=== PATIENT | female | born 1940 | race Caucasian/White ===

== ENCOUNTER → 2017-08-10 11:06 | Outpatient (CLI) | payer MEDICARE, MEDICAID, SELFPAY ==
--- NOTE | 2017-08-10 11:09 | DI.RAD.S_ITS ---
PROCEDURE: XR CERVICAL SPINE 2V OR 3V INDICATIONS: Screening TECHNIQUE: 3 view(s) of the cervical spine were acquired. COMPARISON: None. FINDINGS: Bones: No fractures or dislocations to the C7 level. The lateral masses of C1 appear intact on the odontoid view. No suspicious bony lesions. Disc narrowing and mild spondylosis C5-6. Soft tissues: No prevertebral soft tissue swelling. Dense calcifications over the carotid bifurcations bilaterally. IMPRESSION: 1. No fracture or malalignment. 2. Disc degeneration C5-6. 3. Carotid atherosclerosis Dictated by: Luciano Castellanos M.D. on 08/10/2017 at 12:47 Approved by: Luciano Castellanos M.D. on 08/10/2017 at 12:49
--- NOTE | 2017-08-10 11:09 | DI.RAD.S_ITS ---
PROCEDURE: XR LUMBAR SPINE 2-3V INDICATIONS: Screening TECHNIQUE: 3 views of the lumbar spine were acquired. COMPARISON: [facility], , -SPINE 2-3 VIEWS, 09/05/2010, 10:22. FINDINGS: Bones: 5 [id number] vertebrae are present. There is mild levoconvex curvature with slight retrolisthesis at L1-2 and L2-3. No vertebral body compression fractures. No suspicious bony lesions. Soft tissues: Overlying bowel gas pattern is normal. Extensive aorto iliac calcifications with right iliofemoral stent. IMPRESSION: 1. No acute osseous abnormality. 2. Atherosclerosis Dictated by: Luciano Castellanos M.D. on 08/10/2017 at 12:49 Approved by: Luciano Castellanos M.D. on 08/10/2017 at 12:52
== END ==
PROVIDERS: PCP Physician Assistant; Visit Provider Physician Assistant
DX: M50.30 Other cervical disc degeneration, unspecified cervical region (principal); M54.2 Cervicalgia; M54.5 Low back pain; E03.9 Hypothyroidism, unspecified; I65.29 Occlusion and stenosis of unspecified carotid artery
CPT/HCPCS: 36415; 72040; 72100; 84443

== ENCOUNTER → 2017-08-24 08:46 | Outpatient (CLI) | payer MEDICARE, MEDICAID, SELFPAY ==
--- NOTE | 2017-08-24 | DI.MRI.S_ITS ---
PROCEDURE: MR ABDOMEN WO/W CON INDICATIONS: H/O HEPATO CELLULAR CANCER. Prior reported a solitary 2 cm diameter hepatoma right posterior hepatic segment, treated with RF ablation 06/20/16. TECHNIQUE: Coronal HASTE, axial 2D FLASH in- and [id number]; axial breath-hold T2 FSE. Dynamic axial VIBE during the administration of contrast; post-contrast coronal VIBE or 2D FLASH with fat saturation from the hepatic dome to the iliac crests. Optional diffusion weighted imaging and ADC may be performed. COMPARISON: [facility], US, ABDOMEN COMPLETE, 11/03/2016, 10:40. [facility], CT, THORAX WITH CONTRAST, 11/24/2016, 15:23. Merged With [facility], US, US GUIDE FOR RFA, 06/20/2016, 10:18. Merged With [facility], CT, CT ABD W CON, 06/20/2016, 14:25. Merged With [facility], XA, RF ABLATION OF PARENCHYMA, 06/20/2016, 8:00. [facility], US, ABDOMEN LIMITED, 04/14/2016, 10:31. [facility], CT, ABDOMEN/PELVIS WITH CONTRAST, 06/18/2015, 13:31. [facility], MR, ABDOMEN W&WO CONTRAST, 03/02/2017, 12:04. [facility], MR, ABDOMEN W&WO CONTRAST, 11/24/2016, 16:02. [facility], MR, ABDOMEN W&WO CONTRAST, 05/12/2016, 10:55. FINDINGS: Image quality: Excellent. Lung bases: No basal pleural effusions. Heart size is normal. Solid organs: Liver is mildly enlarged in size and heterogeneous in enhancement, with a craniocaudad liver length about 20.3 cm, and the splenic length is up to 13.7 cm.. The liver again demonstrates moderate heterogeneity and mild capsular nodular margination, consistent with underlying cirrhosis. The patient has previously undergone a radiofrequency ablation of a reported hepatoma at the right posterior hepatic segment, middle third. This is again seen, has not enlarged in the post-procedural size, and demonstrates a persistent capsular rim of enhancement on delayed postcontrast imaging. It enhances early in the arterial phase of contrast enhancement. Note is made of a subtle focus of elevated diffusion signal in this area, and a more evident diffusion signal focus is present at the left lateral hepatic segment, which shows a focal rounded 1.3 cm lesion on vibe precontrast pulse sequence which shows a small degree of contrast enhancement on the early phase of post contrast imaging. Gallbladder is stable in size over time. Biliary system is non dilated. Pancreas is normal in morphology. Spleen is normal in size and enhancement. No adrenal nodules. Both kidneys demonstrate normal size and enhancement, without hydronephrosis. Nodes and vessels: No retroperitoneal or mesenteric adenopathy by size criteria. Aorta and inferior vena cava are stable in size, with the distal abdominal aortic aneurysm measuring up to 4.3 cm AP by 4.7 cm transverse as was previously the case 03/02/17. Bowel and peritoneum: Unenhanced bowel loops are normal in caliber. No free fluid. Bones and soft tissues: No ventral hernias. Bone marrow is normal in overall signal. IMPRESSION: 1. The patient has undergone radiofrequency ablation of a small hepatoma located within the right posterior hepatic segment at the middle third of the liver axial level. This shows persistent peripheral rim enhancement (capsular enhancement) consistent with residual viable but quiecent neoplasm. 2. At the same axial level more anteriorly a second focal liver lesion is present within the left lateral hepatic segment, leftward from the left portal vein, mid liver level. This shows a small degree of peripheral discontinuous contrast enhancement which is mildly heterogeneous. It has elevated T2 and diffusion signal, and warrants continued followup attention on subsequent imaging to assist in differentiating between early hepatoma versus small hemangioma. A focal lesion in this area has not been identified by ultrasound and the imaging characteristics of this structure on prior CT and MR scanning does not allow definitive diagnosis of hemangioma. 3. Fusiform distal abdominal aortic aneurysm is again seen, and measures up to 4.3 x 4.7 cm in maximal axial dimension. Again noted is hepatosplenomegaly with mild nodular capsular margination consistent with cirrhosis. Dictated by: Cirilo Bean M.D. on 08/24/2017 at 14:34 Approved by: Cirilo Bean M.D. on 08/24/2017 at 15:10
[2017-08-24 09:15] LABS: Add Manual Diff / Slide Review NO; Basophils Percent Auto 0.7 % (0-2); Eosinophils Percent Auto 1.3 % (2-4); Hematocrit 41.7 % (36-46); Lymphocytes Percent Auto 19.6 % (25-40); Mean Corpuscular HGB Conc 33.6 % (30-36); Mean Corpuscular Hemoglobin 30.9 PG (26-34); Mean Corpuscular Volume 92.1 fL (80-100); Monocytes Percent Auto 7.3 % (3-14); Neutrophils Absolute Auto 2100 /uL (3000-5900); Neutrophils Percent Auto 71.1 % (50-75); Platelet Count 117 X10^3/uL (150-400); Red Blood Cell Count 4.52 X10^6/uL (4.0-5.2); Red Cell Distribution Width 14.2 % (11.6-14.8)
[2017-08-24 09:31] LABS: Alanine Aminotransferase 44 IU/L (9-52); Alkaline Phosphatase 90 U/L (38-126); Aspartate Aminotransferase 63 IU/L (14-36); BUN Creatinine Ratio 21.1 (6-22); Bilirubin Total 0.8 mg/dL (0.2-1.3); Blood Urea Nitrogen 19 mg/dL (7-17); Calcium 9.5 mg/dL (8.4-10.2); Carbon Dioxide 28 mmol/L (22-32); Chloride 103 mmol/L (98-107); Estimated Glomerular Filt Rate > 60.0 mL/min (>60); Globulin 4.1 g/dL (1.7-4.1); Glucose 96 mg/dL (80-110); HEMOLYSIS < 15 (0-50); Sodium 140 mmol/L (137-145); Total Protein 8.1 g/dL (6.3-8.2)
[2017-08-24 10:20] LABS: Carcinoembryonic Antigen 2.2 ng/mL (0.1-3.0)
== END ==
PROVIDERS: PCP Physician Assistant; Visit Provider Nurse Practitioner Gerontology
DX: C22.0 Liver cell carcinoma (principal)
CPT/HCPCS: 36415; 74183; 80053; 82105; 82378; 85025; A9579

== ENCOUNTER → 2017-09-07 14:04 | Outpatient (CLI) | payer MEDICARE, MEDICAID, SELFPAY ==
--- NOTE | 2017-09-07 14:06 | DI.MG.S_ITS ---
BILATERAL DIGITAL SCREENING MAMMOGRAM 3D/2D WITH CAD: 09/07/2017 CLINICAL: Routine screening. Family history of breast cancer. Baseline by default. No prior exams were available for comparison. The tissue of both breasts is extremely dense, which lowers the sensitivity of mammography. Current study was also evaluated with a Computer Aided Detection (CAD) system. No significant masses, calcifications, or other findings are seen in either breast. IMPRESSION: NEGATIVE There is no mammographic evidence of malignancy. A 1 year screening mammogram is recommended. This exam was interpreted at Station ID: [id number]. NOTE: For mammograms, a report in lay terms will be sent to the patient. Approximately 15% of breast malignancies will not be visualized mammographically. In the management of a palpable breast mass, a negative mammogram must not discourage biopsy of a clinically suspicious lesion. Electronically Signed By: Darius alvarez/zeny:09/08/2017 17:54:00 letter sent: Normal Exam ACR BI-RADS Category 1: Negative [id number]
== END ==
PROVIDERS: PCP Physician Assistant; Visit Provider Physician Assistant
DX: Z12.31 Encounter for screening mammogram for malignant neoplasm of breast (principal); Z80.3 Family history of malignant neoplasm of breast
CPT/HCPCS: 77063; 77067

== ENCOUNTER 2017-11-12 20:39 | Emergency (ER) | payer MEDICARE, MEDICAID, SELFPAY ==
[2017-11-12 20:33] VITALS: BP 124/69; PULSE 67; RESP 18; TEMP 36.8; O2SAT 96; BMI 20.2
--- NOTE | 2017-11-12 20:44 | ED.DIZZY ---
HPI - Dizziness General Chief Complaint: Syncope Stated Complaint: near syncope Time Seen by Provider: 11/12/17 20:44 Source: patient and EMS Mode of arrival: EMS Limitations: no limitations History of Present Illness HPI Narrative: Patient is a 77-year-old female who presents with home lightheadedness. She does have a history of liver carcinoma. She says she was in her kitchen when she got very lightheaded and dizzy she sat down on the ground before she passed out. She did not actually pass out. This has happened to her many times in the past. She feels like she has ringing in her ears. She has no chest pain or heart palpitations. She does drink tea daily she denies any alcohol. The just finished dinner. She has no extremity weakness or difficulty speaking. She does complain of bilateral numbness in her hands which is noted in her last visit 09/17/2017 with her primary. She overall is feeling better after she is getting fluids. EMS noted that initial pressure was 95 and when she was sat up systolic went to the 60s. Related Data Home Medications Medication Instructions Recorded Confirmed ipratropium-albuterol 3 ml INH QIDP PRN #0 11/03/16 09/17/17 clopidogrel 75 mg tablet 75 mg PO DAILY 08/05/17 09/17/17 Disabled Parking Permit 1 dev 09/15/17 09/17/17 Incontinence Supplies 1 ea DIRECTED 09/15/17 09/17/17 Previous Rx's Medication Instructions Recorded albuterol sulfate [Ventolin HFA] 2 puff INH Q4-6 PRN #1 inh 06/30/17 gabapentin 400 mg capsule 400 mg PO TID #90 cap 06/30/17 levothyroxine 75 mcg tablet 75 mcg PO QAM #30 tab 06/30/17 metoprolol tartrate 25 mg tablet 12.5 mg PO BID #30 tab 06/30/17 lorazepam 0.5 mg tablet 0.5 mg PO Q8HP PRN #60 tab 07/27/17 mupirocin 2 % topical ointment 1 applictn TOPICAL TID #22 gram 08/05/17 Allergies Allergy/AdvReac Type Severity Reaction Status Date / Time codeine [CODEINE] AdvReac Mild IT MADE Unverified 09/17/17 09:50 ME SICK TO MY STOMACH Review of Systems Review of Systems All systems reviewed & are unremarkable except as noted in HPI and below Constitutional Denies chills, Denies fever(s), Denies lethargy and Denies weakness Cardiovascular Denies chest pain, Denies irregular heart rhythm, Reports lightheadedness, Denies palpitations, Denies dyspnea, Denies dyspnea on exertion and Denies orthopnea Respiratory Denies cough, Denies dyspnea, Denies dyspnea on exertion and Denies wheezing Gastrointestinal Gastrointestinal: Denies abdominal pain, Denies change in bowel habits, Denies diarrhea, Denies nausea and Denies vomiting Integumentary/Breasts Denies pruritus, Denies erythema, Denies rash and Denies wounds Neurologic Denies weakness Endocrine Denies palpitations Allergic/Immunologic Denies wheezing PFSH Medical History Hepatocellular carcinoma (Chronic) Abdominal aortic aneurysm (AAA) without rupture (Chronic 10/27/16) Chronic obstructive pulmonary disease (Chronic 07/04/10) Essential hypertension (Chronic 07/04/10) Hyperlipidemia (Chronic 07/04/10) Chronic hepatitis C without hepatic coma (Chronic) Cigarette smoker (Chronic) Aortic valve disorder (Chronic 07/04/10) Ascites (Resolved) Pancreatitis (Resolved) Depression (Chronic 07/04/10) Tubular adenoma of colon (Resolved 05/19/16) 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 Brother No problems noted. Brother No problems noted. Father No problems noted. Mother No problems noted. Social History Smoking Status: Current every day smoker second hand exposure: Yes alcohol intake: former substance use type: marijuana (I smoke 3 times a day.) Exam Initial Vital Signs Initial Vital Signs: Vital Signs Temperature 98.3 F 11/12/17 20:33 Pulse Rate 67 11/12/17 20:33 Respiratory Rate 18 11/12/17 20:33 Blood Pressure 124/69 11/12/17 20:33 Pulse Oximetry 96 11/12/17 20:33 GENERAL: Alert female appears older than stated age alert oriented x3 HEENT: Head atraumatic,EOMI, pupils reactive, face symmetric, CARDIOVASCULAR: Regular rate and rhythm without murmurs, rubs or gallops. RESPIRATORY: Breath sounds equal bilaterally, no wheezes rales or rhonchi. ABDOMEN: Soft, nontender. Normoactive bowel sounds all 4 quadrants. No guarding or rebound. EXTREMITIES: Normal range of motion, no clubbing or edema. Neurovascularly intact NEUROLOGICAL: Alert and oriented x4.Normal gait and speech. Cranial nerves II through XII grossly intact. Good wnazkd-vb-lase, good [id number]-rlrt, strength equal bilaterally, no dysarthria or aphasia, sensation in tact to soft touch bilaterally, no visual changes, no facial droop SKIN: Warm, dry, no laceration, no petechiae, no rashes or lesions. Course Orders Ordered: ED Orders 11/12/17 20:30 Complete Blood Count AUTO DIFF Stat Comprehensive Metabolic Panel Stat Prothrombin Time INR Stat Troponin & CK Cardiac Panel Stat 11/12/17 20:48 EKG-12 Lead Stat 11/12/17 20:51 CT head/brain wo con Stat Vital Signs - 8 hr 11/12/17 20:33 11/12/17 22:23 11/12/17 22:24 Temperature 98.3 F Pulse Rate 67 70 72 Respiratory Rate 18 18 16 Blood Pressure 124/69 145/84 H Blood Pressure [Left Arm] 145/84 H Pulse Oximetry 96 95 100 MDM - Dizziness Medical Records Attestation: I reviewed the patient's medical records. Lab Data Attestation: I reviewed the patient's lab results. Result diagrams: 11/12/17 20:30 11/12/17 20:30 Lab Results 11/12/17 11/12/17 11/12/17 Range/Units 20:30 20:30 20:30 WBC 4.1 L (4.5-11.0) X10^3/uL RBC 4.31 (4.0-5.2) X10^6/uL Hgb 13.4 (12.0-16.0) g/dL Hct 39.3 (36-46) % MCV 91.2 (80-100) fL MCH 31.1 (26-34) PG MCHC 34.1 (30-36) % RDW 15.2 H (11.6-14.8) % Plt Count 117 L (150-400) X10^3/uL Neut % (Auto) 57.1 (50-75) % Lymph % (Auto) 33.5 (25-40) % Trinity % (Auto) 7.2 (3-14) % Eos % (Auto) 0.8 L (2-4) % Baso % (Auto) 1.4 (0-2) % Neut # (Auto) 2300 L (7283-6860) /uL PT 14.2 H (10.1-12.7) SECONDS INR 1.3 (0.9-1.3) Sodium 141 (137-145) mmol/L Potassium 4.0 (3.4-5.1) mmol/L Chloride 101 (98-107) mmol/L Carbon Dioxide 32 (22-32) mmol/L BUN 17 (7-17) mg/dL Creatinine 0.80 (0.52-1.04) mg/dL Estimated GFR > 60.0 (>60) mL/min BUN/Creatinine Ratio 21.3 (6-22) Glucose 111 H (80-110) mg/dL Calcium 9.1 (8.4-10.2) mg/dL Total Bilirubin 1.0 (0.2-1.3) mg/dL AST 153 H (14-36) IU/L ALT 98 H (9-52) IU/L Alkaline Phosphatase 99 (38-126) U/L Total Creatine Kinase 25 L (30-135) U/L Troponin I < 0.012 (0.01-0.034) ng/mL Total Protein 7.2 (6.3-8.2) g/dL Albumin 3.3 L (3.5-5.0) g/dL Globulin 3.9 (1.7-4.1) g/dL Albumin/Globulin Ratio 0.8 L (1.0-2.8) Imaging Data CT scan - head: Radiologist's impression: PROCEDURE: CT HEAD/BRAIN WO CON INDICATIONS: near syncope hx of lung and liver cancer TECHNIQUE: Noncontrast 4.5 mm thick angled axial sections acquired from the foramen magnum to the vertex, with coronal and sagittal reformats. For radiation dose reduction, the following was used: automated exposure control, adjustment of mA and/or kV according to patient size. COMPARISON: [facility], , STROKE PROTOCOL, 04/11/2013, 17:03. FINDINGS: Image quality: Excellent. CSF spaces: Basal cisterns are patent. No extra-axial fluid collections. The ventricles are symmetric in size and shape. Brain: No intracranial bleeds or masses. There is cerebral volume loss for age, with resultant ventricular and sulcal prominence. There are periventricular and deep white matter chronic small vessel ischemic changes. There is intracranial internal carotid artery atherosclerosis. Skull and face: Calvarium and visualized facial bones appear intact, without suspicious lesions. Sinuses: Visualized sinuses and mastoids are clear. IMPRESSION: No acute intracranial process is seen. No masses or mass effect can be seen. Note is made of age-appropriate brain parenchymal volume loss and chronic small vessel ischemic changes. Dictated by: Eliu Isaac M.D. on 11/12/2017 at 21:28 ECG Data Attestation: I personally reviewed and interpreted this ECG as follows: Prior ECG tracings: available for review Interpretation: Normal sinus rhythm rate [address] changes T-wave inversion noted in V2 this is similar to previous EKG in 2016 MDM Narrative Medical decision making narrative: Abdominal MRI from 08/24/2017 does show a stable all abdominal aortic aneurysm measuring 4.3 x 4.7 cm, I do not suspect that this is her problem today. She has no abdominal pain. She is ambulatory in the ED after Litrer of fluid she overall is feeling better. Blood work CT an EKG within normal limits. Discharge Plan Departure Patient Disposition: Home Clinical Impression: Near syncope Discharge Date/Time: 11/12/17 22:25 Interventions: ED Discharge Assessment Last Done: 11/12/17 22:24 Instructions: DI for Syncope in Adults (Fainting) Activity Restrictions/Additional Instructions: *You have been diagnosed with lightheadedness *What to do: Blood work and CT scan are within normal limits. Likely due from dehydration. Tea does have caffeine and can cause dehydration *Continue to take medications as directed *Follow up with your primary care provider in 2-3 days *Return to ER if you should have worsening or recurrent episodes, chest pain heart palpitations, dizziness, vomiting, weak or any new, worsening or concerning symptoms Prescriptions: No Action clopidogrel 75 mg tablet 75 mg PO DAILY RF: 0 mupirocin 2 % ointment 1 applictn Topical TID Qty: 22 RF: 1 ipratropium-albuterol 3 ML solution for nebulization 3 ml INH QIDP PRN (Reason: Allergic Symptoms) Qty: 0 RF: 0 levothyroxine [Synthroid] 75 mcg tablet 75 mcg PO QAM Qty: 30 RF: 3 metoprolol tartrate 25 mg tablet 12.5 mg PO BID Qty: 30 RF: 3 gabapentin [Neurontin] 400 mg capsule 400 mg PO TID Qty: 90 RF: 3 albuterol sulfate [Ventolin HFA] 90 mcg/actuation HFA aerosol inhaler 2 puff INH Q4-6 PRN Qty: 1 RF: 3 lorazepam 0.5 mg tablet 0.5 mg PO Q8HP PRN (Reason: anxiety) Qty: 60 RF: 3 Disabled Parking Permit 1 dev RF: 0 Incontinence Supplies 1 ea DIRECTED RF: 0 Referrals: Nidia Sánchez PA-C [Primary Care Provider] -
--- NOTE | 2017-11-12 20:51 | DI.CT.S_ITS ---
PROCEDURE: CT HEAD/BRAIN WO CON INDICATIONS: near syncope hx of lung and liver cancer TECHNIQUE: Noncontrast 4.5 mm thick angled axial sections acquired from the foramen magnum to the vertex, with coronal and sagittal reformats. For radiation dose reduction, the following was used: automated exposure control, adjustment of mA and/or kV according to patient size. COMPARISON: [facility], , STROKE PROTOCOL, 04/11/2013, 17:03. FINDINGS: Image quality: Excellent. CSF spaces: Basal cisterns are patent. No extra-axial fluid collections. The ventricles are symmetric in size and shape. Brain: No intracranial bleeds or masses. There is cerebral volume loss for age, with resultant ventricular and sulcal prominence. There are periventricular and deep white matter chronic small vessel ischemic changes. There is intracranial internal carotid artery atherosclerosis. Skull and face: Calvarium and visualized facial bones appear intact, without suspicious lesions. Sinuses: Visualized sinuses and mastoids are clear. IMPRESSION: No acute intracranial process is seen. No masses or mass effect can be seen. Note is made of age-appropriate brain parenchymal volume loss and chronic small vessel ischemic changes. Dictated by: Eliu Isaac M.D. on 11/12/2017 at 21:28 Approved by: Eliu Isaac M.D. on 11/12/2017 at 21:30
[2017-11-12 21:00] LABS: Add Manual Diff / Slide Review NO; Basophils Percent Auto 1.4 % (0-2); Eosinophils Percent Auto 0.8 % (2-4); Hematocrit 39.3 % (36-46); Hemoglobin 13.4 g/dL (12.0-16.0); Lymphocytes Percent Auto 33.5 % (25-40); Mean Corpuscular HGB Conc 34.1 % (30-36); Mean Corpuscular Hemoglobin 31.1 PG (26-34); Mean Corpuscular Volume 91.2 fL (80-100); Monocytes Percent Auto 7.2 % (3-14); Neutrophils Absolute Auto 2300 /uL (3000-5900); Neutrophils Percent Auto 57.1 % (50-75); Platelet Count 117 X10^3/uL (150-400); Red Blood Cell Count 4.31 X10^6/uL (4.0-5.2); Red Cell Distribution Width 15.2 % (11.6-14.8); White Blood Cell Count 4.1 X10^3/uL (4.5-11.0)
[2017-11-12 21:01] LABS: INR 1.3 (0.9-1.3); Prothrombin Time 14.2 SECONDS (10.1-12.7)
[2017-11-12 21:04] LABS: Alanine Aminotransferase 98 IU/L (9-52); Albumin 3.3 g/dL (3.5-5.0); Albumin Globulin Ratio 0.8 (1.0-2.8); Alkaline Phosphatase 99 U/L (38-126); Aspartate Aminotransferase 153 IU/L (14-36); BUN Creatinine Ratio 21.3 (6-22); Blood Urea Nitrogen 17 mg/dL (7-17); Calcium 9.1 mg/dL (8.4-10.2); Carbon Dioxide 32 mmol/L (22-32); Chloride 101 mmol/L (98-107); Creatine Kinase 25 U/L (30-135); Estimated Glomerular Filt Rate > 60.0 mL/min (>60); Globulin 3.9 g/dL (1.7-4.1); Glucose 111 mg/dL (80-110); HEMOLYSIS 33 (0-50); Sodium 141 mmol/L (137-145); Total Protein 7.2 g/dL (6.3-8.2)
[2017-11-12 21:17] LABS: Troponin I < 0.012 ng/mL (0.01-0.034)
[2017-11-12 22:23] VITALS: BP 145/84; PULSE 70; RESP 18; O2SAT 95
[2017-11-12 22:24] VITALS: BP 145/84; PULSE 72; RESP 16; O2SAT 100
== END 2017-11-12 22:25 | disposition home or self-care (01) ==
PROVIDERS: Emergency Provider Emergency Medicine; Family Provider Physician Assistant; PCP Physician Assistant
DX: R55 Syncope and collapse (principal)
CPT/HCPCS: 70450; 80053; 82550; 82553; 84484; 85025; 85610; 93005; 99282; 99285

== ENCOUNTER → 2017-11-23 10:17 | Outpatient (CLI) | payer MEDICARE, MEDICAID, SELFPAY ==
[2017-11-23 10:46] LABS: Add Manual Diff / Slide Review NO; Eosinophils Percent Auto 0.8 % (2-4); Hematocrit 42.1 % (36-46); Hemoglobin 14.4 g/dL (12.0-16.0); Lymphocytes Percent Auto 18.5 % (25-40); Mean Corpuscular HGB Conc 34.3 % (30-36); Mean Corpuscular Hemoglobin 30.9 PG (26-34); Mean Corpuscular Volume 90.1 fL (80-100); Monocytes Percent Auto 7.4 % (3-14); Neutrophils Absolute Auto 2900 /uL (3000-5900); Neutrophils Percent Auto 72.3 % (50-75); Platelet Count 111 X10^3/uL (150-400); Red Blood Cell Count 4.67 X10^6/uL (4.0-5.2); Red Cell Distribution Width 15.4 % (11.6-14.8)
[2017-11-23 11:05] LABS: Alanine Aminotransferase 88 IU/L (9-52); Albumin 3.9 g/dL (3.5-5.0); Albumin Globulin Ratio 0.9 (1.0-2.8); Alkaline Phosphatase 115 U/L (38-126); Aspartate Aminotransferase 156 IU/L (14-36); BUN Creatinine Ratio 27.5 (6-22); Bilirubin Total 1.5 mg/dL (0.2-1.3); Blood Urea Nitrogen 22 mg/dL (7-17); Calcium 9.5 mg/dL (8.4-10.2); Carbon Dioxide 29 mmol/L (22-32); Chloride 102 mmol/L (98-107); Estimated Glomerular Filt Rate > 60.0 mL/min (>60); Globulin 4.3 g/dL (1.7-4.1); Glucose 99 mg/dL (80-110); HEMOLYSIS 16 (0-50); Sodium 140 mmol/L (137-145); Total Protein 8.2 g/dL (6.3-8.2)
[2017-11-25 15:40] LABS: Cancer (Carbohydrate) Ag 19-9 49 U/mL (< 34)
== END ==
PROVIDERS: Internal Medicine Hematology & Oncology; Family Provider Physician Assistant; PCP Physician Assistant; Visit Provider Nurse Practitioner Gerontology
DX: C22.0 Liver cell carcinoma (principal)
CPT/HCPCS: 36415; 80053; 82105; 85025; 86301

== ENCOUNTER → 2017-12-09 08:03 | Outpatient (CLI) | payer MEDICARE, MEDICAID, SELFPAY ==
--- NOTE | 2017-12-09 08:15 | DI.MRI.S_ITS ---
PROCEDURE: MR ABDOMEN WO/W CON INDICATIONS: LIVER CANCER TECHNIQUE: Coronal HASTE, axial 2D FLASH in- and [id number]; axial breath-hold T2 FSE. Dynamic axial VIBE during the administration of contrast; post-contrast coronal VIBE or 2D FLASH with fat saturation from the hepatic dome to the iliac crests. Optional diffusion weighted imaging and ADC may be performed. COMPARISON: [facility], MR, ABDOMEN W&WO CONTRAST, 03/02/2017, 12:04. [facility], CT, ABDOMEN W AND WO PELVIS W, 03/23/2009, 10:12. [facility], CT, CT ABD W CON, 06/20/2016, 14:25. [facility], MR, MR ABDOMEN WO/W CON, 08/24/2017, 9:48. FINDINGS: Image quality: Excellent. Lung bases: No basal pleural effusions. Heart size is normal. Solid organs: The liver demonstrates overall homogeneous enhancement. A bilobed lesion is redemonstrated with hepatic segment VII. The superior aspect of this lesion is hypointense on all sequences. The inferior aspect of this lesion demonstrates hypervascularity on the arterial phase study and. The extent of washout is less conspicuous than on the study dated 08/24/17. Overall this lesion measures 2.1 cm in the CC dimension and 1.3 x 1.3 cm in the axial plane. This lesion is similar in size the study dated 08/24/17. A small focus of arterial phase enhancement is present along the posterior inferior right capsule (series 9, image 67). This was likely present on the study dated 03/02/17 and the study dated 08/24/17; however is more conspicuous on the current study. There is no definite washout associated with this lesion. Additionally, there are multiple regions of washout on the delayed phase study, none of which correspond with hypervascular foci suggesting the presence of multiple regenerating nodules in the setting of cirrhotic transformation. The questionable focal region of enhancement within hepatic segment AJAY described on the study dated 08/24/17 again demonstrates mild hypervascularity (series 9, image 30-32) trace increased restricted diffusion (series 13, image 7-9), and persistent enhancement on the delayed phase study (series 12, images 26-30). No findings to suggest late phase washout on the current study. Gallbladder is unremarkable. Biliary system is non dilated. Pancreas is normal in morphology. The spleen is normal in enhancement and measures 13.6 cm in length. No adrenal nodules. Both kidneys demonstrate normal size and enhancement, without hydronephrosis. Nodes and vessels: No retroperitoneal or mesenteric adenopathy by size criteria. Fusiform dilatation of the abdominal aorta to 4.0 cm in axial diameter is redemonstrated. Bowel and peritoneum: Unenhanced bowel loops are normal in caliber. No free fluid. Bones and soft tissues: No ventral hernias. Bone marrow is normal in overall signal. IMPRESSION: 1. Stable appearance of a bilobed lesion within hepatic segment VII consistent with hepatocellular carcinoma previously treated by radiofrequency ablation. Of note, there is persistent enhancement on the arterial phase study in washout on the delayed phase study suggesting the presence of residual disease. 2. No new foci to suggest new hepatoma. 3. Splenomegaly, as before. 4. Stable fusiform aneurysm of the abdominal aorta. Dictated by: Karen Emery M.D. on 12/09/2017 at 10:27 Approved by: Karen Emery M.D. on 12/09/2017 at 11:19
--- NOTE | 2017-12-09 08:15 | DI.US.S_ITS ---
PROCEDURE: US ABDOMEN LIMITED INDICATIONS: LIVER CANCER TECHNIQUE: Real-time focused scanning was performed of the abdomen, with image documentation. COMPARISON: [facility], MR, MR ABDOMEN WO/W CON, 08/24/2017, 9:48. [facility], MR, MR ABDOMEN WO/W CON, 12/09/2017, 8:57. [facility], US, ABDOMEN LIMITED, 04/14/2016, 10:31. FINDINGS: The liver is enlarged with coarsened echotexture. In the anterior right lobe, there is a 14 x 11 x 11 mm focus of hyperechogenicity previously measuring 10 x 12 x 12 mm. Within the posterior lobe there is an 8 x 8 x 7 mm focus heteroechogenicity, appearing new compared to prior ultrasound exam. However, this may have been present on previous abdomen MRI of 08/24/17 although poorly visualized. Previously identified enhancing mass corresponding to previously known hepatoma is not visualized. IMPRESSION: 1. Hyperechoic foci as above suspicious for hemangiomas. Previous lesion appearing to be related to hepatoma is not visualized. Dictated by: Marleni Weeks M.D. on 12/09/2017 at 11:05 Approved by: Marleni Weeks M.D. on 12/09/2017 at 11:11
== END ==
PROVIDERS: PCP Physician Assistant; Visit Provider Nurse Practitioner Gerontology
DX: C22.9 Malignant neoplasm of liver, not specified as primary or secondary (principal); B18.2 Chronic viral hepatitis C; C22.0 Liver cell carcinoma
CPT/HCPCS: 74183; 76705

== ENCOUNTER → 2018-02-01 12:04 | Outpatient (CLI) | payer MEDICARE, MEDICAID, SELFPAY ==
--- NOTE | 2018-02-01 12:08 | DI.MRI.S_ITS ---
PROCEDURE: MR CERVICAL SPINE WO CON INDICATIONS: Numbness bilateral hands TECHNIQUE: Noncontrast sagittal T1 spin echo and T2 fast spin echo, sagittal STIR, foraminal oblique sagittal T2 fast spin echo, and axial gradient echo or T2 fast spin echo through the cervical spine. COMPARISON: None. FINDINGS: Image quality: Limited by patient motion artifact. Alignment and Curvature: There is normal bony alignment. Bone Marrow: Marrow demonstrates normal overall signal. Spinal Cord: Visualized spinal cord has normal size. No definite abnormal signal identified within the cervical spinal cord are within limitations related to patient motion artifact. No cerebellar tonsillar herniation. Paraspinous Soft Tissues: No paravertebral masses. Prevertebral soft tissues are normal in thickness. C2-C3: Loss of disc signal. No central stenosis. No neural foraminal narrowing. No neural impingement. C3-C4: Loss of disc signal. Minimal, diffuse disc bulge. No central stenosis. No neural foraminal narrowing. No neural impingement. C4-C5: Loss of disc signal. Mild, diffuse disc bulge. Mild left facet hypertrophy. No central stenosis. No neural foraminal narrowing. No neural impingement. C5-C6: Loss of disc signal and height. Mild, diffuse disc bulge. Mild bilateral facet hypertrophy. Mild right uncovertebral joint hypertrophy. Mild narrowing of the central canal. Severe right and moderate left neural foraminal narrowing with flattening deformity exiting right C6 nerve root. C6-C7: Loss of disc signal. Mild, diffuse disc bulge. Mild bilateral facet hypertrophy. Mild narrowing of the central canal. Mild left uncovertebral joint hypertrophy. Mild right and [id number] left neural foraminal narrowing slight flattening deformity exiting left C7 nerve root. C7-T1: Normal appearance. IMPRESSION: 1. Multilevel degenerative disc disease. 2. Multilevel facet arthropathy and uncovertebral joint hypertrophy. 3. Mild C5-C6 and C6-C7 central canal narrowing. 4. Severe right and moderate left C5-C6 neural foraminal narrowing. Mild right and moderate to severe left C6-C7 neural foraminal narrowing. 5. Slight flattening deformity exiting right C6 nerve root and the exiting left C7 nerve root secondary to neural foraminal narrowing. Please correlate with clinical data. 6. No definite abnormal signal identified in the cervical spinal cord, however abnormal spinal cord signal is difficult to exclude secondary to artifact related to patient motion. Dictated by: Sonia Lucas MD, PhD on 02/01/2018 at 17:31 Approved by: Sonia Lucas MD, PhD on 02/01/2018 at 17:38
== END ==
PROVIDERS: PCP Physician Assistant; Visit Provider Physician Assistant
DX: R20.0 Anesthesia of skin (principal); M50.321 Other cervical disc degeneration at C4-C5 level; M47.812 Spondylosis without myelopathy or radiculopathy, cervical region; M48.02 Spinal stenosis, cervical region; M62.81 Muscle weakness (generalized); R29.898 Other symptoms and signs involving the musculoskeletal system; R20.2 Paresthesia of skin
CPT/HCPCS: 72141

== ENCOUNTER → 2018-03-08 11:11 | Outpatient (CLI) | payer MEDICARE, MEDICAID, SELFPAY ==
--- NOTE | 2018-03-08 12:03 | DI.CT.S_ITS ---
PROCEDURE: CT CHEST W CON INDICATIONS: surveillance TECHNIQUE: After the administration of intravenous contrast, 5 mm thick sections acquired from the pulmonary apices to the posterior costophrenic angles. 7 mm thick coronal and sagittal MIP reformats were acquired. For radiation dose reduction, the following was used: automated exposure control, adjustment of mA and/or kV according to patient size. COMPARISON: [facility], CT, CHEST/ABD/PEL WITH CONTRAST, 03/24/2016, 14:12. [facility], CT, PE STUDY (CTA CHEST), 11/07/2010, 10:26. [facility], CT, THORAX WITH CONTRAST, 11/24/2016, 15:23. [facility], CT, CT SOFT TISSUE NECK W CON, 03/08/2018, 11:40. [facility], MR, MR ABDOMEN WO/W CON, 12/09/2017, 8:57. [facility], US, US ABDOMEN LIMITED, 12/09/2017, 8:20. FINDINGS: Image quality: Excellent. Lungs and pleura: No acute air space opacities. Emphysematous changes are present bilaterally, and an area of posterior alveolar scarring at the inferior margin of the right upper lobe abutting the posterior pleural surface is stable over time from November 2016. Additionally, lungs and pleural scarring at each apex, right greater than left, is stable over time. More inferiorly at the posterior segment right lower lobe near the diaphragm to adjacent small subtle solid foci of radiodensity are again seen, stable over time, and best visualized on the current examination on series 3 image 50. This also is virtually identical to the appearance present 11/24/16. No pleural effusions or pneumothorax. Central and peripheral airways are patent and normal in caliber. Mediastinum: Heart size is normal. No pericardial effusion. No mediastinal or hilar adenopathy by size criteria. Thoracic aorta and central pulmonary arteries are normal in size. Esophagus is normal in caliber. No hiatal hernia. Bones and chest wall: No suspicious bony lesions. No vertebral body compression fractures. No axillary or supraclavicular adenopathy by size criteria. Thyroid gland appears normal where well visualized. Abdomen: Visualized upper abdominal solid organs appear stable over time with reference to the most recent abdominal imaging from MR scanning 12/09/17. Reportedly a hepatic mass has been treated with radiofrequency ablation in the posterior right hepatic segment, a in an area showing a subtle rim of enhancement, presumably residual capsular enhancement, best seen currently on series 2 image 60. Considering differences in technique this has not appreciably changed in size, measuring up to 1.4 cm.. Upper abdominal bowel loops are normal in caliber. IMPRESSION: 1. Emphysematous change is stable over time through the lung parenchyma bilaterally. Presumed long-standing smoking history. 2. Stable appearance of posterior right upper lobe alveolar scarring and also stable appearance of 2 small adjacent sub-solid posterior right lower lobe lung base nodules from prior CT scanning in November of 2016. 3. This chest CT includes a small portion of the liver parenchyma, including an area of a right posterior hepatic segment mass which was previously treated by radiofrequency ablation. This measures only 1.4 cm in diameter and has not appreciably worsened from comparison prior MR scanning through that area in November of 2017. Dictated by: Cirilo Bean M.D. on 03/08/2018 at 14:15 Approved by: Cirilo Bean M.D. on 03/08/2018 at 14:28
--- NOTE | 2018-03-08 12:03 | DI.CT.S_ITS ---
PROCEDURE: CT SOFT TISSUE NECK W CON INDICATIONS: History of malignant neoplasm of the larynx, primary malignant neoplasm of the left upper lobe of the lung. TECHNIQUE: After the administration of intravenous contrast, 3.0 mm axial sections acquired from the sella to the aortic arch. Additional oblique axial 3.0 mm sections acquired through the pharynx. 3 mm thick coronal and sagittal reformats were generated. For radiation dose reduction, the following was used: automated exposure control. COMPARISON: [facility], CR, XR CERVICAL SPINE 2V OR 3V, 08/10/2017, 11:09. [facility], CT, CT HEAD/BRAIN WO CON, 11/12/2017, 20:57. [facility], MR, MR ABDOMEN WO/W CON, 12/09/2017, 8:57. [facility], CT, CT CHEST W CON, 03/08/2018, 11:40. [facility], CT, SOFT TISSUE NECK W CONTRAST, 12/20/2012, 13:07. FINDINGS: Image quality: Excellent. Lymph nodes: No enlarged lymph nodes seen throughout the neck. Vessels: Visualized vasculature appears patent. Neck spaces: The oropharynx, nasopharynx, and pharynx demonstrate no mucosal lesions. The vocal cords, false vocal cords, pyriform sinuses, epiglottis, vallecula, and tongue base all appear normal. Extramucosal spaces appear unremarkable. Glands: The parotid and submandibular glands appear normal. Thyroid gland appears normal where well visualized. Miscellaneous: Visualized brain and orbits appear normal. Lung apices appear emphysematous with linear scarring involving both the lung apices and the adjacent pleural surfaces, mild in severity and greater on the right than the left. Superficial soft tissues appear normal. Bones: No suspicious bony lesions. Visualized sinuses and mastoids appear unremarkable. IMPRESSION: Apical emphysematous change, with mild lung and pleural scarring greater on the right than the left. No lung mass found, no adenopathy seen, along the mucosal surfaces and at the skull base brain parenchyma no abnormality is seen. Dictated by: Cirilo Bean M.D. on 03/08/2018 at 12:41 Approved by: Cirilo Bean M.D. on 03/08/2018 at 12:49
== END ==
PROVIDERS: PCP Physician Assistant; Visit Provider Nurse Practitioner Gerontology
DX: C22.0 Liver cell carcinoma (principal); C34.12 Malignant neoplasm of upper lobe, left bronchus or lung; Z85.21 Personal history of malignant neoplasm of larynx; R91.8 Other nonspecific abnormal finding of lung field
CPT/HCPCS: 70491; 71260; Q9967

== ENCOUNTER → 2018-04-26 09:54 | Outpatient (CLI) | payer MEDICARE, MEDICAID, SELFPAY ==
--- NOTE | 2018-04-26 10:21 | DI.CT.S_ITS ---
PROCEDURE: CT ABDOMEN WO/W CON INDICATIONS: Hepatocellular carcinoma, rising AFP level TECHNIQUE: 4 phase scanning was performed. Non-contrast 5 mm axial sections acquired from the diaphragm to the iliac crests. Following the administration of intravenous contrast, 5 mm thick arterial-phase, portal venous-phase, and 5-minute delayed phase images were acquired through the liver. 5 mm thick coronal and sagittal reformats were performed. For radiation dose reduction, the following was used: automated exposure control, adjustment of mA and/or kV according to patient size. COMPARISON: [facility], MR, MR ABDOMEN WO/W CON, 12/09/2017, 8:57. [facility], CT, THORAX WITH CONTRAST, 11/24/2016, 15:23. FINDINGS: Image quality: Excellent. Lung bases: Lung bases demonstrate moderate emphysematous changes and mild scarring. Tiny bilobed nodular lesion posteriorly at the right lung base present on prior chest CT. Heart size is normal. Liver: Mild left hepatic lobe hypertrophy and a subtle micronodular margin. Overall, the parenchyma demonstrates mildly and diffusely heterogeneous appearance with multiple small ill-defined areas of low attenuation throughout both the right and left lobes. The liver is elongated with the right lobe extending into the pelvis. The during arterial phase enhancement, there are no suspicious lesions seen. During the hepatic venous phase, there is an ill defined, homogeneously enhancing lesion centrally in the right lobe liver measuring 1.5 cm adjacent to the right posterior portal vein branch. A 1.3 cm partially exophytic lesion arising from the posterior lateral caudal right hepatic lobe is seen. Mild diffuse enhancement within the gallbladder fossa. The portal vein is enlarged measuring 18 mm. Other solid organs: Gallbladder contains numerous tiny, dependently layering stones in the fundus.. Biliary system is non dilated. Pancreas is normal in morphology. Spleen is mildly enlarged measuring 13.5 cm in length and demonstrating mildly heterogeneous parenchymal pattern with scattered low density subcentimeter nodules. No adrenal nodules. Both kidneys demonstrate normal size and enhancement, without hydronephrosis or nephrolithiasis. Nodes and vessels: No retroperitoneal or mesenteric adenopathy by size criteria. Bilobed abdominal aortic aneurysm measures 4.0 cm in the upper portion and 4.1 cm lower portion in AP diameter. There is extensive coarse calcification at the common iliac arterial bifurcation. Bowel and peritoneum: Unenhanced bowel loops are normal in caliber. No free fluid or air. Bones: No suspicious bony lesions. No vertebral body compression fractures. Miscellaneous: No ventral hernias. IMPRESSION: 1. Cirrhotic, heterogeneous liver morphology with with scattered areas of low attenuation not evident on previous MRI. These likely represent regenerative, dysplastic, or siderotic nodules. 2. 1.5 cm hepatic hemangioma. No other suspicious enhancing liver lesions. 3 month followup is recommended for reassessment. 3. Mild splenomegaly, fairly stable. Chronic portal vein dilatation, both indications of developing portal hypertension. 4. Fairly stable, bilobed abdominal aortic aneurysm. 5. Cholelithiasis. Dictated by: Rosa Vu M.D. on 04/26/2018 at 16:34 Approved by: Rosa Vu M.D. on 04/26/2018 at 17:07
[2018-04-26 10:37] LABS: Alanine Aminotransferase 41 IU/L (9-52); Albumin 3.8 g/dL (3.5-5.0); Albumin Globulin Ratio 0.9 (1.0-2.8); Alkaline Phosphatase 103 U/L (38-126); Aspartate Aminotransferase 68 IU/L (14-36); BUN Creatinine Ratio 27.1 (6-22); Bilirubin Total 0.9 mg/dL (0.2-1.3); Blood Urea Nitrogen 19 mg/dL (7-17); Calcium 9.4 mg/dL (8.4-10.2); Carbon Dioxide 28 mmol/L (22-32); Chloride 100 mmol/L (98-107); Estimated Glomerular Filt Rate > 60.0 mL/min (>60); Globulin 4.3 g/dL (1.7-4.1); Glucose 143 mg/dL (80-110); HEMOLYSIS 23 (0-50); Sodium 136 mmol/L (137-145); Total Protein 8.1 g/dL (6.3-8.2)
[2018-04-26 10:40] LABS: Add Manual Diff / Slide Review NO; Basophils Absolute Auto 100 /uL (0-100); Basophils Percent Auto 1.1 % (0-2); Eosinophils Absolute Auto 0 /uL (0-450); Eosinophils Percent Auto 0.6 % (2-4); Hematocrit 38.6 % (36-46); Hemoglobin 12.6 g/dL (12.0-16.0); Lymphocytes Absolute Auto 1000 /uL (1100-4500); Lymphocytes Percent Auto 19.1 % (25-40); Mean Corpuscular HGB Conc 32.6 % (30-36); Mean Corpuscular Hemoglobin 30.3 PG (26-34); Monocytes Absolute Auto 100 /uL (0-900); Monocytes Percent Auto 2.8 % (3-14); Neutrophils Absolute Auto 3900 /uL (1500-7000); Neutrophils Percent Auto 76.4 % (50-75); Red Blood Cell Count 4.15 X10^6/uL (4.0-5.2); Red Cell Distribution Width 15.6 % (11.6-14.8); White Blood Cell Count 5.1 X10^3/uL (4.5-11.0)
[2018-04-26 11:37] LABS: Platelet Count 103 X10^3/uL (150-400)
[2018-04-28 18:41] LABS: Albumin 3.4 g/dL (3.8-4.8); Alpha 1 Globulin 0.2 g/dL (0.2-0.3); Alpha 2 Globulin 0.9 g/dL (0.5-0.9); Beta 1 Globulin 0.5 g/dL (0.4-0.6); Gamma Globulin 1.9 g/dL (0.8-1.7); Protein, Total 7.2 g/dL (6.1-8.1)
== END ==
PROVIDERS: Nurse Practitioner Gerontology; PCP Physician Assistant; Visit Provider Internal Medicine Hematology & Oncology
DX: C22.0 Liver cell carcinoma (principal); C34.12 Malignant neoplasm of upper lobe, left bronchus or lung; D18.09 Hemangioma of other sites; R16.1 Splenomegaly, not elsewhere classified; I71.4 Abdominal aortic aneurysm, without rupture; K80.20 Calculus of gallbladder without cholecystitis without obstruction
CPT/HCPCS: 36415; 74170; 80053; 84155; 84165; 85025; Q9967

== ENCOUNTER → 2018-07-07 16:41 | Outpatient (CLI) | payer MEDICARE, MEDICAID, SELFPAY ==
[2018-07-07 17:49] LABS: Add Manual Diff / Slide Review NO; Basophils Absolute Auto 0 /uL (0-100); Eosinophils Absolute Auto 0 /uL (0-450); Eosinophils Percent Auto 1.1 % (2-4); Hematocrit 41.7 % (36-46); Hemoglobin 13.7 g/dL (12.0-16.0); Lymphocytes Absolute Auto 1000 /uL (1100-4500); Lymphocytes Percent Auto 27.3 % (25-40); Mean Corpuscular HGB Conc 32.7 % (30-36); Mean Corpuscular Hemoglobin 30.2 PG (26-34); Mean Corpuscular Volume 92.4 fL (80-100); Monocytes Absolute Auto 300 /uL (0-900); Monocytes Percent Auto 8.5 % (3-14); Neutrophils Absolute Auto 2400 /uL (1500-7000); Neutrophils Percent Auto 62.1 % (50-75); Platelet Count 135 X10^3/uL (150-400); Red Blood Cell Count 4.52 X10^6/uL (4.0-5.2); Red Cell Distribution Width 13.8 % (11.6-14.8); White Blood Cell Count 3.8 X10^3/uL (4.5-11.0)
[2018-07-07 17:53] LABS: INR 1.2 (0.9-1.3); Prothrombin Time 13.3 SECONDS (10.1-12.7)
[2018-07-07 17:59] LABS: Alanine Aminotransferase 113 IU/L (9-52); Albumin 3.7 g/dL (3.5-5.0); Albumin Globulin Ratio 0.9 (1.0-2.8); Alkaline Phosphatase 99 U/L (38-126); Aspartate Aminotransferase 161 IU/L (14-36); Bilirubin Total 0.7 mg/dL (0.2-1.3); Blood Urea Nitrogen 22 mg/dL (7-17); Calcium 9.3 mg/dL (8.4-10.2); Carbon Dioxide 26 mmol/L (22-32); Chloride 103 mmol/L (98-107); Estimated Glomerular Filt Rate 53.9 mL/min (>60); Globulin 3.9 g/dL (1.7-4.1); Glucose 102 mg/dL (80-110); HEMOLYSIS < 15 (0-50); Potassium 4.1 mmol/L (3.4-5.1); Sodium 138 mmol/L (137-145); Total Protein 7.6 g/dL (6.3-8.2)
[2018-07-10 15:42] LABS: Alpha Fetoprotein 27.1 ng/mL (< 6.1)
== END ==
PROVIDERS: PCP Physician Assistant
DX: C22.0 Liver cell carcinoma (principal); C34.12 Malignant neoplasm of upper lobe, left bronchus or lung
CPT/HCPCS: 80053; 82105; 85025; 85610

== ENCOUNTER → 2018-08-24 13:00 | Outpatient (CLI) | payer MEDICARE, MEDICAID, SELFPAY ==
[2018-08-24 10:20] LABS: Basophils Absolute Auto 0 /uL (0-100); Basophils Percent Auto 0.9 % (0-2); Eosinophils Absolute Auto 0 /uL (0-450); Eosinophils Percent Auto 1.1 % (2-4); Hematocrit 39.1 % (36-46); Hemoglobin 13.4 g/dL (12.0-16.0); Lymphocytes Absolute Auto 900 /uL (1100-4500); Lymphocytes Percent Auto 26.4 % (25-40); Mean Corpuscular HGB Conc 34.3 % (30-36); Mean Corpuscular Hemoglobin 31.8 PG (26-34); Mean Corpuscular Volume 92.6 fL (80-100); Monocytes Absolute Auto 300 /uL (0-900); Monocytes Percent Auto 8.3 % (3-14); Neutrophils Absolute Auto 2200 /uL (1500-7000); Neutrophils Percent Auto 63.3 % (50-75); Red Blood Cell Count 4.23 X10^6/uL (4.0-5.2); Red Cell Distribution Width 15.4 % (11.6-14.8); White Blood Cell Count 3.5 X10^3/uL (4.5-11.0)
[2018-08-24 10:28] LABS: Add Manual Diff / Slide Review SLIDE REVIEW
[2018-08-24 10:33] LABS: Alanine Aminotransferase 89 IU/L (9-52); Albumin 3.6 g/dL (3.5-5.0); Albumin Globulin Ratio 0.9 (1.0-2.8); Alkaline Phosphatase 118 U/L (38-126); Aspartate Aminotransferase 147 IU/L (14-36); BUN Creatinine Ratio 31.1 (6-22); Bilirubin Total 0.9 mg/dL (0.2-1.3); Blood Urea Nitrogen 28 mg/dL (7-17); Calcium 9.6 mg/dL (8.4-10.2); Carbon Dioxide 28 mmol/L (22-32); Chloride 104 mmol/L (98-107); Estimated Glomerular Filt Rate > 60.0 mL/min (>60); Glucose 112 mg/dL (80-110); HEMOLYSIS < 15 (0-50); Potassium 4.4 mmol/L (3.4-5.1); Sodium 139 mmol/L (137-145); Total Protein 7.6 g/dL (6.3-8.2)
[2018-08-24 11:52] LABS: RBC Morphology Normal Morphology
[2018-08-24 11:54] LABS: Platelet Count 137 X10^3/uL (150-400)
== END ==
PROVIDERS: Referring Provider Internal Medicine Hematology & Oncology; Visit Provider Internal Medicine Hematology & Oncology
DX: Z85.21 Personal history of malignant neoplasm of larynx (principal)
CPT/HCPCS: 36415; 80053; 82105; 85025

== ENCOUNTER → 2018-09-27 09:40 | Outpatient (CLI) | payer MEDICARE, MEDICAID, SELFPAY ==
--- NOTE | 2018-09-27 | DI.MRI.S_ITS ---
PROCEDURE: MR ABDOMEN WO/W CON INDICATIONS: LIVER DISEASE TECHNIQUE: Coronal HASTE, axial 2D FLASH in- and [id number]; axial breath-hold T2 FSE. Dynamic axial VIBE during the administration of contrast; post-contrast coronal VIBE or 2D FLASH with fat saturation from the hepatic dome to the iliac crests. Optional diffusion weighted imaging and ADC may be performed. COMPARISON: [facility], US, US ABDOMEN LIMITED, 05/12/2018, 13:46. [facility], CT, CT ABDOMEN WO/W CON, 04/26/2018, 11:18. [facility], MR, ABDOMEN W&WO CONTRAST, 03/02/2017, 12:04. [facility], MR, ABDOMEN W&WO CONTRAST, 11/24/2016, 16:02. [facility], MR, MR ABDOMEN WO/W CON, 12/09/2017, 8:57. [facility], MR, MR ABDOMEN WO/W CON, 08/24/2017, 9:48. FINDINGS: Image quality: Excellent. Lung bases: No basal pleural effusions. Heart size is normal. Solid organs: Liver is enlarged at 20.2 cm craniocaudad in size and heterogeneous in enhancement. The previously identified segment 7 mass lesion that reportedly has been treated with radiofrequency ablation is again noted, with early arterial phase of contrast enhancement at its superior aspect in an area measuring up to 1.0 cm AP and 1.6 cm transverse. This appears overall slightly larger than on the comparison study a from 08/24/17 and 12/09/17. In the same phase of contrast enhancement and same area the mass previously measured 1.4 x 1.4 cm and currently measures 2.2 x 2.3 cm. There also has been interval enlargement in the subcapsular or fusiform area of peripheral mass in the right posterior hepatic segment inferiorly which previously measured up to 5 x 8 mm and in the same area currently measures up to 13 x 21 mm.m this is best seen on series 17 image 59. Both of these lesions show early arterial enhancement and rapid washout. Gallbladder is unremarkable.. Biliary system is non dilated. Pancreas is normal in morphology. Spleen is normal in size and enhancement. No adrenal nodules. Both kidneys demonstrate normal size and enhancement, without hydronephrosis. Nodes and vessels: No retroperitoneal or mesenteric adenopathy by size criteria. Aorta and inferior vena cava are unchanged in size with aneurysmal dilatation of the mid and distal abdominal aorta measuring up to 4.4 x 4.3 cm in maximal axial dimension.. Bowel and peritoneum: Unenhanced bowel loops are normal in caliber. No free fluid. Bones and soft tissues: No ventral hernias. Bone marrow is normal in overall signal. IMPRESSION: 2 hepatic mass lesions are present with imaging characteristics of a presumed hepatoma, with a small but definite interval enlargement of each of these masses. The more superior of which is located at segment 7 and the more inferior of which is located at the subcapsular margin of the inferior right posterior hepatic segment. No definite new lesion is found. Aneurysmal dilatation of the mid to distal abdominal aorta with maximal axial dimension measuring up to 4.4 x 4.3 cm. Dictated by: Cirilo Bean M.D. on 09/27/2018 at 15:25 Approved by: Cirilo Bean M.D. on 09/27/2018 at 16:08
== END ==
PROVIDERS: PCP Physician Assistant; Referring Provider Internal Medicine Hematology & Oncology
DX: K76.9 Liver disease, unspecified (principal); I71.4 Abdominal aortic aneurysm, without rupture
CPT/HCPCS: 74183; A9579

== ENCOUNTER 2018-10-11 09:46 | Emergency (ER) | payer MEDICARE, MEDICAID, SELFPAY ==
[2018-10-11 10:17] VITALS: BP 140/83; PULSE 62; RESP 19; O2SAT 100
[2018-10-11 11:00] VITALS: BP 136/77; PULSE 56; RESP 22; O2SAT 100
--- NOTE | 2018-10-11 11:13 | ED.ABDPAIN ---
HPI - Abdominal Pain General Chief Complaint: Abdominal Pain Stated Complaint: Problems with surgery on 14 Time Seen by Provider: 10/11/18 10:49 Source: patient Mode of arrival: ambulatory Limitations: no limitations History of Present Illness HPI narrative: Patient is a 78-year-old female status post laparoscopic radiofrequency ablation of liver tumor and laparoscopic cholecystectomy on 10/06/2018. Today she presents with abdominal contusion and swelling. She is still having some pain and discomfort. He recently had a UTI before the surgery and was on antibiotics. Daughter noticed that she had more bruising today than she had previously. She is also taking Plavix. She is having bowel movements and passing gas no nausea vomiting or fevers. MD complaint: abdominal pain Location: diffuse Related Data Home Medications Medication Instructions Recorded Confirmed clopidogrel 75 mg tablet 75 mg PO DAILY 08/05/17 10/11/18 [address]ing Permit 1 dev MISCELLANEOUS DIRECTED 09/15/17 10/11/18 Incontinence Supplies 1 ea MISCELLANEOUS DIRECTED 09/15/17 10/11/18 gabapentin [Neurontin] 400 mg PO TID 03/11/18 10/11/18 acetaminophen 650 mg PO Q6H PRN 10/11/18 10/11/18 ibuprofen 200 mg PO Q6H PRN 10/11/18 10/11/18 lorazepam 0.5 mg PO Q6H PRN 10/11/18 10/11/18 sulfamethoxazole-trimethoprim 1 tab PO Q12H 10/11/18 10/11/18 Previous Rx's Medication Instructions Recorded diclofenac 1 % topical gel 2 gram TOP QID #100 gram 01/18/18 albuterol sulfate [Ventolin HFA] 2 puff INH Q4-6 PRN #1 inh 04/12/18 metoprolol tartrate 25 mg tablet 12.5 mg PO BID #30 tab 04/12/18 ipratropium-albuterol 0.5 mg-3 3 ml INHALATION Q6-8H PRN #100 vial 06/18/18 mg(2.5 mg base)/3 mL nebulization soln mupirocin 2 % topical ointment 1 applictn TOP TID PRN #30 gram 08/31/18 levothyroxine 75 mcg tablet 75 mcg PO QAM #30 tab 10/05/18 cephalexin [Keflex] 500 mg PO TID #15 cap 10/11/18 Allergies Allergy/AdvReac Type Severity Reaction Status Date / Time codeine [CODEINE] AdvReac Mild IT MADE Verified 10/11/18 10:04 ME SICK TO MY STOMACH Review of Systems Review of Systems GENERAL: Denies chills, fatigue, malaise, fever, sweats, travel HEENT: Denies sinus pain, ear pain, sore throat, difficulty swallowing, neck pain RESPIRATORY: Denies dyspnea, cough, wheezing, hemoptysis, sputum. CARDIOVASCULAR: Denies chest pain, palpitations, orthopnea, edema GASTROINTESTINAL: see HPI : Denies dysuria, frequency, incontinence, hematuria, urinary retention, flank pain. MUSCULOSKELETAL: Denies weakness, joint pain, or bony pain SKIN: No rash, no erythema, no pruritus NEUROLOGIC: Denies weakness, dizziness, headache, numbness, change in speech, confusion PSYCHIATRIC: No concerning psychosocial issues. 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 Brother No problems noted. Brother No problems noted. Father No problems noted. Mother No problems noted. Social History Smoking Status: Current every day smoker Tobacco: How many years used: 60 quit status: considering quitting (I would like to but I have to pay for Chantix out of pocket) second hand exposure: Yes alcohol intake: former substance use type: marijuana (I smoke 3 times a day.) Family History Brother No problems noted. Brother No problems noted. Brother No problems noted. Father No problems noted. Mother No problems noted. Social History Smoking Status: Current every day smoker Tobacco: How many years used: 60 quit status: considering quitting (I would like to but I have to pay for Chantix out of pocket) second hand exposure: Yes alcohol intake: former substance use type: marijuana (I smoke 3 times a day.) Exam Initial Vital Signs Initial Vital Signs: Vital Signs Pulse Rate 62 10/11/18 10:17 Respiratory Rate 19 10/11/18 10:17 Blood Pressure 140/83 10/11/18 10:17 Pulse Oximetry 100 10/11/18 10:17 GENERAL: Well-appearing, well-nourished and in no acute distress. HEENT: Head atraumatic,EOMI, pupils reactive, face symmetric, moist mucous membranes CARDIOVASCULAR: Regular rate and rhythm without murmurs, rubs or gallops. RESPIRATORY: Breath sounds equal bilaterally, no wheezes rales or rhonchi. ABDOMEN: Soft, incision sites clean and dry contusion noted lower abdomen along with some mild flank contusions as well EXTREMITIES: Normal range of motion, no clubbing or edema. Neurovascularly intact NEUROLOGICAL: Alert and oriented x4.Normal gait and speech. SKIN: Warm, dry, no laceration, no petechiae, no rashes or lesions. Course Orders Ordered: ED Orders 10/11/18 10:05 Urinalysis and Microscopic Stat Urine Culture Stat 10/11/18 11:26 Complete Blood Count AUTO DIFF Stat Comprehensive Metabolic Panel Stat Lipase Stat Partial Thromboplastin Time Stat Prothrombin Time INR Stat 10/11/18 11:50 CT abdomen pelvis w con Stat Vital Signs - 8 hr 10/11/18 11:00 10/11/18 13:14 Pulse Rate 56 L 64 Respiratory Rate 22 18 Blood Pressure [Left Arm] 136/77 130/52 L Pulse Oximetry 100 99 MDM - Abdominal Pain Lab Data Attestation: I reviewed the patient's lab results. Result diagrams: 10/11/18 11:26 10/11/18 11:26 Lab Results 10/11/18 10/11/18 10/11/18 Range/Units 10:05 11:26 11:26 WBC 2.9 L (4.5-11.0) X10^3/uL RBC 3.67 L (4.0-5.2) X10^6/uL Hgb 11.7 L (12.0-16.0) g/dL Hct 34.0 L (36-46) % MCV 92.5 (80-100) fL MCH 31.7 (26-34) PG MCHC 34.3 (30-36) % RDW 14.7 (11.6-14.8) % Plt Count 108 L (150-400) X10^3/uL Neut % (Auto) 77.8 H (50-75) % Lymph % (Auto) 7.8 L (25-40) % [place] % (Auto) 12.6 (3-14) % Eos % (Auto) 1.0 L (2-4) % Baso % (Auto) 0.8 (0-2) % Neut # (Auto) 2200 (3979-1279) /uL Lymph # (Auto) 200 L (2347-8263) /uL [place] # (Auto) 400 (0-900) /uL Eos # (Auto) 0 (0-450) /uL Baso # (Auto) 0 (0-100) /uL PT 17.4 H (10.1-12.7) SECONDS INR 1.5 H (0.9-1.3) APTT 33 (26.4-36.2) SECONDS Sodium (137-145) mmol/L Potassium (3.4-5.1) mmol/L Chloride (98-107) mmol/L Carbon Dioxide (22-32) mmol/L BUN (7-17) mg/dL Creatinine (0.52-1.04) mg/dL Estimated GFR (>60) mL/min BUN/Creatinine Ratio (6-22) Glucose (80-110) mg/dL Calcium (8.4-10.2) mg/dL Total Bilirubin (0.2-1.3) mg/dL AST (14-36) IU/L ALT (9-52) IU/L Alkaline Phosphatase (38-126) U/L Total Protein (6.3-8.2) g/dL Albumin (3.5-5.0) g/dL Globulin (1.7-4.1) g/dL Albumin/Globulin Ratio (1.0-2.8) Lipase (23-300) U/L Urine Color Yellow Urine Appearance Clear Urine pH 5.0 (4.5-8.0) Ur Specific Meally 1.010 (1.000-1.035) Urine Protein Negative (Negative) Urine Glucose (UA) Negative (Negative) g/dL Urine Ketones Negative (NEGATIVE) Urine Occult Blood 1+ H (Negative) Urine Nitrate Negative (Negative) Urine Bilirubin Negative (NEGATIVE) Urine Urobilinogen 2.0 H (0.2) E.U./dL Ur Leukocyte Esterase Trace H (NEGATIVE) Urine RBC 1-5/hpf (0-5/HPF) Urine WBC 30-100/hpf H (0-5/HPF) Ur Squamous Epith Cells 1-5 /hpf (0-5/HPF) Ur Transition Epith Cell 1-5/hpf (0-5/HPF) Calcium Oxalate Crystal Moderate H Urine Bacteria Few (2-10) H (None) Ur Culture Indicated? Specimen cultured 10/11/18 Range/Units 11:26 WBC (4.5-11.0) X10^3/uL RBC (4.0-5.2) X10^6/uL Hgb (12.0-16.0) g/dL Hct (36-46) % MCV (80-100) fL MCH (26-34) PG MCHC (30-36) % RDW (11.6-14.8) % Plt Count (150-400) X10^3/uL Neut % (Auto) (50-75) % Lymph % (Auto) (25-40) % [place] % (Auto) (3-14) % Eos % (Auto) (2-4) % Baso % (Auto) (0-2) % Neut # (Auto) (2937-6715) /uL Lymph # (Auto) (8019-9408) /uL [place] # (Auto) (0-900) /uL Eos # (Auto) (0-450) /uL Baso # (Auto) (0-100) /uL PT (10.1-12.7) SECONDS INR (0.9-1.3) APTT (26.4-36.2) SECONDS Sodium 129 L (137-145) mmol/L Potassium 4.4 (3.4-5.1) mmol/L Chloride 97 L (98-107) mmol/L Carbon Dioxide 24 (22-32) mmol/L BUN 37 H (7-17) mg/dL Creatinine 1.80 H (0.52-1.04) mg/dL Estimated GFR 27.4 L (>60) mL/min BUN/Creatinine Ratio 20.6 (6-22) Glucose 95 (80-110) mg/dL Calcium 8.8 (8.4-10.2) mg/dL Total Bilirubin 2.9 H (0.2-1.3) mg/dL AST 147 H (14-36) IU/L ALT 113 H (9-52) IU/L Alkaline Phosphatase 181 H (38-126) U/L Total Protein 6.5 (6.3-8.2) g/dL Albumin 3.0 L (3.5-5.0) g/dL Globulin 3.5 (1.7-4.1) g/dL Albumin/Globulin Ratio 0.9 L (1.0-2.8) Lipase 348 H (23-300) U/L Urine Color Urine Appearance Urine pH (4.5-8.0) Ur Specific Meally (1.000-1.035) Urine Protein (Negative) Urine Glucose (UA) (Negative) g/dL Urine Ketones (NEGATIVE) Urine Occult Blood (Negative) Urine Nitrate (Negative) Urine Bilirubin (NEGATIVE) Urine Urobilinogen (0.2) E.U./dL Ur Leukocyte Esterase (NEGATIVE) Urine RBC (0-5/HPF) Urine WBC (0-5/HPF) Ur Squamous Epith Cells (0-5/HPF) Ur Transition Epith Cell (0-5/HPF) Calcium Oxalate Crystal Urine Bacteria (None) Ur Culture Indicated? Imaging Data CT scan - abdomen: Radiologist's impression: PROCEDURE: CT ABDOMEN PELVIS W CON INDICATIONS: recent ablation of liver incrased pain and brusing TECHNIQUE: After the administration of intravenous contrast, 5 mm thick sections acquired from the diaphragm to the symphysis in the arterial phase of intravenous contrast administration. 5 mm coronal and sagittal reformats were acquired. For radiation dose reduction, the following was used: automated exposure control, adjustment of mA and/or kV according to patient size. COMPARISON: [facility], MR, MR ABDOMEN WO/W CON, 12/09/2017, 8:57. , CT, CT ABDOMEN WO/W CON, 04/26/2018, 11:18. , MR, MR ABDOMEN WO/W CON, 09/27/2018, 10:18. , CT, ABDOMEN/PELVIS WITH CONTRAST, 06/18/2015, 13:31. FINDINGS: Image quality: Limited given the arterial phase of enhancement. ABDOMEN: Lung bases: Lung bases are clear. Heart size is normal. Solid organs: Hepatic contour is nodular, as before. There is heterogeneous hepatic enhancement. There is an 11 mm diameter focus of arterial phase enhancement within the right hepatic lobe anteriorly. There are hypoenhancing foci within the right hepatic lobe posteriorly measuring 70 mm, and within the right hepatic lobe postero-inferiorly, measuring 40 mm, compatible with recent sites of radiofrequency ablation. Gallbladder is contracted. Biliary system is non dilated. There is an exophytic 40 mm diameter mass protruding posteriorly from the pancreatic tail. Spleen is normal in size and enhancement. No adrenal nodules. Kidneys demonstrate normal size and enhancement, without hydronephrosis. Peritoneum and bowel: Bowel loops demonstrate normal wall thickness and caliber. There is a small amount of pneumoperitoneum, within expected limits given the patient's recent surgery. There is a small amount of ascites. Nodes and vessels: No retroperitoneal or mesenteric adenopathy by size criteria. IVC is within normal limits. There is aneurysmal dilatation of the infrarenal abdominal aorta, with a maximal short axis diameter of roughly 47 mm. Periesophageal venous varices are present. Assessment of portal, splenic, and mesenteric venous vasculature is limited by the phase of intravenous contrast administration. Miscellaneous: No ventral hernias. Moderate subcutaneous gas is present, predominantly within the left hemiabdomen, as well as the anterior pelvis. PELVIS: Genitourinary: Bladder wall thickness is normal. There is a nodular area of enhancement within the anterior uterus measuring 10 mm. Miscellaneous: No inguinal hernias or adenopathy. Bones: No suspicious bony lesions. No vertebral body compression fractures. IMPRESSION: 1. Hypoenhancing regions within the right hepatic lobe as described above, compatible with post ablation sequelae; recommend correlation with surgical history for confirmation. 2. Small focus of arterial phase enhancement within the right hepatic lobe anteriorly, possibly neoplastic. 3. Cirrhosis and portal hypertension. 4. Pancreatic tail mass. 5. Aneurysmal dilatation of the infrarenal abdominal aorta; annual sonographic surveillance recommended. 6. Expected pneumoperitoneum and small amount of ascites following reported recent operative ablation. Dictated by: Brittney Deras M.D. on 10/11/2018 at 12:34 Approved by: Brittney Deras M.D. on 10/11/2018 at 12:44 MDM Narrative Medical decision making narrative: Patient's blood work and CT are negative. Her physical exam is consistent with postoperative changes. At this time no further testing or imaging indicated recommend follow-up with surgeon. Discharge Plan Departure Patient Disposition: Home Clinical Impression: Acute UTI Abdominal pain Qualifiers: Abdominal location: generalized Qualified Code(s): R10.84 - Generalized abdominal pain Discharge Date/Time: 10/11/18 13:17 Interventions: ED Discharge Assessment Last Done: 10/11/18 13:16 Instructions: Urinary Tract Infection, Acute Abdominal Pain Activity Restrictions/Additional Instructions: *You have been diagnosed with abdominal pain and UTI *What to do: Abdominal CT and blood work today are reassuring. Please have your kidney function rechecked *Continue to take medications as directed Keflex 500 mg 3 times a day for 5 days--> SENT TO [facility] [place] *Follow up with your primary care provider in 2-3 days *Return to ER if you should have increasing pain not passing stool persistent vomiting, fever more than 100.4 or any new, worsening or concerning symptoms Prescriptions: New cephalexin [Keflex] 500 mg capsule 500 mg PO TID Qty: 15 RF: 0 No Action clopidogrel 75 mg tablet 75 mg PO DAILY RF: 0 diclofenac sodium 1 % gel 2 gram TOP QID Qty: 100 RF: 3 metoprolol tartrate 25 mg tablet 12.5 mg PO BID Qty: 30 RF: 3 albuterol sulfate [Ventolin HFA] 90 mcg/actuation HFA aerosol inhaler 2 puff INH Q4-6 PRN Qty: 1 RF: 3 ipratropium-albuterol 0.5 mg-3 mg(2.5 mg base)/3 mL solution for nebulization 3 ml INHALATION Q6-8H PRN (Reason: shortness of breath or wheezing) Qty: 100 RF: 0 mupirocin 2 % ointment 1 applictn TOP TID PRN (Reason: unknown) Qty: 30 RF: 3 levothyroxine [Synthroid] 75 mcg tablet 75 mcg PO QAM Qty: 30 RF: 0 acetaminophen 325 mg Tablet 650 mg PO Q6H PRN (Reason: Pain, Mild) RF: 0 sulfamethoxazole-trimethoprim 800-160 mg Tablet 1 tab PO Q12H RF: 0 ibuprofen 400 mg Tablet 200 mg PO Q6H PRN (Reason: Pain, Mild) RF: 0 lorazepam 0.5 mg tablet 0.5 mg PO Q6H PRN (Reason: anxiety) RF: 0 Disabled Parking Permit 1 dev miscellaneous DIRECTED RF: 0 Incontinence Supplies 1 ea miscellaneous DIRECTED RF: 0 gabapentin [Neurontin] 400 mg capsule 400 mg PO TID RF: 0 Referrals: Nidia Sánchez PA-C [Primary Care Provider] -
[2018-10-11 11:35] LABS: Appearance Urine UA CLEAR; Bilirubin Urine UA NEGATIVE (NEGATIVE); Color Urine UA YELLOW; Glucose Urine UA NEGATIVE (Negative); Ketones Urine UA NEGATIVE (NEGATIVE); Leukocyte Esterase Urine UA TRACE (NEGATIVE); Nitrite Urine UA NEGATIVE (Negative); Occult Blood Urine UA 1+ (Negative); Protein Urine UA NEGATIVE (Negative)
[2018-10-11 11:37] LABS: Add Manual Diff / Slide Review NO; Basophils Absolute Auto 0 /uL (0-100); Basophils Percent Auto 0.8 % (0-2); Eosinophils Absolute Auto 0 /uL (0-450); Hemoglobin 11.7 g/dL (12.0-16.0); Lymphocytes Absolute Auto 200 /uL (1100-4500); Lymphocytes Percent Auto 7.8 % (25-40); Mean Corpuscular HGB Conc 34.3 % (30-36); Mean Corpuscular Hemoglobin 31.7 PG (26-34); Mean Corpuscular Volume 92.5 fL (80-100); Monocytes Absolute Auto 400 /uL (0-900); Monocytes Percent Auto 12.6 % (3-14); Neutrophils Absolute Auto 2200 /uL (1500-7000); Neutrophils Percent Auto 77.8 % (50-75); Platelet Count 108 X10^3/uL (150-400); Red Blood Cell Count 3.67 X10^6/uL (4.0-5.2); Red Cell Distribution Width 14.7 % (11.6-14.8); White Blood Cell Count 2.9 X10^3/uL (4.5-11.0)
[2018-10-11 11:40] LABS: INR 1.5 (0.9-1.3); Prothrombin Time 17.4 SECONDS (10.1-12.7)
[2018-10-11 11:43] LABS: PTT Partial Thromboplastin Tim 33 SECONDS (26.4-36.2)
[2018-10-11 11:45] LABS: Alanine Aminotransferase 113 IU/L (9-52); Albumin Globulin Ratio 0.9 (1.0-2.8); Alkaline Phosphatase 181 U/L (38-126); Aspartate Aminotransferase 147 IU/L (14-36); BUN Creatinine Ratio 20.6 (6-22); Bilirubin Total 2.9 mg/dL (0.2-1.3); Blood Urea Nitrogen 37 mg/dL (7-17); Calcium 8.8 mg/dL (8.4-10.2); Carbon Dioxide 24 mmol/L (22-32); Chloride 97 mmol/L (98-107); Estimated Glomerular Filt Rate 27.4 mL/min (>60); Globulin 3.5 g/dL (1.7-4.1); Glucose 95 mg/dL (80-110); HEMOLYSIS < 15 (0-50); Lipase 348 U/L (23-300); Potassium 4.4 mmol/L (3.4-5.1); Sodium 129 mmol/L (137-145); Total Protein 6.5 g/dL (6.3-8.2)
[2018-10-11 11:50] LABS: Calcium Oxalate Crystals Urine Moderate; RBC Urine 1-5/HPF (0-5/HPF); Squamous Epithelial Cell Urine 1-5 /HPF (0-5/HPF); Transitional Epi Cells Urine 1-5/HPF (0-5/HPF); WBC Urine 30-100/HPF (0-5/HPF)
--- NOTE | 2018-10-11 11:50 | DI.CT.S_ITS ---
PROCEDURE: CT ABDOMEN PELVIS W CON INDICATIONS: recent ablation of liver incrased pain and brusing TECHNIQUE: After the administration of intravenous contrast, 5 mm thick sections acquired from the diaphragm to the symphysis in the arterial phase of intravenous contrast administration. 5 mm coronal and sagittal reformats were acquired. For radiation dose reduction, the following was used: automated exposure control, adjustment of mA and/or kV according to patient size. COMPARISON: [facility], MR, MR ABDOMEN WO/W CON, 12/09/2017, 8:57. [facility], CT, CT ABDOMEN WO/W CON, 04/26/2018, 11:18. [facility], MR, MR ABDOMEN WO/W CON, 09/27/2018, 10:18. [facility], CT, ABDOMEN/PELVIS WITH CONTRAST, 06/18/2015, 13:31. FINDINGS: Image quality: Limited given the arterial phase of enhancement. ABDOMEN: Lung bases: Lung bases are clear. Heart size is normal. Solid organs: Hepatic contour is nodular, as before. There is heterogeneous hepatic enhancement. There is an 11 mm diameter focus of arterial phase enhancement within the right hepatic lobe anteriorly. There are hypoenhancing foci within the right hepatic lobe posteriorly measuring 70 mm, and within the right hepatic lobe postero-inferiorly, measuring 40 mm, compatible with recent sites of radiofrequency ablation. Gallbladder is contracted. Biliary system is non dilated. There is an exophytic 40 mm diameter mass protruding posteriorly from the pancreatic tail. Spleen is normal in size and enhancement. No adrenal nodules. Kidneys demonstrate normal size and enhancement, without hydronephrosis. Peritoneum and bowel: Bowel loops demonstrate normal wall thickness and caliber. There is a small amount of pneumoperitoneum, within expected limits given the patient's recent surgery. There is a small amount of ascites. Nodes and vessels: No retroperitoneal or mesenteric adenopathy by size criteria. IVC is within normal limits. There is aneurysmal dilatation of the infrarenal abdominal aorta, with a maximal short axis diameter of roughly 47 mm. Periesophageal venous varices are present. Assessment of portal, splenic, and mesenteric venous vasculature is limited by the phase of intravenous contrast administration. Miscellaneous: No ventral hernias. Moderate subcutaneous gas is present, predominantly within the left hemiabdomen, as well as the anterior pelvis. PELVIS: Genitourinary: Bladder wall thickness is normal. There is a nodular area of enhancement within the anterior uterus measuring 10 mm. Miscellaneous: No inguinal hernias or adenopathy. Bones: No suspicious bony lesions. No vertebral body compression fractures. IMPRESSION: 1. Hypoenhancing regions within the right hepatic lobe as described above, compatible with post ablation sequelae; recommend correlation with surgical history for confirmation. 2. Small focus of arterial phase enhancement within the right hepatic lobe anteriorly, possibly neoplastic. 3. Cirrhosis and portal hypertension. 4. Pancreatic tail mass. 5. Aneurysmal dilatation of the infrarenal abdominal aorta; annual sonographic surveillance recommended. 6. Expected pneumoperitoneum and small amount of ascites following reported recent operative ablation. Dictated by: Brittney Deras M.D. on 10/11/2018 at 12:34 Approved by: Brittney Deras M.D. on 10/11/2018 at 12:44
[2018-10-11 11:51] LABS: Bacteria Urine Few (2-10); Culture Indicated Urine Specimen Cultured
--- NOTE | 2018-10-11 12:57 | ED_ITS ---
HPI - Abdominal Pain General Chief Complaint: Abdominal Pain Stated Complaint: Problems with surgery on 14 Time Seen by Provider: 10/11/18 10:49 Source: patient Mode of arrival: ambulatory Limitations: no limitations History of Present Illness HPI narrative: Patient is a 78-year-old female status post laparoscopic radiofrequency ablation of liver tumor and laparoscopic cholecystectomy on 10/06/2018. Today she presents with abdominal contusion and swelling. She is still having some pain and discomfort. He recently had a UTI before the surgery and was on antibiotics. Daughter noticed that she had more bruising today than she had previously. She is also taking Plavix. She is having bowel movements and passing gas no nausea vomiting or fevers. MD complaint: abdominal pain Location: diffuse Related Data Home Medications Medication Instructions Recorded Confirmed clopidogrel 75 mg tablet 75 mg PO DAILY 08/05/17 10/11/18 [address]abled [address]ing Permit 1 dev MISCELLANEOUS DIRECTED 09/15/17 10/11/18 Incontinence Supplies 1 ea MISCELLANEOUS DIRECTED 09/15/17 10/11/18 gabapentin [Neurontin] 400 mg PO TID 03/11/18 10/11/18 acetaminophen 650 mg PO Q6H PRN 10/11/18 10/11/18 ibuprofen 200 mg PO Q6H PRN 10/11/18 10/11/18 lorazepam 0.5 mg PO Q6H PRN 10/11/18 10/11/18 sulfamethoxazole-trimethoprim 1 tab PO Q12H 10/11/18 10/11/18 Previous Rx's Medication Instructions Recorded diclofenac 1 % topical gel 2 gram TOP QID #100 gram 01/18/18 albuterol sulfate [Ventolin HFA] 2 puff INH Q4-6 PRN #1 inh 04/12/18 metoprolol tartrate 25 mg tablet 12.5 mg PO BID #30 tab 04/12/18 ipratropium-albuterol 0.5 mg-3 3 ml INHALATION Q6-8H PRN #100 vial 06/18/18 mg(2.5 mg base)/3 mL nebulization soln mupirocin 2 % topical ointment 1 applictn TOP TID PRN #30 gram 08/31/18 levothyroxine 75 mcg tablet 75 mcg PO QAM #30 tab 10/05/18 cephalexin [Keflex] 500 mg PO TID #15 cap 10/11/18 Allergies Allergy/AdvReac Type Severity Reaction Status Date / Time codeine [CODEINE] AdvReac Mild IT MADE Verified 10/11/18 10:04 ME SICK TO MY STOMACH Review of Systems Review of Systems GENERAL: Denies chills, fatigue, malaise, fever, sweats, travel HEENT: Denies sinus pain, ear pain, sore throat, difficulty swallowing, neck pain RESPIRATORY: Denies dyspnea, cough, wheezing, hemoptysis, sputum. CARDIOVASCULAR: Denies chest pain, palpitations, orthopnea, edema GASTROINTESTINAL: see HPI : Denies dysuria, frequency, incontinence, hematuria, urinary retention, flank pain. MUSCULOSKELETAL: Denies weakness, joint pain, or bony pain SKIN: No rash, no erythema, no pruritus NEUROLOGIC: Denies weakness, dizziness, headache, numbness, change in speech, confusion PSYCHIATRIC: No concerning psychosocial issues. 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 Brother No problems noted. Brother No problems noted. Father No problems noted. Mother No problems noted. Social History Smoking Status: Current every day smoker Tobacco: How many years used: 60 quit status: considering quitting (I would like to but I have to pay for Chantix out of pocket) second hand exposure: Yes alcohol intake: former substance use type: marijuana (I smoke 3 times a day.) Family History Brother No problems noted. Brother No problems noted. Brother No problems noted. Father No problems noted. Mother No problems noted. Social History Smoking Status: Current every day smoker Tobacco: How many years used: 60 quit status: considering quitting (I would like to but I have to pay for Chantix out of pocket) second hand exposure: Yes alcohol intake: former substance use type: marijuana (I smoke 3 times a day.) Exam Initial Vital Signs Initial Vital Signs: Vital Signs Pulse Rate 62 10/11/18 10:17 Respiratory Rate 19 10/11/18 10:17 Blood Pressure 140/83 10/11/18 10:17 Pulse Oximetry 100 10/11/18 10:17 GENERAL: Well-appearing, well-nourished and in no acute distress. HEENT: Head atraumatic,EOMI, pupils reactive, face symmetric, moist mucous membranes CARDIOVASCULAR: Regular rate and rhythm without murmurs, rubs or gallops. RESPIRATORY: Breath sounds equal bilaterally, no wheezes rales or rhonchi. ABDOMEN: Soft, incision sites clean and dry contusion noted lower abdomen along with some mild flank contusions as well EXTREMITIES: Normal range of motion, no clubbing or edema. Neurovascularly intact NEUROLOGICAL: Alert and oriented x4.Normal gait and speech. SKIN: Warm, dry, no laceration, no petechiae, no rashes or lesions. Course Orders Ordered: ED Orders 10/11/18 10:05 Urinalysis and Microscopic Stat Urine Culture Stat 10/11/18 11:26 Complete Blood Count AUTO DIFF Stat Comprehensive Metabolic Panel Stat Lipase Stat Partial Thromboplastin Time Stat Prothrombin Time INR Stat 10/11/18 11:50 CT abdomen pelvis w con Stat Vital Signs - 8 hr 10/11/18 11:00 10/11/18 13:14 Pulse Rate 56 L 64 Respiratory Rate 22 18 Blood Pressure [Left Arm] 136/77 130/52 L Pulse Oximetry 100 99 MDM - Abdominal Pain Lab Data Attestation: I reviewed the patient's lab results. Result diagrams: 10/11/18 11:26 10/11/18 11:26 Lab Results 10/11/18 10/11/18 10/11/18 Range/Units 10:05 11:26 11:26 WBC 2.9 L (4.5-11.0) X10^3/uL RBC 3.67 L (4.0-5.2) X10^6/uL Hgb 11.7 L (12.0-16.0) g/dL Hct 34.0 L (36-46) % MCV 92.5 (80-100) fL MCH 31.7 (26-34) PG MCHC 34.3 (30-36) % RDW 14.7 (11.6-14.8) % Plt Count 108 L (150-400) X10^3/uL Neut % (Auto) 77.8 H (50-75) % Lymph % (Auto) 7.8 L (25-40) % [place] % (Auto) 12.6 (3-14) % Eos % (Auto) 1.0 L (2-4) % Baso % (Auto) 0.8 (0-2) % Neut # (Auto) 2200 (3821-6723) /uL Lymph # (Auto) 200 L (8874-6249) /uL [place] # (Auto) 400 (0-900) /uL Eos # (Auto) 0 (0-450) /uL Baso # (Auto) 0 (0-100) /uL PT 17.4 H (10.1-12.7) SECONDS INR 1.5 H (0.9-1.3) APTT 33 (26.4-36.2) SECONDS Sodium (137-145) mmol/L Potassium (3.4-5.1) mmol/L Chloride (98-107) mmol/L Carbon Dioxide (22-32) mmol/L BUN (7-17) mg/dL Creatinine (0.52-1.04) mg/dL Estimated GFR (>60) mL/min BUN/Creatinine Ratio (6-22) Glucose (80-110) mg/dL Calcium (8.4-10.2) mg/dL Total Bilirubin (0.2-1.3) mg/dL AST (14-36) IU/L ALT (9-52) IU/L Alkaline Phosphatase (38-126) U/L Total Protein (6.3-8.2) g/dL Albumin (3.5-5.0) g/dL Globulin (1.7-4.1) g/dL Albumin/Globulin Ratio (1.0-2.8) Lipase (23-300) U/L Urine Color Yellow Urine Appearance Clear Urine pH 5.0 (4.5-8.0) Ur Specific [place] 1.010 (1.000-1.035) Urine Protein Negative (Negative) Urine Glucose (UA) Negative (Negative) g/dL Urine Ketones Negative (NEGATIVE) Urine Occult Blood 1+ H (Negative) Urine Nitrate Negative (Negative) Urine Bilirubin Negative (NEGATIVE) Urine Urobilinogen 2.0 H (0.2) E.U./dL Ur Leukocyte Esterase Trace H (NEGATIVE) Urine RBC 1-5/hpf (0-5/HPF) Urine WBC 30-100/hpf H (0-5/HPF) Ur Squamous Epith Cells 1-5 /hpf (0-5/HPF) Ur Transition Epith Cell 1-5/hpf (0-5/HPF) Calcium Oxalate Crystal Moderate H Urine Bacteria Few (2-10) H (None) Ur Culture Indicated? Specimen cultured 10/11/18 Range/Units 11:26 WBC (4.5-11.0) X10^3/uL RBC (4.0-5.2) X10^6/uL Hgb (12.0-16.0) g/dL Hct (36-46) % MCV (80-100) fL MCH (26-34) PG MCHC (30-36) % RDW (11.6-14.8) % Plt Count (150-400) X10^3/uL Neut % (Auto) (50-75) % Lymph % (Auto) (25-40) % [place] % (Auto) (3-14) % Eos % (Auto) (2-4) % Baso % (Auto) (0-2) % Neut # (Auto) (1172-1733) /uL Lymph # (Auto) (1509-3776) /uL [place] # (Auto) (0-900) /uL Eos # (Auto) (0-450) /uL Baso # (Auto) (0-100) /uL PT (10.1-12.7) SECONDS INR (0.9-1.3) APTT (26.4-36.2) SECONDS Sodium 129 L (137-145) mmol/L Potassium 4.4 (3.4-5.1) mmol/L Chloride 97 L (98-107) mmol/L Carbon Dioxide 24 (22-32) mmol/L BUN 37 H (7-17) mg/dL Creatinine 1.80 H (0.52-1.04) mg/dL Estimated GFR 27.4 L (>60) mL/min BUN/Creatinine Ratio 20.6 (6-22) Glucose 95 (80-110) mg/dL Calcium 8.8 (8.4-10.2) mg/dL Total Bilirubin 2.9 H (0.2-1.3) mg/dL AST 147 H (14-36) IU/L ALT 113 H (9-52) IU/L Alkaline Phosphatase 181 H (38-126) U/L Total Protein 6.5 (6.3-8.2) g/dL Albumin 3.0 L (3.5-5.0) g/dL Globulin 3.5 (1.7-4.1) g/dL Albumin/Globulin Ratio 0.9 L (1.0-2.8) Lipase 348 H (23-300) U/L Urine Color Urine Appearance Urine pH (4.5-8.0) Ur Specific [place] (1.000-1.035) Urine Protein (Negative) Urine Glucose (UA) (Negative) g/dL Urine Ketones (NEGATIVE) Urine Occult Blood (Negative) Urine Nitrate (Negative) Urine Bilirubin (NEGATIVE) Urine Urobilinogen (0.2) E.U./dL Ur Leukocyte Esterase (NEGATIVE) Urine RBC (0-5/HPF) Urine WBC (0-5/HPF) Ur Squamous Epith Cells (0-5/HPF) Ur Transition Epith Cell (0-5/HPF) Calcium Oxalate Crystal Urine Bacteria (None) Ur Culture Indicated? Imaging Data CT scan - abdomen: Radiologist's impression: PROCEDURE: CT ABDOMEN PELVIS W CON INDICATIONS: recent ablation of liver incrased pain and brusing TECHNIQUE: After the administration of intravenous contrast, 5 mm thick sections acquired from the diaphragm to the symphysis in the arterial phase of intravenous contrast administration. 5 mm coronal and sagittal reformats were acquired. For radiation dose reduction, the following was used: automated exposure control, adjustment of mA and/or kV according to patient size. COMPARISON: [facility], MR, MR ABDOMEN WO/W CON, 12/09/2017, 8:57. [facility], CT, CT ABDOMEN WO/W CON, 04/26/2018, 11:18. [facility], MR, MR ABDOMEN WO/W CON, 09/27/2018, 10:18. [facility], CT, ABDOMEN/PELVIS WITH CONTRAST, 06/18/2015, 13:31. FINDINGS: Image quality: Limited given the arterial phase of enhancement. ABDOMEN: Lung bases: Lung bases are clear. Heart size is normal. Solid organs: Hepatic contour is nodular, as before. There is heterogeneous hepatic enhancement. There is an 11 mm diameter focus of arterial phase enhancement within the right hepatic lobe anteriorly. There are hypoenhancing foci within the right hepatic lobe posteriorly measuring 70 mm, and within the right hepatic lobe postero- inferiorly, measuring 40 mm, compatible with recent sites of radiofrequency ablation. Gal lbladder is contracted. Biliary system is non dilated. There is an exophytic 40 mm diameter mass protruding posteriorly from the pancreatic tail. Spleen is normal in size and enhancement. No adrenal nodules. Kidneys demonstrate normal size and enhancement, without hydronephrosis. Peritoneum and bowel: Bowel loops demonstrate normal wall thickness and caliber. There is a small amount of pneumoperitoneum, within expected limits given the patient's recent surgery. There is a small amount of ascites. Nodes and vessels: No retroperitoneal or mesenteric adenopathy by size criteria. IVC is within normal limits. There is aneurysmal dilatation of the infrarenal abdominal aorta, with a maximal short axis diameter of roughly 47 mm. Periesophageal venous varices are present. Assessment of portal, splenic, and mesenteric venous vasculature is limited by the phase of intravenous contrast administration. Miscellaneous: No ventral hernias. Moderate subcutaneous gas is present, predominantly within the left hemiabdomen, as well as the anterior pelvis. PELVIS: Genitourinary: Bladder wall thickness is normal. There is a nodular area of enhancement within the anterior uterus measuring 10 mm. Miscellaneous: No inguinal hernias or adenopathy. Bones: No suspicious bony lesions. No vertebral body compression fractures. IMPRESSION: 1. Hypoenhancing regions within the right hepatic lobe as described above, compatible with post ablation sequelae; recommend correlation with surgical history for confirmation. 2. Small focus of arterial phase enhancement within the right hepatic lobe anteriorly, possibly neoplastic. 3. Cirrhosis and portal hypertension. 4. Pancreatic tail mass. 5. Aneurysmal dilatation of the infrarenal abdominal aorta; annual sonographic surveillance recommended. 6. Expected pneumoperitoneum and small amount of ascites following reported recent operative ablation. Dictated by: Brittney Deras M.D. on 10/11/2018 at 12:34 Approved by: Brittney Deras M.D. on 10/11/2018 at 12:44 MDM Narrative Medical decision making narrative: Patient's blood work and CT are negative. Her physical exam is consistent with postoperative changes. At this time no further testing or imaging indicated recommend follow-up with surgeon. Discharge Plan Departure Patient Disposition: Home Clinical Impression: Acute UTI Abdominal pain Qualifiers: Abdominal location: generalized Qualified Code(s): R10.84 - Generalized abdominal pain Discharge Date/Time: 10/11/18 13:17 Interventions: ED Discharge Assessment Last Done: 10/11/18 13:16 Instructions: Urinary Tract Infection, Acute Abdominal Pain Activity Restrictions/Additional Instructions: *You have been diagnosed with abdominal pain and UTI *What to do: Abdominal CT and blood work today are reassuring. Please have your kidney function rechecked *Continue to take medications as directed Keflex 500 mg 3 times a day for 5 days--> SENT TO [email or web address] *Follow up with your primary care provider in 2-3 days *Return to ER if you should have increasing pain not passing stool persistent vomiting, fever more than 100.4 or any new, worsening or concerning symptoms Prescriptions: New cephalexin [Keflex] 500 mg capsule 500 mg PO TID Qty: 15 RF: 0 No Action clopidogrel 75 mg tablet 75 mg PO DAILY RF: 0 diclofenac sodium 1 % gel 2 gram TOP QID Qty: 100 RF: 3 metoprolol tartrate 25 mg tablet 12.5 mg PO BID Qty: 30 RF: 3 albuterol sulfate [Ventolin HFA] 90 mcg/actuation HFA aerosol inhaler 2 puff INH Q4-6 PRN Qty: 1 RF: 3 ipratropium-albuterol 0.5 mg-3 mg(2.5 mg base)/3 mL solution for nebulization 3 ml INHALATION Q6-8H PRN (Reason: shortness of breath or wheezing) Qty: 100 RF: 0 mupirocin 2 % ointment 1 applictn TOP TID PRN (Reason: unknown) Qty: 30 RF: 3 levothyroxine [Synthroid] 75 mcg tablet 75 mcg PO QAM Qty: 30 RF: 0 acetaminophen 325 mg Tablet 650 mg PO Q6H PRN (Reason: Pain, Mild) RF: 0 sulfamethoxazole-trimethoprim 800-160 mg Tablet 1 tab PO Q12H RF: 0 ibuprofen 400 mg Tablet 200 mg PO Q6H PRN (Reason: Pain, Mild) RF: 0 lorazepam 0.5 mg tablet 0.5 mg PO Q6H PRN (Reason: anxiety) RF: 0 Disabled Parking Permit 1 dev miscellaneous DIRECTED RF: 0 Incontinence Supplies 1 ea miscellaneous DIRECTED RF: 0 gabapentin [Neurontin] 400 mg capsule 400 mg PO TID RF: 0 Referrals: Nidia Sánchez PA-C [Primary Care Provider] -
[2018-10-11 13:14] VITALS: BP 130/52; PULSE 64; RESP 18; O2SAT 99
== END 2018-10-11 13:17 | disposition home or self-care (01) ==
PROVIDERS: Emergency Provider Emergency Medicine; PCP Physician Assistant
DX: N39.0 Urinary tract infection, site not specified (principal)
CPT/HCPCS: 36591; 74177; 80053; 81001; 83690; 85025; 85610; 85730; 87086; 99283; 99285; Q9967

== ENCOUNTER → 2018-10-18 10:51 | Outpatient (CLI) | payer MEDICARE, MEDICAID, SELFPAY ==
[2018-10-18 12:24] LABS: BUN Creatinine Ratio 25.7 (6-22); Blood Urea Nitrogen 18 mg/dL (7-17); Calcium 9.4 mg/dL (8.4-10.2); Carbon Dioxide 26 mmol/L (22-32); Chloride 103 mmol/L (98-107); Estimated Glomerular Filt Rate > 60.0 mL/min (>60); Glucose 97 mg/dL (80-110); HEMOLYSIS < 15 (0-50); Sodium 136 mmol/L (137-145)
[2018-10-18 12:26] LABS: Potassium 5.5 mmol/L (3.4-5.1)
[2018-10-18 12:35] LABS: Vitamin D 25 Hydroxy (D3) 30.4 ng/mL (30.0-100.0)
[2018-10-18 12:56] LABS: Thyroid Stimulating Hormone 1.11 uIU/mL (0.47-4.68)
[2018-10-18 13:13] LABS: Vitamin B12 > 1000 pg/mL (239-931)
== END ==
PROVIDERS: PCP Physician Assistant; Visit Provider Physician Assistant
DX: E03.9 Hypothyroidism, unspecified (principal); M81.0 Age-related osteoporosis without current pathological fracture; R53.83 Other fatigue; R79.89 Other specified abnormal findings of blood chemistry
CPT/HCPCS: 36415; 80048; 82306; 82607; 84443

== ENCOUNTER 2019-01-11 10:05 | Emergency (ER) | payer MEDICARE, MEDICAID, SELFPAY ==
[2019-01-11 10:13] VITALS: BP 161/71; PULSE 65; RESP 16; TEMP 36.3; O2SAT 97; BMI 18.5
--- NOTE | 2019-01-11 10:26 | ED.CHESTPAIN ---
HPI - Chest Pain General Chief Complaint: Chest Pain Stated Complaint: sent from [facility], chest pain, nausea Time Seen by Provider: 01/11/19 10:10 Source: patient Mode of arrival: Wheelchair Limitations: no limitations History of Present Illness HPI narrative: Patient is a 78-year-old female with history of COPD and hepatocellular carcinoma with chronic hepatitis C presenting with right-sided chest pain which started last evening. She isn't sure what she was doing but she felt like it started suddenly. She was able to go sleep because she took her Ativan last night. However she continued to have chest discomfort and increasing shortness of breath with exertion today. It hurts whenever she takes a deep breath. She denies any more productive sputum than usual. No heart palpitations is. MD complaint: chest pain Duration: constant Pain location: right chest Severity: moderate Quality: sharp Pain radiation: none Relieving factors: nothing Exacerbating factors: nothing Related Data Home Medications Medication Instructions Recorded Confirmed clopidogrel 75 mg tablet 75 mg PO DAILY 08/05/17 01/04/19 Disabled Parking Permit 1 dev MISCELLANEOUS DIRECTED 09/15/17 01/04/19 Incontinence Supplies 1 ea MISCELLANEOUS DIRECTED 09/15/17 01/04/19 gabapentin [Neurontin] 400 mg PO TID 03/11/18 01/04/19 acetaminophen 650 mg PO Q6H PRN 10/11/18 01/04/19 ibuprofen 200 mg PO Q6H PRN 10/11/18 01/04/19 ledipasvir-sofosbuvir [Harvoni] 1 tab DAILY 12/16/18 01/04/19 Previous Rx's Medication Instructions Recorded diclofenac sodium 1 % topical gel 2 gram TOP QID #100 gram 01/18/18 albuterol sulfate [Ventolin HFA] 2 puff INH Q4-6 PRN #1 inh 04/12/18 ipratropium-albuterol 0.5 mg-3 3 ml INHALATION Q6-8H PRN #100 vial 06/18/18 mg(2.5 mg base)/3 mL nebulization soln mupirocin 2 % topical ointment 1 applictn TOP TID PRN #30 gram 08/31/18 metoprolol tartrate 25 mg tablet See Rx Instructions .ROUTE 11/19/18 .COMPLEX #30 tablet lorazepam 0.5 mg tablet 0.5 mg PO Q6H PRN #45 tab 11/29/18 levothyroxine 75 mcg tablet 75 mcg PO QAM #30 tab 01/10/19 doxycycline hyclate 100 mg PO BID #14 cap 01/11/19 prednisone 40 mg PO DAILY #10 tab 01/11/19 Allergies Allergy/AdvReac Type Severity Reaction Status Date / Time codeine [CODEINE] AdvReac Mild IT MADE Verified 01/11/19 10:15 ME SICK TO MY STOMACH Review of Systems Review of Systems Narrative: GENERAL: Denies chills, fatigue, malaise, fever, sweats, travel HEENT: Denies sinus pain, ear pain, sore throat, difficulty swallowing, neck pain RESPIRATORY: See HPI CARDIOVASCULAR: See HPI GASTROINTESTINAL: Denies nausea, vomiting, abdominal pain, diarrhea, constipation, melena. : Denies dysuria, frequency, incontinence, hematuria, urinary retention, flank pain. MUSCULOSKELETAL: Denies weakness, joint pain, or bony pain SKIN: No rash, no erythema, no pruritus NEUROLOGIC: Denies weakness, dizziness, headache, numbness, change in speech, confusion PSYCHIATRIC: No concerning psychosocial issues. 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) Aortic valve disorder (Chronic 07/04/10) Ascites (Resolved) Chronic hepatitis C without hepatic coma (Chronic) Chronic obstructive pulmonary disease (Chronic 07/04/10) Cigarette smoker (Chronic) Depression (Chronic 07/04/10) Essential hypertension (Chronic 07/04/10) Fibromyalgia (Chronic Unknown) GERD (gastroesophageal reflux disease) (Chronic Unknown) Hepatocellular carcinoma (Chronic 05/2016) Hyperlipidemia (Chronic 07/04/10) Hypothyroidism (Acute Unknown) Lung cancer (Resolved 2008) Pancreatitis (Resolved) Peripheral vascular disease (Chronic 10/2011) Pneumonia (Resolved 2010) Rheumatoid arthritis (Chronic Unknown) Throat cancer (Resolved 2005) TIA (transient ischemic attack) (Resolved Unknown) Tubular adenoma of colon (Resolved 05/19/16) Family History Brother No problems noted. Brother No problems noted. Brother No problems noted. Father No problems noted. Mother No problems noted. Social History Smoking Status: Current every day smoker Tobacco: How many years used: 60 quit status: considering quitting (I would like to but I have to pay for Chantix out of pocket) second hand exposure: Yes alcohol intake: former substance use type: marijuana (I smoke 3 times a day.) alcohol intake frequency: 0-2 drinks per day Substance Use Type: marijuana Exam Initial Vital Signs Initial Vital Signs: Vital Signs Temperature 97.3 F L 01/11/19 10:13 Pulse Rate 65 01/11/19 10:13 Respiratory Rate 16 01/11/19 10:13 Blood Pressure 161/71 H 01/11/19 10:13 Pulse Oximetry 97 01/11/19 10:13 GENERAL: Chronically ill appears older than stated age in HEENT: Head atraumatic,EOMI, pupils reactive, face symmetric, moist mucous membranes CARDIOVASCULAR: Regular rate and rhythm without murmurs, rubs or gallops. RESPIRATORY: Breath sounds equal bilaterally, no wheezes rales or rhonchi. Pain on right side with deep breathing ABDOMEN: Soft, nontender. Normoactive bowel sounds all 4 quadrants. No guarding or rebound.s EXTREMITIES: Normal range of motion, no clubbing or edema. Neurovascularly intact NEUROLOGICAL: Alert and oriented x4.Normal gait and speech. Cranial nerves II through XII grossly intact. SKIN: Warm, dry, no laceration, no petechiae, no rashes or lesions. Course Orders Ordered: ED Orders 01/11/19 10:25 Consult to Respiratory Therapy Evaluate & Treat XR chest 1V Stat EKG-12 Lead Stat 01/11/19 10:38 B Type Natriuretic Peptide Stat Complete Blood Count AUTO DIFF Stat Comprehensive Metabolic Panel Stat Lipase Stat Magnesium Stat Partial Thromboplastin Time Stat Procalcitonin Stat Prothrombin Time INR Stat Troponin & CK Cardiac Panel Stat 01/11/19 11:28 Urinalysis and Microscopic Stat Discontinued Medications Albuterol/Ipratropium (Duoneb) 3 ml INH NOW ONE Stop: 01/11/19 10:25 Last Admin: 01/11/19 10:54 Dose: 3 ml Documented by: CONNER Methylprednisolone (Solu-Medrol 125 Mg Vial) 125 mg IV NOW ONE Stop: 01/11/19 10:25 Last Admin: 01/11/19 10:49 Dose: 125 mg Documented by: CONNER Vital Signs Vital signs: Vital Signs - 8 hr 01/11/19 11:00 01/11/19 11:57 Pulse Rate 68 65 Respiratory Rate 20 20 Blood Pressure [Left Arm] 158/79 H Pulse Oximetry 97 98 MDM - Chest Pain Lab Data Attestation: I reviewed the patient's lab results. Result diagrams: 01/11/19 10:38 01/11/19 10:38 Labs: Lab Results 01/11/19 01/11/19 01/11/19 Range/Units 10:38 10:38 10:38 WBC 2.8 L (4.5-11.0) X10^3/uL RBC 4.19 (4.0-5.2) X10^6/uL Hgb 13.1 (12.0-16.0) g/dL Hct 38.1 (36-46) % MCV 90.9 (80-100) fL MCH 31.3 (26-34) PG MCHC 34.5 (30-36) % RDW 13.8 (11.6-14.8) % Plt Count 102 L (150-400) X10^3/uL Neut % (Auto) 70.0 (50-75) % Lymph % (Auto) 20.5 L (25-40) % [place] % (Auto) 7.9 (3-14) % Eos % (Auto) 0.5 L (2-4) % Baso % (Auto) 1.1 (0-2) % Neut # (Auto) 2000 (3134-9494) /uL Lymph # (Auto) 600 L (9046-0210) /uL [place] # (Auto) 200 (0-900) /uL Eos # (Auto) 0 (0-450) /uL Baso # (Auto) 0 (0-100) /uL PT 12.9 H (10.1-12.7) SECONDS INR 1.1 (0.9-1.3) APTT 34 (26.4-36.2) SECONDS Sodium 135 L (137-145) mmol/L Potassium 3.5 (3.4-5.1) mmol/L Chloride 100 (98-107) mmol/L Carbon Dioxide 27 (22-32) mmol/L BUN 21 H (7-17) mg/dL Creatinine 0.80 (0.52-1.04) mg/dL Estimated GFR > 60.0 (>60) mL/min BUN/Creatinine Ratio 26.3 H (6-22) Glucose 131 H (80-110) mg/dL Calcium 9.2 (8.4-10.2) mg/dL Magnesium 1.9 (1.6-2.3) mg/dL Total Bilirubin 0.6 (0.2-1.3) mg/dL AST 45 H (14-36) IU/L ALT 20 (<35) IU/L Alkaline Phosphatase 90 (38-126) U/L Total Creatine Kinase 45 (30-135) U/L CK-MB (CK-2) TNP CK-MB (CK-2) Rel Index TNP Troponin I < 0.012 (0.01-0.034) ng/mL B-Natriuretic Peptide < 100 (<100) Total Protein 7.6 (6.3-8.2) g/dL Albumin 3.8 (3.5-5.0) g/dL Globulin 3.8 (1.7-4.1) g/dL Albumin/Globulin Ratio 1.0 (1.0-2.8) Lipase (23-300) U/L Procalcitonin (<0.5) ng/mL Urine Color Urine Appearance Urine pH (4.5-8.0) Ur Specific [place] (1.000-1.035) Urine Protein (Negative) Urine Glucose (UA) (Negative) g/dL Urine Ketones (NEGATIVE) Urine Occult Blood (Negative) Urine Nitrate (Negative) Urine Bilirubin (NEGATIVE) Urine Urobilinogen (0.2) E.U./dL Ur Leukocyte Esterase (NEGATIVE) Urine RBC (0-5/HPF) Urine WBC (0-5/HPF) Ur Squamous Epith Cells (0-5/HPF) Calcium Oxalate Crystal Amorphous Sediment Urine Bacteria (None) Ur Culture Indicated? 01/11/19 01/11/19 01/11/19 Range/Units 10:38 10:38 11:28 WBC (4.5-11.0) X10^3/uL RBC (4.0-5.2) X10^6/uL Hgb (12.0-16.0) g/dL Hct (36-46) % MCV (80-100) fL MCH (26-34) PG MCHC (30-36) % RDW (11.6-14.8) % Plt Count (150-400) X10^3/uL Neut % (Auto) (50-75) % Lymph % (Auto) (25-40) % [place] % (Auto) (3-14) % Eos % (Auto) (2-4) % Baso % (Auto) (0-2) % Neut # (Auto) (3581-2257) /uL Lymph # (Auto) (3914-4590) /uL [place] # (Auto) (0-900) /uL Eos # (Auto) (0-450) /uL Baso # (Auto) (0-100) /uL PT (10.1-12.7) SECONDS INR (0.9-1.3) APTT (26.4-36.2) SECONDS Sodium (137-145) mmol/L Potassium (3.4-5.1) mmol/L Chloride (98-107) mmol/L Carbon Dioxide (22-32) mmol/L BUN (7-17) mg/dL Creatinine (0.52-1.04) mg/dL Estimated GFR (>60) mL/min BUN/Creatinine Ratio (6-22) Glucose (80-110) mg/dL Calcium (8.4-10.2) mg/dL Magnesium (1.6-2.3) mg/dL Total Bilirubin (0.2-1.3) mg/dL AST (14-36) IU/L ALT (<35) IU/L Alkaline Phosphatase (38-126) U/L Total Creatine Kinase (30-135) U/L CK-MB (CK-2) CK-MB (CK-2) Rel Index Troponin I (0.01-0.034) ng/mL B-Natriuretic Peptide (<100) Total Protein (6.3-8.2) g/dL Albumin (3.5-5.0) g/dL Globulin (1.7-4.1) g/dL Albumin/Globulin Ratio (1.0-2.8) Lipase 700 H (23-300) U/L Procalcitonin 0.17 (<0.5) ng/mL Urine Color Yellow Urine Appearance Clear Urine pH 5.5 (4.5-8.0) Ur Specific [place] 1.020 (1.000-1.035) Urine Protein Negative (Negative) Urine Glucose (UA) Negative (Negative) g/dL Urine Ketones Negative (NEGATIVE) Urine Occult Blood Negative (Negative) Urine Nitrate Negative (Negative) Urine Bilirubin Negative (NEGATIVE) Urine Urobilinogen 0.2 (0.2) E.U./dL Ur Leukocyte Esterase Negative (NEGATIVE) Urine RBC None seen (0-5/HPF) Urine WBC None seen (0-5/HPF) Ur Squamous Epith Cells 0-1 /hpf (0-5/HPF) Calcium Oxalate Crystal Moderate H Amorphous Sediment 2+ Urine Bacteria None seen (None) Ur Culture Indicated? Cult not indicated Urine Dip Bedside Urine Glucose Negative Bedside Urine Bilirubin - Negative Bedside Urine Ketone - Negative Urine Specific [place] 1.025 Bedside Urine Occult Blood - Negative Bedside Urine pH 6.0 Bedside Urine Protein +/- 15 Bedside Urine Urobilinogen - Negative Bedside Urine Nitrite - Negative Bedside Urine Leukocytes +/- 15 Esterase Imaging Data Chest x-ray: Radiologist's impression: PROCEDURE: XR CHEST 1V INDICATIONS: right sided pain shortness of breath TECHNIQUE: One view of the chest was acquired. COMPARISON: [facility], CT, CT CHEST W CON, 03/08/2018, 11:40. [facility], CR, CHEST 1 VIEW, 07/21/2015, 11:49. FINDINGS: Surgical changes and devices: None. Lungs and pleura: Emphysematous change. Lungs are clear. No pleural effusions or pneumothorax. Mediastinum: Mediastinal contours appear normal. Heart size is normal. Bones and chest wall: No suspicious bony lesions. Overlying soft tissues appear unremarkable. IMPRESSION: COPD. No evidence acute pulmonary process. Dictated by: Uriel Barry M.D. on 01/11/2019 at 10:35 Approved by: Uriel Barry M.D. on 01/11/2019 at 10:36 ECG Data Attestation: I personally reviewed and interpreted this ECG as follows: Prior ECG tracings: available for review Interpretation: Normal sinus rhythm rate 58 p.r. interval 198 and a QRS [address] elevation depression or T-wave inversion MDM Narrative Medical decision making narrative: The patient is feeling much better after DuoNeb. She does have slightly elevated procalcitonin will treat her for COPD exacerbation with prednisone and doxycycline. She overall appears nontoxic and comfortable. She feels ready and able to go home. Discharge Plan Departure Patient Disposition: Home Clinical Impression: COPD exacerbation Discharge Date/Time: 01/11/19 12:11 Instructions: Chronic Obstructive Pulmonary Disease Activity Restrictions/Additional Instructions: *You have been diagnosed with COPD exacerbation *What to do: Increase activity as tolerated *Continue to take medications as directed--> PRESCRIPTIONS SENT TO [facility] Use inhaler 1-2 puffs every 4 hours if needed for chest discomfort or shortness of breath Prednisone 40 mg once a day for 5 days Doxycycline 100 mg twice a day for 7 days *Follow up with your primary care provider in 2-3 days *Return to ER if you should have increasing shortness of breath, worsening chest pain, fever, confusion or any new, worsening or concerning symptoms Prescriptions: New doxycycline hyclate 100 mg capsule 100 mg PO BID Qty: 14 RF: 0 prednisone 20 mg tablet 40 mg PO DAILY Qty: 10 RF: 0 No Action clopidogrel 75 mg tablet 75 mg PO DAILY RF: 0 diclofenac sodium 1 % gel 2 gram TOP QID Qty: 100 RF: 3 albuterol sulfate [Ventolin HFA] 90 mcg/actuation HFA aerosol inhaler 2 puff INH Q4-6 PRN Qty: 1 RF: 3 ipratropium-albuterol 0.5 mg-3 mg(2.5 mg base)/3 mL solution for nebulization 3 ml INHALATION Q6-8H PRN (Reason: shortness of breath or wheezing) Qty: 100 RF: 0 mupirocin 2 % ointment 1 applictn TOP TID PRN (Reason: unknown) Qty: 30 RF: 3 metoprolol tartrate 25 mg tablet See Rx Instructions .ROUTE .COMPLEX Qty: 30 RF: 3 lorazepam 0.5 mg tablet 0.5 mg PO Q6H PRN (Reason: anxiety) Qty: 45 RF: 3 levothyroxine [Synthroid] 75 mcg tablet 75 mcg PO QAM Qty: 30 RF: 0 acetaminophen 325 mg Tablet 650 mg PO Q6H PRN (Reason: Pain, Mild) RF: 0 ibuprofen 400 mg Tablet 200 mg PO Q6H PRN (Reason: Pain, Mild) RF: 0 Disabled Parking Permit 1 dev miscellaneous DIRECTED RF: 0 Incontinence Supplies 1 ea miscellaneous DIRECTED RF: 0 gabapentin [Neurontin] 400 mg capsule 400 mg PO TID RF: 0 ledipasvir-sofosbuvir [Harvoni] 90-400 mg Tablet 1 tab DAILY RF: 0 Referrals: Nidia Sánchez PA-C [Primary Care Provider] -
[2019-01-11 10:48] LABS: Add Manual Diff / Slide Review NO; Basophils Absolute Auto 0 /uL (0-100); Basophils Percent Auto 1.1 % (0-2); Eosinophils Absolute Auto 0 /uL (0-450); Eosinophils Percent Auto 0.5 % (2-4); Hematocrit 38.1 % (36-46); Hemoglobin 13.1 g/dL (12.0-16.0); Lymphocytes Absolute Auto 600 /uL (1100-4500); Lymphocytes Percent Auto 20.5 % (25-40); Mean Corpuscular HGB Conc 34.5 % (30-36); Mean Corpuscular Hemoglobin 31.3 PG (26-34); Mean Corpuscular Volume 90.9 fL (80-100); Monocytes Absolute Auto 200 /uL (0-900); Monocytes Percent Auto 7.9 % (3-14); Neutrophils Absolute Auto 2000 /uL (1500-7000); Platelet Count 102 X10^3/uL (150-400); Red Blood Cell Count 4.19 X10^6/uL (4.0-5.2); Red Cell Distribution Width 13.8 % (11.6-14.8); White Blood Cell Count 2.8 X10^3/uL (4.5-11.0)
[2019-01-11] MEDS: methylPREDNISolone 125 MG/2 ML VIAL IV (10:49)
[2019-01-11] MEDS: ALBUTEROL/IPRATROPIUM 3 ML AMPUL INH (10:54)
[2019-01-11 10:58] LABS: INR 1.1 (0.9-1.3); Prothrombin Time 12.9 SECONDS (10.1-12.7)
[2019-01-11 11:00] VITALS: PULSE 68; RESP 20; O2SAT 97
[2019-01-11 11:00] LABS: Alanine Aminotransferase 20 IU/L (<35); Albumin 3.8 g/dL (3.5-5.0); Alkaline Phosphatase 90 U/L (38-126); Aspartate Aminotransferase 45 IU/L (14-36); BUN Creatinine Ratio 26.3 (6-22); Bilirubin Total 0.6 mg/dL (0.2-1.3); Blood Urea Nitrogen 21 mg/dL (7-17); Calcium 9.2 mg/dL (8.4-10.2); Carbon Dioxide 27 mmol/L (22-32); Chloride 100 mmol/L (98-107); Creatine Kinase 45 U/L (30-135); Estimated Glomerular Filt Rate > 60.0 mL/min (>60); Globulin 3.8 g/dL (1.7-4.1); Glucose 131 mg/dL (80-110); HEMOLYSIS < 15 (0-50); Magnesium 1.9 mg/dL (1.6-2.3); PTT Partial Thromboplastin Tim 34 SECONDS (26.4-36.2); Potassium 3.5 mmol/L (3.4-5.1); Sodium 135 mmol/L (137-145); Total Protein 7.6 g/dL (6.3-8.2)
[2019-01-11 11:04] LABS: B Type Natriuretic Peptide < 100 (<100)
[2019-01-11 11:12] LABS: Troponin I < 0.012 ng/mL (0.01-0.034)
[2019-01-11 11:13] LABS: Lipase 700 U/L (23-300)
[2019-01-11 11:30] LABS: Procalcitonin 0.17 ng/mL (<0.5)
[2019-01-11 11:40] LABS: Bacteria Urine None Seen; RBC Urine None Seen (0-5/HPF); WBC Urine None Seen (0-5/HPF)
[2019-01-11 11:42] LABS: Appearance Urine UA CLEAR; Bilirubin Urine UA NEGATIVE (NEGATIVE); Color Urine UA YELLOW; Glucose Urine UA NEGATIVE (Negative); Ketones Urine UA NEGATIVE (NEGATIVE); Leukocyte Esterase Urine UA NEGATIVE (NEGATIVE); Nitrite Urine UA NEGATIVE (Negative); Occult Blood Urine UA NEGATIVE (Negative); Protein Urine UA NEGATIVE (Negative); Urobilinogen Urine UA 0.2 E.U./dL (0.2)
[2019-01-11 11:43] LABS: pH Urine UA 5.5 (4.5-8.0)
[2019-01-11 11:51] LABS: Calcium Oxalate Crystals Urine Moderate; Squamous Epithelial Cell Urine 0-1 /HPF (0-5/HPF)
[2019-01-11 11:53] LABS: Amorphous Sediment Urine 2+; Culture Indicated Urine Cult Not Indicated
[2019-01-11 11:57] VITALS: BP 158/79; PULSE 65; RESP 20; O2SAT 98
== END 2019-01-11 12:11 | disposition home or self-care (01) ==
PROVIDERS: Emergency Provider Emergency Medicine; Family Provider Internal Medicine Gastroenterology; PCP Physician Assistant
DX: J44.1 Chronic obstructive pulmonary disease with (acute) exacerbation (principal); R07.9 Chest pain, unspecified
CPT/HCPCS: 36415; 71045; 80053; 81001; 81003; 82550; 83690; 83735; 83880; 84145; 84484; 85025; 85610; 85730; 93005; 94640; 96374; 99283; 99285; J2930

== ENCOUNTER 2019-02-26 07:41 | Emergency (ER) | payer MEDICARE, MEDICAID, SELFPAY ==
--- NOTE | 2019-02-26 | DI.RAD.S_ITS ---
PROCEDURE: XR ANKLE RT MIN 3V INDICATIONS: ANKLE BRUISING/SWELLING TECHNIQUE: 3 views of the ankle were acquired. COMPARISON: [facility], CT, CT HEAD/BRAIN WO CON, 02/26/2019, 8:08. [facility], CR, XR HIP W PEL IF DONE RT 2V, 02/26/2019, 8:01. [facility], CR, XR RIBS RT MIN 3V W CXR 1V, 02/26/2019, 8:01. [facility], CR, XR SHOULDER RT MIN 2V, 02/26/2019, 8:01. FINDINGS: Bones: Focal irregularity is seen involving the medial aspect of the talar dome. No additional focal bony abnormalities can be seen. No fractures or dislocations are seen. Age-appropriate osteopenia and bony degenerative changes are seen. Soft tissues: No tibiotalar joint effusion. Achilles tendon appears normal. IMPRESSION: Apparent osteochondral injury of the medial talar dome, which may be remote. If clinically appropriate, please consider a dedicated ankle MRI (assuming that there is no contraindication). Dictated by: Eliu Isaac M.D. on 02/26/2019 at 7:54 Approved by: Eliu Isaac M.D. on 02/26/2019 at 7:55
[2019-02-26 07:45] VITALS: BP 170/82; PULSE 66; RESP 20; TEMP 36.7; O2SAT 97; BMI 18.0
--- NOTE | 2019-02-26 07:59 | ED_ITS ---
HPI - Fall General Chief Complaint: Fall Stated Complaint: fell at home R side hip and arm/shoulder hurting Time Seen by Provider: 02/26/19 07:49 Source: patient and family Mode of arrival: Wheelchair Limitations: no limitations History of Present Illness HPI Narrative: Patient is a 79-year-old female history of COPD, hepatocellular carcinoma, TIA on Plavix who presents after a ground level fall. She lives in a travel trailer she was getting up to use the restroom she felt extremely dizzy lightheaded and off balance fell onto her right side. Now complaining of right shoulder pain and right hip pain. She chest he thinks may have patient she denies consciousness or hit her head. No no vomiting shortness of breath she has no stomach pain. This morning she says she just didn't feel right he overall is feeling better now Onset (ago): hour(s) Fall from: standing Fall witnessed: no Place fall occurred: home Loss of consciousness: none Related Data Home Medications Medication Instructions Recorded Confirmed clopidogrel 75 mg tablet 75 mg PO DAILY 08/05/17 01/04/19 Disabled [address]ing Permit 1 dev MISCELLANEOUS DIRECTED 09/15/17 01/04/19 Incontinence Supplies 1 ea MISCELLANEOUS DIRECTED 09/15/17 01/04/19 gabapentin [Neurontin] 400 mg PO TID 03/11/18 01/04/19 acetaminophen 650 mg PO Q6H PRN 10/11/18 01/04/19 ibuprofen 200 mg PO Q6H PRN 10/11/18 01/04/19 ledipasvir-sofosbuvir [Harvoni] 1 tab DAILY 12/16/18 01/04/19 Previous Rx's Medication Instructions Recorded diclofenac sodium 1 % topical gel 2 gram TOP QID #100 gram 01/18/18 albuterol sulfate [Ventolin HFA] 2 puff INH Q4-6 PRN #1 inh 04/12/18 ipratropium-albuterol 0.5 mg-3 3 ml INHALATION Q6-8H PRN #100 vial 06/18/18 mg(2.5 mg base)/3 mL nebulization soln mupirocin 2 % topical ointment 1 applictn TOP TID PRN #30 gram 08/31/18 metoprolol tartrate 25 mg tablet See Rx Instructions .ROUTE 11/19/18 .COMPLEX #30 tablet lorazepam 0.5 mg tablet 0.5 mg PO Q6H PRN #45 tab 11/29/18 levothyroxine 75 mcg tablet 75 mcg PO QAM #30 tab 01/10/19 doxycycline hyclate 100 mg PO BID #14 cap 01/11/19 prednisone 40 mg PO DAILY #10 tab 01/11/19 tramadol 50 mg PO Q6H PRN #10 tab 02/26/19 Allergies Allergy/AdvReac Type Severity Reaction Status Date / Time codeine [CODEINE] AdvReac Mild IT MADE Verified 02/26/19 08:08 ME SICK TO MY STOMACH Review of Systems Review of Systems ROS Unobtainable: All systems reviewed & are unremarkable except as noted in HPI and below Constitutional Constitutional: Denies chills, Denies fever(s), Denies lethargy and Denies weakness Eyes Eyes: Denies change in vision, Denies eye discharge, Denies irritation and Denies loss of vision ENT Ears, Nose, Mouth, and Throat: Denies change in voice, Denies neck pain and Denies sore throat Cardiovascular Cardiovascular: Denies irregular heart rhythm, Reports lightheadedness, Denies dyspnea and Denies dyspnea on exertion Respiratory Respiratory: Denies cough, Denies dyspnea, Denies dyspnea on exertion and Denies wheezing Gastrointestinal Gastrointestinal: Denies abdominal pain, Denies change in bowel habits, Denies diarrhea, Denies nausea and Denies vomiting Genitourinary Genitourinary: Denies hematuria, Denies flank pain, Denies urinary incontinence and Denies urinary urgency Musculoskeletal Musculoskeletal: Denies neck pain Integumentary/Breasts Skin/Breast: Denies pruritus, Denies erythema, Denies rash and Denies wounds Neurologic Neurologic: Denies loss of vision and Denies weakness Allergic/Immunologic Allergic/Immunologic: Denies wheezing Patient History Medical History Abdominal aortic aneurysm (AAA) without rupture (Chronic 10/27/16) 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) Aortic valve disorder (Chronic 07/04/10) Ascites (Resolved) Chronic hepatitis C without hepatic coma (Chronic) Chronic obstructive pulmonary disease (Chronic 07/04/10) Cigarette smoker (Chronic) Depression (Chronic 07/04/10) Essential hypertension (Chronic 05/12/11) Fibromyalgia (Chronic Unknown) GERD (gastroesophageal reflux disease) (Chronic Unknown) Hepatocellular carcinoma (Chronic 05/2016) Hyperlipidemia (Chronic 07/04/10) Hypothyroidism (Acute Unknown) Lung cancer (Resolved 2008) Pancreatitis (Resolved) Peripheral vascular disease (Chronic 10/2011) Pneumonia (Resolved 2010) Rheumatoid arthritis (Chronic Unknown) Throat cancer (Resolved 2005) TIA (transient ischemic attack) (Resolved Unknown) Tubular adenoma of colon (Resolved 05/19/16) Family History Brother No problems noted. Brother No problems noted. Brother No problems noted. Father No problems noted. Mother No problems noted. Social History Smoking Status: Current every day smoker Tobacco: How many years used: 60 quit status: considering quitting (I would like to but I have to pay for Chantix out of pocket) second hand exposure: Yes alcohol intake: former substance use type: marijuana (I smoke 3 times a day.) Smoking Status: Current every day smoker alcohol intake frequency: 0-2 drinks per day Substance Use Type: marijuana Exam Initial Vital Signs Initial Vital Signs: Vital Signs Temperature 98.0 F 02/26/19 07:45 Pulse Rate 66 02/26/19 07:45 Respiratory Rate 20 02/26/19 07:45 Blood Pressure 170/82 H 02/26/19 07:45 Pulse Oximetry 97 02/26/19 07:45 GENERAL: Chronically ill is elderly female no acute distress HEENT: Head atraumatic,EOMI, pupils reactive, face symmetric, [moist] mucous membranes CARDIOVASCULAR: Regular rate and rhythm without murmurs, rubs or gallops. RESPIRATORY: Breath sounds equal bilaterally, no wheezes rales or rhonchi. ABDOMEN: Soft, nontender. Normoactive bowel sounds all 4 quadrants. No guarding or rebound. : No CVA tenderness EXTREMITIES: Normal range of motion, no clubbing or edema. Neurovascularly intact Pain in right shoulder but no gross deformity she has some contusion on of right ribs as well. Significant swelling of the right hip but she is able to lift leg it is painful to touch NEUROLOGICAL: Alert and oriented x4.Normal gait and speech. Cranial nerves II through XII grossly intact. Hematology Technician strength equal bilaterally good finger to nose with left unable to assess right due to shoulder pain able to lift both legs SKIN: Warm, dry, no laceration, no petechiae, no rashes or lesions. Course Orders Ordered: ED Orders 02/26/19 08:00 CT head/brain wo con Stat XR hip w pel if done RT 2V Stat XR ribs RT min 3V w CXR1V Stat XR shoulder RT min 2V Stat EKG-12 Lead Stat 02/26/19 08:06 Complete Blood Count AUTO DIFF Stat Comprehensive Metabolic Panel Stat Partial Thromboplastin Time Stat Prothrombin Time INR Stat Troponin I Stat Sodium Chloride (Normal Saline 0.9%) 1,000 mls @ 150 mls/hr IV CONT EDMUND Last Admin: 02/26/19 08:43 Dose: 150 mls/hr Documented by: LARISA Vital Signs Vital signs: Vital Signs - 8 hr 02/26/19 07:45 02/26/19 09:02 Temperature 98.0 F Pulse Rate 66 58 L Respiratory Rate 20 22 Blood Pressure 170/82 H Blood Pressure [Left Arm] 150/71 H Pulse Oximetry 97 99 MDM - Fall Lab Data Attestation: I reviewed the patient's lab results. Result diagrams: 02/26/19 08:06 02/26/19 08:06 Labs: Lab Results 02/26/19 02/26/19 02/26/19 Range/Units 08:06 08:06 08:06 WBC 4.3 L (4.5-11.0) X10^3/uL RBC 4.58 (4.0-5.2) X10^6/uL Hgb 13.9 (12.0-16.0) g/dL Hct 41.0 (36-46) % MCV 89.6 (80-100) fL MCH 30.4 (26-34) PG MCHC 33.9 (30-36) % RDW 14.8 (11.6-14.8) % Plt Count 149 L (150-400) X10^3/uL Neut % (Auto) 70.1 (50-75) % Lymph % (Auto) 19.7 L (25-40) % Clinch % (Auto) 8.0 (3-14) % Eos % (Auto) 0.9 L (2-4) % Baso % (Auto) 1.3 (0-2) % Neut # (Auto) 3000 (5609-0052) /uL Lymph # (Auto) 800 L (3564-5235) /uL Clinch # (Auto) 300 (0-900) /uL Eos # (Auto) 0 (0-450) /uL Baso # (Auto) 100 (0-100) /uL PT 13.0 H (10.1-12.7) SECONDS INR 1.1 (0.9-1.3) APTT 36 D (26.4-36.2) SECONDS Sodium 138 (137-145) mmol/L Potassium 4.0 (3.4-5.1) mmol/L Chloride 104 (98-107) mmol/L Carbon Dioxide 28 (22-32) mmol/L BUN 18 H (7-17) mg/dL Creatinine 0.90 (0.52-1.04) mg/dL Estimated GFR > 60.0 (>60) mL/min BUN/Creatinine Ratio 20.0 (6-22) Glucose 110 (80-110) mg/dL Calcium 9.7 (8.4-10.2) mg/dL Total Bilirubin 0.8 (0.2-1.3) mg/dL AST 43 H (14-36) IU/L ALT 17 (<35) IU/L Alkaline Phosphatase 91 (38-126) U/L Troponin I < 0.012 (0.01-0.034) ng/mL Total Protein 7.8 (6.3-8.2) g/dL Albumin 4.0 (3.5-5.0) g/dL Globulin 3.8 (1.7-4.1) g/dL Albumin/Globulin Ratio 1.1 (1.0-2.8) Imaging Data CT scan - head: Radiologist's Impression: PROCEDURE: CT HEAD/BRAIN WO CON INDICATIONS: fall dizzy TECHNIQUE: Noncontrast 4.5 mm thick angled axial sections acquired from the foramen magnum to the vertex, with coronal and sagittal reformats. For radiation dose reduction, the following was used: automated exposure control, adjustment of mA and/or kV according to patient size. COMPARISON: [facility], CT, CT HEAD/BRAIN WO CON, 11/12/2017, 20:57. FINDINGS: Image quality: Excellent. CSF spaces: Basal cisterns are patent. No extra-axial fluid collections. The ventricles are symmetric in size and shape. Brain: No intracranial bleeds or masses. There is cerebral volume loss for age, with resultant ventricular and sulcal prominence. There are periventricular and deep white matter chronic small vessel ischemic changes. There is intracranial internal carotid artery atherosclerosis. Skull and face: Calvarium and visualized facial bones appear intact, without suspicious lesions. Sinuses: Visualized sinuses and mastoids are clear. IMPRESSION: Normal noncontrast head CT for age, without acute intracranial hemorrhage. Dictated by: Eliu Isaac M.D. on 02/26/2019 at 7:28 Approved by: Eliu Isaac M.D. on 02/26/2019 at 7:29 Chest x-ray: Radiologist's Impression: PROCEDURE: XR RIBS RT MIN 3V W CXR 1V INDICATIONS: fall TECHNIQUE: 2 views of the right ribs were acquired, along with a single view chest. COMPARISON: [facility], CT, CT HEAD/BRAIN WO CON, 02/26/2019, 8:08. [facility], CR, XR ANKLE RT MIN 3V, 02/26/2019, 8:08. [facility], CR, XR HIP W PEL IF DONE RT 2V, 02/26/2019, 8:01. [facility], CR, XR SHOULDER RT MIN 2V, 02/26/2019, 8:01. [facility], CR, XR CHEST 1V, 01/11/2019, 10:28. FINDINGS: This examination is limited by involuntary motion artifact. Surgical changes and devices: Superior mediastinal clips are seen. Bones and chest wall: A marker is placed upon the area of clinical concern. Within this region, no displaced rib fracture or other significant rib abnormality can be seen. No rib fractures are seen elsewhere. Age-appropriate bony degenerative changes are seen. No suspicious bony lesions. Overlying soft tissues appear unremarkable. Lungs and pleura: The cardiac contours are within normal limits. The aorta demonstrates calcification and tortuosity. Mediastinum: Mediastinal contours appear normal. Heart size is normal. IMPRESSION: Displaced rib fractures. No pneumothorax. Dictated by: Eliu Isaac M.D. on 02/26/2019 at 7:48 Extremity x-ray #1: Radiologist's Impression: PROCEDURE: XR HIP W PEL IF DONE RT 2V INDICATIONS: fall swelling pain TECHNIQUE: AP pelvis with lateral view(s) of the right hip(s). COMPARISON: [facility], CT, CT HEAD/BRAIN WO CON, 02/26/2019, 8:08. [facility], CR, XR ANKLE RT MIN 3V, 02/26/2019, 8:08. [facility], CR, XR RIBS RT MIN 3V W CXR 1V, 02/26/2019, 8:01. [facility], CR, XR SHOULDER RT MIN 2V, 02/26/2019, 8:01. [facility], CR, PELVIS W UNILATERAL HIP LEFT, 03/12/2009, 14:09. FINDINGS: Bones: No fractures or dislocations. Pelvic ring appears intact. No suspicious bony lesions. Age-appropriate bony degenerative changes are seen. Soft tissues: The visualized bowel gas pattern is normal. No suspicious soft tissue calcifications. Atherosclerotic calcification is noted. The there is a right- sided iliac stent seen. IMPRESSION: No acute bony abnormality is detected. Postoperative and degenerative changes are seen. Dictated by: Eliu Isaac M.D. on 02/26/2019 at 7:52 Extremity x-ray #2: Radiologist's Impression: PROCEDURE: XR SHOULDER RT MIN 2V INDICATIONS: fall pain TECHNIQUE: 2 views of the shoulder were acquired. COMPARISON: [facility], CT, CT HEAD/BRAIN WO CON, 02/26/2019, 8:08. [facility], CR, XR ANKLE RT MIN 3V, 02/26/2019, 8:08. [facility], CR, XR RIBS RT MIN 3V W CXR 1V, 02/26/2019, 8:01. [facility], CR, XR HIP W PEL IF DONE RT 2V, 02/26/2019, 8:01. [facility], CR, SHOULDER MINIMUM 2 VIEW LEFT, 09/24/2009, 11:17. FINDINGS: Bones: No fractures or dislocations. No suspicious bony lesions. Visualized ribs appear intact. Age-appropriate bony degenerative changes are seen. Soft tissues: No suspicious soft tissue calcifications. The visualized lung demonstrates an unremarkable appearance. IMPRESSION: No fractures or dislocations are seen by plain film. Dictated by: Eliu Isaac M.D. on 02/26/2019 at 7:50 ECG Data Attestation: I personally reviewed and interpreted this ECG as follows: Prior ECG tracings: available for review Interpretation: NORMAL SINUS RHYTHM RATE 60 P.R. INTERVAL 188 QRS [address] ELEVATION NO T-WAVE INVERSIONS SIMILAR TO PREVIOUS EKGS MDM Narrative Medical decision making narrative: Patient's symptoms have completely resolved. She does have quite large contusion on her right hip in her shoulder hurts her as well. Blood work is overall stable or improved for her head CT and x-rays are negative. She took ibuprofen prior to arrival. At this time both she and daughter feel ready and comfortable going. Discharge Plan Departure Patient Disposition: Home Clinical Impression: Contusion of hip, right Qualifiers: Encounter type: initial encounter Qualified Code(s): S70.01XA - Contusion of right hip, initial encounter Contusion of right shoulder Qualifiers: Encounter type: initial encounter Qualified Code(s): S40.011A - Contusion of right shoulder, initial encounter Discharge Date/Time: 02/26/19 09:28 Instructions: DI for Contusion, How to Prevent Falls Activity Restrictions/Additional Instructions: *You have been diagnosed with right hip contusion, right shoulder contusion *What to do: Rest, increase fluids apply ice 20-30 minutes at a time to both hip and shoulder. *Continue to take medications as directed-->SENT TO [facility] [place] Tylenol 650 mg every 4-6 hours if needed for [id number] pain Ibuprofen 600 mg every 6-8 hours as needed to for [id number] pain Tramadol 50 mg every 6 hours only if needed for severe pain. This can cause dizziness lightheadedness and grogginess and recurrent falls *Follow up with your primary care provider in 2-3 days *Return to ER if you should have increasing pain, persistent dizziness weakness numbness tingling or any new, worsening or concerning symptoms Prescriptions: New tramadol 50 mg tablet 50 mg PO Q6H PRN (Reason: pain) Qty: 10 RF: 0 No Action clopidogrel 75 mg tablet 75 mg PO DAILY RF: 0 diclofenac sodium 1 % gel 2 gram TOP QID Qty: 100 RF: 3 albuterol sulfate [Ventolin HFA] 90 mcg/actuation HFA aerosol inhaler 2 puff INH Q4-6 PRN Qty: 1 RF: 3 ipratropium-albuterol 0.5 mg-3 mg(2.5 mg base)/3 mL solution for nebulization 3 ml INHALATION Q6-8H PRN (Reason: shortness of breath or wheezing) Qty: 100 RF: 0 mupirocin 2 % ointment 1 applictn TOP TID PRN (Reason: unknown) Qty: 30 RF: 3 metoprolol tartrate 25 mg tablet See Rx Instructions .ROUTE .COMPLEX Qty: 30 RF: 3 lorazepam 0.5 mg tablet 0.5 mg PO Q6H PRN (Reason: anxiety) Qty: 45 RF: 3 levothyroxine [Synthroid] 75 mcg tablet 75 mcg PO QAM Qty: 30 RF: 0 acetaminophen 325 mg Tablet 650 mg PO Q6H PRN (Reason: Pain, Mild) RF: 0 ibuprofen 400 mg Tablet 200 mg PO Q6H PRN (Reason: Pain, Mild) RF: 0 Disabled Parking Permit 1 dev miscellaneous DIRECTED RF: 0 Incontinence Supplies 1 ea miscellaneous DIRECTED RF: 0 gabapentin [Neurontin] 400 mg capsule 400 mg PO TID RF: 0 ledipasvir-sofosbuvir [Harvoni] 90-400 mg Tablet 1 tab DAILY RF: 0 doxycycline hyclate 100 mg capsule 100 mg PO BID Qty: 14 RF: 0 prednisone 20 mg tablet 40 mg PO DAILY Qty: 10 RF: 0 Referrals: Nidia Sánchez PA-C [Primary Care Provider] -
[2019-02-26 08:14] LABS: Add Manual Diff / Slide Review NO; Basophils Absolute Auto 100 /uL (0-100); Basophils Percent Auto 1.3 % (0-2); Eosinophils Absolute Auto 0 /uL (0-450); Eosinophils Percent Auto 0.9 % (2-4); Hemoglobin 13.9 g/dL (12.0-16.0); Lymphocytes Absolute Auto 800 /uL (1100-4500); Lymphocytes Percent Auto 19.7 % (25-40); Mean Corpuscular HGB Conc 33.9 % (30-36); Mean Corpuscular Hemoglobin 30.4 PG (26-34); Mean Corpuscular Volume 89.6 fL (80-100); Monocytes Absolute Auto 300 /uL (0-900); Neutrophils Absolute Auto 3000 /uL (1500-7000); Neutrophils Percent Auto 70.1 % (50-75); Platelet Count 149 X10^3/uL (150-400); Red Blood Cell Count 4.58 X10^6/uL (4.0-5.2); Red Cell Distribution Width 14.8 % (11.6-14.8); White Blood Cell Count 4.3 X10^3/uL (4.5-11.0)
[2019-02-26 08:21] LABS: INR 1.1 (0.9-1.3)
[2019-02-26 08:23] LABS: PTT Partial Thromboplastin Tim 36 SECONDS (26.4-36.2)
[2019-02-26 08:25] LABS: Alanine Aminotransferase 17 IU/L (<35); Albumin Globulin Ratio 1.1 (1.0-2.8); Alkaline Phosphatase 91 U/L (38-126); Aspartate Aminotransferase 43 IU/L (14-36); Bilirubin Total 0.8 mg/dL (0.2-1.3); Blood Urea Nitrogen 18 mg/dL (7-17); Calcium 9.7 mg/dL (8.4-10.2); Carbon Dioxide 28 mmol/L (22-32); Chloride 104 mmol/L (98-107); Estimated Glomerular Filt Rate > 60.0 mL/min (>60); Globulin 3.8 g/dL (1.7-4.1); Glucose 110 mg/dL (80-110); HEMOLYSIS 34 (0-50); Sodium 138 mmol/L (137-145); Total Protein 7.8 g/dL (6.3-8.2)
[2019-02-26 08:36] LABS: Troponin I < 0.012 ng/mL (0.01-0.034)
[2019-02-26] MEDS: SODIUM CHLORIDE 0.9% 1,000 ML 150 ML IV (08:43)
[2019-02-26 09:02] VITALS: BP 150/71; PULSE 58; RESP 22; O2SAT 99
== END 2019-02-26 09:28 | disposition home or self-care (01) ==
PROVIDERS: Emergency Provider Emergency Medicine; Family Provider Internal Medicine Gastroenterology; PCP Physician Assistant
DX: S70.01XA Contusion of right hip, initial encounter (principal); W18.30XA Fall on same level, unspecified, initial encounter; Y92.002 Bathroom of unspecified non-institutional (private) residence as the place of occurrence of the external cause; M25.511 Pain in right shoulder; R42 Dizziness and giddiness; Z79.01 Long term (current) use of anticoagulants
CPT/HCPCS: 36415; 70450; 71101; 73030; 73502; 73610; 80053; 84484; 85025; 85610; 85730; 93005; 96360; 99285

== ENCOUNTER → 2019-03-03 10:17 | Outpatient (CLI) | payer MEDICARE, MEDICAID, SELFPAY ==
[2019-03-03 11:05] LABS: Alanine Aminotransferase 17 IU/L (<35); Albumin 4.4 g/dL (3.5-5.0); Albumin Globulin Ratio 1.1 (1.0-2.8); Alkaline Phosphatase 100 U/L (38-126); Aspartate Aminotransferase 43 IU/L (14-36); BUN Creatinine Ratio 27.5 (6-22); Bilirubin Total 0.8 mg/dL (0.2-1.3); Blood Urea Nitrogen 22 mg/dL (7-17); Calcium 9.8 mg/dL (8.4-10.2); Carbon Dioxide 29 mmol/L (22-32); Chloride 101 mmol/L (98-107); Estimated Glomerular Filt Rate > 60.0 mL/min (>60); Globulin 3.9 g/dL (1.7-4.1); Glucose 107 mg/dL (80-110); HEMOLYSIS < 15 (0-50); Sodium 138 mmol/L (137-145); Total Protein 8.3 g/dL (6.3-8.2)
[2019-03-03 11:13] LABS: Add Manual Diff / Slide Review NO; Basophils Absolute Auto 100 /uL (0-100); Basophils Percent Auto 1.4 % (0-2); Eosinophils Absolute Auto 0 /uL (0-450); Eosinophils Percent Auto 0.4 % (2-4); Hematocrit 38.3 % (36-46); Hemoglobin 13.1 g/dL (12.0-16.0); Lymphocytes Absolute Auto 700 /uL (1100-4500); Lymphocytes Percent Auto 18.6 % (25-40); Mean Corpuscular HGB Conc 34.1 % (30-36); Mean Corpuscular Hemoglobin 30.8 PG (26-34); Mean Corpuscular Volume 90.3 fL (80-100); Monocytes Absolute Auto 300 /uL (0-900); Monocytes Percent Auto 6.4 % (3-14); Neutrophils Absolute Auto 2900 /uL (1500-7000); Neutrophils Percent Auto 73.2 % (50-75); Platelet Count 155 X10^3/uL (150-400); Red Blood Cell Count 4.25 X10^6/uL (4.0-5.2); Red Cell Distribution Width 15.4 % (11.6-14.8)
[2019-03-05 15:11] LABS: Alpha Fetoprotein 19.6 ng/mL (< 6.1)
== END ==
PROVIDERS: Internal Medicine Hematology & Oncology; PCP Physician Assistant; Visit Provider Internal Medicine Gastroenterology
DX: B18.2 Chronic viral hepatitis C (principal); C34.12 Malignant neoplasm of upper lobe, left bronchus or lung
CPT/HCPCS: 36415; 80053; 82105; 85025; 87522

== ENCOUNTER 2019-05-08 10:19 | Emergency (ER) | payer MEDICARE, MEDICAID, SELFPAY ==
[2019-05-08 10:45] VITALS: BP 175/86; PULSE 71; RESP 20; TEMP 37.1; O2SAT 99; BMI 19.7
--- NOTE | 2019-05-08 10:50 | DI.RAD.S_ITS ---
PROCEDURE: XR FOOT LT MIN 3V INDICATIONS: L lateral foot pain s/p fall. tenderness on palpation. TECHNIQUE: 3 views of the foot were acquired. COMPARISON: None. FINDINGS: Bones: There is a minimally displaced fracture seen on one view involving the proximal 5th metatarsal. No additional fractures can be seen. The bones are osteopenic. Age-appropriate bony degenerative changes are seen. Soft tissues: No tibiotalar joint effusion. Achilles tendon appears normal. IMPRESSION: Minimally displaced proximal 5th metatarsal fracture seen on one image only. Osteopenia. Dictated by: Eliu Isaac M.D. on 05/08/2019 at 10:08 Approved by: Eliu Isaac M.D. on 05/08/2019 at 10:09
--- NOTE | 2019-05-08 11:33 | ED.LOWEXIN ---
HPI - Extremity Injury (Lower) <BANDAR Brantley - Last Filed: 05/09/19 02:12> General Chief Complaint: Extremity Injury, Lower Stated Complaint: LEFT FOOT TWISTED ANKLE POSSIBLE TEAR Time Seen by Provider: 05/08/19 11:07 Source: patient and family Mode of arrival: Wheelchair Limitations: no limitations History of Present Illness HPI Narrative: This is a 79-year-old female, smoker, who presents to ED with her daughter with chief complain of left mid lateral foot pain and skin tear on her left lower arm. Patient reports she had tripped and inverted her foot about 9:00 p.m. last night in her trailer and held on her door to prevent from falling. Denies injuring her head or other areas. Patient reports pain increases with movement of the toes. Patient reports intact sensation distal to her injury site. Patient has history of COPD, throat CA, Hep C, HTN, aortic valve disorder, pancreatitis and anal and colon cancer. Related Data Home Medications Medication Instructions Recorded Confirmed clopidogrel 75 mg tablet 75 mg PO DAILY 08/05/17 01/04/19 [address]ing Permit 1 dev MISCELLANEOUS DIRECTED 09/15/17 01/04/19 Incontinence Supplies 1 ea MISCELLANEOUS DIRECTED 09/15/17 01/04/19 gabapentin [Neurontin] 400 mg PO TID 03/11/18 01/04/19 acetaminophen 650 mg PO Q6H PRN 10/11/18 01/04/19 ibuprofen 200 mg PO Q6H PRN 10/11/18 01/04/19 ledipasvir-sofosbuvir [Harvoni] 1 tab DAILY 12/16/18 01/04/19 Previous Rx's Medication Instructions Recorded diclofenac sodium 1 % topical gel 2 gram TOP QID #100 gram 01/18/18 ipratropium 0.5 mg-albuterol 3 mg 3 ml INHALATION Q6-8H PRN #100 vial 06/18/18 (2.5 mg base)/3 mL nebulization soln mupirocin 2 % topical ointment 1 applictn TOP TID PRN #30 gram 08/31/18 metoprolol tartrate 25 mg tablet See Rx Instructions .ROUTE 11/19/18 .COMPLEX #30 tablet levothyroxine 75 mcg tablet 75 mcg PO QAM #30 tab 01/10/19 doxycycline hyclate 100 mg PO BID #14 cap 01/11/19 prednisone 40 mg PO DAILY #10 tab 01/11/19 tramadol 50 mg PO Q6H PRN #10 tab 02/26/19 albuterol sulfate 90 mcg/actuation 2 puff INHALATION Q4-6H #18 gram 03/18/19 aerosol inhaler lorazepam 0.5 mg tablet 0.5 mg PO Q6H PRN #45 tab 04/26/19 Allergies Allergy/AdvReac Type Severity Reaction Status Date / Time codeine [CODEINE] AdvReac Mild IT MADE Verified 02/26/19 08:08 ME SICK TO MY STOMACH Review of Systems <BANDAR Brantley - Last Filed: 05/09/19 02:12> Review of Systems Narrative: General: Denies fever, chills, fatigue, malaise, sweats. HEENT: Denies sinus pain, ear pain, sore throat, difficulty swallowing, dizziness. Respiratory: Denies dyspnea, cough, wheezing, hemoptysis, sputum. Cardiovascular: Denies chest pain, palpitations, orthopnea, edema. Gastrointestinal: Denies nausea, vomiting, abdominal pain, diarrhea, constipation, melena. : Denies dysuria, frequency, incontinence, hematuria, urinary retention. Musculoskeletal: See HPI Skin: See HPI Neurologic: Denies weakness, headache, numbness, change in speech, confusion, seizures, incoordination. Psychiatric: No concerning psychosocial issues. 12-point review of systems is negative except for those stated above. 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) Aortic valve disorder (Chronic 07/04/10) Ascites (Resolved) Chronic hepatitis C without hepatic coma (Chronic) Chronic obstructive pulmonary disease (Chronic 07/04/10) Cigarette smoker (Chronic) Depression (Chronic 07/04/10) Essential hypertension (Chronic 07/04/10) Fibromyalgia (Chronic Unknown) GERD (gastroesophageal reflux disease) (Chronic Unknown) Hepatocellular carcinoma (Chronic 05/2016) Hyperlipidemia (Chronic 07/04/10) Hypothyroidism (Acute Unknown) Lung cancer (Resolved 2008) Pancreatitis (Resolved) Peripheral vascular disease (Chronic 10/2011) Pneumonia (Resolved 2010) Rheumatoid arthritis (Chronic Unknown) Throat cancer (Resolved 2005) TIA (transient ischemic attack) (Resolved Unknown) Tubular adenoma of colon (Resolved 05/19/16) Family History Brother No problems noted. Brother No problems noted. Brother No problems noted. Father No problems noted. Mother No problems noted. Social History Smoking Status: Current every day smoker Tobacco: How many years used: 60 quit status: considering quitting (I would like to but I have to pay for Chantix out of pocket) second hand exposure: Yes alcohol intake: former substance use type: marijuana (I smoke 3 times a day.) Smoking Status: Current every day smoker alcohol intake frequency: 0-2 drinks per day Substance Use Type: marijuana Exam <BANDAR Brantley - Last Filed: 05/09/19 02:12> Narrative Exam Narrative: GEN: Alert, oriented x 3, thin appearing and in no acute distress. Head: Normal cephalic, atraumatic. No scalp or temporal tenderness, palpable mass or rash. EYES: Pupils are equal, round, and reactive to light and accommodation. Extraocular muscles are intact bilaterally. There is no subconjunctival hemorrhage, exudate and sclera non-icteric. ENT: Bilateral auditory canals and tympanic membranes clear. Hearing grossly intact. Nose without bleeding, purulent discharge or deviation. Facial sinuses nontender to palpate. Mucous membrane moist, no mucosal lesion. Throat without erythema, tonsillar hypertrophy or exudate. Uvula in midline, airway patent. Neck: Trachea in midline. No JVD, non-tender without lymphadenopathy. No masses or thyroid megaly. Supple, non-tender and no meningeal signs. CARDIAC: Normal regular rate and rhythm with murmurs but no gallops, or rubs. No chest wall tenderness. No peripheral edema, cyanosis or pallor. Capillary refill is less than 2 seconds. RESPIRATORY: Lungs are clear to auscultate bilaterally. Occasional moist cough which has not been increased from her baseline, wheezes, rales, or rhonchi. No stridor, respiratory distress, increase work of breathing, or accessary muscle used. ABD: Abdomen soft, nontender and non-distended. No guarding or rebound tenderness to palpate. Bowel sounds are normal in all 4 quadrants. There is no palpable masses or organomegaly. SKIN: Superficial linear laceration about 4cm to dorsal aspect of left lower arm. Warm, dry, normal color for patient. No erythema, lesions or rash over visible areas. BACK: Nontender without deformity or crepitance. No flank tenderness. NEUROLOGICAL: Alert and oriented to place, time and person. Sensation and motor function intact bilaterally. No facial droops, dysphasia. PSYCHIATRIC: Good judgement and reason, without hallucinations, abnormal affect or abnormal behaviors during the examination. Patient is not suicidal. Initial Vital Signs Initial Vital Signs: Vital Signs Temperature 98.7 F 05/08/19 10:45 Pulse Rate 71 05/08/19 10:45 Respiratory Rate 05/08/19 10:45 Blood Pressure 175/86 H 05/08/19 10:45 Pulse Oximetry 99 05/08/19 10:45 Extrem Left lower extremity: hip/thigh Details: no tenderness and no swelling, knee Details: normal to inspection; no tenderness and no swelling, ankle Details: normal to inspection; no tenderness and no swelling and foot Details: normal capillary refill, tenderness Location: of the mid foot (Fifth) Location: laterally, toes with normal ROM, edema (Lateral 5th metacarpal), vascular exam Details: dorsalis pedis pulse present and normal capillary refill, tendon exam Details: active flexion normal and active extension normal and motor-sensory exam Details: light-touch normal; no abrasions, no lacerations, no ecchymosis and no crepitus <Preet Crandall MD - Last Filed: 05/13/19 17:54> Initial Vital Signs Initial Vital Signs: Vital Signs Temperature 98.7 F 05/08/19 10:45 Pulse Rate 71 05/08/19 10:45 Respiratory Rate 05/08/19 10:45 Blood Pressure 175/86 H 05/08/19 10:45 Pulse Oximetry 99 05/08/19 10:45 Procedures <BANDAR Brantley - Last Filed: 05/09/19 02:12> Orthopedic Splinting/Casting Injury #1: Side: left Lower Extremity Injury Location: foot Lower Extremity Immobilizer: boot orthosis Scores <Sedrick HaydenBANDAR Nelson - Last Filed: 05/09/19 02:12> GCS Po coma scale eye opening: Spontaneous Po coma scale verbal response: Orientated Po coma scale motor response: Obey commands Po coma scale total score: 15 Course <Sedrick GarcesBANDAR Nelson - Last Filed: 05/09/19 02:12> Orders Ordered: Discontinued Medications Acetaminophen (Tylenol) 650 mg PO NOW ONE Stop: 05/08/19 11:32 Last Admin: 05/08/19 11:51 Dose: 650 mg Documented by: NESTOR Vital Signs Vital signs: Vital Signs - 8 hr 05/08/19 10:45 Temperature 98.7 F Pulse Rate 71 Respiratory Rate 20 Blood Pressure 175/86 H Pulse Oximetry 99 <Preet Crandall MD - Last Filed: 05/13/19 17:54> Orders Ordered: Discontinued Medications Acetaminophen (Tylenol) 650 mg PO NOW ONE Stop: 05/08/19 11:32 Last Admin: 05/08/19 11:51 Dose: 650 mg Documented by: NESTOR Vital Signs Vital signs: Vital Signs - 8 hr 05/08/19 10:45 Temperature 98.7 F Pulse Rate 71 Respiratory Rate 20 Blood Pressure 175/86 H Pulse Oximetry 99 MDM - Extremity Injury (Lower) <Sedrick GarcesBANDAR Nelson - Last Filed: 05/09/19 02:12> Differential Diagnosis Differential diagnosis: Likely other (Foot fracture, foot contusion, skin tear) Medical Records Attestation: I reviewed the patient's medical records. Imaging Data XR-Foot LT: Radiologist's Impression: [place] [address] XRay Report Signed Patient: Etta Begum [facility]#: [id number] : [id number]:[id number] Age/Sex: 79 / FDate of Service: 05/08/19 Loc: ED Accession Number: [id number] Procedure: XR foot LT min 3V Ordering Provider: Preet Crandall MD PROCEDURE: XR FOOT LT MIN 3V INDICATIONS: L lateral foot pain s/p fall. tenderness on palpation. TECHNIQUE: 3 views of the foot were acquired. COMPARISON: None. FINDINGS: Bones: There is a minimally displaced fracture seen on one view involving the proximal 5th metatarsal. No additional fractures can be seen. The bones are osteopenic. Age-appropriate bony degenerative changes are seen. Soft tissues: No tibiotalar joint effusion. Achilles tendon appears normal. IMPRESSION: Minimally displaced proximal 5th metatarsal fracture seen on one image only. Osteopenia. Dictated by: Eliu Isaac M.D. on 05/08/2019 at 10:08 Approved by: Eliu Isaac M.D. on 05/08/2019 at 10:09 [facility] Narrative Medical decision making narrative: Left pedal pulse is intact with intact sensation on left toes. There is very mild swelling to lateral 5th metatarsal which is tender to palpate. Cap refill brisk. X-ray test shows minimally displaced proximal 5th metatarsal fracture with osteopenia. Skin tear was repaired with Steri-Strips. There is no signs of infection at this time. Affected foot has been splinted on a walking boot since patient declined using crutches for safety. Patient states she has a walker at home that she can use. Advise minimally bear weight on affected foot. Patient to follow-up with [facility] orthopedist by calling their office tomorrow. RICE therapy instructed and and patient was medicated with Tylenol for comfort. Discussed return precautions for the left lower arm skin injury and signs and symptoms for infection. Patient reports brief duration of palpation in right side of her chest. The patient advised to follow-up with her PCP for possible Holter/event monitor for this since she is not actively having palpitation at this time. Return precautions were discussed the patient and verbalized understanding and in agreement with treatment plan. Discharge Plan Departure Patient Disposition: Home Clinical Impression: Skin tear of left upper extremity Metatarsal fracture Qualifiers: Encounter type: initial encounter Metatarsal bone: fifth Fracture type: closed Fracture alignment: displaced Laterality: left Qualified Code(s): S92.352A - Displaced fracture of fifth metatarsal bone, left foot, initial encounter for closed fracture Discharge Date/Time: 05/08/19 12:41 Instructions: DI for Foot Fracture, DI for Laceration Repair Steri-Strips Activity Restrictions/Additional Instructions: You have been diagnosed with [closed left 5th metatarsal fracture minimally displaced per x-ray test today and skin tear on upper left extremity which repaired with Steri-Strips]. What to do: *Take your medications as directed. You were medicated with Tylenol for discomfort in ED. please take [id number] Tylenol as needed for discomfort. You can take up to 650 4 times a day as needed for discomfort. RICE therapy-Rest, Ice for next 24-48 hrs, Compression and elevation for discomfort. You were provided with walking boot for the fracture and deferred orthoglass foot splint. Please use walking boot for most of the days except during sleep and use a walker that you have for ambulation. Please monitor for infection on your wound such as increasing redness, warmth, swelling, pain, purulent discharge and fever. Keep the area clean and dry. The Steri-Strips will be removed on his own in 5-10 days. *Follow up with your primary care provider in 2-3 days, call for an appointment. Please follow up with [facility] orthopedist in 2-3 days. Please keep them a call on Thursday. Let them know you were seen in the ED and that we asked you to be seen in follow up. *Return to ED if you have any new, worsening, or concerning symptoms, such as [chest pain, breathing difficulty, unable to tolerate fluids, tingling/numbness/weakness on affected foot or any acute concerns]. Prescriptions: No Action clopidogrel 75 mg tablet 75 mg PO DAILY RF: 0 diclofenac sodium 1 % gel 2 gram TOP QID Qty: 100 RF: 3 ipratropium-albuterol 0.5 mg-3 mg(2.5 mg base)/3 mL solution for nebulization 3 ml INHALATION Q6-8H PRN (Reason: shortness of breath or wheezing) Qty: 100 RF: 0 mupirocin 2 % ointment 1 applictn TOP TID PRN (Reason: unknown) Qty: 30 RF: 3 metoprolol tartrate 25 mg tablet See Rx Instructions .ROUTE .COMPLEX Qty: 30 RF: 3 levothyroxine [Synthroid] 75 mcg tablet 75 mcg PO QAM Qty: 30 RF: 0 albuterol sulfate 90 mcg/actuation HFA aerosol inhaler 2 puff inhalation Q4-6H Qty: 18 RF: 3 lorazepam 0.5 mg tablet 0.5 mg PO Q6H PRN (Reason: anxiety) Qty: 45 RF: 0 acetaminophen 325 mg Tablet 650 mg PO Q6H PRN (Reason: Pain, Mild) RF: 0 ibuprofen 400 mg Tablet 200 mg PO Q6H PRN (Reason: Pain, Mild) RF: 0 Disabled Parking Permit 1 dev miscellaneous DIRECTED RF: 0 Incontinence Supplies 1 ea miscellaneous DIRECTED RF: 0 gabapentin [Neurontin] 400 mg capsule 400 mg PO TID RF: 0 ledipasvir-sofosbuvir [Harvoni] 90-400 mg Tablet 1 tab DAILY RF: 0 doxycycline hyclate 100 mg capsule 100 mg PO BID Qty: 14 RF: 0 prednisone 20 mg tablet 40 mg PO DAILY Qty: 10 RF: 0 tramadol 50 mg tablet 50 mg PO Q6H PRN (Reason: pain) Qty: 10 RF: 0 Referrals: [facility] [Provider Group] Nidia Sánchez PA-C [Advanced Record Changer Tester] -
[2019-05-08] MEDS: ACETAMINOPHEN 325 MG TABLET 650 MG PO (11:51)
== END 2019-05-08 12:41 | disposition home or self-care (01) ==
PROVIDERS: Emergency Provider Nurse Practitioner Family
DX: S92.352A Displaced fracture of fifth metatarsal bone, left foot, initial encounter for closed fracture (principal); S51.812A Laceration without foreign body of left forearm, initial encounter; W18.49XA Other slipping, tripping and stumbling without falling, initial encounter
CPT/HCPCS: 29515; 73630; 99283; 99284

== ENCOUNTER → 2019-06-13 11:28 | Outpatient (CLI) | payer MEDICARE, MEDICAID, SELFPAY ==
[2019-06-13 12:24] LABS: Add Manual Diff / Slide Review NO; Basophils Absolute Auto 0 /uL (0-100); Basophils Percent Auto 1.1 % (0-2); Eosinophils Absolute Auto 0 /uL (0-450); Eosinophils Percent Auto 0.5 % (2-4); Hematocrit 40.6 % (36-46); Hemoglobin 13.8 g/dL (12.0-16.0); Lymphocytes Absolute Auto 1000 /uL (1100-4500); Lymphocytes Percent Auto 23.7 % (25-40); Mean Corpuscular Hemoglobin 29.9 PG (26-34); Monocytes Absolute Auto 300 /uL (0-900); Monocytes Percent Auto 7.8 % (3-14); Neutrophils Absolute Auto 2800 /uL (1500-7000); Neutrophils Percent Auto 66.9 % (50-75); Platelet Count 163 X10^3/uL (150-400); Red Blood Cell Count 4.61 X10^6/uL (4.0-5.2); Red Cell Distribution Width 15.9 % (11.6-14.8); White Blood Cell Count 4.2 X10^3/uL (4.5-11.0)
[2019-06-13 13:25] LABS: Alanine Aminotransferase 17 IU/L (<35); Albumin 4.3 g/dL (3.5-5.0); Albumin Globulin Ratio 1.1 (1.0-2.8); Alkaline Phosphatase 79 U/L (38-126); Aspartate Aminotransferase 36 IU/L (14-36); BUN Creatinine Ratio 36.8 (6-22); Bilirubin Total 0.5 mg/dL (0.2-1.3); Blood Urea Nitrogen 25 mg/dL (7-17); Calcium 9.7 mg/dL (8.4-10.2); Carbon Dioxide 28 mmol/L (22-32); Chloride 102 mmol/L (98-107); Estimated Glomerular Filt Rate > 60.0 mL/min (>60); Globulin 3.9 g/dL (1.7-4.1); Glucose 91 mg/dL (80-110); HEMOLYSIS < 15 (0-50); Potassium 4.7 mmol/L (3.4-5.1); Sodium 136 mmol/L (137-145); Total Protein 8.2 g/dL (6.3-8.2)
== END ==
PROVIDERS: Referring Provider Internal Medicine Gastroenterology; Visit Provider Internal Medicine Gastroenterology
DX: B18.2 Chronic viral hepatitis C (principal)
CPT/HCPCS: 36415; 80053; 85025

== ENCOUNTER → 2019-06-27 08:51 | Outpatient (CLI) | payer MEDICARE, MEDICAID, SELFPAY ==
--- NOTE | 2019-06-27 08:55 | DI.US.S_ITS ---
PROCEDURE: US CAROTID DOPPLER BI INDICATIONS: RIGHT BRUIT TECHNIQUE: Color and pulse Doppler interrogation was performed of both carotid systems, with image documentation and velocity measurements. COMPARISON: Located Within [facility], US, CAROTID ARTERY DOPPLER BILAT, 12/02/2012, 8:04. US, US ARTERY LEG DPLX BILAT, 08/13/2015, 10:15. Located Within [facility], US, CAROTID ARTERY DOPPLER BILAT, 06/22/2017, 10:16. FINDINGS: Stenosis calculations are based on SRU (Society of Radiologists in Ultrasound) criteria. Right side: Brachial blood pressure: 157/81 mm Hg. Common carotid artery peak systolic velocity: 54 cm/sec. Internal carotid artery peak systolic velocity: 178 cm/sec. Internal carotid artery end diastolic velocity: 41 cm/sec. External carotid artery peak systolic velocity: 34 cm/sec. ICA/CCA peak systolic ratio: 3.3. Tuttle scale imaging description: Extensive plaques including a soft plaque Percent internal carotid artery stenosis: 50-69% and increased. Vertebral artery: Flow direction is antegrade. Left side: Brachial blood pressure: 157/82 mm Hg. Common carotid artery peak systolic velocity: 55 cm/sec. Internal carotid artery peak systolic velocity: 84 cm/sec. Internal carotid artery end diastolic velocity: 26 cm/sec. External carotid artery peak systolic velocity: 53 cm/sec. ICA/CCA peak systolic ratio: 1.5. Tuttle scale imaging description: Echogenic plaques throughout Percent internal carotid artery stenosis: Less than 50%, unchanged since the last exam. Vertebral artery: Not visualized. IMPRESSION: 1. 50-69% stenosis of the right internal carotid artery, increased since the last exam. There is a soft plaque at the right bifurcation. 2. Less than 50% left internal coronary stenosis, unchanged. 3. Antegrade flow in right vertebral artery. The left vertebral artery is not visualized. Dictated by: Renato Hanson M.D. on 06/27/2019 at 10:28 Approved by: Renato Hanson M.D. on 06/27/2019 at 11:03
== END ==
PROVIDERS: PCP Nurse Practitioner Family; Referring Provider Nurse Practitioner Family; Visit Provider Nurse Practitioner Family
DX: I65.23 Occlusion and stenosis of bilateral carotid arteries (principal); R09.89 Other specified symptoms and signs involving the circulatory and respiratory systems
CPT/HCPCS: 93880

== ENCOUNTER → 2019-07-26 12:20 | Outpatient (CLI) | payer MEDICARE, MEDICAID, SELFPAY ==
--- NOTE | 2019-07-26 12:25 | DI.MRI.S_ITS ---
mmm INDICATIONS: liver cancer TECHNIQUE: Coronal HASTE, axial 2D FLASH in- and [id number]; axial breath-hold T2 FSE. Dynamic axial VIBE during the administration of contrast; post-contrast coronal VIBE or 2D FLASH with fat saturation from the hepatic dome to the iliac crests. Optional diffusion weighted imaging and ADC may be performed. COMPARISON: [facility], CT, CT CHEST WITHOUT CONTRAST, 03/08/2019, 9:59. [facility] Ultrasound, US, US AORTA RETROPERITONEAL LIMITED, 07/20/2019, 12:42. [facility], MR, MR ABDOMEN WO/W CON, 09/27/2018, 10:18. [facility], MR, MR ABDOMEN WO/W CON, 12/09/2017, 8:57. [facility], CT, CT ABDOMEN PELVIS W CON, 10/11/2018, 12:01. FINDINGS: Image quality: Excellent. Lung bases: No basal pleural effusions. Heart size is normal. Solid organs: Liver is normal in size and hepatic enhancement is heterogeneous in the areas of prior hepatic lesion ablation procedures performed subsequent to the MR scanning performed 09/27/18, and documented in postcontrast CT scanning dated 10/11/18. Two new liver lesions have developed, however. The first is located within the right posterior hepatic segment VII, represented by a T1 hypointense 1.4 cm diameter structures seen on precontrast T1 imaging series 6 image 21. This then enhances prominently on arterial phase of contrast enhancement, seen on series 8 image 24. Delayed washout views shortly thereafter showed a enhancing rim with central washout representing pseudocapsule identified on series 9 image 24. The second lesion is high within segment Kojo seen as a 1.4 cm hypointense T1 rounded focus on series 6 image 17, with arterial phase contrast enhancement prominent, seen on series 8 image 19. Thereafter on washout phase central hypointensity with a rim of pseudocapsule enhancement can be seen on series 9 image 18. Gallbladder is not well-seen and may be contracted or absent. Biliary system is non dilated. Pancreas is normal in morphology. Spleen is normal in size and enhancement. No adrenal nodules. Both kidneys demonstrate normal size and enhancement, without hydronephrosis. Nodes and vessels: No retroperitoneal or mesenteric adenopathy by size criteria. Aorta and inferior vena cava are unchanged in size measuring up to 4.6 x 5.0 cm, warranting continued sonographic followup. Bowel and peritoneum: Unenhanced bowel loops are normal in caliber. No free fluid. Bones and soft tissues: No ventral hernias. Bone marrow is normal in overall signal. IMPRESSION: 1. The hepatic parenchyma in the areas of ablation of multiple foci of neoplasm performed between 09/27/18 MR scanning and 10/11/18 CT scanning shows mildly heterogeneous perfusion anomalies without evidence of recurrent neoplasm in the areas of prior neoplasm. 2. However, 2 small new lesions are identified highly likely to represent interval development of 1.3-1.4 cm diameter hepatocellular carcinoma foci have developed within segment VII superior posterior right hepatic lobe and also within superior segment KOJO. 3. Aneurysmal dilatation of the abdominal aorta measuring up to 4.6 x 5.0 cm. This may have slightly enlarged from the most recent CT and MR scanning. Dictated by: Cirilo Bean M.D. on 07/26/2019 at 13:39 Approved by: Cirilo Bean M.D. on 07/26/2019 at 14:16
[2019-07-26 12:53] LABS: Add Manual Diff / Slide Review NO; Basophils Absolute Auto 100 /uL (0-100); Basophils Percent Auto 1.4 % (0-2); Eosinophils Absolute Auto 0 /uL (0-450); Eosinophils Percent Auto 0.5 % (2-4); Hematocrit 41.1 % (36-46); Hemoglobin 14.1 g/dL (12.0-16.0); Lymphocytes Absolute Auto 1200 /uL (1100-4500); Lymphocytes Percent Auto 25.3 % (25-40); Mean Corpuscular HGB Conc 34.2 % (30-36); Mean Corpuscular Hemoglobin 30.4 PG (26-34); Mean Corpuscular Volume 88.8 fL (80-100); Monocytes Absolute Auto 300 /uL (0-900); Monocytes Percent Auto 6.7 % (3-14); Neutrophils Absolute Auto 3100 /uL (1500-7000); Neutrophils Percent Auto 66.1 % (50-75); Platelet Count 184 X10^3/uL (150-400); Red Blood Cell Count 4.63 X10^6/uL (4.0-5.2); Red Cell Distribution Width 15.8 % (11.6-14.8); White Blood Cell Count 4.6 X10^3/uL (4.5-11.0)
[2019-07-26 13:03] LABS: Alanine Aminotransferase 16 IU/L (<35); Albumin 4.5 g/dL (3.5-5.0); Albumin Globulin Ratio 1.1 (1.0-2.8); Alkaline Phosphatase 77 U/L (38-126); Aspartate Aminotransferase 38 IU/L (14-36); BUN Creatinine Ratio 22.5 (6-22); Bilirubin Total 0.9 mg/dL (0.2-1.3); Blood Urea Nitrogen 20 mg/dL (7-17); Calcium 9.9 mg/dL (8.4-10.2); Carbon Dioxide 26 mmol/L (22-32); Chloride 102 mmol/L (98-107); Estimated Glomerular Filt Rate > 60.0 mL/min (>60); Glucose 94 mg/dL (80-110); HEMOLYSIS < 15 (0-50); Potassium 4.3 mmol/L (3.4-5.1); Sodium 137 mmol/L (137-145); Total Protein 8.5 g/dL (6.3-8.2)
== END ==
PROVIDERS: PCP Nurse Practitioner Family; Referring Provider Internal Medicine Hematology & Oncology; Visit Provider Internal Medicine Hematology & Oncology
DX: C22.0 Liver cell carcinoma (principal); I71.4 Abdominal aortic aneurysm, without rupture
CPT/HCPCS: 36415; 74183; 80053; 82105; 85025

== ENCOUNTER → 2019-09-05 10:49 | Outpatient (CLI) | payer MEDICARE, MEDICAID, SELFPAY ==
[2019-09-05 12:42] LABS: Alanine Aminotransferase 17 IU/L (<35); Albumin 4.5 g/dL (3.5-5.0); Albumin Globulin Ratio 1.2 (1.0-2.8); Alkaline Phosphatase 79 U/L (38-126); Aspartate Aminotransferase 44 IU/L (14-36); BUN Creatinine Ratio 30.1 (6-22); Bilirubin Total 0.7 mg/dL (0.2-1.3); Blood Urea Nitrogen 22 mg/dL (7-17); Calcium 10.4 mg/dL (8.4-10.2); Carbon Dioxide 29 mmol/L (22-32); Chloride 102 mmol/L (98-107); Estimated Glomerular Filt Rate > 60.0 mL/min (>60); Globulin 3.7 g/dL (1.7-4.1); Glucose 101 mg/dL (80-110); HEMOLYSIS < 15 (0-50); Potassium 4.5 mmol/L (3.4-5.1); Sodium 138 mmol/L (137-145); Total Protein 8.2 g/dL (6.3-8.2)
[2019-09-05 12:59] LABS: Free T4, Direct Thyroxine 1.04 ng/dL (0.78-2.19)
[2019-09-05 13:13] LABS: Thyroid Stimulating Hormone 7.64 uIU/mL (0.47-4.68)
== END ==
PROVIDERS: PCP Family Medicine; Referring Provider Family Medicine; Visit Provider Family Medicine
DX: R26.89 Other abnormalities of gait and mobility (principal)
CPT/HCPCS: 36415; 80053; 84439; 84443

== ENCOUNTER 2019-09-18 10:45 | Emergency (ER) | payer MEDICARE, MEDICAID, SELFPAY ==
[2019-09-18] VITALS (17 sets, daily range): BP systolic 135–178; BP diastolic 70–88; PULSE 66–81; RESP 16–41; TEMP 36.8; O2SAT 92–98; BMI 19.2
[2019-09-18 11:52] LABS: Add Manual Diff / Slide Review NO; Basophils Absolute Auto 100 /uL (0-100); Eosinophils Absolute Auto 0 /uL (0-450); Eosinophils Percent Auto 0.2 % (2-4); Hematocrit 44.4 % (36-46); Hemoglobin 14.8 g/dL (12.0-16.0); Lymphocytes Absolute Auto 800 /uL (1100-4500); Lymphocytes Percent Auto 15.6 % (25-40); Mean Corpuscular HGB Conc 33.4 % (30-36); Mean Corpuscular Hemoglobin 29.6 PG (26-34); Mean Corpuscular Volume 88.8 fL (80-100); Monocytes Absolute Auto 300 /uL (0-900); Monocytes Percent Auto 5.4 % (3-14); Neutrophils Absolute Auto 4100 /uL (1500-7000); Neutrophils Percent Auto 77.8 % (50-75); Platelet Count 185 X10^3/uL (150-400); Red Cell Distribution Width 15.1 % (11.6-14.8); White Blood Cell Count 5.2 X10^3/uL (4.5-11.0)
[2019-09-18] MEDS: ONDANSETRON 4 MG/2 ML INJ IV (11:53)
--- NOTE | 2019-09-18 11:57 | DI.RAD.S_ITS ---
PROCEDURE: XR ACUTE ABDOMEN SERIES INDICATIONS: never, nausea TECHNIQUE: One view chest and two views of the abdomen were acquired. COMPARISON: [facility], CR, XR CHEST 1V, 01/11/2019, 10:28. FINDINGS: Surgical changes and devices: Right iliac artery stent. Chest: Lungs are clear. Heart size is normal. No pleural effusions. No pneumoperitoneum. Abdomen: Bowel gas pattern is normal. No suspicious calcifications. Visualized solid organ contours appear normal. Bones: No suspicious bony lesions. IMPRESSION: No acute process. Dictated by: Brittney Deras M.D. on 09/18/2019 at 12:09 Approved by: Brittney Deras M.D. on 09/18/2019 at 12:10
--- NOTE | 2019-09-18 12:08 | ED_ITS ---
HPI - Nausea/Vomiting/Diarrhea <FADI SmithP-BC - Last Filed: 09/18/19 20:51> General Chief complaint: Nausea/Vomiting/Diarrhea Stated complaint: Chills nausea, diarrhea, low back pain Time Seen by Provider: 09/18/19 11:36 Source: patient and family Mode of arrival: Wheelchair Limitations: no limitations History of Present Illness HPI Narrative: The patient is a 79-year-old female current smoker with history of hepatocellular carcinoma,, COPD, hepatitis-C, and tubular adenoma of colon and lung resection who presents with a chief complaint of chills, muscle aches, nausea, dry heaves and low back pain. She notes that her urine is different colored and smells funny. She denies any dysuria, does complain of frequency. Denies any urgency. She states that the pain started about 4 days ago, she took some Tylenol for it and it helped eventually, but not as much as she would like to. She denies any overt fevers but complains of muscle aches and chills. She denies any abnormal shortness of breath, or cough. She denies any chest pain. She denies any abdominal pain. She states that the pain is across her low back in her lumbar region. Some loose stools. Related Data Home Medications Medication Instructions Recorded Confirmed Disabled Parking Permit 1 dev MISCELLANEOUS DIRECTED 09/15/17 08/25/19 Incontinence Supplies 1 ea MISCELLANEOUS DIRECTED 09/15/17 08/04/19 tiotropium bromide 2.5 2 puff INHALATION DAILY 06/22/19 08/25/19 mcg/actuation mist for inhalation albuterol sulfate [ProAir HFA] 1 inh INHALATION QID PRN 08/25/19 08/25/19 aspirin 81 mg PO DAILY 08/25/19 08/25/19 cilostazol 50 mg BID 08/25/19 08/25/19 Previous Rx's Medication Instructions Recorded gabapentin 400 mg capsule 400 mg PO TID #270 cap 06/08/19 metoprolol tartrate 25 mg tablet 12.5 mg PO BID #90 tab 06/08/19 albuterol sulfate 90 mcg/actuation 2 puff INHALATION Q4-6H #18 gram 08/20/19 aerosol inhaler efinaconazole 10 % topical 1 applictn TOP DAILY 336 Days #4 ml 09/05/19 solution with applicator levothyroxine 50 mcg tablet 50 mcg PO DAILY #90 tab 09/05/19 nitrofurantoin macrocrystal 100 mg PO BID #14 cap 09/18/19 lorazepam 0.5 mg tablet See Rx Instructions .ROUTE 09/20/19 .COMPLEX #45 tab Allergies Allergy/AdvReac Type Severity Reaction Status Date / Time codeine [CODEINE] AdvReac Mild IT MADE Verified 07/06/19 09:15 ME SICK TO MY STOMACH Review of Systems <IVONNE Smith - Last Filed: 09/18/19 20:51> Review of Systems Narrative: GENERAL: See HPI HEENT: Denies sinus pain, ear pain, sore throat, difficulty swallowing, dizziness. RESPIRATORY: Denies dyspnea, cough, wheezing, hemoptysis, sputum. CARDIOVASCULAR: Denies chest pain, palpitations, orthopnea, edema, GASTROINTESTINAL: See HPI : See HPI MUSCULOSKELETAL: denies weakness, joint pain, or bony pain SKIN: Denies rash, skin lesions, or other NEUROLOGIC: Denies weakness, headache, numbness, change in speech, confusion, seizures, incoordination. PSYCHIATRIC: No concerning psychosocial issues. 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) Aortic valve disorder (Chronic 07/04/10) Ascites (Resolved) Bruit of right carotid artery (Acute 05/2019) Carotid atherosclerosis (Acute 02/2019) Chronic hepatitis C without hepatic coma (Chronic) Chronic obstructive pulmonary disease (Chronic 07/04/10) Cigarette smoker (Chronic) Depression (Chronic 07/04/10) Essential hypertension (Chronic 07/04/10) Fibromyalgia (Chronic Unknown) GERD (gastroesophageal reflux disease) (Chronic Unknown) Hearing loss (Acute) Hepatocellular carcinoma (Chronic 05/2016) Hyperlipidemia (Chronic 07/04/10) Hypothyroidism (Acute Unknown) Lung cancer (Resolved 2008) Pancreatitis (Resolved) Peripheral vascular disease (Chronic 10/2011) Pneumonia (Resolved 2010) Rheumatoid arthritis (Chronic Unknown) Throat cancer (Resolved 2005) TIA (transient ischemic attack) (Resolved Unknown) Tubular adenoma of colon (Resolved 05/19/16) Family History Brother No problems noted. Brother No problems noted. Brother No problems noted. Father No problems noted. Mother No problems noted. Social History Smoking Status: Current every day smoker Tobacco: How many years used: 60 quit status: considering quitting second hand exposure: Yes alcohol intake: former substance use type: marijuana Smoking Status: Current every day smoker alcohol intake frequency: 0-2 drinks per day Substance Use Type: marijuana Exam <IVONNE Smith - Last Filed: 09/18/19 20:51> Narrative Exam Narrative: GENERAL: Elderly female lying on stretcher in no acute distress HEAD: Atraumatic. Normocephalic. No temporal or scalp tenderness. EYES: Pupils equal round and reactive. Extraocular motions intact. No scleral icterus. No injection or drainage. ENT: Nose without bleeding, purulent drainage or septal hematoma. Dry mucous membranes. Airway patent. NECK: Trachea midline. No JVD or lymphadenopathy. Supple, nontender, no meningeal signs. CARDIOVASCULAR: Regular rate and rhythm RESPIRATORY: Decreased to auscultation. Breath sounds equal bilaterally. No wheezes, rales, or rhonchi. Speaking full sentences. No increased respiratory effort. No accessory muscle use. GASTROINTESTINAL: Abdomen soft, diffusely tender, active bowel sounds all 4 quadrants, nondistended. No hepato-splenomegaly, or palpable masses. No guarding. EXTREMITIES: No clubbing, cyanosis, or edema. No joint tenderness, effusion, or edema noted. BACK: Nontender without deformity or crepitance. No flank tenderness. No CVA tenderness bilaterally. NEURO: AOx3. SKIN: No rash or erythema on visible skin Initial Vital Signs Initial Vital Signs: Vital Signs Temperature 98.2 F 09/18/19 11:00 Pulse Rate 74 09/18/19 11:00 Respiratory Rate 20 09/18/19 11:00 Blood Pressure 178/88 H 09/18/19 11:00 Pulse Oximetry 97 09/18/19 11:00 <Preet Crandall MD - Last Filed: 09/24/19 07:21> Initial Vital Signs Initial Vital Signs: Vital Signs Temperature 98.2 F 09/18/19 11:00 Pulse Rate 74 09/18/19 11:00 Respiratory Rate 20 09/18/19 11:00 Blood Pressure 178/88 H 09/18/19 11:00 Pulse Oximetry 97 09/18/19 11:00 Scores <IVONNE Smith - Last Filed: 09/18/19 20:51> GCS Op coma scale eye opening: Spontaneous Po coma scale verbal response: Orientated [place] coma scale motor response: Obey commands Po coma scale total score: 15 Course <IVONNE Smith - Last Filed: 09/18/19 20:51> Orders Ordered: Discontinued Medications Sodium Chloride (Normal Saline 0.9%) 1,000 mls @ 1,000 mls/hr IV BOLUS ONE Stop: 09/18/19 12:56 Last Infusion: 09/18/19 13:58 Dose: 0 mls/hr Documented by: Admin: 09/18/19 12:19 Dose: 1,000 mls/hr Documented by: SHARITA Sodium Chloride (Normal Saline 0.9%) 1,000 mls @ 250 mls/hr IV CONT EDMUND Last Infusion: 09/18/19 16:07 Dose: 250 mls/hr Documented by: Admin: 09/18/19 13:50 Dose: 250 mls/hr Documented by: CONNER Ketorolac Tromethamine (Toradol) 15 mg IV NOW ONE Stop: 09/18/19 13:33 Last Admin: 09/18/19 13:50 Dose: 15 mg Documented by: CONNER Lidocaine (Lidoderm) 1 each TOP NOW ONE Stop: 09/18/19 13:31 Last Admin: 09/18/19 13:51 Dose: 1 each Documented by: CONNER Ondansetron HCl (Zofran) 4 mg IV NOW ONE Stop: 09/18/19 11:38 Last Admin: 09/18/19 11:53 Dose: 4 mg Documented by: SHARITA Vital Signs Vital signs: Vital Signs - 8 hr 09/18/19 13:09 09/18/19 13:30 09/18/19 13:54 Pulse Rate 71 80 77 Respiratory Rate 16 Blood Pressure 143/75 H Pulse Oximetry 98 98 98 09/18/19 14:00 09/18/19 14:30 09/18/19 15:00 Pulse Rate 72 81 75 Respiratory Rate Blood Pressure 138/75 135/70 Pulse Oximetry 97 97 97 09/18/19 15:09 09/18/19 15:30 09/18/19 15:44 Pulse Rate 74 66 Respiratory Rate 24 Blood Pressure 141/70 H 137/71 Pulse Oximetry 96 92 09/18/19 16:00 09/18/19 16:30 09/18/19 16:31 Pulse Rate 71 81 69 Respiratory Rate 19 41 H 33 H Blood Pressure 148/73 H 149/71 H Pulse Oximetry 95 97 09/18/19 17:00 09/18/19 17:30 Pulse Rate 69 73 Respiratory Rate 37 H 22 Blood Pressure 152/70 H Pulse Oximetry 97 95 <Preet Crandall MD - Last Filed: 09/24/19 07:21> Orders Ordered: Discontinued Medications Sodium Chloride (Normal Saline 0.9%) 1,000 mls @ 1,000 mls/hr IV BOLUS ONE Stop: 09/18/19 12:56 Last Infusion: 09/18/19 13:58 Dose: 0 mls/hr Documented by: Admin: 09/18/19 12:19 Dose: 1,000 mls/hr Documented by: SHARITA Sodium Chloride (Normal Saline 0.9%) 1,000 mls @ 250 mls/hr IV CONT EDMUND Last Infusion: 09/18/19 16:07 Dose: 250 mls/hr Documented by: Admin: 09/18/19 13:50 Dose: 250 mls/hr Documented by: CONNER Ketorolac Tromethamine (Toradol) 15 mg IV NOW ONE Stop: 09/18/19 13:33 Last Admin: 09/18/19 13:50 Dose: 15 mg Documented by: CONNER Lidocaine (Lidoderm) 1 each TOP NOW ONE Stop: 09/18/19 13:31 Last Admin: 09/18/19 13:51 Dose: 1 each Documented by: CONNER Ondansetron HCl (Zofran) 4 mg IV NOW ONE Stop: 09/18/19 11:38 Last Admin: 09/18/19 11:53 Dose: 4 mg Documented by: SHARITA Vital Signs Vital signs: Vital Signs - 8 hr 09/18/19 13:09 09/18/19 13:30 09/18/19 13:54 Pulse Rate 71 80 77 Respiratory Rate 16 Blood Pressure 143/75 H Pulse Oximetry 98 98 98 09/18/19 14:00 09/18/19 14:30 09/18/19 15:00 Pulse Rate 72 81 75 Respiratory Rate Blood Pressure 138/75 135/70 Pulse Oximetry 97 97 97 09/18/19 15:09 09/18/19 15:30 09/18/19 15:44 Pulse Rate 74 66 Respiratory Rate 24 Blood Pressure 141/70 H 137/71 Pulse Oximetry 96 92 09/18/19 16:00 09/18/19 16:30 09/18/19 16:31 Pulse Rate 71 81 69 Respiratory Rate 19 41 H 33 H Blood Pressure 148/73 H 149/71 H Pulse Oximetry 95 97 09/18/19 17:00 09/18/19 17:30 Pulse Rate 69 73 Respiratory Rate 37 H 22 Blood Pressure 152/70 H Pulse Oximetry 97 95 MDM - Nausea/Vomiting/Diarrhea <BYRON Smith- - Last Filed: 09/18/19 20:51> Lab Data Attestation: I reviewed the patient's lab results. Result diagrams: 09/18/19 11:38 09/18/19 11:38 Labs: Lab Results 09/18/19 09/18/19 09/18/19 Range/Units 11:38 11:38 11:38 WBC 5.2 (4.5-11.0) X10^3/uL RBC 5.00 (4.0-5.2) X10^6/uL Hgb 14.8 (12.0-16.0) g/dL Hct 44.4 (36-46) % MCV 88.8 (80-100) fL MCH 29.6 (26-34) PG MCHC 33.4 (30-36) % RDW 15.1 H (11.6-14.8) % Plt Count 185 (150-400) X10^3/uL Neut % (Auto) 77.8 H (50-75) % Lymph % (Auto) 15.6 L (25-40) % [place] % (Auto) 5.4 (3-14) % Eos % (Auto) 0.2 L (2-4) % Baso % (Auto) 1.0 (0-2) % Neut # (Auto) 4100 (5076-8006) /uL Lymph # (Auto) 800 L (7154-4709) /uL [place] # (Auto) 300 (0-900) /uL Eos # (Auto) 0 (0-450) /uL Baso # (Auto) 100 (0-100) /uL Sodium 135 L (137-145) mmol/L Potassium 4.0 (3.4-5.1) mmol/L Chloride 102 (98-107) mmol/L Carbon Dioxide 20 L (22-32) mmol/L BUN 21 H (7-17) mg/dL Creatinine 0.73 (0.52-1.04) mg/dL Estimated GFR > 60.0 (>60) mL/min BUN/Creatinine Ratio 28.8 H (6-22) Glucose 82 (80-110) mg/dL Lactate 1.0 (0.7-2.1) mmol/L Calcium 10.1 (8.4-10.2) mg/dL Total Bilirubin 1.2 (0.2-1.3) mg/dL AST 36 (14-36) IU/L ALT 16 (<35) IU/L Alkaline Phosphatase 86 (38-126) U/L Total Creatine Kinase (30-135) U/L CK-MB (CK-2) CK-MB (CK-2) Rel Index Troponin I (0.01-0.034) ng/mL Total Protein 8.5 H (6.3-8.2) g/dL Albumin 4.8 (3.5-5.0) g/dL Globulin 3.7 (1.7-4.1) g/dL Albumin/Globulin Ratio 1.3 (1.0-2.8) Amylase 108 (30-110) U/L Lipase 232 (23-300) U/L Urine RBC (0-5/HPF) Urine WBC (0-5/HPF) Ur Squamous Epith Cells (0-5/HPF) Ur Transition Epith Cell (0-5/HPF) Urine Bacteria (None) Hyaline Casts (None) Urine Mucus (Negative) Ur Culture Indicated? COVID-19 PCR (Not Detected) 09/18/19 09/18/1909/17/20 Range/Units 12:01 14:35 16:00 WBC (4.5-11.0) X10^3/uL RBC (4.0-5.2) X10^6/uL Hgb (12.0-16.0) g/dL Hct (36-46) % MCV (80-100) fL MCH (26-34) PG MCHC (30-36) % RDW (11.6-14.8) % Plt Count (150-400) X10^3/uL Neut % (Auto) (50-75) % Lymph % (Auto) (25-40) % [place] % (Auto) (3-14) % Eos % (Auto) (2-4) % Baso % (Auto) (0-2) % Neut # (Auto) (4803-0410) /uL Lymph # (Auto) (2689-3047) /uL [place] # (Auto) (0-900) /uL Eos # (Auto) (0-450) /uL Baso # (Auto) (0-100) /uL Sodium (137-145) mmol/L Potassium (3.4-5.1) mmol/L Chloride (98-107) mmol/L Carbon Dioxide (22-32) mmol/L BUN (7-17) mg/dL Creatinine (0.52-1.04) mg/dL Estimated GFR (>60) mL/min BUN/Creatinine Ratio (6-22) Glucose (80-110) mg/dL Lactate (0.7-2.1) mmol/L Calcium (8.4-10.2) mg/dL Total Bilirubin (0.2-1.3) mg/dL AST (14-36) IU/L ALT (<35) IU/L Alkaline Phosphatase (38-126) U/L Total Creatine Kinase 37 (30-135) U/L CK-MB (CK-2) TNP CK-MB (CK-2) Rel Index TNP Troponin I < 0.012 (0.01-0.034) ng/mL Total Protein (6.3-8.2) g/dL Albumin (3.5-5.0) g/dL Globulin (1.7-4.1) g/dL Albumin/Globulin Ratio (1.0-2.8) Amylase (30-110) U/L Lipase (23-300) U/L Urine RBC 0-1/hpf (0-5/HPF) Urine WBC 10-30/hpf H (0-5/HPF) Ur Squamous Epith Cells 1-5 /hpf (0-5/HPF) Ur Transition Epith Cell 1-5/hpf (0-5/HPF) Urine Bacteria Few (2-10) H (None) Hyaline Casts 5-10/lpf (None) Urine Mucus 1+ H (Negative) Ur Culture Indicated? Specimen cultured COVID-19 PCR Not detected (Not Detected) Urine Dip Bedside Urine Glucose Negative Bedside Urine Bilirubin + 1 Bedside Urine Ketone +++ 80 Urine Specific [place] 1.030 Bedside Urine Occult Blood +/- Bedside Urine pH 6.0 Bedside Urine Protein + 30 Bedside Urine Urobilinogen +/- 1mg Bedside Urine Nitrite - Negative Bedside Urine Leukocytes +++ 500 Esterase Imaging Data Chest x-ray: Radiologist's Impression: [address] [place] [id number] XRay Report Signed Patient: Etta Begum [facility]#: [id number] : 2Acct:[id number] Age/Sex: 79 / FDate of Service: 09/18/19 Loc: ED Accession Number: [id number] Procedure: XR acute abdomen series Ordering Provider: Saloni Cartwright PROCEDURE: XR ACUTE ABDOMEN SERIES INDICATIONS: never, nausea TECHNIQUE: One view chest and two views of the abdomen were acquired. COMPARISON: [facility], , XR CHEST 1V, 01/11/2019, 10:28. FINDINGS: Surgical changes and devices: Right iliac artery stent. Chest: Lungs are clear. Heart size is normal. No pleural effusions. No pneumoperitoneum. Abdomen: Bowel gas pattern is normal. No suspicious calcifications. Visualized solid organ contours appear normal. Bones: No suspicious bony lesions. IMPRESSION: No acute process. Dictated by: Brittney Deras M.D. on 09/18/2019 at 12:09 Approved by: Brittney Deras M.D. on 09/18/2019 at 12:10 ECG Data Attestation: I personally reviewed and interpreted this ECG as follows: Interpretation: Sinus rhythm. Ventricular rate 72. P.r. interval 158.viewed by Dr Crandall [facility] Narrative Medical decision making narrative: The patient is a 79-year-old female who presents the chief complaints of low back pain, muscle aches and chills. Overall her lab work is very reassuring, no leukocytosis, is concerning for infection, with leukocyte esterase, bacteria etcetera. Upon the discussing with her the findings in her urine and plan for discharge the patient stated that she has been having chest pain, which she informed the nurse. I went to evaluate the patient, she states that she had 2 episodes of shooting pain in her left breast. EKG was done, initial troponin was negative. The patient initially declined initial EKG and troponin, stating she wanted to go home. She subsequently requested to be discharged rather than get a 2nd set of troponins. I did place her on Macrobid for her urinary tract infection, discussed at length monitoring for worsening back pain, fevers, who keep down food or fluids etcetera. Urine cultures pending at this time. Regarding the patient declined a 2nd troponin, I did discuss that the could increase her risk of , could allows to miss an acute cardiac event. Patient states she does not care, would like to go home. I discussed that she can come back to the emergency department at any point in time. Patient has no questions or concerns upon discharge and states understanding of return precautions as well as follow-up care. I encouraged her to follow up with primary care provider in the next few days. Patient has no questions or concerns and ambulates steadily at side the emergency department. <Preet Crandall MD - Last Filed: 09/24/19 07:21> Lab Data Labs: Lab Results 09/18/19 09/18/19 09/18/19 Range/Units 11:38 11:38 11:38 WBC 5.2 (4.5-11.0) X10^3/uL RBC 5.00 (4.0-5.2) X10^6/uL Hgb 14.8 (12.0-16.0) g/dL Hct 44.4 (36-46) % MCV 88.8 (80-100) fL MCH 29.6 (26-34) PG MCHC 33.4 (30-36) % RDW 15.1 H (11.6-14.8) % Plt Count 185 (150-400) X10^3/uL Neut % (Auto) 77.8 H (50-75) % Lymph % (Auto) 15.6 L (25-40) % [place] % (Auto) 5.4 (3-14) % Eos % (Auto) 0.2 L (2-4) % Baso % (Auto) 1.0 (0-2) % Neut # (Auto) 4100 (5842-6887) /uL Lymph # (Auto) 800 L (1198-3193) /uL [place] # (Auto) 300 (0-900) /uL Eos # (Auto) 0 (0-450) /uL Baso # (Auto) 100 (0-100) /uL Sodium 135 L (137-145) mmol/L Potassium 4.0 (3.4-5.1) mmol/L Chloride 102 (98-107) mmol/L Carbon Dioxide 20 L (22-32) mmol/L BUN 21 H (7-17) mg/dL Creatinine 0.73 (0.52-1.04) mg/dL Estimated GFR > 60.0 (>60) mL/min BUN/Creatinine Ratio 28.8 H (6-22) Glucose 82 (80-110) mg/dL Lactate 1.0 (0.7-2.1) mmol/L Calcium 10.1 (8.4-10.2) mg/dL Total Bilirubin 1.2 (0.2-1.3) mg/dL AST 36 (14-36) IU/L ALT 16 (<35) IU/L Alkaline Phosphatase 86 (38-126) U/L Total Creatine Kinase (30-135) U/L CK-MB (CK-2) CK-MB (CK-2) Rel Index Troponin I (0.01-0.034) ng/mL Total Protein 8.5 H (6.3-8.2) g/dL Albumin 4.8 (3.5-5.0) g/dL Globulin 3.7 (1.7-4.1) g/dL Albumin/Globulin Ratio 1.3 (1.0-2.8) Amylase 108 (30-110) U/L Lipase 232 (23-300) U/L Urine RBC (0-5/HPF) Urine WBC (0-5/HPF) Ur Squamous Epith Cells (0-5/HPF) Ur Transition Epith Cell (0-5/HPF) Urine Bacteria (None) Hyaline Casts (None) Urine Mucus (Negative) Ur Culture Indicated? COVID-19 PCR (Not Detected) 09/18/19 09/18/19 09/18/19 Range/Units 12:01 14:35 16:00 WBC (4.5-11.0) X10^3/uL RBC (4.0-5.2) X10^6/uL Hgb (12.0-16.0) g/dL Hct (36-46) % MCV (80-100) fL MCH (26-34) PG MCHC (30-36) % RDW (11.6-14.8) % Plt Count (150-400) X10^3/uL Neut % (Auto) (50-75) % Lymph % (Auto) (25-40) % [place] % (Auto) (3-14) % Eos % (Auto) (2-4) % Baso % (Auto) (0-2) % Neut # (Auto) (6079-1531) /uL Lymph # (Auto) (6679-3531) /uL [place] # (Auto) (0-900) /uL Eos # (Auto) (0-450) /uL Baso # (Auto) (0-100) /uL Sodium (137-145) mmol/L Potassium (3.4-5.1) mmol/L Chloride (98-107) mmol/L Carbon Dioxide (22-32) mmol/L BUN (7-17) mg/dL Creatinine (0.52-1.04) mg/dL Estimated GFR (>60) mL/min BUN/Creatinine Ratio (6-22) Glucose (80-110) mg/dL Lactate (0.7-2.1) mmol/L Calcium (8.4-10.2) mg/dL Total Bilirubin (0.2-1.3) mg/dL AST (14-36) IU/L ALT (<35) IU/L Alkaline Phosphatase (38-126) U/L Total Creatine Kinase 37 (30-135) U/L CK-MB (CK-2) TNP CK-MB (CK-2) Rel Index TNP Troponin I < 0.012 (0.01-0.034) ng/mL Total Protein (6.3-8.2) g/dL Albumin (3.5-5.0) g/dL Globulin (1.7-4.1) g/dL Albumin/Globulin Ratio (1.0-2.8) Amylase (30-110) U/L Lipase (23-300) U/L Urine RBC 0-1/hpf (0-5/HPF) Urine WBC 10-30/hpf H (0-5/HPF) Ur Squamous Epith Cells 1-5 /hpf (0-5/HPF) Ur Transition Epith Cell 1-5/hpf (0-5/HPF) Urine Bacteria Few (2-10) H (None) Hyaline Casts 5-10/lpf (None) Urine Mucus 1+ H (Negative) Ur Culture Indicated? Specimen cultured COVID-19 PCR Not detected (Not Detected) Urine Dip Bedside Urine Glucose Negative Bedside Urine Bilirubin + 1 Bedside Urine Ketone +++ 80 Urine Specific [place] 1.030 Bedside Urine Occult Blood +/- Bedside Urine pH 6.0 Bedside Urine Protein + 30 Bedside Urine Urobilinogen +/- 1mg Bedside Urine Nitrite - Negative Bedside Urine Leukocytes +++ 500 Esterase Discharge Plan Departure Patient Disposition: Home Clinical Impression: Acute UTI Chest pain Qualifiers: Chest pain type: unspecified Qualified Code(s): R07.9 - Chest pain, unspecified Discharge Date/Time: 09/18/19 17:58 Instructions: DI for Urinary Tract Infection (UTI), DI for Chest Pain Activity Restrictions/Additional Instructions: Thank you for trusting us with your care today As discussed, I sent a prescription of an antibiotic to [facility]. This should help take care of your urinary tract infection. Please monitor for any worsening, flank pain, fever, inability keep down fluids as this could be a sign of a kidney infection. Please follow-up with primary care provider in the next few days. We will call you with the results of your coronavirus test come in whether they are positive or negative. Please act as though your ill, quarantine at home until we get results. As discussed, you have elected to leave the emergency department before allowing us to repeat lab work for your chest pain. This does not mean that you cannot come back to the emergency department, but it does mean that there is a higher chance we are missing an acute cardiac event today. Please come back to the emergency department for any acute concerns such as concern of heart attack stroke etcetera We are doing a urine culture and will call you if we need to change your antibiotic course. Prescriptions: New nitrofurantoin macrocrystal 100 mg capsule 100 mg PO BID Qty: 14 RF: 0 No Action gabapentin [Neurontin] 400 mg capsule 400 mg PO TID Qty: 270 RF: 1 metoprolol tartrate 25 mg tablet 12.5 mg PO BID Qty: 90 RF: 1 albuterol sulfate 90 mcg/actuation HFA aerosol inhaler 2 puff inhalation Q4-6H Qty: 18 RF: 3 lorazepam 0.5 mg tablet See Rx Instructions .ROUTE .COMPLEX Qty: 45 RF: 0 tiotropium bromide 2.5 mcg/actuation mist 2 puff INHALATION DAILY RF: 0 Jublia 10 % solution with applicator 1 applictn TOP DAILY 336 Days Qty: 4 RF: 1 levothyroxine 50 mcg tablet 50 mcg PO DAILY Qty: 90 RF: 1 Disabled Parking Permit 1 dev miscellaneous DIRECTED RF: 0 Incontinence Supplies 1 ea miscellaneous DIRECTED RF: 0 aspirin 81 mg Tablet,Delayed Release (Dr/Ec) 81 mg PO DAILY RF: 0 albuterol sulfate [ProAir HFA] 90 mcg/actuation Hfa Aerosol Inhaler 1 inh INHALATION QID PRN (Reason: Shortness Of Breath) RF: 0 cilostazol 50 mg 50 mg BID RF: 0 Referrals: Edis Skaggs, [Primary Care Provider] -
[2019-09-18 12:11] LABS: Alanine Aminotransferase 16 IU/L (<35); Albumin 4.8 g/dL (3.5-5.0); Albumin Globulin Ratio 1.3 (1.0-2.8); Alkaline Phosphatase 86 U/L (38-126); Amylase 108 U/L (30-110); Aspartate Aminotransferase 36 IU/L (14-36); BUN Creatinine Ratio 28.8 (6-22); Bilirubin Total 1.2 mg/dL (0.2-1.3); Blood Urea Nitrogen 21 mg/dL (7-17); Calcium 10.1 mg/dL (8.4-10.2); Carbon Dioxide 20 mmol/L (22-32); Chloride 102 mmol/L (98-107); Estimated Glomerular Filt Rate > 60.0 mL/min (>60); Globulin 3.7 g/dL (1.7-4.1); Glucose 82 mg/dL (80-110); HEMOLYSIS < 15 (0-50); Lipase 232 U/L (23-300); Sodium 135 mmol/L (137-145); Total Protein 8.5 g/dL (6.3-8.2)
[2019-09-18] MEDS: SODIUM CHLORIDE 0.9% 1,000 ML 1000 ML IV (12:19)
[2019-09-18] MEDS: SODIUM CHLORIDE 0.9% 1,000 ML 250 ML IV (13:50)
[2019-09-18] MEDS: KETOROLAC 60 MG/2 ML VIAL 15 MG IV (13:50)
[2019-09-18] MEDS: LIDOCAINE PATCH 1 EACH ADH..PATCH TOP (13:51)
[2019-09-18 15:25] LABS: Bacteria Urine Few (2-10); Culture Indicated Urine Specimen Cultured; Hyaline Casts Urine 5-10/LPF; Mucus Urine 1+ (Negative); RBC Urine 0-1/HPF (0-5/HPF); Squamous Epithelial Cell Urine 1-5 /HPF (0-5/HPF); Transitional Epi Cells Urine 1-5/HPF (0-5/HPF); WBC Urine 10-30/HPF (0-5/HPF)
--- NOTE | 2019-09-18 16:04 | PC.NURSE ---
UPon checking on patient, she reports she had two episodes of sharp left chest pain. Resolved at this time but left breast feels sore. patient denies any other symptoms. Provider Chay notified. Bedside discussion with patient about EKG, labs to look into chest pain. Patient resistant about further work up really wants to go home. Patient agreeable to labs, EKG. Patient placed on monitor, VSS. Call light in reach
[2019-09-18 16:41] LABS: Creatine Kinase 37 U/L (30-135)
[2019-09-18 16:42] LABS: Troponin I < 0.012 ng/mL (0.01-0.034)
--- NOTE | 2019-09-18 17:56 | PC.NURSE ---
Spoke with patient and her daughter regarding need for additional troponin lab test to rule out cardiac event. Patient refused staying for labs stating I just want to leave. Daughter stated she has an echo scheduled for Thursday to follow up. Explained risks of leaving and both insisted they wanted to leave and not stay for additional testing. Informed patient to return to ED if any cardiac symptoms resume.
[2019-09-20 03:36] LABS: COVID19 Sendout Not Detected (Not Detected)
== END 2019-09-18 17:58 | disposition home or self-care (01) ==
PROVIDERS: Emergency Provider Nurse Practitioner Family; PCP Family Medicine
DX: R07.9 Chest pain, unspecified (principal); N39.0 Urinary tract infection, site not specified; M54.5 Low back pain; R11.0 Nausea; R50.9 Fever, unspecified
CPT/HCPCS: 36415; 74022; 80053; 81003; 81015; 82150; 82550; 83605; 83690; 84484; 85025; 87040; 87077; 87086; 87186; 87635; 93005; 96361; 96374; 96375; 99284; J1885; J2405

== ENCOUNTER 2019-10-30 14:39 | Emergency (ER) | payer MEDICARE, MEDICAID, SELFPAY ==
[2019-10-30 14:49] VITALS: PULSE 81; O2SAT 98
[2019-10-30 14:51] VITALS: BP 151/84; PULSE 75; RESP 20; TEMP 36.7; O2SAT 99; BMI 21.2
--- NOTE | 2019-10-30 14:58 | ED.ABDPAIN ---
HPI - Abdominal Pain General Chief Complaint: Abdominal Pain Stated Complaint: Diahrea, nausea, LBP Time Seen by Provider: 10/30/19 14:41 Source: patient and family Mode of arrival: Wheelchair Limitations: no limitations History of Present Illness HPI narrative: Patient is 79-year-old female a history of COPD, hepatitis-C, tubular adenoma of colon, lung resection, hepatocellular carcinoma presenting today with left-sided back pain, dry heaving some diarrhea all and body aches. She had some similar symptoms when she was diagnosed with a UTI 09/18/2019, at that time grew E coli that was pansensitive. She says some of the symptoms today are similar. Symptoms have been ongoing for the last 2 nights. She is hard of hearing but can still communicate. she states she has not urinated for number of days despite drinking water MD complaint: abdominal pain and flank pain Severity: moderate Quality: sharp Migration to: no migration Related Data Home Medications Medication Instructions Recorded Confirmed Disabled Parking Permit 1 dev MISCELLANEOUS DIRECTED 09/15/17 10/10/19 Incontinence Supplies 1 ea MISCELLANEOUS DIRECTED 09/15/17 10/10/19 tiotropium bromide 2.5 2 puff INHALATION DAILY 06/22/19 10/10/19 mcg/actuation mist for inhalation albuterol sulfate [ProAir HFA] 1 inh INHALATION QID PRN 08/25/19 10/10/19 aspirin 81 mg PO DAILY 08/25/19 10/10/19 cilostazol 50 mg BID 08/25/19 10/10/19 Previous Rx's Medication Instructions Recorded gabapentin 400 mg capsule 400 mg PO TID #270 cap 06/08/19 metoprolol tartrate 25 mg tablet 12.5 mg PO BID #90 tab 06/08/19 albuterol sulfate 90 mcg/actuation 2 puff INHALATION Q4-6H #18 gram 08/20/19 aerosol inhaler efinaconazole 10 % topical 1 applictn TOP DAILY 336 Days #4 ml 09/05/19 solution with applicator lorazepam 0.5 mg tablet See Rx Instructions .ROUTE 09/20/19 .COMPLEX #45 tab levothyroxine 50 mcg tablet 50 mcg PO DAILY #90 tab 10/10/19 tolterodine 2 mg capsule,extended 2 mg PO DAILY #30 cap 10/10/19 release 24 hr cephalexin [Keflex] 500 mg PO TID #21 cap 10/30/19 Allergies Allergy/AdvReac Type Severity Reaction Status Date / Time codeine [CODEINE] AdvReac Mild IT MADE Verified 10/10/19 08:36 ME SICK TO MY STOMACH Review of Systems Review of Systems Narrative: GENERAL: Denies chills, fatigue, malaise, fever, sweats, travel HEENT: Denies sinus pain, ear pain, sore throat, difficulty swallowing, neck pain RESPIRATORY: Denies dyspnea, cough, wheezing, hemoptysis, sputum. CARDIOVASCULAR: Denies chest pain, palpitations, orthopnea, edema GASTROINTESTINAL: Denies nausea, vomiting, abdominal pain, diarrhea, constipation, melena. : + flank pain MUSCULOSKELETAL: Denies weakness, joint pain, or bony pain SKIN: No rash, no erythema, no pruritus NEUROLOGIC: Denies weakness, dizziness, headache, numbness, change in speech, confusion PSYCHIATRIC: No concerning psychosocial issues. 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) Aortic valve disorder (Chronic 07/04/10) Ascites (Resolved) Bruit of right carotid artery (Acute 05/2019) Carotid atherosclerosis (Acute 02/2019) Chronic hepatitis C without hepatic coma (Chronic) Chronic obstructive pulmonary disease (Chronic 07/04/10) Cigarette smoker (Chronic) Depression (Chronic 07/04/10) Essential hypertension (Chronic 07/04/10) Fibromyalgia (Chronic Unknown) GERD (gastroesophageal reflux disease) (Chronic Unknown) Hearing loss (Acute) Hepatocellular carcinoma (Chronic 05/2016) Hyperlipidemia (Chronic 07/04/10) Hypothyroid (Acute) Hypothyroidism (Acute Unknown) Incontinence (Acute) Lung cancer (Resolved 2008) Pancreatitis (Resolved) Peripheral vascular disease (Chronic 10/2011) Pneumonia (Resolved 2010) Rheumatoid arthritis (Chronic Unknown) Throat cancer (Resolved 2005) TIA (transient ischemic attack) (Resolved Unknown) Tubular adenoma of colon (Resolved 05/19/16) Family History Brother No problems noted. Brother No problems noted. Brother No problems noted. Father No problems noted. Mother No problems noted. Social History Smoking Status: Current every day smoker Tobacco: How many years used: 60 quit status: considering quitting second hand exposure: Yes alcohol intake: former substance use type: marijuana Smoking Status: Current every day smoker alcohol intake frequency: 0-2 drinks per day Substance Use Type: marijuana Exam Initial Vital Signs Initial Vital Signs: Vital Signs Pulse Rate 81 10/30/19 14:49 Pulse Oximetry 98 10/30/19 14:49 GENERAL: Her hearing thin elderly female HEENT: Head atraumatic,EOMI, pupils reactive, face symmetric, moist mucous membrane CARDIOVASCULAR: Regular rate and rhythm without murmurs, rubs or gallops. RESPIRATORY: Breath sounds equal bilaterally, no wheezes rales or rhonchi. ABDOMEN: Soft, nontender. Normoactive bowel sounds all 4 quadrants. No guarding or rebound. : Mild left CVA tenderness EXTREMITIES: Normal range of motion, no clubbing or edema. Neurovascularly intact NEUROLOGICAL: Alert and oriented x4.Normal gait and speech. Cranial nerves II through XII grossly intact. SKIN: Warm, dry, no laceration, no petechiae, no rashes or lesions. Course Orders Ordered: ED Orders 10/30/19 14:55 Complete Blood Count AUTO DIFF Stat Comprehensive Metabolic Panel Stat Lactate (Lactic Acid) Stat Lipase Stat 10/30/19 16:00 Urine Culture Stat Urine Microscopic Stat 10/30/19 16:12 CT abdomen pelvis w con Stat Discontinued Medications Cefazolin Sodium (Keflex 250 Mg Prepack) 1 bottle MISC SEEINSTR ONE Stop: 10/30/19 18:19 Last Admin: 10/30/19 18:22 Dose: 500 mg Documented by: BROCK Sodium Chloride (Normal Saline 0.9%) 1,000 mls @ 1,000 mls/hr IV BOLUS ONE Stop: 10/30/19 15:59 Last Infusion: 10/30/19 15:43 Dose: 0 mls/hr Documented by: Admin: 10/30/19 15:08 Dose: 1,000 mls/hr Documented by: BROCK Sodium Chloride (Normal Saline 0.9%) 1,000 mls @ 1,000 mls/hr IV BOLUS ONE Stop: 10/30/19 16:42 Last Infusion: 10/30/19 16:39 Dose: 0 mls/hr Documented by: Admin: 10/30/19 15:44 Dose: 1,000 mls/hr Documented by: BROCK Ketorolac Tromethamine (Toradol) 15 mg IV NOW ONE Stop: 10/30/19 15:36 Last Admin: 10/30/19 15:38 Dose: 15 mg Documented by: BROCK Lorazepam (Ativan) 0.5 mg IV NOW ONE Stop: 10/30/19 17:45 Last Admin: 10/30/19 17:50 Dose: 0.5 mg Documented by: BROCK Ondansetron HCl (Zofran) 4 mg IV NOW ONE Stop: 10/30/19 15:36 Last Admin: 10/30/19 15:38 Dose: 4 mg Documented by: BROCK Vital Signs Vital signs: Vital Signs - 8 hr 10/30/19 14:49 10/30/19 14:51 10/30/19 15:00 Temperature 98.1 F Pulse Rate 81 75 77 Respiratory Rate 20 Blood Pressure 151/84 H 146/94 H Pulse Oximetry 98 99 98 10/30/19 15:30 10/30/19 16:00 10/30/19 18:19 Temperature Pulse Rate 71 75 77 Respiratory Rate 26 H 22 Blood Pressure 156/82 H 130/83 130/83 Pulse Oximetry 97 97 97 MDM - Abdominal Pain Lab Data Attestation: I reviewed the patient's lab results. Result diagrams: 10/30/19 14:55 10/30/19 14:55 Labs: Lab Results 10/30/19 10/30/19 10/30/19 Range/Units 14:55 14:55 14:55 WBC 6.2 (4.5-11.0) X10^3/uL RBC 4.89 (4.0-5.2) X10^6/uL Hgb 14.7 (12.0-16.0) g/dL Hct 42.7 (36-46) % MCV 87.1 (80-100) fL MCH 30.1 (26-34) PG MCHC 34.5 (30-36) % RDW 14.8 (11.6-14.8) % Plt Count 171 (150-400) X10^3/uL Neut % (Auto) 77.7 H (50-75) % Lymph % (Auto) 14.2 L (25-40) % [place] % (Auto) 7.1 (3-14) % Eos % (Auto) 0.1 L (2-4) % Baso % (Auto) 0.9 (0-2) % Neut # (Auto) 4900 (1216-3336) /uL Lymph # (Auto) 900 L (3988-6870) /uL [place] # (Auto) 400 (0-900) /uL Eos # (Auto) 0 (0-450) /uL Baso # (Auto) 100 (0-100) /uL Sodium 137 (137-145) mmol/L Potassium 3.9 (3.4-5.1) mmol/L Chloride 103 (98-107) mmol/L Carbon Dioxide 25 (22-32) mmol/L BUN 18 H (7-17) mg/dL Creatinine 0.64 (0.52-1.04) mg/dL Estimated GFR > 60.0 (>60) mL/min BUN/Creatinine Ratio 28.1 H (6-22) Glucose 104 (80-110) mg/dL Lactate 1.0 (0.7-2.1) mmol/L Calcium 9.9 (8.4-10.2) mg/dL Total Bilirubin 0.9 (0.2-1.3) mg/dL AST 36 (14-36) IU/L ALT 18 (<35) IU/L Alkaline Phosphatase 90 (38-126) U/L Total Protein 8.8 H (6.3-8.2) g/dL Albumin 4.7 (3.5-5.0) g/dL Globulin 4.1 (1.7-4.1) g/dL Albumin/Globulin Ratio 1.1 (1.0-2.8) Lipase 206 (23-300) U/L Urine RBC (0-5/HPF) Urine WBC (0-5/HPF) Ur Squamous Epith Cells (0-5/HPF) Urine Bacteria (None) Urine Mucus (Negative) Ur Culture Indicated? 10/30/19 Range/Units 16:00 WBC (4.5-11.0) X10^3/uL RBC (4.0-5.2) X10^6/uL Hgb (12.0-16.0) g/dL Hct (36-46) % MCV (80-100) fL MCH (26-34) PG MCHC (30-36) % RDW (11.6-14.8) % Plt Count (150-400) X10^3/uL Neut % (Auto) (50-75) % Lymph % (Auto) (25-40) % [place] % (Auto) (3-14) % Eos % (Auto) (2-4) % Baso % (Auto) (0-2) % Neut # (Auto) (2502-2761) /uL Lymph # (Auto) (4584-6709) /uL [place] # (Auto) (0-900) /uL Eos # (Auto) (0-450) /uL Baso # (Auto) (0-100) /uL Sodium (137-145) mmol/L Potassium (3.4-5.1) mmol/L Chloride (98-107) mmol/L Carbon Dioxide (22-32) mmol/L BUN (7-17) mg/dL Creatinine (0.52-1.04) mg/dL Estimated GFR (>60) mL/min BUN/Creatinine Ratio (6-22) Glucose (80-110) mg/dL Lactate (0.7-2.1) mmol/L Calcium (8.4-10.2) mg/dL Total Bilirubin (0.2-1.3) mg/dL AST (14-36) IU/L ALT (<35) IU/L Alkaline Phosphatase (38-126) U/L Total Protein (6.3-8.2) g/dL Albumin (3.5-5.0) g/dL Globulin (1.7-4.1) g/dL Albumin/Globulin Ratio (1.0-2.8) Lipase (23-300) U/L Urine RBC None seen (0-5/HPF) Urine WBC 0-1/hpf (0-5/HPF) Ur Squamous Epith Cells 0-1 /hpf (0-5/HPF) Urine Bacteria None seen (None) Urine Mucus 1+ H (Negative) Ur Culture Indicated? Specimen cultured Point of care testing: Urine Dip Bedside Urine Glucose Negative Bedside Urine Bilirubin - Negative Bedside Urine Ketone + 15 Urine Specific [place] 1.010 Bedside Urine Occult Blood +/- Bedside Urine pH 6.5 Bedside Urine Protein +/- 15 Bedside Urine Urobilinogen +/- 1mg Bedside Urine Nitrite - Negative Bedside Urine Leukocytes ++ [address] scan - abdomen/pelvis: Radiologist's Impression: PROCEDURE: CT ABDOMEN PELVIS W CON INDICATIONS: left flank pain, hx of cancer TECHNIQUE: After the administration of intravenous contrast, 5 mm thick sections acquired from the diaphragm to the symphysis. 5 mm coronal and sagittal reformats were acquired. For radiation dose reduction, the following was used: automated exposure control, adjustment of mA and/or kV according to patient size. COMPARISON: [facility], CT, CT ABDOMEN WO/W CON, 04/26/2018, 11:18. [facility], CT, CT ABDOMEN PELVIS W CON, 10/11/2018, 12:01. FINDINGS: Image quality: Excellent. ABDOMEN: Lung bases: Lung bases are clear. Heart size is normal. Solid organs: The liver demonstrates a nodular contour. Areas of focal low density with volume loss are seen, which may be related to prior ablation. There are areas of increased enhancement seen adjacent to the ablated regions. The portal vein is abnormally enlarged at 2.3 cm. Anterior mesenteric varices are seen. Gallbladder is not definitely seen. Biliary system is non dilated. At the tail of the pancreas, there is a 3.8 cm apparent mass seen, which is similar to the prior examination. It is noted that this mass is in intimate association with the spleen and demonstrates imaging characteristics not distinguishable from this pain on this study or on the prior CT examinations. Spleen is normal in size and enhancement. No adrenal nodules. Kidneys demonstrate normal size and enhancement, without hydronephrosis. Peritoneum and bowel: Bowel loops demonstrate normal wall thickness and caliber. No free fluid or air. Nodes and vessels: No retroperitoneal or mesenteric adenopathy by size criteria. Advanced atherosclerotic calcification is seen, particularly involving the iliac systems. There is generalized prominent narrowing of the iliac systems. There is an abdominal aortic aneurysm seen with prominent mural thrombus that measures 4.4 by 4.8 cm. Miscellaneous: No ventral hernias. PELVIS: Genitourinary: Bladder wall thickness is normal. Miscellaneous: No inguinal hernias or adenopathy. Bones: No suspicious bony lesions. No vertebral body compression fractures. Mild levoconvex scoliotic curvature is noted. Age-appropriate bony degenerative changes are seen. IMPRESSION: No left kidney abnormality or hydronephrosis can be seen to explain the patient's presenting history of left flank pain. Abnormal liver, with apparent prior ablation. Increased enhancement can be seen adjacent to the ablated areas. If clinically appropriate, a follow-up, scheduled liver MRI could be considered for further evaluation. Portal venous hypertension with apparent mesenteric varices. The previously described apparent pancreatic tail mass is again seen and is felt most likely related to a splenule. Stable abdominal aortic aneurysm. Advanced atherosclerotic calcification is seen of the iliac arteries, with generalized prominent narrowing. Dictated by: Eliu Isaac M.D. on 10/30/2019 at 15:46 MDM Narrative Medical decision making narrative: Patient continues to have some left-sided pain she finally did urinate. Will treat for UTI previous culture was pansensitive. We will start her on Keflex. She is becoming quite anxious in the ER and received a dose of Ativan. Discharge Plan Departure Patient Disposition: Home Clinical Impression: Acute UTI Discharge Date/Time: 10/30/19 18:19 Instructions: DI for Urinary Tract Infection (UTI) Activity Restrictions/Additional Instructions: *You have been diagnosed with UTI *What to do: Increase fluid intake. Blood work and CT scan are overall reassuring *Continue to take medications as directed Keflex 500 mg 3 times a day for 7 days--> sENT TO [facility] [place] *Follow up with your primary care provider in 2-3 days *Return to ER if you should have confusion, worsening pain, decreased urine output, inability to drink fluids or any new, worsening or concerning symptoms Prescriptions: New cephalexin [Keflex] 500 mg capsule 500 mg PO TID Qty: 21 RF: 0 No Action gabapentin [Neurontin] 400 mg capsule 400 mg PO TID Qty: 270 RF: 1 metoprolol tartrate 25 mg tablet 12.5 mg PO BID Qty: 90 RF: 1 albuterol sulfate 90 mcg/actuation HFA aerosol inhaler 2 puff inhalation Q4-6H Qty: 18 RF: 3 lorazepam 0.5 mg tablet See Rx Instructions .ROUTE .COMPLEX Qty: 45 RF: 0 tiotropium bromide 2.5 mcg/actuation mist 2 puff INHALATION DAILY RF: 0 [place] 10 % solution with applicator 1 applictn TOP DAILY 336 Days Qty: 4 RF: 1 levothyroxine 50 mcg tablet 50 mcg PO DAILY Qty: 90 RF: 1 tolterodine [Detrol LA] 2 mg capsule,extended release 24hr 2 mg PO DAILY Qty: 30 RF: 2 Disabled Parking Permit 1 dev miscellaneous DIRECTED RF: 0 Incontinence Supplies 1 ea miscellaneous DIRECTED RF: 0 aspirin 81 mg Tablet,Delayed Release (Dr/Ec) 81 mg PO DAILY RF: 0 albuterol sulfate [ProAir HFA] 90 mcg/actuation Hfa Aerosol Inhaler 1 inh INHALATION QID PRN (Reason: Shortness Of Breath) RF: 0 cilostazol 50 mg 50 mg BID RF: 0 Referrals: Edis Skaggs, [Primary Care Provider] -
[2019-10-30 15:00] VITALS: BP 146/94; PULSE 77; O2SAT 98
[2019-10-30] MEDS: SODIUM CHLORIDE 0.9% 1,000 ML 1000 ML IV ×2 (15:08→15:44)
[2019-10-30 15:10] LABS: Add Manual Diff / Slide Review NO; Basophils Absolute Auto 100 /uL (0-100); Basophils Percent Auto 0.9 % (0-2); Eosinophils Absolute Auto 0 /uL (0-450); Eosinophils Percent Auto 0.1 % (2-4); Hematocrit 42.7 % (36-46); Hemoglobin 14.7 g/dL (12.0-16.0); Lymphocytes Absolute Auto 900 /uL (1100-4500); Lymphocytes Percent Auto 14.2 % (25-40); Mean Corpuscular HGB Conc 34.5 % (30-36); Mean Corpuscular Hemoglobin 30.1 PG (26-34); Mean Corpuscular Volume 87.1 fL (80-100); Monocytes Absolute Auto 400 /uL (0-900); Monocytes Percent Auto 7.1 % (3-14); Neutrophils Absolute Auto 4900 /uL (1500-7000); Neutrophils Percent Auto 77.7 % (50-75); Platelet Count 171 X10^3/uL (150-400); Red Blood Cell Count 4.89 X10^6/uL (4.0-5.2); Red Cell Distribution Width 14.8 % (11.6-14.8); White Blood Cell Count 6.2 X10^3/uL (4.5-11.0)
[2019-10-30 15:12] LABS: Alanine Aminotransferase 18 IU/L (<35); Albumin 4.7 g/dL (3.5-5.0); Albumin Globulin Ratio 1.1 (1.0-2.8); Alkaline Phosphatase 90 U/L (38-126); Aspartate Aminotransferase 36 IU/L (14-36); BUN Creatinine Ratio 28.1 (6-22); Bilirubin Total 0.9 mg/dL (0.2-1.3); Blood Urea Nitrogen 18 mg/dL (7-17); Calcium 9.9 mg/dL (8.4-10.2); Carbon Dioxide 25 mmol/L (22-32); Chloride 103 mmol/L (98-107); Estimated Glomerular Filt Rate > 60.0 mL/min (>60); Globulin 4.1 g/dL (1.7-4.1); Glucose 104 mg/dL (80-110); HEMOLYSIS < 15 (0-50); Lipase 206 U/L (23-300); Potassium 3.9 mmol/L (3.4-5.1); Sodium 137 mmol/L (137-145); Total Protein 8.8 g/dL (6.3-8.2)
[2019-10-30 15:30] VITALS: BP 156/82; PULSE 71; O2SAT 97
[2019-10-30] MEDS: KETOROLAC 60 MG/2 ML VIAL 15 MG IV (15:38)
[2019-10-30] MEDS: ONDANSETRON 4 MG/2 ML INJ IV (15:38)
[2019-10-30 16:00] VITALS: BP 130/83; PULSE 75; RESP 26; O2SAT 97
--- NOTE | 2019-10-30 16:12 | DI.CT.S_ITS ---
PROCEDURE: CT ABDOMEN PELVIS W CON INDICATIONS: left flank pain, hx of cancer TECHNIQUE: After the administration of intravenous contrast, 5 mm thick sections acquired from the diaphragm to the symphysis. 5 mm coronal and sagittal reformats were acquired. For radiation dose reduction, the following was used: automated exposure control, adjustment of mA and/or kV according to patient size. COMPARISON: [facility], CT, CT ABDOMEN WO/W CON, 04/26/2018, 11:18. [facility], CT, CT ABDOMEN PELVIS W CON, 10/11/2018, 12:01. FINDINGS: Image quality: Excellent. ABDOMEN: Lung bases: Lung bases are clear. Heart size is normal. Solid organs: The liver demonstrates a nodular contour. Areas of focal low density with volume loss are seen, which may be related to prior ablation. There are areas of increased enhancement seen adjacent to the ablated regions. The portal vein is abnormally enlarged at 2.3 cm. Anterior mesenteric varices are seen. Gallbladder is not definitely seen. Biliary system is non dilated. At the tail of the pancreas, there is a 3.8 cm apparent mass seen, which is similar to the prior examination. It is noted that this mass is in intimate association with the spleen and demonstrates imaging characteristics not distinguishable from this pain on this study or on the prior CT examinations. Spleen is normal in size and enhancement. No adrenal nodules. Kidneys demonstrate normal size and enhancement, without hydronephrosis. Peritoneum and bowel: Bowel loops demonstrate normal wall thickness and caliber. No free fluid or air. Nodes and vessels: No retroperitoneal or mesenteric adenopathy by size criteria. Advanced atherosclerotic calcification is seen, particularly involving the iliac systems. There is generalized prominent narrowing of the iliac systems. There is an abdominal aortic aneurysm seen with prominent mural thrombus that measures 4.4 by 4.8 cm. Miscellaneous: No ventral hernias. PELVIS: Genitourinary: Bladder wall thickness is normal. Miscellaneous: No inguinal hernias or adenopathy. Bones: No suspicious bony lesions. No vertebral body compression fractures. Mild levoconvex scoliotic curvature is noted. Age-appropriate bony degenerative changes are seen. IMPRESSION: No left kidney abnormality or hydronephrosis can be seen to explain the patient's presenting history of left flank pain. Abnormal liver, with apparent prior ablation. Increased enhancement can be seen adjacent to the ablated areas. If clinically appropriate, a follow-up, scheduled liver MRI could be considered for further evaluation. Portal venous hypertension with apparent mesenteric varices. The previously described apparent pancreatic tail mass is again seen and is felt most likely related to a splenule. Stable abdominal aortic aneurysm. Advanced atherosclerotic calcification is seen of the iliac arteries, with generalized prominent narrowing. Dictated by: Eliu Isaac M.D. on 10/30/2019 at 15:46 Approved by: Eliu Isaac M.D. on 10/30/2019 at 15:53
[2019-10-30 17:03] LABS: Bacteria Urine None Seen; RBC Urine None Seen (0-5/HPF)
[2019-10-30 17:11] LABS: Culture Indicated Urine Specimen Cultured; Mucus Urine 1+ (Negative); Squamous Epithelial Cell Urine 0-1 /HPF (0-5/HPF); WBC Urine 0-1/HPF (0-5/HPF)
[2019-10-30] MEDS: LORazepam 2 MG/ML INJ 0.5 MG IV (17:50)
[2019-10-30 18:19] VITALS: BP 130/83; PULSE 77; RESP 22; O2SAT 97
[2019-10-30] MEDS: cephALEXin 250 MG PREPACK 1 BOTTLE MISC (18:22)
== END 2019-10-30 18:19 | disposition home or self-care (01) ==
PROVIDERS: Emergency Provider Emergency Medicine; PCP Family Medicine
DX: N39.0 Urinary tract infection, site not specified (principal); R19.7 Diarrhea, unspecified; R10.9 Unspecified abdominal pain
CPT/HCPCS: 36415; 51798; 74177; 80053; 81003; 81015; 83605; 83690; 85025; 87077; 87086; 87186; 96361; 96374; 96375; 99284; J1885; J2060; J2405

== ENCOUNTER → 2019-12-05 10:56 | Outpatient (CLI) | payer MEDICARE, MEDICAID, SELFPAY ==
[2019-12-05 12:35] LABS: Free T4, Direct Thyroxine 1.53 ng/dL (0.78-2.19)
== END ==
PROVIDERS: PCP Family Medicine; Referring Provider Family Medicine; Visit Provider Family Medicine
DX: E03.9 Hypothyroidism, unspecified (principal)
CPT/HCPCS: 36415; 84439

== ENCOUNTER → 2020-01-16 08:03 | Outpatient (CLI) | payer MEDICARE, MEDICAID, SELFPAY ==
--- NOTE | 2020-01-16 08:05 | DI.CT.S_ITS ---
PROCEDURE: CT ABDOMEN WO/W CON INDICATIONS: hcc, TECHNIQUE: 4 phase scanning was performed. Non-contrast 5 mm axial sections acquired from the diaphragm to the iliac crests. Following the administration of intravenous contrast, 5 mm thick arterial-phase, portal venous-phase, and 5-minute delayed phase images were acquired through the liver. 5 mm thick coronal and sagittal reformats were performed. For radiation dose reduction, the following was used: automated exposure control, adjustment of mA and/or kV according to patient size. COMPARISON: [facility], MR, MR ABDOMEN WO/W CON, 09/27/2018, 10:18. [facility], CT, CT ABDOMEN PELVIS W CON, 10/30/2019, 16:31. [facility], MR, MR ABDOMEN WO/W CON, 07/26/2019, 12:30. [facility], CT, CT ABDOMEN WO/W CON, 04/26/2018, 11:18. FINDINGS: Image quality: Excellent. Lung bases: Lung bases are clear. Heart size is normal. Liver: Nodular hepatic contour with heterogeneity of the hepatic parenchyma is redemonstrated consistent with cirrhosis. There are posttreatment changes redemonstrated medially within segment 7 and laterally within segment 6 of the right hepatic lobe consistent with prior radiofrequency ablation. No definite suspicious enhancement or washout demonstrated along the ablation cavities. Within segment 7 of the right hepatic lobe laterally best seen on series 3 image 12, there is a hypervascular oval enhancing mass measuring up to 2.0 x 1.9 cm. This demonstrates washout on delayed imaging with a pseudo capsule. Findings are consistent with hepatocellular carcinoma. Within segment 4A of the left hepatic lobe, there is a hypervascular enhancing mass lesion measuring approximately 1.3 x 1.1 cm as seen on series 5, image 8. There is associated washout on delayed images with indistinct margins. The findings are also compatible with hepatocellular carcinoma. Within segment 8 of the right hepatic lobe, there is an indistinct small focus of suspected washout measuring up to 1.0 cm on portal venous and delayed images. An atypical hepatoma cannot be excluded. Other solid organs: Gallbladder is surgically absent. Biliary system is non dilated. Spleen is within normal size limits. There is a small focal hypodensity within the spleen measuring up to 0.8 cm which is nonspecific and slightly increased compared to previous exams. There is a masslike lesion in the region of the pancreatic tail redemonstrated measuring approximately 4.0 x 3.5 cm. This demonstrates enhancement characteristics compatible with a splenule. No adrenal nodules. Both kidneys demonstrate normal size and enhancement, without hydronephrosis or nephrolithiasis. Nodes and vessels: No retroperitoneal or mesenteric adenopathy by size criteria. There are gastroesophageal varices and a few splenic varices. The portal veins are enlarged, with the main portal vein measuring to approximately 1.6 cm. The findings are compatible with portal hypertension. There is fusiform aneurysmal dilatation of the aorta redemonstrated. The visualized distal descending thoracic aorta measures up to 3.2 cm. At the level of the diaphragmatic hiatus, the aorta measures up to 3.0 cm. The infrarenal aorta measures up to 4.7 cm in anteroposterior dimension. Findings are increased from approximately 4.2 cm in anteroposterior dimension on the 04/26/2018 study. There is extensive atherosclerotic vascular calcification. Bowel and peritoneum: Visualized bowel loops are normal in caliber. No free fluid or air. Bones: No suspicious bony lesions. No vertebral body compression fractures. Miscellaneous: No ventral hernias. IMPRESSION: 1. Hypervascular LR-5 observations within segments 4A and 7 are consistent with hepatocellular carcinoma. Findings appear increased in size compared to prior studies. 2. Small focus of washout in segment 8 of the right hepatic lobe suggestive of an LR-3 observation. Findings are of indeterminate probability for hepatocellular carcinoma and attention is recommended on follow-up. 3. Nodular cirrhotic liver redemonstrated with findings compatible with portal hypertension. 4. Aneurysmal dilatation of the descending thoracic and infrarenal abdominal aorta with progressive increase in size compared to prior studies. Dictated by: Liborio Méndez M.D. on 01/16/2020 at 11:59 Approved by: Liborio Méndez M.D. on 01/16/2020 at 12:23
--- NOTE | 2020-01-16 09:12 | DI.CT.S_ITS ---
PROCEDURE: CT CHEST WO CON INDICATIONS: history of lung cancer TECHNIQUE: Noncontrast 5 mm thick sections acquired from the pulmonary apices to the posterior costophrenic angles. 1 mm lung window, 5 mm thick coronal and sagittal and 7 mm axial MIP reformats were then acquired. For radiation dose reduction, the following was used: automated exposure control, adjustment of mA and/or kV according to patient size. COMPARISON: [facility], CT, THORAX WITH CONTRAST, 05/26/2016, 10:20. [facility], CT, CT CHEST W CON, 03/08/2018, 11:40. [facility], CT, CT CHEST WITHOUT CONTRAST, 03/08/2019, 9:59. [facility], CT, CT ABDOMEN PELVIS W CON, 10/30/2019, 16:31. [facility], CT, CT ABDOMEN WO/W CON, 01/16/2020, 8:07. FINDINGS: Image quality: Excellent. Lungs and pleura: There are 3 small clustered subsolid nodules in the right lower lobe posteriorly which appear progressively increased in size compared to the prior studies. These measure up to 0.7 cm, 0.6 cm, and 0.4 cm. Scarring within the right apex appears similar to the prior studies. There is confluent posterior consolidation redemonstrated within the right upper lobe anterior lesser extent the superior segment of the right lower lobe which appears similar to the prior studies. There are associated air bronchograms. The findings are suggestive of radiation pneumonitis. There are moderate centrilobular emphysematous changes redemonstrated. There is mild bilateral bronchiectasis and bronchial wall thickening with a right-sided predominance. Scattered foci of mucous plugging are also demonstrated within the right upper and middle lobes. No pleural effusions or pneumothorax. Mediastinum: Heart size is normal. No pericardial effusion. There is severe coronary arterial vascular calcification. There is diffuse atherosclerotic vascular calcification of the aorta and its branch vessels. There is aneurysmal dilatation at the ascending thoracic aorta measuring up to 4.7 cm which appears similar to the prior study but progressively increased compared to older exams, measuring up to 4.3 cm on the 05/26/2016 study. The aortic arch measures up to 3.2 cm and the proximal descending thoracic aorta measures up to 3.0 cm. The findings are also slightly increased over time compared to the prior studies. No mediastinal adenopathy by size criteria. Esophagus is normal in caliber. No hiatal hernia. Bones and chest wall: No suspicious bony lesions. No vertebral body compression fractures. No axillary or supraclavicular adenopathy by size criteria. Abdomen: Visualized upper abdomen demonstrates nodular hepatic contour and heterogeneity of the liver compatible with cirrhosis. Evaluation for focal hepatic lesion is limited in the absence of intravenous contrast but there is a suspected hypoattenuating mass lesion in the visualized posterior right hepatic lobe. IMPRESSION: 1. Clustered sub solid nodules in the right lower lobe appear progressively increased in size compared to the prior studies. The findings are suspicious for a slow growing variant of adenocarcinoma such as adenocarcinoma in situ. 2. Confluent posterior consolidation along the posterior right upper lobe redemonstrated. The findings are suggestive of radiation pneumonitis. 3. Progressive increase in size of aneurysmal dilatation of the thoracic aorta as described. 4. Nodular cirrhotic liver with suggestion of a mass in the right hepatic lobe. Recommend correlation with concurrent CT of the abdomen pelvis. Dictated by: Liborio Méndez M.D. on 01/16/2020 at 9:34 Approved by: Liborio Méndez M.D. on 01/16/2020 at 10:04
== END ==
PROVIDERS: PCP Family Medicine; Referring Provider Internal Medicine Hematology & Oncology; Visit Provider Internal Medicine Hematology & Oncology
DX: C22.0 Liver cell carcinoma (principal); Z85.118 Personal history of other malignant neoplasm of bronchus and lung; R91.8 Other nonspecific abnormal finding of lung field
CPT/HCPCS: 71250; 74170; Q9967

== ENCOUNTER → 2020-02-06 11:00 | Outpatient (CLI) | payer MEDICARE, MEDICAID, SELFPAY ==
[2020-02-06 12:19] LABS: COVID19 -Nasal RAPID Negative (Negative)
== END ==
PROVIDERS: PCP Family Medicine; Visit Provider Surgery
DX: Z01.812 Encounter for preprocedural laboratory examination (principal); Z20.828 Contact with and (suspected) exposure to other viral communicable diseases
CPT/HCPCS: 87635; C9803

== ENCOUNTER 2020-02-07 09:09 | Day surgery (SDC) | payer MEDICARE, MEDICAID, SELFPAY ==
[2020-02-02 11:58] VITALS: BMI 19.0
--- NOTE | 2020-02-07 | DI.RAD.S_ITS ---
PROCEDURE: XR CHEST 1V INDICATIONS: port a cath placement TECHNIQUE: One view of the chest was acquired. COMPARISON: [facility], CT, CT CHEST WITHOUT CONTRAST, 03/08/2019, 9:59. [facility], CT, CT HEAD/BRAIN WO CON, 02/26/2019, 8:08. [facility], CR, XR CHEST 1V, 01/11/2019, 10:28. FINDINGS: Surgical changes and devices: Right-sided central venous line with the tip at the lower 3rd of the SVC. This projects more near the midline due to slight rotation. Lungs and pleura: Lungs appear clear. Prominent lung volumes. No pleural effusions or pneumothorax. Mediastinum: Mediastinal contours appear normal. Heart size is normal. Bones and chest wall: No suspicious bony lesions. Overlying soft tissues appear unremarkable. IMPRESSION: Right-sided central venous line with the tip at the lower 3rd of the SVC in satisfactory position. No pneumothorax. Prominent lung volumes. Patient is slightly rotated. Dictated by: Fran Amaya M.D. on 02/07/2020 at 13:11 Approved by: Farn Amaya M.D. on 02/07/2020 at 13:14
[2020-02-07] MEDS: ACETAMINOPHEN 325 MG TABLET 975 MG PO (10:42)
[2020-02-07] MEDS: LACTATED RINGERS 1,000 ML 100 ML IV (10:42)
[2020-02-07 10:57] VITALS: BP 151/76; PULSE 18; RESP 63; TEMP 36.9; O2SAT 97; BMI 19.0
--- NOTE | 2020-02-07 11:49 | PM.HP.1 ---
History of Present Illness History of Present Illness Date Patient Seen: 02/07/20 Time Patient Seen: 11:49 Chief complaint: [facility] [place], [place] Narrative: 80 y.o woman with metastatic hepatocellular carcinoma here for port a cath placement referred by oncology. Had a recent TIA 2 week ago. Numerous comorbidities including hepatitis C, cirrhosis, HTN, COPD. No prior intra vascular device. 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) Aortic valve disorder (07/04/10) Ascites Bruit of right carotid artery (05/2019) Carotid atherosclerosis (02/2019) Chronic hepatitis C without hepatic coma Chronic obstructive pulmonary disease (07/04/10) Cigarette smoker Depression (07/04/10) Esophageal varices Essential hypertension (07/04/10) Fibromyalgia (Unknown) GERD (gastroesophageal reflux disease) (Unknown) Hearing loss Hepatocellular carcinoma (05/2016) Hyperlipidemia (07/04/10) Hypothyroid Hypothyroidism (Unknown) Incontinence Lung cancer (2008) Onychomycosis Pancreatitis Peripheral vascular disease (10/2011) Pneumonia (2010) Portal hypertension Rheumatoid arthritis (Unknown) Throat cancer (2005) TIA (transient ischemic attack) (Unknown) Tubular adenoma of colon (05/19/16) Surgical History Hx of pneumonectomy (~2008) Family & Social History Family History Brother No problems noted. Brother No problems noted. Brother No problems noted. Father No problems noted. Mother No problems noted. Social History: household members children Tobacco & Substance use: Tobacco type cigarettes,cannabis/marijuana Smoking Status Current every day smoker Smoking packs per day 0.5 alcohol intake former alcohol intake frequency 0-2 drinks per day Substance Use Type marijuana Meds Home Medications and Allergies Home Medications Medication Instructions Recorded Confirmed Type Disabled Parking Permit 1 dev MISCELLANEOUS DIRECTED 09/15/17 02/03/20 History Incontinence Supplies 1 ea MISCELLANEOUS DIRECTED 09/15/17 02/03/20 History tiotropium bromide 2.5 2 puff INHALATION DAILY 06/22/19 02/07/20 History mcg/actuation mist for inhalation albuterol sulfate 90 mcg/actuation 2 puff INHALATION Q4-6H #18 gram 08/20/19 02/07/20 Rx aerosol inhaler aspirin 81 mg PO DAILY 08/25/19 02/07/20 History cilostazol 50 mg PO BID 08/25/19 02/07/20 History levothyroxine 50 mcg tablet 50 mcg PO DAILY #90 tab 10/10/19 02/07/20 Rx gabapentin 400 mg capsule 400 mg PO TID #270 cap 12/16/19 02/07/20 Rx metoprolol tartrate 25 mg tablet 12.5 mg PO BID #90 tab 12/16/19 02/07/20 Rx tolterodine 2 mg capsule,extended 2 mg PO DAILY #30 cap 12/16/19 02/07/20 Rx release 24 hr lorazepam 0.5 mg tablet See Rx Instructions .ROUTE 01/30/20 02/07/20 Rx .COMPLEX #45 tab varenicline 0.5 mg (11)-1 mg (42) See Rx Instructions PO PER PKG DIR 02/03/20 02/07/20 Rx tablets in a dose pack #53 ea varenicline 1 mg tablet 1 mg PO BID #56 tab 02/03/20 02/07/20 Rx Allergies Allergy/AdvReac Type Severity Reaction Status Date / Time codeine [CODEINE] AdvReac Mild IT MADE Verified 02/07/20 10:33 ME SICK TO MY STOMACH Review of Systems Review of Systems ROS: Yes unobtainable due to mental status (hearing loss) Exam Vital Signs (past 8 hours): - 02/07/20 10:57 Temperature 98.5 F Pulse Rate 18 L Respiratory Rate 63 H Blood Pressure 151/76 H Pulse Oximetry 97 Oxygen Delivery Method Room Air Narrative Exam Narrative: General-thin malnurished woman no acute distress. Chest- non labored respirations, clear to auscultation bilaterally Cardiac-regular rate no peripheral edema Abdomen-soft, nontender, non distended Extremities-warm, well perfused Neurological-alert no focal deficits Assessment & Plan Assessment & Plan narrative: 80 y.o woman with metastatic hepatocellular carcioma secondary to cirrhosis and Hep C here for port a cath placement. She had a recent TIA and as a result procedure will be performed under local anesthetic only given her increased risk of stroke. High risk given numerous comorbidities. Technical aspect of the procedure were discussed including bleeding, infection damage to surrounding structures, pneumothorax. Questions have been answered she is in agreement with this plan.
--- NOTE | 2020-02-07 11:54 | SUR.OPER ---
Supine on padded OR bed, head on pillow, arms padded and tucked at side, legs uncrossed, safety belt at thigh, tape over blanket over lower legs .
[2020-02-07] MEDS: CEFAZOLIN 2 GM/100 ML FROZ.PIGGY IV (12:05)
[2020-02-07] MEDS: BUPIVACAINE 0.25% (PF) VIAL 30 ML INJ (12:11)
[2020-02-07] MEDS: HEPARIN 5,000 UNIT, SODIUM CHLORIDE 0.9% 50 ML IV (12:16)
--- NOTE | 2020-02-07 13:04 | PM.OP.1 ---
Operative Date/Time/Diagnoses Date of procedure: 02/07/20 Time of procedure: 13:04 Pre-op diagnosis: metastatic hepatocellular carcinoma Post-op diagnosis: same Procedure & Clinicians Procedure: placement of port a cath Same procedure as scheduled: Yes Indications: metastatic hepatocellular carcinoma Surgeon: Elio Phillips Click Yes if Unassisted: Yes Anesthesia Type: General Operative Notes Findings: CXR pending ultrasound demonstrates cather in the R IJ Specimen(s): none sent Estimated Blood Loss (mL): 20 Procedure in detail: Patient was brought to the operating room placed supine on table. Bilateral lower extremity compressive devices were applied. She was then prepped and draped in usual sterile fashion. Time-out was performed ensure the correct patient procedure necessary equipment within the operating room. She received 2 g of Ancef prior to incision. Under ultrasound guidance the right internal jugular vein was accessed under direct visualization. The guidewire was then threaded through the needle. Its placement was then confirmed using fluoroscopy. The dilator was then placed over the guidewire. The catheter was then inserted through the sheath. Placement was again confirmed with fluoroscopy. A subcutaneous pocket was made in the right chest wall. The tunneler device was used to move the catheter from the neck to the chest pocket. The port was attached after it was primed with heparined saline. The port was tested to ensure that it flushed easily and had good blood return. The port was then secured to the underlying fascia using interupted 0 Prolene suture. Hemostasis was achieved. The wound was irrigated with sterile saline. The subcutaneous tissues were reapproximated with the 3 0 Vicryl and then skin closed with 4-0 Monocryl. The skin was sealed with Dermabond. Patient tolerated procedure well. The sponge and instrument count at the end operation was correct. Complications: none Post-operative Condition: stable Disposition: same day surgery
[2020-02-07 13:05] VITALS: BP 168/81; PULSE 58; RESP 18; TEMP 36.6; O2SAT 96
[2020-02-07 13:32] VITALS: BP 165/83; PULSE 63; RESP 18; TEMP 36.5; O2SAT 97
== END 2020-02-07 13:45 | disposition home or self-care (01) ==
PROVIDERS: PCP Family Medicine; Referring Provider Surgery; Visit Provider Surgery
PROC: (CPT 36561; principal; 2020-02-07 11:45)
DX: C22.0 Liver cell carcinoma (principal); Z45.2 Encounter for adjustment and management of vascular access device; F17.210 Nicotine dependence, cigarettes, uncomplicated; Z86.73 Personal history of transient ischemic attack (TIA), and cerebral infarction without residual deficits; J44.9 Chronic obstructive pulmonary disease, unspecified; M79.7 Fibromyalgia; I10 Essential (primary) hypertension; F43.10 Post-traumatic stress disorder, unspecified; Z86.19 Personal history of other infectious and parasitic diseases; B19.20 Unspecified viral hepatitis C without hepatic coma
CPT/HCPCS: 36561; 71045; 82962; C1788; J0690; J1644

== ENCOUNTER 2020-04-03 09:55 | Emergency (ER) | payer MEDICARE, MEDICAID, SELFPAY ==
[2020-04-03 10:12] VITALS: BP 122/82; PULSE 89; RESP 18; TEMP 35.7; O2SAT 96
--- NOTE | 2020-04-03 10:28 | ED_ITS ---
HPI - General Adult General Chief complaint: Hypertension Stated complaint: high blood pressure in clinic visit Time Seen by Provider: 04/03/20 10:10 Source: patient Mode of arrival: Ambulatory Limitations: no limitations History of Present Illness HPI narrative: This is a 80-year-old female comes emergency department with complaint of high blood pressure. Patient had gone to a clinic visit to establish with Ervin Ward. Her blood pressure was noted to be 200 systolic x2 checks in the office she was sent to the emergency department. Here patient's blood pressure is 122/82. She states she was going just to establish care. She does have known liver cancer and cirrhosis is on chemotherapy, patient has also had throat cancer, she has had a long lobectomy, multiple surgeries on her liver for her cancer. She states she is on medication for high blood pressure she took her medication this morning several hours prior to arrival. She also takes medication for hypothyroid, her chemotherapy treatment. Patient denies fevers or chills she denies any new chest pain or pressure. She has had a longstanding cough which he states has not worsened, she states there is sometimes some white productive sputum but no hemoptysis. She denies any new shortness of breath but states she does typically find that it is difficult to walk long distances. She has not had increasing dyspnea. She denies any nausea or vomiting today. No new changes to bowel movements. She has chronic urinary incontinence which she states is slightly improved at this time. She is denying any frequency, dysuria or sense of urgency. She also states she has had chronic memory issues that she discussed with her physician today. Related Data Home Medications Medication Instructions Recorded Confirmed Disabled Parking Permit 1 dev MISCELLANEOUS DIRECTED 09/15/17 04/03/20 Incontinence Supplies 1 ea MISCELLANEOUS DIRECTED 09/15/17 04/03/20 tiotropium bromide 2.5 2 puff INHALATION DAILY 06/22/19 04/03/20 mcg/actuation mist for inhalation aspirin 81 mg PO DAILY 08/25/19 04/03/20 cilostazol 50 mg PO BID 08/25/19 04/03/20 Previous Rx's Medication Instructions Recorded albuterol sulfate 90 mcg/actuation 2 puff INHALATION Q4-6H #18 gram 08/20/19 aerosol inhaler levothyroxine 50 mcg tablet 50 mcg PO DAILY #90 tab 10/10/19 gabapentin 400 mg capsule 400 mg PO TID #270 cap 12/16/19 metoprolol tartrate 25 mg tablet 12.5 mg PO BID #90 tab 12/16/19 tolterodine 2 mg capsule,extended 2 mg PO DAILY #30 cap 12/16/19 release 24 hr lorazepam 0.5 mg tablet See Rx Instructions .ROUTE 01/30/20 .COMPLEX #45 tab varenicline 0.5 mg (11)-1 mg (42) See Rx Instructions PO PER PKG DIR 02/03/20 tablets in a dose pack #53 ea varenicline 1 mg tablet 1 mg PO BID #56 tab 02/03/20 prochlorperazine maleate 5 mg PO BID PRN #20 tab 02/20/20 [Compazine] lorazepam 0.5 mg tablet 0.5 mg PO BEDTIME PRN #30 tab 03/05/20 Allergies Allergy/AdvReac Type Severity Reaction Status Date / Time codeine [CODEINE] AdvReac Mild IT MADE Verified 04/03/20 09:48 ME SICK TO MY STOMACH Review of Systems Review of Systems ROS Unobtainable: All systems reviewed & are unremarkable except as noted in HPI and below 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) Aortic valve disorder (07/04/10) Ascites Bruit of right carotid artery (05/2019) Carotid atherosclerosis (02/2019) Chronic hepatitis C without hepatic coma Chronic obstructive pulmonary disease (07/04/10) Cigarette smoker Depression (07/04/10) Esophageal varices Essential hypertension (07/04/10) Fibromyalgia (Unknown) GERD (gastroesophageal reflux disease) (Unknown) Hearing loss Hepatocellular carcinoma (05/2016) Hyperlipidemia (07/04/10) Hypothyroid Hypothyroidism (Unknown) Incontinence Lung cancer (2008) Onychomycosis Pancreatitis Peripheral vascular disease (10/2011) Pneumonia (2010) Portal hypertension Rheumatoid arthritis (Unknown) Throat cancer (2005) TIA (transient ischemic attack) (Unknown) Tubular adenoma of colon (05/19/16) Surgical History Hx of pneumonectomy (~2008) Family History Brother No problems noted. Brother No problems noted. Brother No problems noted. Father No problems noted. Mother No problems noted. Social History household members: children Smoking Status: Current every day smoker Tobacco: How many years used: 60 quit status: considering quitting second hand exposure: Yes alcohol intake: former substance use type: marijuana Smoking Status: Current every day smoker alcohol intake frequency: 0-2 drinks per day Substance Use Type: marijuana Exam Narrative Exam Narrative: GENERAL: Alert and oriented x three, thin, well-appearing elderly female in mild distress HEENT: Head normocephalic, atraumatic, EOMI, pupils reactive, face symmetric, moist mucous membranes NECK: Supple, full range of motion CARDIOVASCULAR: Regular rate and rhythm without murmurs, rubs or gallops. RESPIRATORY: Breath sounds equal bilaterally, no wheezes rales or rhonchi. ABDOMEN: Soft, nontender. Normoactive bowel sounds all 4 quadrants. No guarding or rebound, rigidity, no mass. No pulsatile mass or abdominal bruit. : No CVA tenderness EXTREMITIES: Normal range of motion, no clubbing or edema. Neurovascularly intact NEUROLOGICAL: Cranial nerves II through XII grossly intact. Moving all extremities SKIN: Warm, dry, no petechiae, no rashes or lesions. Initial Vital Signs Initial Vital Signs: Vital Signs Temperature 96.3 F L 04/03/20 10:12 Pulse Rate 89 04/03/20 10:12 Respiratory Rate 18 04/03/20 10:12 Blood Pressure 122/82 04/03/20 10:12 Pulse Oximetry 96 04/03/20 10:12 Course Orders Ordered: ED Orders 04/03/20 10:44 XR chest 1V Stat EKG-12 Lead Stat 04/03/20 10:50 Complete Blood Count AUTO DIFF Stat Comprehensive Metabolic Panel Stat Lipase Stat 04/03/20 11:13 Urine Microscopic Stat Vital Signs Vital signs: Vital Signs - 8 hr 04/03/20 10:12 04/03/20 11:50 Temperature 96.3 F L Pulse Rate 89 60 Respiratory Rate 18 18 Blood Pressure 122/82 163/74 H Pulse Oximetry 96 100 Medical Decision Making Lab Data Lab results reviewed: Yes I reviewed the patient's lab results. Result diagrams: 04/03/20 10:50 04/03/20 10:50 Labs: Lab Results 04/03/20 04/03/20 04/03/20 Range/Units 10:50 10:50 11:13 WBC 3.4 L (4.5-11.0) X10^3/uL RBC 4.49 (4.0-5.2) X10^6/uL Hgb 12.6 (12.0-16.0) g/dL Hct 38.1 (36-46) % MCV 84.8 (80-100) fL MCH 28.1 (26-34) PG MCHC 33.1 (30-36) % RDW 14.9 H (11.6-14.8) % Plt Count 157 (150-400) X10^3/uL Neut % (Auto) 73.5 (50-75) % Lymph % (Auto) 18.5 L (25-40) % [place] % (Auto) 6.5 (3-14) % Eos % (Auto) 0.4 L (2-4) % Baso % (Auto) 1.1 (0-2) % Neut # (Auto) 2500 (1198-4009) /uL Lymph # (Auto) 600 L (7792-3508) /uL [place] # (Auto) 200 (0-900) /uL Eos # (Auto) 0 (0-450) /uL Baso # (Auto) 0 (0-100) /uL Sodium 134 L (137-145) mmol/L Potassium 4.2 (3.4-5.1) mmol/L Chloride 103 (98-107) mmol/L Carbon Dioxide 28 (22-32) mmol/L BUN 20 H (7-17) mg/dL Creatinine 0.58 (0.52-1.04) mg/dL Estimated GFR > 60.0 (>60) mL/min BUN/Creatinine Ratio 34.5 H (6-22) Glucose 101 (80-110) mg/dL Calcium 9.2 (8.4-10.2) mg/dL Total Bilirubin 0.5 (0.2-1.3) mg/dL AST 32 (14-36) IU/L ALT 14 (<35) IU/L Alkaline Phosphatase 77 (38-126) U/L Total Protein 7.6 (6.3-8.2) g/dL Albumin 4.0 (3.5-5.0) g/dL Globulin 3.6 (1.7-4.1) g/dL Albumin/Globulin Ratio 1.1 (1.0-2.8) Lipase 521 H (23-300) U/L Urine RBC 0-1/hpf (0-5/HPF) Urine WBC 0-1/hpf (0-5/HPF) Urine Bacteria Few (2-10) H (None) Ur Culture Indicated? Cult not indicated Urine Dip Bedside Urine Glucose Negative Bedside Urine Bilirubin - Negative Bedside Urine Ketone - Negative Urine Specific [place] 1.025 Bedside Urine Occult Blood - Negative Bedside Urine pH 6.0 Bedside Urine Protein + 30 Bedside Urine Urobilinogen - Negative Bedside Urine Nitrite - Negative Bedside Urine Leukocytes - Negative Esterase Point of care testing: Urine Dip Bedside Urine Glucose Negative Bedside Urine Bilirubin - Negative Bedside Urine Ketone - Negative Urine Specific [place] 1.025 Bedside Urine Occult Blood - Negative Bedside Urine pH 6.0 Bedside Urine Protein + 30 Bedside Urine Urobilinogen - Negative Bedside Urine Nitrite - Negative Bedside Urine Leukocytes - Negative Esterase Imaging Data Chest x-ray: Radiologist's Impression: Etta Begum 80 F [address] [id number] ReportSigned Patient: Etta Begum [facility]#: [id number]: [id number]:[id number]/Sex: 80 / FDate of Service: 04/03/20Loc: EDAccession Number: [id number] Procedure: XR chest 1V Ordering Provider: Saloni Contreras D.O. PROCEDURE: XR CHEST 1V INDICATIONS: cough TECHNIQUE: One view of the chest was acquired. COMPARISON: [facility], , XR CHEST 1V, 02/07/2020, 13:11. FINDINGS: Surgical changes and devices: Right chest wall Port-A-Cath is stable. Lungs and pleura: Lungs are clear. No pleural effusions or pneumothorax. Lungs are hyperinflated suggesting COPD. Mediastinum: Mediastinal contours appear normal. Heart size is normal. Bones and chest wall: No suspicious bony lesions. Overlying soft tissues appear unremarkable. IMPRESSION: No acute cardiopulmonary disease process. Dictated by: Sonia Lucas MD, PhD on 04/03/2020 at 11:05 Approved by: Sonia Lucas MD, PhD on 04/03/2020 at 11:0 ECG Data Attestation: I personally reviewed and interpreted this ECG as follows: Prior ECG tracings: available for review Interpretation: Sinus bradycardia rate of 58 P are 184 QRS of 92 and QTC of 414. Possible elevation in V3 none appreciated in other leads. Nonspecific change. Incomplete right bundle branch block. Similar appearing EKGs from priors including 09-18-19. MDM Narrative Medical decision making narrative: This is a 80 year old female sent to the emergency department for elevated blood pressure in the systolic range of 200. Patient states she was there to establish care with Ervin Umanzor. Patient BP initially is 122/82 in department and max was 163/74. Patient EKG and chest x- ray do not show any show any acute changes. Patient last labs were from a month ago and repeated today, they show a mild leukopenia, platelets have improved since February with no anemia. CMP shows a mildly elevated lipase with prior max is 700 in December of 2018. I suspect this is related to her liver cancer. She continues to follow regularly with oncology. Urine shows protein but no other changes consistent with infection. Discussed today's findings with the patient. Patient requesting to return home and no major abnormalities requiring additional intervention at this time, patient is mildly hypertensive on repeat and encouraged to continue home medications. Discharge Plan Departure Patient Disposition: Home Clinical Impression: Cough, Elevated lipase Activity Restrictions/Additional Instructions: Follow up with your physician for recheck. I would check with your physician to make sure that you do not need any additional labs drawn as an outpatient. Your lipase or pancreatic enzyme is mildly elevated if you have new abdominal pain or other worsening symptoms return for recheck. Continue home medications as prescribed. Return to the ER for persistently high blood pressures, lightheadedness, passing out, new chest pain, abdominal pain, shortness of breath, swelling of your doctor abdomen or extremities or other new or concerning symptoms. Prescriptions: No Action albuterol sulfate 90 mcg/actuation HFA aerosol inhaler 2 puff inhalation Q4-6H Qty: 18 RF: 3 lorazepam 0.5 mg tablet See Rx Instructions .ROUTE .COMPLEX Qty: 45 RF: 1 gabapentin [Neurontin] 400 mg capsule 400 mg PO TID Qty: 270 RF: 1 metoprolol tartrate 25 mg tablet 12.5 mg PO BID Qty: 90 RF: 1 tolterodine [Detrol LA] 2 mg capsule,extended release 24hr 2 mg PO DAILY Qty: 30 RF: 2 tiotropium bromide 2.5 mcg/actuation mist 2 puff INHALATION DAILY RF: 0 levothyroxine 50 mcg tablet 50 mcg PO DAILY Qty: 90 RF: 1 Chantix Starting Month Box 0.5 mg (11)- 1 mg (42) tablets,dose pack See Rx Instructions PO PER PKG DIR Qty: 53 RF: 0 Chantix Continuing Month Box 1 mg tablet 1 mg PO BID Qty: 56 RF: 1 lorazepam 0.5 mg tablet 0.5 mg PO BEDTIME PRN (Reason: insomnia, hepatocellular carcinoma) Qty: 30 RF: 1 Disabled Parking Permit 1 dev miscellaneous DIRECTED RF: 0 Incontinence Supplies 1 ea miscellaneous DIRECTED RF: 0 aspirin 81 mg Tablet,Delayed Release (Dr/Ec) 81 mg PO DAILY RF: 0 cilostazol 50 mg 50 mg PO BID RF: 0 prochlorperazine maleate [Compazine] 5 mg Tablet 5 mg PO BID PRN (Reason: Nausea) Qty: 20 RF: 0 Referrals: Ervin Umanzor ARNP [Primary Care Provider] -
--- NOTE | 2020-04-03 10:44 | DI.RAD.S_ITS ---
PROCEDURE: XR CHEST 1V INDICATIONS: cough TECHNIQUE: One view of the chest was acquired. COMPARISON: [facility], CR, XR CHEST 1V, 02/07/2020, 13:11. FINDINGS: Surgical changes and devices: Right chest wall Port-A-Cath is stable. Lungs and pleura: Lungs are clear. No pleural effusions or pneumothorax. Lungs are hyperinflated suggesting COPD. Mediastinum: Mediastinal contours appear normal. Heart size is normal. Bones and chest wall: No suspicious bony lesions. Overlying soft tissues appear unremarkable. IMPRESSION: No acute cardiopulmonary disease process. Dictated by: Sonia Lucas MD, PhD on 04/03/2020 at 11:05 Approved by: Sonia Lucas MD, PhD on 04/03/2020 at 11:06
[2020-04-03 11:04] LABS: Add Manual Diff / Slide Review NO; Basophils Absolute Auto 0 /uL (0-100); Basophils Percent Auto 1.1 % (0-2); Eosinophils Absolute Auto 0 /uL (0-450); Eosinophils Percent Auto 0.4 % (2-4); Hematocrit 38.1 % (36-46); Hemoglobin 12.6 g/dL (12.0-16.0); Lymphocytes Absolute Auto 600 /uL (1100-4500); Lymphocytes Percent Auto 18.5 % (25-40); Mean Corpuscular HGB Conc 33.1 % (30-36); Mean Corpuscular Hemoglobin 28.1 PG (26-34); Mean Corpuscular Volume 84.8 fL (80-100); Monocytes Absolute Auto 200 /uL (0-900); Monocytes Percent Auto 6.5 % (3-14); Neutrophils Absolute Auto 2500 /uL (1500-7000); Neutrophils Percent Auto 73.5 % (50-75); Platelet Count 157 X10^3/uL (150-400); Red Blood Cell Count 4.49 X10^6/uL (4.0-5.2); Red Cell Distribution Width 14.9 % (11.6-14.8); White Blood Cell Count 3.4 X10^3/uL (4.5-11.0)
[2020-04-03 11:24] LABS: Alanine Aminotransferase 14 IU/L (<35); Albumin Globulin Ratio 1.1 (1.0-2.8); Alkaline Phosphatase 77 U/L (38-126); Aspartate Aminotransferase 32 IU/L (14-36); BUN Creatinine Ratio 34.5 (6-22); Bilirubin Total 0.5 mg/dL (0.2-1.3); Blood Urea Nitrogen 20 mg/dL (7-17); Calcium 9.2 mg/dL (8.4-10.2); Carbon Dioxide 28 mmol/L (22-32); Chloride 103 mmol/L (98-107); Estimated Glomerular Filt Rate > 60.0 mL/min (>60); Globulin 3.6 g/dL (1.7-4.1); Glucose 101 mg/dL (80-110); HEMOLYSIS < 15 (0-50); Lipase 521 U/L (23-300); Potassium 4.2 mmol/L (3.4-5.1); Sodium 134 mmol/L (137-145); Total Protein 7.6 g/dL (6.3-8.2)
[2020-04-03 11:30] LABS: Bacteria Urine Few (2-10); Culture Indicated Urine Cult Not Indicated; RBC Urine 0-1/HPF (0-5/HPF); WBC Urine 0-1/HPF (0-5/HPF)
[2020-04-03 11:50] VITALS: BP 163/74; PULSE 60; RESP 18; O2SAT 100
== END 2020-04-03 11:50 | disposition home or self-care (01) ==
PROVIDERS: Emergency Provider Emergency Medicine; PCP Registered Nurse Diabetes Educator
DX: R05 Cough (principal); R74.8 Abnormal levels of other serum enzymes; I10 Essential (primary) hypertension; D72.819 Decreased white blood cell count, unspecified; C22.8 Malignant neoplasm of liver, primary, unspecified as to type; K74.60 Unspecified cirrhosis of liver; C14.0 Malignant neoplasm of pharynx, unspecified; E78.5 Hyperlipidemia, unspecified; E03.9 Hypothyroidism, unspecified; Z86.73 Personal history of transient ischemic attack (TIA), and cerebral infarction without residual deficits
CPT/HCPCS: 36415; 71045; 80053; 81003; 81015; 83690; 85025; 93005; 93010; 99283; 99284

== ENCOUNTER → 2020-04-09 09:00 | Oncology outpatient (ONC) | payer MEDICARE, MEDICAID, SELFPAY ==
--- NOTE | 2017-09-15 12:38 | ONC.PN ---
Assessment and Plan - Time Spent with Patient IMPRESSION: 1. Hepatocellular carcinoma status post ablation by Dr. Emery June 23, 2016. 2. Hepatitis-C. Biopsy showing cirrhosis, genotype 1A. 3. COPD. 4. Protein calorie malnutrition. 5. Tobacco use. 6. History of medical compliance issues. I reviewed current MRI and lab results with her today. Findings appear stable and she has no new symptoms at this time. WBC 3000, ANC 2100, hemoglobin 14.0, medical 41.7, platelets [id number]. CEA 2.2, AFP 8.0, creatinine 0.90, calcium 9.5, total bili 0.8, alk-phos 90, AST 63, ALT 44, albumin 4.0. Previous AFP January 19, 2017 11.6, 03/02/2017 11.5, 06/01/2017 12.2. No clear progression on current MRI. Recommend continued monitoring and follow-up here in 3 months with labs prior to the visit. Anticipate repeat imaging with MRI in 3-6 months or based on clinical symptoms or concerns. Reminded her to monitoring call back sooner if new problems arise. PLAN: 1. Continue self monitoring and call back as needed. 2. Follow up with other providers as planned. 3. Return appointment here in 3 months. 4. CBC, CMP, AFP and CA 19-9 prior to the visit. 5. MRI abdomen in 3-6 months. DICTATED BY BEKAH SUNSHINE MD MEDICAL ONCOLOGY AND HEMATOLOGY PN -Subjective Interval history: HEMATOLOGY/ONCOLOGY PROGRESS NOTE DATE OF SERVICE: SEPTEMBER 15, 2017 PATIENT NAME: TAWNY GORE : 1940 IDENTIFICATION: SHE IS A 77-YEAR-OLD WOMAN WITH hepatocellular carcinoma. INTERVAL HISTORY: She returns alone in follow-up today. Feeling her usual self. She denies any increase in pain or discomfort in the right upper quadrant. No bloating, nausea or jaundice. Appetite and energy level are stable. She denies fever, night sweats, cough or dyspnea. Her most recent treatment with ablation by Dr. Emery was reportedly June 23, 2016. Most recent visit here June 08 2017 with Katarina PORTILLO. No new health issues or concerns to discuss today she says. Hx of Present illness The patient is a 77 year old Female who is being seen in the clinic 02/02/17 for hepatocellular carcinoma based on imaging reporting a 1.2 cm lesion described on MRI in the right hepatic lobe, suspicious for malignancy. Dr. Emery agreed that it was consistent with hepatocellular carcinoma. She has had chemoembolization with Dr. Emery on Thursday June 23, 2016. Please note that the voice recognition software interpreted this as chemoradiation which is an error and has been corrected. 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 Chronic hepatitis C with prior biopsy evidence of cirrhosis genotype 1A; patient states that she has been turned down for treatment. Apparently there have been compliance and psychological issues that test that in the way. Left lower lobe pneumonia with loculated fluid collection May 2015 probable empyema Continued tobacco abuse History of protein calorie malnutrition in May 2015 now improved COPD Acute blood loss anemia, EGD 08/19/2013 did not identify a source. 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 Patient reports: oophorectomy right leg stent liver biopsy paracentesis negative for malignant cells May 2015 Diagnostic Imaging PROCEDURE: ABDOMEN WITH AND WITHOUT CONTR INDICATIONS: Hepatocellular carcinoma clinically reported, previously diagnosed. COMPARISON: [facility], , ABDOMEN COMPLETE, 11/03/2016, 10:40. [facility], XA, RF ABLATION OF PARENCHYMA, 06/20/2016, 8:00. [facility], MR, ABDOMEN W\T\WO CONTRAST, 05/12/2016, 10:55. FINDINGS: Image quality: Excellent. Lung bases: No basal pleural effusions. Heart size is normal. Solid organs: Liver and spleen are unchanged in size and enhancement, with hepatomegaly measuring up to 21 cm craniocaudad, and hepatic multinodular enhancement consistent with multifocal metastatic disease comprised of a multitude of small nodules as was previously the case the most recent prior MR scanning 05/12/16. A rounded rim enhancing nodule has not enlarged in size at the middle third of the right hepatic lobe posteriorly. A transient perfusion anomaly is seen within the right anterior hepatic segment on the early arterial phase of enhancement, and the rim enhancing nodule is seen to be prominently enhancing during that scanning also.. Gallbladder appears contracted. Biliary system is non dilated. Pancreas is normal in morphology. No adrenal nodules. Both kidneys demonstrate normal size and enhancement, without hydronephrosis. Nodes and vessels: No retroperitoneal or mesenteric adenopathy by size criteria. Aorta and inferior vena cava are normal in size. Bowel and peritoneum: Unenhanced bowel loops are normal in caliber. No free fluid. Bones and soft tissues: No ventral hernias. Bone marrow is normal in overall signal. IMPRESSION: Stable appearance of previously identified numerous hepatic presumed metastatic nodules present bilaterally. Chronic hepatomegaly, stable over time. A focal rim-enhancing nodule within the right posterior hepatic segment has been previously present at the mid liver level and this shows prominent early arterial phase of contrast enhancement consistent with underlying hepatoma. Overall, however, no new disease is found. Dictated by: Cirilo Bean M.D. on 11/24/2016 at 17:08 NAME: TAWNY GORE DATE OF EXAM: 03/02/17 AGE: 77 DATE OF : [birth year] STATUS: REG CLI SEX: F LOCATION: MRI REFERRING PHYSICIAN: Abdullahi Palmer MD CC: Preet Álvarez MD; Abdullahi Palmer MD ACCESSION#: CATEGORY: MRI Scan PROCEDURE: ABDOMEN WITH AND WITHOUT CONTR INDICATIONS: LIVER NODULE TECHNIQUE: Coronal HASTE, axial 2D FLASH in- and [id number]; axial breath-hold T2 FSE. Dynamic axial VIBE during the administration of contrast; post-contrast coronal VIBE or 2D FLASH with fat saturation from the hepatic dome to the iliac crests. Optional diffusion weighted imaging and ADC may be performed. COMPARISON: [facility], CT, NECK CHEST ABD PEL W CONTRAST, 03/17/2011, 11:38. [facility], CT, NECK CHEST ABD PEL W CONTRAST, 03/26/2010, 9:43. [facility], CT, WO PELVIS W, 03/23/2009, 10:12. [facility], [place], PET/CT NECK TO MID THIGH, 03/16/2009, 11:58. Outside [facility], [place], PET/CT WHOLE BODY, 04/21/2008, 12:43. [facility], CT, THORAX WITH CONTRAST, 11/24/2016, 15:23. [facility], CT, ABDOMEN/PELVIS WITH CONTRAST, 06/18/2015, 13:31. [facility], MR, ABDOMEN W\T\WO CONTRAST, 05/12/2016, 10:55. [facility], MR, ABDOMEN W\T\WO CONTRAST, 11/24/2016, 16:02. FINDINGS: Image quality: Good Lung bases: No basal pleural effusions. Heart size is normal. Solid organs: The liver is upper normal in size. Contour suggests a slightly nodular but unchanged since multiple scans. Visibility of the multiple small nodular defects in the liver parenchyma varies. It was best seen on CT in 2016. It is still well seen on the axial T1 vibe without contrast. There is a non-hemangioma in the right lobe of the liver unchanged. There is a transient hepatic attenuation difference in the right lobe of the liver noted and unchanged. At the central apex of the transient hepatic attenuation difference there is on the diffusion images a 12 mm area of increased signal. This is potentially a mass but it is unchanged in size since the previous MRI a 11/24/16. No other focal diffusion abnormality is seen that would suggest possible tumor. Spleen shows a pedunculated focus limits medial aspect that extends into and deforms the tail of the pancreas and it is unchanged since multiple scans. Gallbladder is within normal limits. Biliary system is non dilated. Pancreas is normal in morphology. No adrenal nodules. Both kidneys demonstrate normal size and enhancement, without hydronephrosis. Nodes and vessels: No retroperitoneal or mesenteric adenopathy by size criteria. Is noted with some surrounding thrombus and wall thickening. There is potentially minimally larger at 4.1 x 4 point for centimeters in transverse dimension compared to approximately 3.6 x 3.8 on the most recent previous MRI. Bowel and peritoneum: Unenhanced bowel loops are normal in caliber. No free fluid. Bones and soft tissues: No ventral hernias. Bone marrow is normal in overall signal. IMPRESSION: 1. In this patient with old history of throat cancer and lung cancer treated in the past with radiation and chemotherapy the appearance of the liver is unchanged since 11/24/16. T1 vibe sequence without contrast shows multiple small nodular pattern to the liver not seen well on the T2 sequence are present. This is unchanged. Again these do not enhance with contrast. Hemangioma in the right lobe of the liver unchanged. Focal area of bright signal on T2 and diffusion and at the apex of transient hepatic attenuation difference unchanged since the previous 2 MRIs although the transient hepatic attenuation difference is not seen on the MRI of 05/12/16. Liver is generous in size and suggests a somewhat nodular appearance but no history of cirrhosis is identified an old studies. 2. 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 3. Abdominal aortic aneurysm questionably larger since the MRI scan of 11/24/16. Ultrasound followup to compare this with the study of 11/03/16 ultrasound is suggested as a better comparison than MRI. Dictated by: Preet Álvarez M.D. on 03/02/2017 at 12:49 Approved by: Preet Álvarez M.D. on 03/02/2017 at 13:29 - Additional ROS Additional ROS: Review of systems General: No fever, night sweats or recent weight loss. HEENT: No headaches, vision change or epistaxis. Respiratory: No cough or dyspnea. Cardiac: No chest pain, PND or orthopnea. GI: Negative except as above. : Stable. Musculoskeletal: No new bone pain. Neurologic: Negative. Results - Imaging Additional studies: Procedures Other endoscopy of small intestine (08/18/13) Transfusion of Nonautologous Plasma Cryoprecipitate into Peripheral Vein, Percutaneous Approach (06/19/15) Transfusion of packed cells (08/18/13) Home Medications and Allergies Home Medications Medication Instructions Recorded Confirmed Type Disabled Parking Permit dev #1 09/17/15 08/05/17 Rx [MILK THISTLE] 2 cap PO TID #0 12/24/15 08/05/17 History Incontinence Supplies ea #100 11/03/16 08/05/17 Rx ipratropium-albuterol 3 ml INH QIDP PRN #0 11/03/16 08/05/17 History albuterol sulfate [Ventolin HFA] 2 puff INH Q4-6 PRN #1 inh 06/30/17 08/05/17 Rx gabapentin 400 mg capsule 400 mg PO TID #90 cap 06/30/17 08/05/17 Rx levothyroxine 75 mcg tablet 75 mcg PO QAM #30 tab 06/30/17 08/05/17 Rx metoprolol tartrate 25 mg tablet 12.5 mg PO BID #30 tab 06/30/17 08/05/17 Rx lorazepam 0.5 mg tablet 0.5 mg PO Q8HP PRN #60 tab 07/27/17 08/05/17 Rx clopidogrel 75 mg tablet 75 mg PO DAILY 08/05/17 08/05/17 History mupirocin 2 % topical ointment 1 applictn TOPICAL TID #22 gram 08/05/17 Rx Allergies Allergy/AdvReac Type Severity Reaction Status Date / Time codeine [CODEINE] AdvReac Mild IT MADE Unverified 08/05/17 11:45 ME SICK TO MY STOMACH Exam - Constitutional positive no acute distress, positive thin, positive cooperative - Routine HEENT Exam Head: Present: normocephalic, atraumatic Eye: Present: EOMI, PERRL. Absent: conjunctival icterus, scleral injection, periorbital ecchymosis - Routine Neck Exam Present: supple. Absent: lymphadenopathy - Routine Respiratory Exam Present: Clear to auscultation bilaterally. Absent: accessory muscle use, rales, wheezes - Routine Cardiovascular Exam Present: RRR, S1, S2, murmur. Absent: S3 Comments: One-2/6 systolic murmur at the sternal border. - Routine Abdominal Exam Present: soft, normoactive bowel sounds. Absent: tenderness, distended, organomegaly - Routine Extremities Exam Absent: cyanosis, clubbing, edema - Routine Skin Exam Present: intact. Absent: cyanosis, erythema, jaundice, rash, ecchymosis - Routine Neurological Exam Present: alert, oriented X3, moving all extremities, normal speech - Routine Psychiatric Exam Present: normal affect, normal thought process, cooperative
--- NOTE | 2017-09-15 12:49 | P.PNONC_ITS ---
Assessment and Plan - Time Spent with Patient IMPRESSION: 1. Hepatocellular carcinoma status post ablation by Dr. Emery June 23, 2016. 2. Hepatitis-C. Biopsy showing cirrhosis, genotype 1A. 3. COPD. 4. Protein calorie malnutrition. 5. Tobacco use. 6. History of medical compliance issues. I reviewed current MRI and lab results with her today. Findings appear stable and she has no new symptoms at this time. WBC 3000, ANC 2100, hemoglobin 14.0, medical 41.7, platelets [id number]. CEA 2.2, AFP 8.0, creatinine 0.90, calcium 9.5 , total bili 0.8, alk-phos 90, AST 63, ALT 44, albumin 4.0. Previous AFP January 19, 2017 11.6, 03/02/2017 11.5, 06/01/2017 12.2. No clear progression on current MRI. Recommend continued monitoring and follow-up here in 3 months with labs prior to the visit. Anticipate repeat imaging with MRI in 3-6 months or based on clinical symptoms or concerns. Reminded her to monitoring call back sooner if new problems arise. PLAN: 1. Continue self monitoring and call back as needed. 2. Follow up with other providers as planned. 3. Return appointment here in 3 months. 4. CBC, CMP, AFP and CA 19-9 prior to the visit. 5. MRI abdomen in 3-6 months. DICTATED BY BEKAH SUNSHINE MD MEDICAL ONCOLOGY AND HEMATOLOGY PN -Subjective Interval history: HEMATOLOGY/ONCOLOGY PROGRESS NOTE DATE OF SERVICE: SEPTEMBER 15, 2017 PATIENT NAME: TAWNY GORE : 1940 IDENTIFICATION: SHE IS A 77-YEAR-OLD WOMAN WITH hepatocellular carcinoma. INTERVAL HISTORY: She returns alone in follow-up today. Feeling her usual self. She denies any increase in pain or discomfort in the right upper quadrant. No bloating, nausea or jaundice. Appetite and energy level are stable. She denies fever, night sweats, cough or dyspnea. Her most recent treatment with ablation by Dr. Emery was reportedly June 23, 2016. Most recent visit here June 08 2017 with Katarina PORTILLO. No new health issues or concerns to discuss today she says. Hx of Present illness The patient is a 77 year old Female who is being seen in the clinic 02/02/17 for hepatocellular carcinoma based on imaging reporting a 1.2 cm lesion described on MRI in the right hepatic lobe, suspicious for malignancy. Dr. Emery agreed that it was consistent with hepatocellular carcinoma. She has had chemoembolization with Dr. Emery on Thursday June 23, 2016. Please note that the voice recognition software interpreted this as chemoradiation which is an error and has been corrected. 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 Chronic hepatitis C with prior biopsy evidence of cirrhosis genotype 1A; patient states that she has been turned down for treatment. Apparently there have been compliance and psychological issues that test that in the way. Left lower lobe pneumonia with loculated fluid collection May 2015 probable empyema Continued tobacco abuse History of protein calorie malnutrition in May 2015 now improved COPD Acute blood loss anemia, EGD 08/19/2013 did not identify a source. 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 Patient reports: oophorectomy right leg stent liver biopsy paracentesis negative for malignant cells May 2015 Diagnostic Imaging PROCEDURE: ABDOMEN WITH AND WITHOUT CONTR INDICATIONS: Hepatocellular carcinoma clinically reported, previously diagnosed. COMPARISON: [facility], , ABDOMEN COMPLETE, 11/03/2016, 10:40. [facility], XA, RF ABLATION OF PARENCHYMA, 06/20/2016, 8:00. [facility], MR, ABDOMEN W\T\WO CONTRAST, 05/12/2016, 10:55. FINDINGS: Image quality: Excellent. Lung bases: No basal pleural effusions. Heart size is normal. Solid organs: Liver and spleen are unchanged in size and enhancement, with hepatomegaly measuring up to 21 cm craniocaudad, and hepatic multinodular enhancement consistent with multifocal metastatic disease comprised of a multitude of small nodules as was previously the case the most recent prior MR scanning 05/12/16. A rounded rim enhancing nodule has not enlarged in size at the middle third of the right hepatic lobe posteriorly. A transient perfusion anomaly is seen within the right anterior hepatic segment on the early arterial phase of enhancement, and the rim enhancing nodule is seen to be prominently enhancing during that scanning also.. Gallbladder appears contracted. Biliary system is non dilated. Pancreas is normal in morphology. No adrenal nodules. Both kidneys demonstrate normal size and enhancement, without hydronephrosis. Nodes and vessels: No retroperitoneal or mesenteric adenopathy by size criteria. Aorta and inferior vena cava are normal in size. Bowel and peritoneum: Unenhanced bowel loops are normal in caliber. No free fluid. Bones and soft tissues: No ventral hernias. Bone marrow is normal in overall signal. IMPRESSION: Stable appearance of previously identified numerous hepatic presumed metastatic nodules present bilaterally. Chronic hepatomegaly, stable over time. A focal rim-enhancing nodule within the right posterior hepatic segment has been previously present at the mid liver level and this shows prominent early arterial phase of contrast enhancement consistent with underlying hepatoma. Overall, however, no new disease is found. Dictated by: Cirilo Bean M.D. on 11/24/2016 at 17:08 NAME: TAWNY GORE DATE OF EXAM: 03/02/17 AGE: 77 DATE OF : [birth year] STATUS: REG CLI SEX: F LOCATION: MRI REFERRING PHYSICIAN: Abdullahi Palmer MD CC: Preet Álvarez MD; Abdullahi Palmer MD ACCESSION#: CATEGORY: MRI Scan PROCEDURE: ABDOMEN WITH AND WITHOUT CONTR INDICATIONS: LIVER NODULE TECHNIQUE: Coronal HASTE, axial 2D FLASH in- and [id number]; axial breath-hold T2 FSE. Dynamic axial VIBE during the administration of contrast; post-contrast coronal VIBE or 2D FLASH with fat saturation from the hepatic dome to the iliac crests. Optional diffusion weighted imaging and ADC may be performed. COMPARISON: [facility], CT, NECK CHEST ABD PEL W CONTRAST, 03/17/2011, 11: 38. [facility], CT, NECK CHEST ABD PEL W CONTRAST, 03/26/2010, 9:43. [facility], CT, WO PELVIS W, 03/23/2009, 10:12. [facility], [place], PET/CT NECK TO MID THIGH, 03/16/2009, 11:58. [facility], [place], PET/CT WHOLE BODY, 04/21/2008, 12: 43. [facility], CT, THORAX WITH CONTRAST, 11/24/2016, 15:23. [facility], CT, ABDOMEN/PELVIS WITH CONTRAST, 06/18/2015, 13:31. [facility], MR, ABDOMEN W\ T\WO CONTRAST, 05/12/2016, 10:55. [facility], MR, ABDOMEN W\T\WO CONTRAST, 11/24, 16:02. FINDINGS: Image quality: Good Lung bases: No basal pleural effusions. Heart size is normal. Solid organs: The liver is upper normal in size. Contour suggests a slightly nodular but unchanged since multiple scans. Visibility of the multiple small nodular defects in the liver parenchyma varies. It was best seen on CT in 2016. It is still well seen on the axial T1 vibe without contrast. There is a non-hemangioma in the right lobe of the liver unchanged. There is a transient hepatic attenuation difference in the right lobe of the liver noted and unchanged. At the central apex of the transient hepatic attenuation difference there is on the diffusion images a 12 mm area of increased signal. This is potentially a mass but it is unchanged in size since the previous MRI a . No other focal diffusion abnormality is seen that would suggest possible tumor. Spleen shows a pedunculated focus limits medial aspect that extends into and deforms the tail of the pancreas and it is unchanged since multiple scans. Gallbladder is within normal limits. Biliary system is non dilated. Pancreas is normal in morphology. No adrenal nodules. Both kidneys demonstrate normal size and enhancement, without hydronephrosis. Nodes and vessels: No retroperitoneal or mesenteric adenopathy by size criteria. Is noted with some surrounding thrombus and wall thickening. There is potentially minimally larger at 4.1 x 4 point for centimeters in transverse dimension compared to approximately 3.6 x 3.8 on the most recent previous MRI. Bowel and peritoneum: Unenhanced bowel loops are normal in caliber. No free fluid. Bones and soft tissues: No ventral hernias. Bone marrow is normal in overall signal. IMPRESSION: 1. In this patient with old history of throat cancer and lung cancer treated in the past with radiation and chemotherapy the appearance of the liver is unchanged since 11/24/16. T1 vibe sequence without contrast shows multiple small nodular pattern to the liver not seen well on the T2 sequence are present. This is unchanged. Again these do not enhance with contrast. Hemangioma in the right lobe of the liver unchanged. Focal area of bright signal on T2 and diffusion and at the apex of transient hepatic attenuation difference unchanged since the previous 2 MRIs although the transient hepatic attenuation difference is not seen on the MRI of 05/12/16. Liver is generous in size and suggests a somewhat nodular appearance but no history of cirrhosis is identified an old studies. 2. 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 3. Abdominal aortic aneurysm questionably larger since the MRI scan of 11/24/16. Ultrasound followup to compare this with the study of 11/03/16 ultrasound is suggested as a better comparison than MRI. Dictated by: Preet Álvarez M.D. on 03/02/2017 at 12:49 Approved by: Preet Álvarez M.D. on 03/02/2017 at 13:29 - Additional ROS Additional ROS: Review of systems General: No fever, night sweats or recent weight loss. HEENT: No headaches, vision change or epistaxis. Respiratory: No cough or dyspnea. Cardiac: No chest pain, PND or orthopnea. GI: Negative except as above. : Stable. Musculoskeletal: No new bone pain. Neurologic: Negative. Results - Imaging Additional studies: Procedures Other endoscopy of small intestine (08/18/13) Transfusion of Nonautologous Plasma Cryoprecipitate into Peripheral Vein, Percutaneous Approach (06/19/15) Transfusion of packed cells (08/18/13) Home Medications and Allergies Home Medications Medication Instructions Recorded Confirmed Type Disabled Parking Permit dev #1 09/17/15 08/05/17 Rx [MILK THISTLE] 2 cap PO TID #0 12/24/15 08/05/17 History Incontinence Supplies ea #100 11/03/16 08/05/17 Rx ipratropium-albuterol 3 ml INH QIDP PRN #0 11/03/16 08/05/17 History albuterol sulfate [Ventolin HFA] 2 puff INH Q4-6 PRN #1 inh 06/30/17 08/05/17 Rx gabapentin 400 mg capsule 400 mg PO TID #90 cap 06/30/17 08/05/17 Rx levothyroxine 75 mcg tablet 75 mcg PO QAM #30 tab 06/30/17 08/05/17 Rx metoprolol tartrate 25 mg tablet 12.5 mg PO BID #30 tab 06/30/17 08/05/17 Rx lorazepam 0.5 mg tablet 0.5 mg PO Q8HP PRN #60 tab 07/27/17 08/05/17 Rx clopidogrel 75 mg tablet 75 mg PO DAILY 08/05/17 08/05/17 History mupirocin 2 % topical ointment 1 applictn TOPICAL TID #22 gram 08/05/17 Rx Allergies Allergy/AdvReac Type Severity Reaction Status Date / Time codeine [CODEINE] AdvReac Mild IT MADE Unverified 08/05/17 11:45 ME SICK TO MY STOMACH Exam - Constitutional positive no acute distress, positive thin, positive cooperative - Routine HEENT Exam Head: Present: normocephalic, atraumatic Eye: Present: EOMI, PERRL. Absent: conjunctival icterus, scleral injection, periorbital ecchymosis - Routine Neck Exam Present: supple. Absent: lymphadenopathy - Routine Respiratory Exam Present: Clear to auscultation bilaterally. Absent: accessory muscle use, rales , wheezes - Routine Cardiovascular Exam Present: RRR, S1, S2, murmur. Absent: S3 Comments: One-2/6 systolic murmur at the sternal border. - Routine Abdominal Exam Present: soft, normoactive bowel sounds. Absent: tenderness, distended, organomegaly - Routine Extremities Exam Absent: cyanosis, clubbing, edema - Routine Skin Exam Present: intact. Absent: cyanosis, erythema, jaundice, rash, ecchymosis - Routine Neurological Exam Present: alert, oriented X3, moving all extremities, normal speech - Routine Psychiatric Exam Present: normal affect, normal thought process, cooperative
[2017-09-15 13:12] VITALS: BP 133/81; PULSE 72; RESP 16; O2SAT 98
--- NOTE | 2017-11-30 10:53 | ONC.APRN.PN ---
PN -Subjective Interval history: HEMATOLOGY/ONCOLOGY PROGRESS NOTE DATE OF SERVICE: November 30 2017 PATIENT NAME: TAWNY GORE : 1940 IDENTIFICATION: SHE IS A 77-YEAR-OLD WOMAN WITH hepatocellular carcinoma and chronic hepatitis C (genotype 1A). Remote hx of squamous cell carcinoma of the epiglottis now more than 10 years from diagnosis. Additionally, left upper lobe stage I lung cancer status post left resection more than 7 years out. INTERVAL HISTORY: She returns alone in follow-up today for routine triage. She is reporting increased fatigue as well as dizziness and nausea. Not taking any medicine for nausea states ?it is not that bad?. No change in appetite specifically no early satiety. Weight is stable. Denies blood in stool, black tarry stool. No unexplained bleeding or bruising. She had recent ED visit 11/12/2017 with CC of lightheadedness and feeling as though I was going to pass out although did not lose consciousness. This is not a new complaint has been going on for quite sometime. No chest pain, shortness of breath. She has had orthostatic hypotension in the past specifically recent ER visit November 12 supine systolic blood pressure 95 when sitting dropped to 60s. She denies any recent alcohol intake states she has not had any alcohol in years. She smokes [address] Head CT in emergency department was unremarkable for any acute intracranial process. Diagnosis in emergency department was dehydration. She denies any increase in pain or discomfort in the right upper quadrant. No bloating, nausea or jaundice. She denies fever, night sweats, cough or dyspnea. Her most recent treatment with ablation by Dr. Emery was reportedly June 23, 2016. Most recent visit at cancer clinic was with Dr Goel 09/15/2017. Unfortunately most recent blood work is demonstrating elevated CA 19-19 at 49. Previously 20. AFP currently elevated at 28.0, previously was 12. BUN 22, creatinine 0.80, GFR >60. Calcium 9.5. AST 156 ALT 88, alkaline phosphatase 115. PT 14.2. CBC largely unremarkable aside from mild thrombocytopenia and neutropenia. Most recent imaging was MRI dated 08/24/2017 with no evidence of disease recurrence/progression. Hx of Present illness The patient is a 77 year old Female who is being seen in the clinic 02/02/17 for hepatocellular carcinoma based on imaging reporting a 1.2 cm lesion described on MRI in the right hepatic lobe, suspicious for malignancy. Dr. Emery agreed that it was consistent with hepatocellular carcinoma. She has had chemoembolization with Dr. Emery on Thursday June 23, 2016. Please note that the voice recognition software interpreted this as chemoradiation which is an error and has been corrected. 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 Chronic hepatitis C with prior biopsy evidence of cirrhosis genotype 1A; patient states that she has been turned down for treatment. Apparently there have been compliance and psychological issues that test that in the way. Left lower lobe pneumonia with loculated fluid collection May 2015 probable empyema Continued tobacco abuse History of protein calorie malnutrition in May 2015 now improved COPD Acute blood loss anemia, EGD 08/19/2013 did not identify a source. 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 Patient reports: oophorectomy right leg stent liver biopsy paracentesis negative for malignant cells May 2015 Diagnostic Imaging PROCEDURE: ABDOMEN WITH AND WITHOUT CONTR INDICATIONS: Hepatocellular carcinoma clinically reported, previously diagnosed. COMPARISON: [facility], US, ABDOMEN COMPLETE, 11/03/2016, 10:40. [facility], XA, RF ABLATION OF PARENCHYMA, 06/20/2016, 8:00. [facility], MR, ABDOMEN W\T\WO CONTRAST, 05/12/2016, 10:55. FINDINGS: Image quality: Excellent. Lung bases: No basal pleural effusions. Heart size is normal. Solid organs: Liver and spleen are unchanged in size and enhancement, with hepatomegaly measuring up to 21 cm craniocaudad, and hepatic multinodular enhancement consistent with multifocal metastatic disease comprised of a multitude of small nodules as was previously the case the most recent prior MR scanning 05/12/16. A rounded rim enhancing nodule has not enlarged in size at the middle third of the right hepatic lobe posteriorly. A transient perfusion anomaly is seen within the right anterior hepatic segment on the early arterial phase of enhancement, and the rim enhancing nodule is seen to be prominently enhancing during that scanning also.. Gallbladder appears contracted. Biliary system is non dilated. Pancreas is normal in morphology. No adrenal nodules. Both kidneys demonstrate normal size and enhancement, without hydronephrosis. Nodes and vessels: No retroperitoneal or mesenteric adenopathy by size criteria. Aorta and inferior vena cava are normal in size. Bowel and peritoneum: Unenhanced bowel loops are normal in caliber. No free fluid. Bones and soft tissues: No ventral hernias. Bone marrow is normal in overall signal. IMPRESSION: Stable appearance of previously identified numerous hepatic presumed metastatic nodules present bilaterally. Chronic hepatomegaly, stable over time. A focal rim-enhancing nodule within the right posterior hepatic segment has been previously present at the mid liver level and this shows prominent early arterial phase of contrast enhancement consistent with underlying hepatoma. Overall, however, no new disease is found. Dictated by: Cirilo Bean M.D. on 11/24/2016 at 17:08 NAME: TAWNY GORE DATE OF EXAM: 03/02/17 AGE: 77 DATE OF : [birth year] STATUS: REG CLI SEX: F LOCATION: MRI REFERRING PHYSICIAN: Abdullahi Palmer MD CC: Preet Álvarez MD; Abdullahi Palmer MD ACCESSION#: CATEGORY: MRI Scan PROCEDURE: ABDOMEN WITH AND WITHOUT CONTR INDICATIONS: LIVER NODULE TECHNIQUE: Coronal HASTE, axial 2D FLASH in- and [id number]; axial breath-hold T2 FSE. Dynamic axial VIBE during the administration of contrast; post-contrast coronal VIBE or 2D FLASH with fat saturation from the hepatic dome to the iliac crests. Optional diffusion weighted imaging and ADC may be performed. COMPARISON: [facility], CT, NECK CHEST ABD PEL W CONTRAST, 03/17/2011, 11:38. [facility], CT, NECK CHEST ABD PEL W CONTRAST, 03/26/2010, 9:43. [facility], CT, WO PELVIS W, 03/23/2009, 10:12. [facility], MS, PET/CT NECK TO MID THIGH, 03/16/2009, 11:58. [facility], [place], PET/CT WHOLE BODY, 04/21/2008, 12:43. [facility], CT, THORAX WITH CONTRAST, 11/24/2016, 15:23. [facility], CT, ABDOMEN/PELVIS WITH CONTRAST, 06/18/2015, 13:31. [facility], MR, ABDOMEN W\T\WO CONTRAST, 05/12/2016, 10:55. [facility], MR, ABDOMEN W\T\WO CONTRAST, 11/24/2016, 16:02. FINDINGS: Image quality: Good Lung bases: No basal pleural effusions. Heart size is normal. Solid organs: The liver is upper normal in size. Contour suggests a slightly nodular but unchanged since multiple scans. Visibility of the multiple small nodular defects in the liver parenchyma varies. It was best seen on CT in 2016. It is still well seen on the axial T1 vibe without contrast. There is a non-hemangioma in the right lobe of the liver unchanged. There is a transient hepatic attenuation difference in the right lobe of the liver noted and unchanged. At the central apex of the transient hepatic attenuation difference there is on the diffusion images a 12 mm area of increased signal. This is potentially a mass but it is unchanged in size since the previous MRI a 11/24/16. No other focal diffusion abnormality is seen that would suggest possible tumor. Spleen shows a pedunculated focus limits medial aspect that extends into and deforms the tail of the pancreas and it is unchanged since multiple scans. Gallbladder is within normal limits. Biliary system is non dilated. Pancreas is normal in morphology. No adrenal nodules. Both kidneys demonstrate normal size and enhancement, without hydronephrosis. Nodes and vessels: No retroperitoneal or mesenteric adenopathy by size criteria. Is noted with some surrounding thrombus and wall thickening. There is potentially minimally larger at 4.1 x 4 point for centimeters in transverse dimension compared to approximately 3.6 x 3.8 on the most recent previous MRI. Bowel and peritoneum: Unenhanced bowel loops are normal in caliber. No free fluid. Bones and soft tissues: No ventral hernias. Bone marrow is normal in overall signal. IMPRESSION: 1. In this patient with old history of throat cancer and lung cancer treated in the past with radiation and chemotherapy the appearance of the liver is unchanged since 11/24/16. T1 vibe sequence without contrast shows multiple small nodular pattern to the liver not seen well on the T2 sequence are present. This is unchanged. Again these do not enhance with contrast. Hemangioma in the right lobe of the liver unchanged. Focal area of bright signal on T2 and diffusion and at the apex of transient hepatic attenuation difference unchanged since the previous 2 MRIs although the transient hepatic attenuation difference is not seen on the MRI of 05/12/16. Liver is generous in size and suggests a somewhat nodular appearance but no history of cirrhosis is identified an old studies. 2. 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 3. Abdominal aortic aneurysm questionably larger since the MRI scan of 11/24/16. Ultrasound followup to compare this with the study of 11/03/16 ultrasound is suggested as a better comparison than MRI. Dictated by: Preet Álvarez M.D. on 03/02/2017 at 12:49 Approved by: Preet Álvarez M.D. on 03/02/2017 at 13:29 - Patient Self-Reported Symptoms SR Constitution: Fatigue/Malaise SR eye issues: Vision changes SR ears, nose, mouth, throat issues: Changes in taste SR respiratory issues: Shortness of breath SR Cardiovascular issues: Shortness of breath with activity or lying flat, Dizzy/lightheaded SR Skin issues: Skin lesions or moles SR Gastrointestinal issues: Poor or no appetite, Abdominal pain SR Genitourinary issues: Frequent urination, Incontinence SR Musculoskeletal issues: Joint pain or swelling, Muscle pain or cramps, Back or neck pain, Cold hands or feet, Difficulty walking, Bone pain SR Neuro issues: Headache, Lightheaded/dizzy, Numbness or tingling, Difficulty balancing SR Hematologic issues: Slow healing, Swollen lymph nodes SR Endocrine issues: Cold intolerance, Excessive urination Home Medications and Allergies Home Medications Medication Instructions Recorded Confirmed Type ipratropium-albuterol 3 ml INH QIDP PRN #0 11/03/16 09/17/17 History albuterol sulfate [Ventolin HFA] 2 puff INH Q4-6 PRN #1 inh 06/30/17 09/17/17 Rx gabapentin 400 mg capsule 400 mg PO TID #90 cap 06/30/17 09/17/17 Rx lorazepam 0.5 mg tablet 0.5 mg PO Q8HP PRN #60 tab 07/27/17 09/17/17 Rx clopidogrel 75 mg tablet 75 mg PO DAILY 08/05/17 09/17/17 History mupirocin 2 % topical ointment 1 applictn TOPICAL TID #22 gram 08/05/17 09/17/17 Rx Disabled Parking Permit 1 dev 09/15/17 09/17/17 History Incontinence Supplies 1 ea DIRECTED 09/15/17 09/17/17 History levothyroxine 75 mcg tablet 75 mcg PO QAM #30 tab 11/16/17 Rx metoprolol tartrate 25 mg tablet 12.5 mg PO BID #30 tab 11/16/17 Rx Allergies Allergy/AdvReac Type Severity Reaction Status Date / Time codeine [CODEINE] AdvReac Mild IT MADE Unverified 09/17/17 09:50 ME SICK TO MY STOMACH Exam Vital signs: Last Vital Signs Pulse 72 09/15/17 13:12 Resp 16 09/15/17 13:12 BP 133/81 H 09/15/17 13:12 Pulse Ox 98 09/15/17 13:12 Narrative: chronically ill appearing. No jaundice - Constitutional positive no acute distress, positive thin, positive chronically ill appearing - Routine HEENT Exam Eye: Present: conjunctivae pink. Absent: conjunctival icterus, scleral injection ENT: Present: mucous membranes moist, oropharynx clear - Routine Neck Exam Present: supple. Absent: lymphadenopathy - Routine Chest/Breast/Axilla Exam Axillae: Absent: lymphadenopathy, mass, tenderness - Routine Respiratory Exam Present: decreased breath sounds. Absent: prolonged expiratory phase, rales, respiratory distress, rhonchi, wheezes - Routine Cardiovascular Exam Present: RRR, S1, S2. Absent: murmur, gallop, rubs, JVD - Routine Abdominal Exam Present: soft, normoactive bowel sounds. Absent: tenderness, distended, rebound, guarding, organomegaly, mass Palpation/Percussion: Absent: hepatomegaly, fluid waves - Routine Extremities Exam Absent: edema, calf tenderness - Routine Skin Exam Present: intact. Absent: petechiae, normal turgor, rash Comments: poor turgor with tenting - Routine Neurological Exam Present: alert, oriented X3, moving all extremities, vision grossly intact, hearing grossly intact. Absent: abnormal gait, tremors, asterixis - Routine Psychiatric Exam Present: normal affect Results - Imaging Additional studies: Procedures Other endoscopy of small intestine (08/18/13) Transfusion of Nonautologous Plasma Cryoprecipitate into Peripheral Vein, Percutaneous Approach (06/19/15) Transfusion of packed cells (08/18/13) Assessment and Plan (1) Hepatocellular carcinoma Problem details: Seeing Dr. Palmer Current visit: No Status: Chronic 77-year-old female with complex medical history including hepatocellular carcinoma as well as chronic Hepatitis C. She presents today for routine triage. Unfortunately, blood work demonstrates escalating CA 19-19, AFP. PT 14.2. AST 156, ALT 88. Alkaline phosphatase 115. BUN 22, creatinine 0.80, GFR >60. Calcium 9.5. CBC demonstrates mild thrombocytopenia with platelets 111,000. White count also slightly low at 4.0. ANC 2400. I discussed with the pt there is some concern based on lab findings of recurrence/progression of her liver CA, although can be a bit difficult to interpret due to chronic Hep C, although these labs are acutely elevated pointing more likely to disease recurrence or progression. Patient verbalizes understanding. Pt denies any unexplained bleeding or bruising. We will go ahead and order abdominal MRI with and without contrast also abdominal ultrasound. Also repeat appropriate blood work to further evaluate upward trend including CBC, CMP, PT, AFP, CA 19-19. I will also have the pt establish with one of our new oncologists ANGELICA, further studies/treatment based upon the above findings. SECRETARY OFFICE CLERK aware and will assist pt with transportation. - Time Spent with Patient 35 mins face to face with pt 5 mins prior reviewing labs imaging 5 mins coordination of care with SECRETARY OFFICE CLERK and scheduling 5 mins in dictation.
--- NOTE | 2017-11-30 10:58 | P.PNONC_ITS ---
PN -Subjective Interval history: HEMATOLOGY/ONCOLOGY PROGRESS NOTE DATE OF SERVICE: November 30 2017 PATIENT NAME: TAWNY GORE : 1940 IDENTIFICATION: SHE IS A 77-YEAR-OLD WOMAN WITH hepatocellular carcinoma and chronic hepatitis C (genotype 1A). Remote hx of squamous cell carcinoma of the epiglottis now more than 10 years from diagnosis. Additionally, left upper lobe stage I lung cancer status post left resection more than 7 years out. INTERVAL HISTORY: She returns alone in follow-up today for routine triage. She is reporting increased fatigue as well as dizziness and nausea. Not taking any medicine for nausea states ?it is not that bad?. No change in appetite specifically no early satiety. Weight is stable. Denies blood in stool, black tarry stool. No unexplained bleeding or bruising. She had recent ED visit 11/12 with CC of lightheadedness and feeling as though I was going to pass out although did not lose consciousness. This is not a new complaint has been going on for quite sometime. No chest pain, shortness of breath. She has had orthostatic hypotension in the past specifically recent ER visit November 12 supine systolic blood pressure 95 when sitting dropped to 60s. She denies any recent alcohol intake states she has not had any alcohol in years. She smokes [address] Head CT in emergency department was unremarkable for any acute intracranial process. Diagnosis in emergency department was dehydration. She denies any increase in pain or discomfort in the right upper quadrant. No bloating, nausea or jaundice. She denies fever, night sweats, cough or dyspnea. Her most recent treatment with ablation by Dr. Emery was reportedly June 23, 2016. Most recent visit at cancer clinic was with Dr Goel 09/15/2017. Unfortunately most recent blood work is demonstrating elevated CA 19-19 at 49. Previously 20. AFP currently elevated at 28.0, previously was 12. BUN 22, creatinine 0.80, GFR >60. Calcium 9.5. AST 156 ALT 88, alkaline phosphatase 115. PT 14.2. CBC largely unremarkable aside from mild thrombocytopenia and neutropenia. Most recent imaging was MRI dated 08/24/2017 with no evidence of disease recurrence/progression. Hx of Present illness The patient is a 77 year old Female who is being seen in the clinic 02/02/17 for hepatocellular carcinoma based on imaging reporting a 1.2 cm lesion described on MRI in the right hepatic lobe, suspicious for malignancy. Dr. Emery agreed that it was consistent with hepatocellular carcinoma. She has had chemoembolization with Dr. Emery on Thursday June 23, 2016. Please note that the voice recognition software interpreted this as chemoradiation which is an error and has been corrected. 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 Chronic hepatitis C with prior biopsy evidence of cirrhosis genotype 1A; patient states that she has been turned down for treatment. Apparently there have been compliance and psychological issues that test that in the way. Left lower lobe pneumonia with loculated fluid collection May 2015 probable empyema Continued tobacco abuse History of protein calorie malnutrition in May 2015 now improved COPD Acute blood loss anemia, EGD 08/19/2013 did not identify a source. 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 Patient reports: oophorectomy right leg stent liver biopsy paracentesis negative for malignant cells May 2015 Diagnostic Imaging PROCEDURE: ABDOMEN WITH AND WITHOUT CONTR INDICATIONS: Hepatocellular carcinoma clinically reported, previously diagnosed. COMPARISON: [facility], US, ABDOMEN COMPLETE, 11/03/2016, 10:40. [facility], XA, RF ABLATION OF PARENCHYMA, 06/20/2016, 8:00. [facility], MR, ABDOMEN W\T\WO CONTRAST, 05/12/2016, 10:55. FINDINGS: Image quality: Excellent. Lung bases: No basal pleural effusions. Heart size is normal. Solid organs: Liver and spleen are unchanged in size and enhancement, with hepatomegaly measuring up to 21 cm craniocaudad, and hepatic multinodular enhancement consistent with multifocal metastatic disease comprised of a multitude of small nodules as was previously the case the most recent prior MR scanning 05/12/16. A rounded rim enhancing nodule has not enlarged in size at the middle third of the right hepatic lobe posteriorly. A transient perfusion anomaly is seen within the right anterior hepatic segment on the early arterial phase of enhancement, and the rim enhancing nodule is seen to be prominently enhancing during that scanning also.. Gallbladder appears contracted. Biliary system is non dilated. Pancreas is normal in morphology. No adrenal nodules. Both kidneys demonstrate normal size and enhancement, without hydronephrosis. Nodes and vessels: No retroperitoneal or mesenteric adenopathy by size criteria. Aorta and inferior vena cava are normal in size. Bowel and peritoneum: Unenhanced bowel loops are normal in caliber. No free fluid. Bones and soft tissues: No ventral hernias. Bone marrow is normal in overall signal. IMPRESSION: Stable appearance of previously identified numerous hepatic presumed metastatic nodules present bilaterally. Chronic hepatomegaly, stable over time. A focal rim-enhancing nodule within the right posterior hepatic segment has been previously present at the mid liver level and this shows prominent early arterial phase of contrast enhancement consistent with underlying hepatoma. Overall, however, no new disease is found. Dictated by: Cirilo Bean M.D. on 11/24/2016 at 17:08 NAME: TAWNY GORE DATE OF EXAM: 03/02/17 AGE: 77 DATE OF : [birth year] STATUS: REG CLI SEX: F LOCATION: MRI REFERRING PHYSICIAN: Abdullahi Palmer MD CC: Preet Álvarez MD; Abdullahi Palmer MD ACCESSION#: CATEGORY: MRI Scan PROCEDURE: ABDOMEN WITH AND WITHOUT CONTR INDICATIONS: LIVER NODULE TECHNIQUE: Coronal HASTE, axial 2D FLASH in- and [id number]; axial breath-hold T2 FSE. Dynamic axial VIBE during the administration of contrast; post-contrast coronal VIBE or 2D FLASH with fat saturation from the hepatic dome to the iliac crests. Optional diffusion weighted imaging and ADC may be performed. COMPARISON: [facility], CT, NECK CHEST ABD PEL W CONTRAST, 03/17/2011, 11: 38. [facility], CT, NECK CHEST ABD PEL W CONTRAST, 03/26/2010, 9:43. [facility], CT, WO PELVIS W, 03/23/2009, 10:12. [facility], [place], PET/CT NECK TO MID THIGH, 03/16/2009, 11:58. [facility], [place], PET/CT WHOLE BODY, 04/21/2008, 12: 43. [facility], CT, THORAX WITH CONTRAST, 11/24/2016, 15:23. [facility], CT, ABDOMEN/PELVIS WITH CONTRAST, 06/18/2015, 13:31. [facility], MR, ABDOMEN W\ T\WO CONTRAST, 05/12/2016, 10:55. [facility], MR, ABDOMEN W\T\WO CONTRAST, 11/24, 16:02. FINDINGS: Image quality: Good Lung bases: No basal pleural effusions. Heart size is normal. Solid organs: The liver is upper normal in size. Contour suggests a slightly nodular but unchanged since multiple scans. Visibility of the multiple small nodular defects in the liver parenchyma varies. It was best seen on CT in 2016. It is still well seen on the axial T1 vibe without contrast. There is a non-hemangioma in the right lobe of the liver unchanged. There is a transient hepatic attenuation difference in the right lobe of the liver noted and unchanged. At the central apex of the transient hepatic attenuation difference there is on the diffusion images a 12 mm area of increased signal. This is potentially a mass but it is unchanged in size since the previous MRI a . No other focal diffusion abnormality is seen that would suggest possible tumor. Spleen shows a pedunculated focus limits medial aspect that extends into and deforms the tail of the pancreas and it is unchanged since multiple scans. Gallbladder is within normal limits. Biliary system is non dilated. Pancreas is normal in morphology. No adrenal nodules. Both kidneys demonstrate normal size and enhancement, without hydronephrosis. Nodes and vessels: No retroperitoneal or mesenteric adenopathy by size criteria. Is noted with some surrounding thrombus and wall thickening. There is potentially minimally larger at 4.1 x 4 point for centimeters in transverse dimension compared to approximately 3.6 x 3.8 on the most recent previous MRI. Bowel and peritoneum: Unenhanced bowel loops are normal in caliber. No free fluid. Bones and soft tissues: No ventral hernias. Bone marrow is normal in overall signal. IMPRESSION: 1. In this patient with old history of throat cancer and lung cancer treated in the past with radiation and chemotherapy the appearance of the liver is unchanged since 11/24/16. T1 vibe sequence without contrast shows multiple small nodular pattern to the liver not seen well on the T2 sequence are present. This is unchanged. Again these do not enhance with contrast. Hemangioma in the right lobe of the liver unchanged. Focal area of bright signal on T2 and diffusion and at the apex of transient hepatic attenuation difference unchanged since the previous 2 MRIs although the transient hepatic attenuation difference is not seen on the MRI of 05/12/16. Liver is generous in size and suggests a somewhat nodular appearance but no history of cirrhosis is identified an old studies. 2. 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 3. Abdominal aortic aneurysm questionably larger since the MRI scan of 11/24/16. Ultrasound followup to compare this with the study of 11/03/16 ultrasound is suggested as a better comparison than MRI. Dictated by: Preet Álvarez M.D. on 03/02/2017 at 12:49 Approved by: Preet Álvarez M.D. on 03/02/2017 at 13:29 - Patient Self-Reported Symptoms SR Constitution: Fatigue/Malaise SR eye issues: Vision changes SR ears, nose, mouth, throat issues: Changes in taste SR respiratory issues: Shortness of breath SR Cardiovascular issues: Shortness of breath with activity or lying flat, Dizzy /lightheaded SR Skin issues: Skin lesions or moles SR Gastrointestinal issues: Poor or no appetite, Abdominal pain SR Genitourinary issues: Frequent urination, Incontinence SR Musculoskeletal issues: Joint pain or swelling, Muscle pain or cramps, Back or neck pain, Cold hands or feet, Difficulty walking, Bone pain SR Neuro issues: Headache, Lightheaded/dizzy, Numbness or tingling, Difficulty balancing SR Hematologic issues: Slow healing, Swollen lymph nodes SR Endocrine issues: Cold intolerance, Excessive urination Home Medications and Allergies Home Medications Medication Instructions Recorded Confirmed Type ipratropium-albuterol 3 ml INH QIDP PRN #0 11/03/16 09/17/17 History albuterol sulfate [Ventolin HFA] 2 puff INH Q4-6 PRN #1 inh 06/30/17 09/17/17 Rx gabapentin 400 mg capsule 400 mg PO TID #90 cap 06/30/17 09/17/17 Rx lorazepam 0.5 mg tablet 0.5 mg PO Q8HP PRN #60 tab 07/27/17 09/17/17 Rx clopidogrel 75 mg tablet 75 mg PO DAILY 08/05/17 09/17/17 History mupirocin 2 % topical ointment 1 applictn TOPICAL TID #22 gram 08/05/17 Rx Disabled Parking Permit 1 dev 09/15/17 09/17/17 History Incontinence Supplies 1 ea DIRECTED 09/15/17 09/17/17 History levothyroxine 75 mcg tablet 75 mcg PO QAM #30 tab 11/16/17 Rx metoprolol tartrate 25 mg tablet 12.5 mg PO BID #30 tab 11/16/17 Rx Allergies Allergy/AdvReac Type Severity Reaction Status Date / Time codeine [CODEINE] AdvReac Mild IT MADE Unverified 09/17/17 09:50 ME SICK TO MY STOMACH Exam Vital signs: Last Vital Signs Pulse 72 09/15/17 13:12 Resp 16 09/15/17 13:12 BP 133/81 H 09/15/17 13:12 Pulse Ox 98 09/15/17 13:12 Narrative: chronically ill appearing. No jaundice - Constitutional positive no acute distress, positive thin, positive chronically ill appearing - Routine HEENT Exam Eye: Present: conjunctivae pink. Absent: conjunctival icterus, scleral injection ENT: Present: mucous membranes moist, oropharynx clear - Routine Neck Exam Present: supple. Absent: lymphadenopathy - Routine Chest/Breast/Axilla Exam Axillae: Absent: lymphadenopathy, mass, tenderness - Routine Respiratory Exam Present: decreased breath sounds. Absent: prolonged expiratory phase, rales, respiratory distress, rhonchi, wheezes - Routine Cardiovascular Exam Present: RRR, S1, S2. Absent: murmur, gallop, rubs, JVD - Routine Abdominal Exam Present: soft, normoactive bowel sounds. Absent: tenderness, distended, rebound , guarding, organomegaly, mass Palpation/Percussion: Absent: hepatomegaly, fluid waves - Routine Extremities Exam Absent: edema, calf tenderness - Routine Skin Exam Present: intact. Absent: petechiae, normal turgor, rash Comments: poor turgor with tenting - Routine Neurological Exam Present: alert, oriented X3, moving all extremities, vision grossly intact, hearing grossly intact. Absent: abnormal gait, tremors, asterixis - Routine Psychiatric Exam Present: normal affect Results - Imaging Additional studies: Procedures Other endoscopy of small intestine (08/18/13) Transfusion of Nonautologous Plasma Cryoprecipitate into Peripheral Vein, Percutaneous Approach (06/19/15) Transfusion of packed cells (08/18/13) Assessment and Plan (1) Hepatocellular carcinoma Problem details: Seeing Dr. Palmer Current visit: No Status: Chronic 77-year-old female with complex medical history including hepatocellular carcinoma as well as chronic Hepatitis C. She presents today for routine triage. Unfortunately, blood work demonstrates escalating CA 19-19, AFP. PT 14.2. AST 156, ALT 88. Alkaline phosphatase 115. BUN 22, creatinine 0.80, GFR >60. Calcium 9.5. CBC demonstrates mild thrombocytopenia with platelets 111,000. White count also slightly low at 4.0. ANC 2400. I discussed with the pt there is some concern based on lab findings of recurrence/progression of her liver CA, although can be a bit difficult to interpret due to chronic Hep C, although these labs are acutely elevated pointing more likely to disease recurrence or progression. Patient verbalizes understanding. Pt denies any unexplained bleeding or bruising. We will go ahead and order abdominal MRI with and without contrast also abdominal ultrasound. Also repeat appropriate blood work to further evaluate upward trend including CBC, CMP, PT, AFP, CA 19-19. I will also have the pt establish with one of our new oncologists ANGELICA, further studies/treatment based upon the above findings. [employer] aware and will assist pt with transportation. - Time Spent with Patient 35 mins face to face with pt 5 mins prior reviewing labs imaging 5 mins coordination of care with [employer] and scheduling 5 mins in dictation.
[2017-11-30 11:48] VITALS: BP 177/96; PULSE 63; RESP 18; TEMP 36.4; O2SAT 97
[2017-11-30 12:38] LABS: BUN Creatinine Ratio 21.4 (6-22); Blood Urea Nitrogen 15 mg/dL (7-17); Calcium 9.1 mg/dL (8.4-10.2); Carbon Dioxide 29 mmol/L (22-32); Chloride 103 mmol/L (98-107); Estimated Glomerular Filt Rate > 60.0 mL/min (>60); Glucose 97 mg/dL (80-110); HEMOLYSIS < 15 (0-50); Potassium 4.3 mmol/L (3.4-5.1); Sodium 138 mmol/L (137-145)
--- NOTE | 2017-11-30 15:24 | ONC.NAV ---
Description: New Patient Intro-New to Navigator Activity: Met with pt to introduce myself as the Pt Doe/M[employer]CH[employer]IC, and to address concerns that pt indicated on her distress screen. Pt marked a (8) on the screening, expressing anger, sadness, depression, transportation issues. In meeting with her, pt states that getting to appointments can be difficult, that it's hard for her to get a ride to the grocery store to purchase groceries, and that she is so depressed that she stated I don't have a life. Pt resides in a trailer, on the same property (?) as her dtr and grandson. She states that her grandson and dtr fight alot, and that the environment is an ongoing concern. Due to the provider being ready to see pt, we agreed for this [employer]CH[employer]IC to call her tomorrow in order to further assess appropriate resource and support needs.
--- NOTE | 2017-12-11 16:21 | ONC.PN ---
PN -Subjective Interval history: Chief Complaints: Hepatocellular carcinoma s/p chemoembolization now on surveillance Chronic hepatitis C (genotype 1A), not treated. SCC of epiglottis diagnosed 2005, s/p cisplatin/XRT Left upper lobe stage I lung cancer status post left resection 2008 History of Present illness She was diagnosed with squamous cell carcinoma of the epiglottis in 2004. And patient underwent concurrent cisplatin and radiotherapy in January of 2016. She was diagnosed with non-small cell lung cancer T1 N0 MX in April of 2008 and underwent left upper lobectomy. She was diagnosed with hepatocellular carcinoma based on imaging reporting a 1.2 cm lesion on MRI in the right hepatic lobe, suspicious for malignancy. Dr. Emery looked at it and agreed that it was consistent with hepatocellular carcinoma. The patient then underwent chemoembolization with Dr. Emery on Thursday June 23, 2016. She has history of hepatitic C diagnosed in 1996 likely related to intravenous drug use and multiple tattoos. She also underwent liver biopsy in 2003 showing necroinflammatory activity, grade 2/3, and the liver fibrosis stage III. She did not receive any therapy due to psychiatric history of noncompliance. In January of 2016, blood test showed that her hepatitis C RNA PCR 5.65 logs with a Genotype 1A. Patient said that she has never been treated for hepatitis C. Interval History: She came in today for follow up of MRI, US and lab results. She came in by herself and is hard on hearing. I am not sure how much she really understood about the conversation today. She was last seen By Katarina on 11/30/2017. Due to rising AFP and CA 19-9, patient underwent US study of the liver on December 09, 2017. The ultrasound showed hyperechoic foci suspicious for hemangiomas. Previous lesions appearing to be related to hepatoma is not visualized. She also underwent liver MRI on December 09, 2017. The MRI showed stable appearance of a bilobed lesion within hepatic segment 7 consistent with hepatocellular carcinoma previously treated by radiofrequency ablation. Of note there is persistent enhancement on the arterial phase study in washout on the delayed phase study suggesting the presence of residual disease. No new foci to suggest new hepatoma. Splenomegaly was noted. 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 Focal region of enhancement within the posterior inferior right hepatic capsule without definite delayed will phase washout was noted. Focal region of enhancement within hepatic segment 4. A with imaging characteristics suggestive of a small hepatic hemangioma was noted. Clinically she is complaining of feeling tired and fatigued. Otherwise she denies any fever or chills. No nausea and no vomiting. No diarrhea and no constipation. - Patient Self-Reported Symptoms SR Constitution: Fatigue/Malaise SR eye issues: Vision changes SR ears, nose, mouth, throat issues: Changes in taste SR respiratory issues: Shortness of breath SR Cardiovascular issues: Shortness of breath with activity or lying flat, Dizzy/lightheaded SR Skin issues: Skin lesions or moles SR Gastrointestinal issues: Poor or no appetite, Abdominal pain SR Genitourinary issues: Frequent urination, Incontinence SR Musculoskeletal issues: Joint pain or swelling, Muscle pain or cramps, Back or neck pain, Cold hands or feet, Difficulty walking, Bone pain SR Neuro issues: Headache, Lightheaded/dizzy, Numbness or tingling, Difficulty balancing SR Hematologic issues: Slow healing, Swollen lymph nodes SR Endocrine issues: Cold intolerance, Excessive urination - Additional ROS All systems PM: reviewed and no additional remarkable complaints except as stated Home Medications and Allergies Home Medications Medication Instructions Recorded Confirmed Type ipratropium-albuterol 3 ml INH QIDP PRN #0 11/03/16 09/17/17 History albuterol sulfate [Ventolin HFA] 2 puff INH Q4-6 PRN #1 inh 06/30/17 09/17/17 Rx gabapentin 400 mg capsule 400 mg PO TID #90 cap 06/30/17 09/17/17 Rx lorazepam 0.5 mg tablet 0.5 mg PO Q8HP PRN #60 tab 07/27/17 09/17/17 Rx clopidogrel 75 mg tablet 75 mg PO DAILY 08/05/17 09/17/17 History mupirocin 2 % topical ointment 1 applictn TOPICAL TID #22 gram 08/05/17 09/17/17 Rx Disabled Parking Permit 1 dev 09/15/17 09/17/17 History Incontinence Supplies 1 ea DIRECTED 09/15/17 09/17/17 History levothyroxine 75 mcg tablet 75 mcg PO QAM #30 tab 11/16/17 Rx metoprolol tartrate 25 mg tablet 12.5 mg PO BID #30 tab 11/16/17 Rx Allergies Allergy/AdvReac Type Severity Reaction Status Date / Time codeine [CODEINE] AdvReac Mild IT MADE Verified 12/11/17 16:26 ME SICK TO MY STOMACH Exam Vital signs: Temp 97.9 F 12/11/17 16:24 Pulse 65 12/11/17 16:24 Resp 16 12/11/17 16:24 BP 128/83 12/11/17 16:24 Pulse Ox 97 12/11/17 16:24 ECOG 1 Narrative: Constitutional: Well developed, thin, chronically ill, hard on hearing, but pleasant and cooperative. HEENT: Normocephalic atraumatic. Extraocular muscle movement intact. Pupils are round, equal and reactive to light and accommodations. Anicteric sclera. No hearing difficulty; Oral mucus membrane moist and without ulcers. Neck: Supple, symmetrical, and tracheal midline; No palpable thyromegaly and no palpable lymph nodes. Respiratory: No use of accessory muscles. Clear to auscultation, and no wheezes or rales or rubs. Cardiovascular: Regular rate and rhythm, S1 and S2 normal, no murmurs gallops or rubs. No JVD. No pitting edema of lower extremities. Abdomen: Soft, nontender, non-distended, bowel sounds normal, no palpable organomegaly, no hernia, no palpable masses. Lower extremities: No palpable pedal edema. Lymphatic: no palpable lymph nodes in the neck, axillae, or groins. Musculoskeletal: normal gait and station, no clubbing, no cyanosis, no pitting edema. Skin: no rashes, no ulcers, no petechiae Neurological: Awake and alert and oriented x3. CN II-XII grossly intact. No focal motor or sensory deficit. Psychiatric: Good judgment, good insight, normal affect, normal thought process, cooperative, no depression, no anxiety. Results - Labs Sodium 138 mmol/L (137-145) 11/30/17 12:16 Potassium 4.3 mmol/L (3.4-5.1) 11/30/17 12:16 Chloride 103 mmol/L (98-107) 11/30/17 12:16 Carbon Dioxide 29 mmol/L (22-32) 11/30/17 12:16 BUN 15 mg/dL (7-17) 11/30/17 12:16 Creatinine 0.70 mg/dL (0.52-1.04) 11/30/17 12:16 Estimated GFR > 60.0 mL/min (>60) 11/30/17 12:16 BUN/Creatinine Ratio 21.4 (6-22) 11/30/17 12:16 Glucose 97 mg/dL (80-110) 11/30/17 12:16 Calcium 9.1 mg/dL (8.4-10.2) 11/30/17 12:16 - Imaging Additional studies: Procedures Other endoscopy of small intestine (08/18/13) Transfusion of Nonautologous Plasma Cryoprecipitate into Peripheral Vein, Percutaneous Approach (06/19/15) Transfusion of packed cells (08/18/13) Assessment and Plan (1) Hepatocellular carcinoma Onset Date: 05/2016 I reviewed the MRI results as well as the ultrasound study with the patient. The MRI suggests there might be residual disease based on the characteristic imaging changes. However the ultrasound did not see any new findings. Patient's rising AFP is of concern. Putting together, I believe that her hepatocellular carcinoma probably is growing back. I talked with the patient that I will present her case at our tumor board to discuss if there is any local regional options since there is no systemic metastasis based on available information. Patient voiced understanding. I have tentatively scheduled the patient to come back in about a month and will repeat CBC CMP and AFP level. (2) Hepatitis C Onset Date: 1996 Patient has hepatitis C diagnosed 1996. And she has developed biopsy-proven cirrhosis. Patient's hepatitis C has never been treated. I believe that treating him it would seem may be helpful in slowing down the liver damage and also may be helpful for treatment of hepatocellular carcinoma. I have referred the patient to business control manager to consider treatment with antiviral medications. 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 Since then patient has been doing well without evidence of recurrence or metastasis. We will continue active surveillance. (4) Primary cancer of left upper lobe of lung Onset Date: 2008 Patient underwent left upper lobectomy. Since then no clinical imaging evidence of disease recurrence or metastasis. Will continue active surveillance. (5) Cirrhosis of liver Biopsy proven. Stable. Will need business control manager follow-up. (6) Chronic obstructive pulmonary disease Onset Date: 07/04/10 Stable at present.
[2017-12-11 16:24] VITALS: BP 128/83; PULSE 65; RESP 16; TEMP 36.6; O2SAT 97
[2018-01-04 10:00] LABS: Alanine Aminotransferase 18 IU/L (9-52); Albumin 4.1 g/dL (3.5-5.0); Alkaline Phosphatase 88 U/L (38-126); Aspartate Aminotransferase 45 IU/L (14-36); BUN Creatinine Ratio 23.8 (6-22); Bilirubin Total 0.7 mg/dL (0.2-1.3); Blood Urea Nitrogen 19 mg/dL (7-17); Calcium 9.5 mg/dL (8.4-10.2); Carbon Dioxide 22 mmol/L (22-32); Chloride 106 mmol/L (98-107); Estimated Glomerular Filt Rate > 60.0 mL/min (>60); Globulin 4.2 g/dL (1.7-4.1); Glucose 100 mg/dL (80-110); HEMOLYSIS < 15 (0-50); Potassium 4.1 mmol/L (3.4-5.1); Sodium 142 mmol/L (137-145); Total Protein 8.3 g/dL (6.3-8.2)
[2018-01-04 12:41] LABS: Add Manual Diff / Slide Review NO; Basophils Percent Auto 1.1 % (0-2); Eosinophils Percent Auto 1.2 % (2-4); Hematocrit 42.2 % (36-46); Hemoglobin 14.3 g/dL (12.0-16.0); Lymphocytes Percent Auto 27.2 % (25-40); Mean Corpuscular HGB Conc 33.8 % (30-36); Mean Corpuscular Volume 91.8 fL (80-100); Monocytes Percent Auto 7.2 % (3-14); Neutrophils Absolute Auto 2700 /uL (3000-5900); Neutrophils Percent Auto 63.3 % (50-75); Platelet Count 174 X10^3/uL (150-400); Red Cell Distribution Width 14.5 % (11.6-14.8); White Blood Cell Count 4.2 X10^3/uL (4.5-11.0)
[2018-01-05 14:08] LABS: Alpha Fetoprotein 19.7 ng/mL (< 6.1)
[2018-01-08 08:48] VITALS: BP 158/95; PULSE 62; RESP 18; TEMP 36.6; O2SAT 96
--- NOTE | 2018-01-08 08:58 | ONC.PN ---
PN -Subjective Interval history: 77 year old with hepatocellular carcinoma s/p chemoembolization now on surveillance, chronic hepatitis C (genotype 1A), and SCC of epiglottis diagnosed 2005, s/p cisplatin/XRT as well as left upper lobe stage I lung cancer status post left resection 2008. She is here for scheduled follow up visit. She is complaining of low appetite, and anorexic. Our psychiatric social worker Hui has provided information about the use of [employer]. The patient is also complaining of pain all over, like muscle aches, or arthritis of the joints. Sometime, she gets quite a bit of gas, She is urinating constantly. She is getting bloating sometimes. She is having lots of lower back pain. She thought is due to hepatitis. No diarrhea but loose bowel. No blood. No black stool. At least not recently, but it has in the past. Her weight has been decreasing, but she said her weight goes up and down. She is scheduled to see GI on Feb 25, 2018 for her hepatitis C. She is here her daughter June. History of Present illness She was diagnosed with squamous cell carcinoma of the epiglottis in 2004. And patient underwent concurrent cisplatin and radiotherapy in January of 2016. She was diagnosed with non-small cell lung cancer T1 N0 MX in April of 2008 and underwent left upper lobectomy. She was diagnosed with hepatocellular carcinoma based on imaging reporting a 1.2 cm lesion on MRI in the right hepatic lobe, suspicious for malignancy. Dr. Emery looked at it and agreed that it was consistent with hepatocellular carcinoma. The patient then underwent chemoembolization with Dr. Emery on Thursday June 23, 2016. She has history of hepatitic C diagnosed in 1996 likely related to intravenous drug use and multiple tattoos. She also underwent liver biopsy in 2003 showing necroinflammatory activity, grade 2/3, and the liver fibrosis stage III. She did not receive any therapy due to psychiatric history of noncompliance. In January of 2016, blood test showed that her hepatitis C RNA PCR 5.65 logs with a Genotype 1A. Patient said that she has never been treated for hepatitis C. Due to rising AFP and CA 19-9, patient underwent US study of the liver on December 09, 2017. The ultrasound showed hyperechoic foci suspicious for hemangiomas. Previous lesions appearing to be related to hepatoma is not visualized. She also underwent liver MRI on December 09, 2017. The MRI showed stable appearance of a bilobed lesion within hepatic segment 7 consistent with hepatocellular carcinoma previously treated by radiofrequency ablation. Of note there is persistent enhancement on the arterial phase study in washout on the delayed phase study suggesting the presence of residual disease. No new foci to suggest new hepatoma. Splenomegaly was noted. 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 Focal region of enhancement within the posterior inferior right hepatic capsule without definite delayed will phase washout was noted. Focal region of enhancement within hepatic segment 4. A with imaging characteristics suggestive of a small hepatic hemangioma was noted. - Patient Self-Reported Symptoms SR Constitution: Fatigue/Malaise SR eye issues: Vision changes SR ears, nose, mouth, throat issues: Changes in taste SR respiratory issues: Shortness of breath SR Cardiovascular issues: Shortness of breath with activity or lying flat, Dizzy/lightheaded SR Skin issues: Skin lesions or moles SR Gastrointestinal issues: Poor or no appetite, Abdominal pain SR Genitourinary issues: Frequent urination, Incontinence SR Musculoskeletal issues: Joint pain or swelling, Muscle pain or cramps, Back or neck pain, Cold hands or feet, Difficulty walking, Bone pain SR Neuro issues: Headache, Lightheaded/dizzy, Numbness or tingling, Difficulty balancing SR Hematologic issues: Slow healing, Swollen lymph nodes SR Endocrine issues: Cold intolerance, Excessive urination - Additional ROS All systems PM: reviewed and no additional remarkable complaints except as stated Home Medications and Allergies Home Medications Medication Instructions Recorded Confirmed Type ipratropium-albuterol 3 ml INH QIDP PRN #0 11/03/16 01/08/18 History albuterol sulfate [Ventolin HFA] 2 puff INH Q4-6 PRN #1 inh 06/30/17 01/08/18 Rx clopidogrel 75 mg tablet 75 mg PO DAILY 08/05/17 01/08/18 History mupirocin 2 % topical ointment 1 applictn TOPICAL TID #22 gram 08/05/17 01/08/18 Rx Disabled Parking Permit 1 dev 09/15/17 09/17/17 History Incontinence Supplies 1 ea DIRECTED 09/15/17 01/08/18 History levothyroxine 75 mcg tablet 75 mcg PO QAM #30 tab 11/16/17 01/08/18 Rx metoprolol tartrate 25 mg tablet 12.5 mg PO BID #30 tab 11/16/17 01/08/18 Rx gabapentin 400 mg capsule 400 mg PO TID #90 cap 01/01/18 01/08/18 Rx lorazepam 0.5 mg tablet 0.5 mg PO Q8HP PRN #60 tab 01/01/18 01/08/18 Rx Allergies Allergy/AdvReac Type Severity Reaction Status Date / Time codeine [CODEINE] AdvReac Mild IT MADE Verified 12/11/17 16:26 ME SICK TO MY STOMACH Exam Vital signs: Last Vital Signs Temp 97.9 F 01/08/18 08:48 Pulse 62 01/08/18 08:48 Resp 18 01/08/18 08:48 BP 158/95 H 01/08/18 08:48 Pulse Ox 96 01/08/18 08:48 ECOG 1 - Constitutional positive no acute distress, positive thin - Routine HEENT Exam Head: Present: normocephalic, atraumatic Eye: Present: EOMI, PERRL, normal accommodation. Absent: conjunctival icterus - Routine Neck Exam Present: supple. Absent: lymphadenopathy, thyromegaly - Routine Respiratory Exam Present: Clear to auscultation bilaterally. Absent: wheezes - Routine Cardiovascular Exam Present: RRR, S1, S2. Absent: murmur, gallop, rubs - Routine Abdominal Exam Present: soft, normoactive bowel sounds. Absent: tenderness, distended, organomegaly - Routine Neurological Exam Present: alert, oriented X3, CN II-XII intact. Absent: sensory deficit, motor deficit - Routine Psychiatric Exam Present: normal affect, normal thought process, cooperative, good insight, good judgment Results - Labs Laboratory Last Values WBC 4.2 X10^3/uL (4.5-11.0) L 01/04/18 09:37 RBC 4.60 X10^6/uL (4.0-5.2) 01/04/18 09:37 Hgb 14.3 g/dL (12.0-16.0) 01/04/18 09:37 Hct 42.2 % (36-46) 01/04/18 09:37 MCV 91.8 fL (80-100) 01/04/18 09:37 MCH 31.0 PG (26-34) 01/04/18 09:37 MCHC 33.8 % (30-36) 01/04/18 09:37 RDW 14.5 % (11.6-14.8) 01/04/18 09:37 Plt Count 174 X10^3/uL (150-400) 01/04/18 09:37 Neut % (Auto) 63.3 % (50-75) 01/04/18 09:37 Lymph % (Auto) 27.2 % (25-40) 01/04/18 09:37 [facility] % (Auto) 7.2 % (3-14) 01/04/18 09:37 Eos % (Auto) 1.2 % (2-4) L 01/04/18 09:37 Baso % (Auto) 1.1 % (0-2) 01/04/18 09:37 Neut # (Auto) 2700 /uL (9061-2726) L 01/04/18 09:37 Sodium 142 mmol/L (137-145) 01/04/18 09:37 Potassium 4.1 mmol/L (3.4-5.1) 01/04/18 09:37 Chloride 106 mmol/L (98-107) 01/04/18 09:37 Carbon Dioxide 22 mmol/L (22-32) 01/04/18 09:37 BUN 19 mg/dL (7-17) H 01/04/18 09:37 Creatinine 0.80 mg/dL (0.52-1.04) 01/04/18 09:37 Estimated GFR > 60.0 mL/min (>60) 01/04/18 09:37 BUN/Creatinine Ratio 23.8 (6-22) H 01/04/18 09:37 Glucose 100 mg/dL (80-110) 01/04/18 09:37 Calcium 9.5 mg/dL (8.4-10.2) 01/04/18 09:37 Total Bilirubin 0.7 mg/dL (0.2-1.3) 01/04/18 09:37 AST 45 IU/L (14-36) H 01/04/18 09:37 ALT 18 IU/L (9-52) 01/04/18 09:37 Alkaline Phosphatase 88 U/L (38-126) 01/04/18 09:37 Total Protein 8.3 g/dL (6.3-8.2) H 01/04/18 09:37 Albumin 4.1 g/dL (3.5-5.0) 01/04/18 09:37 Globulin 4.2 g/dL (1.7-4.1) H 01/04/18 09:37 Albumin/Globulin Ratio 1.0 (1.0-2.8) 01/04/18 09:37 Alpha Fetoprotein 19.7 ng/mL (< 6.1) H 01/04/18 09:37 - Imaging Additional studies: Procedures Other endoscopy of small intestine (08/18/13) Transfusion of Nonautologous Plasma Cryoprecipitate into Peripheral Vein, Percutaneous Approach (06/19/15) Transfusion of packed cells (08/18/13) Assessment and Plan (1) Hepatocellular carcinoma Assessment: I reviewed the laboratory tests with the patient. Patient AFP level has decreased compared to her previous visit. I explained to the patient that in my opinion it may reflect that the previous increased AFP may not be due to the underlying hepatocellular carcinoma, It could just represent inflammatory changes related to her hepatitis C. Given these new changes, I talked with the patient and her daughter that I will monitor the tumor marker AFP monthly. If it shows a persistent upward trend, I will repeat a liver directed scan to evaluate. Patient and patient's daughter both voiced understanding. Plan RTC in one month, CBC, CMP, AFP (2) Hepatitis C Assessment: Patient has hepatitis C diagnosed 1996. And she has developed biopsy-proven cirrhosis. Patient's hepatitis C has never been treated. I believe that treating him it would seem may be helpful in slowing down the liver damage and also may be helpful for treatment of hepatocellular carcinoma. I have referred the patient to safety tech to consider treatment with antiviral medications. Plan: F/w with GI as scheduled. (3) History of laryngeal cancer Assessment and Plan: The records indicated that the patient received concurrent chemotherapy cisplatin and radiotherapy. Since then patient has been doing well without evidence of recurrence or metastasis. We will continue active surveillance. (4) Primary cancer of left upper lobe of lung Patient underwent left upper lobectomy. Since then no clinical imaging evidence of disease recurrence or metastasis. Will continue active surveillance. (5) Cirrhosis of liver Assessment and Plan: Biopsy proven. Stable. Will need safety tech follow-up.
--- NOTE | 2018-01-08 09:06 | P.PNONC_ITS ---
PN -Subjective Interval history: 77 year old with hepatocellular carcinoma s/p chemoembolization now on surveillance, chronic hepatitis C (genotype 1A), and SCC of epiglottis diagnosed 2005, s/p cisplatin/XRT as well as left upper lobe stage I lung cancer status post left resection 2008. She is here for scheduled follow up visit. She is complaining of low appetite, and anorexic. Our professor of social work Hui has provided information about the use of [employer]. The patient is also complaining of pain all over, like muscle aches, or arthritis of the joints. Sometime, she gets quite a bit of gas, She is urinating constantly. She is getting bloating sometimes. She is having lots of lower back pain. She thought is due to hepatitis. No diarrhea but loose bowel. No blood. No black stool. At least not recently, but it has in the past. Her weight has been decreasing, but she said her weight goes up and down. She is scheduled to see GI on Feb 25, 2018 for her hepatitis C. She is here her daughter June. History of Present illness She was diagnosed with squamous cell carcinoma of the epiglottis in 2004. And patient underwent concurrent cisplatin and radiotherapy in January of 2016. She was diagnosed with non-small cell lung cancer T1 N0 MX in April of 2008 and underwent left upper lobectomy. She was diagnosed with hepatocellular carcinoma based on imaging reporting a 1.2 cm lesion on MRI in the right hepatic lobe, suspicious for malignancy. Dr. Emery looked at it and agreed that it was consistent with hepatocellular carcinoma. The patient then underwent chemoembolization with Dr. Emery on Thursday June 23, 2016. She has history of hepatitic C diagnosed in 1996 likely related to intravenous drug use and multiple tattoos. She also underwent liver biopsy in 2003 showing necroinflammatory activity, grade 2/3, and the liver fibrosis stage III. She did not receive any therapy due to psychiatric history of noncompliance. In January of 2016, blood test showed that her hepatitis C RNA PCR 5.65 logs with a Genotype 1A. Patient said that she has never been treated for hepatitis C. Due to rising AFP and CA 19-9, patient underwent US study of the liver on December 09, 2017. The ultrasound showed hyperechoic foci suspicious for hemangiomas. Previous lesions appearing to be related to hepatoma is not visualized. She also underwent liver MRI on December 09, 2017. The MRI showed stable appearance of a bilobed lesion within hepatic segment 7 consistent with hepatocellular carcinoma previously treated by radiofrequency ablation. Of note there is persistent enhancement on the arterial phase study in washout on the delayed phase study suggesting the presence of residual disease. No new foci to suggest new hepatoma. Splenomegaly was noted. 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 Focal region of enhancement within the posterior inferior right hepatic capsule without definite delayed will phase washout was noted. Focal region of enhancement within hepatic segment 4. A with imaging characteristics suggestive of a small hepatic hemangioma was noted. - Patient Self-Reported Symptoms SR Constitution: Fatigue/Malaise SR eye issues: Vision changes SR ears, nose, mouth, throat issues: Changes in taste SR respiratory issues: Shortness of breath SR Cardiovascular issues: Shortness of breath with activity or lying flat, Dizzy /lightheaded SR Skin issues: Skin lesions or moles SR Gastrointestinal issues: Poor or no appetite, Abdominal pain SR Genitourinary issues: Frequent urination, Incontinence SR Musculoskeletal issues: Joint pain or swelling, Muscle pain or cramps, Back or neck pain, Cold hands or feet, Difficulty walking, Bone pain SR Neuro issues: Headache, Lightheaded/dizzy, Numbness or tingling, Difficulty balancing SR Hematologic issues: Slow healing, Swollen lymph nodes SR Endocrine issues: Cold intolerance, Excessive urination - Additional ROS All systems PM: reviewed and no additional remarkable complaints except as stated Home Medications and Allergies Home Medications Medication Instructions Recorded Confirmed Type ipratropium-albuterol 3 ml INH QIDP PRN #0 11/03/16 01/08/18 History albuterol sulfate [Ventolin HFA] 2 puff INH Q4-6 PRN #1 inh 06/30/17 01/08/18 Rx clopidogrel 75 mg tablet 75 mg PO DAILY 08/05/17 01/08/18 History mupirocin 2 % topical ointment 1 applictn TOPICAL TID #22 gram 08/05/17 Rx Disabled Parking Permit 1 dev 09/15/17 09/17/17 History Incontinence Supplies 1 ea DIRECTED 09/15/17 01/08/18 History levothyroxine 75 mcg tablet 75 mcg PO QAM #30 tab 11/16/17 01/08/18 Rx metoprolol tartrate 25 mg tablet 12.5 mg PO BID #30 tab 11/16/17 01/08/18 Rx gabapentin 400 mg capsule 400 mg PO TID #90 cap 01/01/18 01/08/18 Rx lorazepam 0.5 mg tablet 0.5 mg PO Q8HP PRN #60 tab 01/01/18 01/08/18 Rx Allergies Allergy/AdvReac Type Severity Reaction Status Date / Time codeine [CODEINE] AdvReac Mild IT MADE Verified 12/11/17 16:26 ME SICK TO MY STOMACH Exam Vital signs: Last Vital Signs Temp 97.9 F 01/08/18 08:48 Pulse 62 01/08/18 08:48 Resp 18 01/08/18 08:48 BP 158/95 H 01/08/18 08:48 Pulse Ox 96 01/08/18 08:48 ECOG 1 - Constitutional positive no acute distress, positive thin - Routine HEENT Exam Head: Present: normocephalic, atraumatic Eye: Present: EOMI, PERRL, normal accommodation. Absent: conjunctival icterus - Routine Neck Exam Present: supple. Absent: lymphadenopathy, thyromegaly - Routine Respiratory Exam Present: Clear to auscultation bilaterally. Absent: wheezes - Routine Cardiovascular Exam Present: RRR, S1, S2. Absent: murmur, gallop, rubs - Routine Abdominal Exam Present: soft, normoactive bowel sounds. Absent: tenderness, distended, organomegaly - Routine Neurological Exam Present: alert, oriented X3, CN II-XII intact. Absent: sensory deficit, motor deficit - Routine Psychiatric Exam Present: normal affect, normal thought process, cooperative, good insight, good judgment Results - Labs Laboratory Last Values WBC 4.2 X10^3/uL (4.5-11.0) L 01/04/18 09:37 RBC 4.60 X10^6/uL (4.0-5.2) 01/04/18 09:37 Hgb 14.3 g/dL (12.0-16.0) 01/04/18 09:37 Hct 42.2 % (36-46) 01/04/18 09:37 MCV 91.8 fL (80-100) 01/04/18 09:37 MCH 31.0 PG (26-34) 01/04/18 09:37 MCHC 33.8 % (30-36) 01/04/18 09:37 RDW 14.5 % (11.6-14.8) 01/04/18 09:37 Plt Count 174 X10^3/uL (150-400) 01/04/18 09:37 Neut % (Auto) 63.3 % (50-75) 01/04/18 09:37 Lymph % (Auto) 27.2 % (25-40) 01/04/18 09:37 [place] % (Auto) 7.2 % (3-14) 01/04/18 09:37 Eos % (Auto) 1.2 % (2-4) L 01/04/18 09:37 Baso % (Auto) 1.1 % (0-2) 01/04/18 09:37 Neut # (Auto) 2700 /uL (6644-4359) L 01/04/18 09:37 Sodium 142 mmol/L (137-145) 01/04/18 09:37 Potassium 4.1 mmol/L (3.4-5.1) 01/04/18 09:37 Chloride 106 mmol/L (98-107) 01/04/18 09:37 Carbon Dioxide 22 mmol/L (22-32) 01/04/18 09:37 BUN 19 mg/dL (7-17) H 01/04/18 09:37 Creatinine 0.80 mg/dL (0.52-1.04) 01/04/18 09:37 Estimated GFR > 60.0 mL/min (>60) 01/04/18 09:37 BUN/Creatinine Ratio 23.8 (6-22) H 01/04/18 09:37 Glucose 100 mg/dL (80-110) 01/04/18 09:37 Calcium 9.5 mg/dL (8.4-10.2) 01/04/18 09:37 Total Bilirubin 0.7 mg/dL (0.2-1.3) 01/04/18 09:37 AST 45 IU/L (14-36) H 01/04/18 09:37 ALT 18 IU/L (9-52) 01/04/18 09:37 Alkaline Phosphatase 88 U/L (38-126) 01/04/18 09:37 Total Protein 8.3 g/dL (6.3-8.2) H 01/04/18 09:37 Albumin 4.1 g/dL (3.5-5.0) 01/04/18 09:37 Globulin 4.2 g/dL (1.7-4.1) H 01/04/18 09:37 Albumin/Globulin Ratio 1.0 (1.0-2.8) 01/04/18 09:37 Alpha Fetoprotein 19.7 ng/mL (< 6.1) H 01/04/18 09:37 - Imaging Additional studies: Procedures Other endoscopy of small intestine (08/18/13) Transfusion of Nonautologous Plasma Cryoprecipitate into Peripheral Vein, Percutaneous Approach (06/19/15) Transfusion of packed cells (08/18/13) Assessment and Plan (1) Hepatocellular carcinoma Assessment: I reviewed the laboratory tests with the patient. Patient AFP level has decreased compared to her previous visit. I explained to the patient that in my opinion it may reflect that the previous increased AFP may not be due to the underlying hepatocellular carcinoma, It could just represent inflammatory changes related to her hepatitis C. Given these new changes, I talked with the patient and her daughter that I will monitor the tumor marker AFP monthly. If it shows a persistent upward trend, I will repeat a liver directed scan to evaluate. Patient and patient's daughter both voiced understanding. Plan RTC in one month, CBC, CMP, AFP (2) Hepatitis C Assessment: Patient has hepatitis C diagnosed 1996. And she has developed biopsy-proven cirrhosis. Patient's hepatitis C has never been treated. I believe that treating him it would seem may be helpful in slowing down the liver damage and also may be helpful for treatment of hepatocellular carcinoma. I have referred the patient to hand i thermal cutter to consider treatment with antiviral medications. Plan: F/w with GI as scheduled. (3) History of laryngeal cancer Assessment and Plan: The records indicated that the patient received concurrent chemotherapy cisplatin and radiotherapy. Since then patient has been doing well without evidence of recurrence or metastasis. We will continue active surveillance. (4) Primary cancer of left upper lobe of lung Patient underwent left upper lobectomy. Since then no clinical imaging evidence of disease recurrence or metastasis. Will continue active surveillance. (5) Cirrhosis of liver Assessment and Plan: Biopsy proven. Stable. Will need hand i thermal cutter follow-up.
[2018-02-01 10:56] LABS: Add Manual Diff / Slide Review NO; Basophils Percent Auto 1.2 % (0-2); Eosinophils Percent Auto 0.7 % (2-4); Hematocrit 42.4 % (36-46); Hemoglobin 14.7 g/dL (12.0-16.0); Lymphocytes Percent Auto 23.4 % (25-40); Mean Corpuscular HGB Conc 34.6 % (30-36); Mean Corpuscular Hemoglobin 31.5 PG (26-34); Mean Corpuscular Volume 91.1 fL (80-100); Monocytes Percent Auto 8.3 % (3-14); Neutrophils Absolute Auto 2900 /uL (3000-5900); Neutrophils Percent Auto 66.4 % (50-75); Platelet Count 140 X10^3/uL (150-400); Red Blood Cell Count 4.66 X10^6/uL (4.0-5.2); Red Cell Distribution Width 13.9 % (11.6-14.8); White Blood Cell Count 4.4 X10^3/uL (4.5-11.0)
[2018-02-01 11:05] LABS: Alanine Aminotransferase 40 IU/L (9-52); Albumin 4.3 g/dL (3.5-5.0); Alkaline Phosphatase 95 U/L (38-126); Aspartate Aminotransferase 72 IU/L (14-36); BUN Creatinine Ratio 26.3 (6-22); Bilirubin Total 0.8 mg/dL (0.2-1.3); Blood Urea Nitrogen 21 mg/dL (7-17); Calcium 9.7 mg/dL (8.4-10.2); Carbon Dioxide 26 mmol/L (22-32); Chloride 102 mmol/L (98-107); Estimated Glomerular Filt Rate > 60.0 mL/min (>60); Globulin 4.3 g/dL (1.7-4.1); Glucose 108 mg/dL (80-110); HEMOLYSIS < 15 (0-50); Potassium 4.6 mmol/L (3.4-5.1); Sodium 142 mmol/L (137-145); Total Protein 8.6 g/dL (6.3-8.2)
[2018-02-02 14:50] LABS: Alpha Fetoprotein 13.1 ng/mL (< 6.1)
--- NOTE | 2018-02-08 13:00 | P.PNONC_ITS ---
PN -Subjective Interval history: 77 year old with hepatocellular carcinoma s/p chemoembolization now on surveillance, chronic hepatitis C (genotype 1A), and SCC of epiglottis diagnosed 2005, s/p cisplatin/XRT as well as left upper lobe stage I lung cancer status post left resection 2008. She is here for scheduled follow up visit. She is scheduled to see GI on Feb 25, 2018 for her hepatitis C. She is here her daughter June. Since her previous visit, patient said that she has noticed the left sided lymph node enlargement and painful. Patient said that recently she had a common cold and she was wearing a mask while at the clinic. However patient also said that she has noticed fluctuate changes of the left sided lymph nodes throughout the last couple of years. She has not been scanned yet. History of Present illness She was diagnosed with squamous cell carcinoma of the epiglottis in 2004. And patient underwent concurrent cisplatin and radiotherapy in January of 2016. She was diagnosed with non-small cell lung cancer T1 N0 MX in April of 2008 and underwent left upper lobectomy. She was diagnosed with hepatocellular carcinoma based on imaging reporting a 1.2 cm lesion on MRI in the right hepatic lobe, suspicious for malignancy. Dr. Emery looked at it and agreed that it was consistent with hepatocellular carcinoma. The patient then underwent chemoembolization with Dr. Emery on Thursday June 23, 2016. She has history of hepatitic C diagnosed in 1996 likely related to intravenous drug use and multiple tattoos. She also underwent liver biopsy in 2003 showing necroinflammatory activity, grade 2/3, and the liver fibrosis stage III. She did not receive any therapy due to psychiatric history of noncompliance. In January of 2016, blood test showed that her hepatitis C RNA PCR 5.65 logs with a Genotype 1A. Patient said that she has never been treated for hepatitis C. Due to rising AFP and CA 19-9, patient underwent US study of the liver on December 09, 2017. The ultrasound showed hyperechoic foci suspicious for hemangiomas. Previous lesions appearing to be related to hepatoma is not visualized. She also underwent liver MRI on December 09, 2017. The MRI showed stable appearance of a bilobed lesion within hepatic segment 7 consistent with hepatocellular carcinoma previously treated by radiofrequency ablation. Of note there is persistent enhancement on the arterial phase study in washout on the delayed phase study suggesting the presence of residual disease. No new foci to suggest new hepatoma. Splenomegaly was noted. 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 Focal region of enhancement within the posterior inferior right hepatic capsule without definite delayed will phase washout was noted. Focal region of enhancement within hepatic segment 4. A with imaging characteristics suggestive of a small hepatic hemangioma was noted. - Patient Self-Reported Symptoms SR Constitution: Fatigue/Malaise SR eye issues: Vision changes SR ears, nose, mouth, throat issues: Changes in taste SR respiratory issues: Shortness of breath SR Cardiovascular issues: Shortness of breath with activity or lying flat, Dizzy /lightheaded SR Skin issues: Skin lesions or moles SR Gastrointestinal issues: Poor or no appetite, Abdominal pain SR Genitourinary issues: Frequent urination, Incontinence SR Musculoskeletal issues: Joint pain or swelling, Muscle pain or cramps, Back or neck pain, Cold hands or feet, Difficulty walking, Bone pain SR Neuro issues: Headache, Lightheaded/dizzy, Numbness or tingling, Difficulty balancing SR Hematologic issues: Slow healing, Swollen lymph nodes SR Endocrine issues: Cold intolerance, Excessive urination - Additional ROS All systems PM: reviewed and no additional remarkable complaints except as stated Home Medications and Allergies Home Medications Medication Instructions Recorded Confirmed Type ipratropium-albuterol 3 ml INH QIDP PRN #0 11/03/16 02/08/18 History albuterol sulfate [Ventolin HFA] 2 puff INH Q4-6 PRN #1 inh 06/30/17 02/08/18 Rx clopidogrel 75 mg tablet 75 mg PO DAILY 08/05/17 02/08/18 History Disabled Parking Permit 1 dev 09/15/17 01/18/18 History Incontinence Supplies 1 ea DIRECTED 09/15/17 02/08/18 History levothyroxine 75 mcg tablet 75 mcg PO QAM #30 tab 11/16/17 02/08/18 Rx metoprolol tartrate 25 mg tablet 12.5 mg PO BID #30 tab 11/16/17 02/08/18 Rx lorazepam 0.5 mg tablet 0.5 mg PO Q8HP PRN #60 tab 01/01/18 02/08/18 Rx diclofenac 1 % topical gel 2 gram TOP QID #100 gram 01/18/18 02/08/18 Rx mupirocin 2 % topical ointment 1 applictn TOP TID PRN 01/18/18 02/08/18 History gabapentin 400 mg capsule 400 mg PO TID #90 cap 02/01/18 02/08/18 Rx Allergies Allergy/AdvReac Type Severity Reaction Status Date / Time codeine [CODEINE] AdvReac Mild IT MADE Verified 01/18/18 09:53 ME SICK TO MY STOMACH Exam Vital signs: Last Vital Signs Temp 98.2 F 02/08/18 13:43 Pulse 73 02/08/18 13:43 Resp 18 02/08/18 13:43 BP 143/80 H 02/08/18 13:43 Pulse Ox 97 02/08/18 13:43 ECOG 1 Narrative: - Constitutional positive no acute distress, positive thin - Routine HEENT Exam Head: Present: normocephalic, atraumatic Eye: Present: EOMI, PERRL, normal accommodation. Absent: conjunctival icterus - Routine Neck Exam Present: supple. Absent: lymphadenopathy, thyromegaly - Routine Respiratory Exam Present: Clear to auscultation bilaterally. Absent: wheezes - Routine Cardiovascular Exam Present: RRR, S1, S2. Absent: murmur, gallop, rubs - Routine Abdominal Exam Present: soft, normoactive bowel sounds. Absent: tenderness, distended, organomegaly - Routine Neurological Exam Present: alert, oriented X3, CN II-XII intact. Absent: sensory deficit, motor deficit - Routine Psychiatric Exam Present: normal affect, normal thought process, cooperative, good insight, good judgment Results - Labs Laboratory Last Values WBC 4.4 X10^3/uL (4.5-11.0) L 02/01/18 10:32 RBC 4.66 X10^6/uL (4.0-5.2) 02/01/18 10:32 Hgb 14.7 g/dL (12.0-16.0) 02/01/18 10:32 Hct 42.4 % (36-46) 02/01/18 10:32 MCV 91.1 fL (80-100) 02/01/18 10:32 MCH 31.5 PG (26-34) 02/01/18 10:32 MCHC 34.6 % (30-36) 02/01/18 10:32 RDW 13.9 % (11.6-14.8) 02/01/18 10:32 Plt Count 140 X10^3/uL (150-400) L 02/01/18 10:32 Neut % (Auto) 66.4 % (50-75) 02/01/18 10:32 Lymph % (Auto) 23.4 % (25-40) L 02/01/18 10:32 [place] % (Auto) 8.3 % (3-14) 02/01/18 10:32 Eos % (Auto) 0.7 % (2-4) L 02/01/18 10:32 Baso % (Auto) 1.2 % (0-2) 02/01/18 10:32 Neut # (Auto) 2900 /uL (6212-4032) L 02/01/18 10:32 Sodium 142 mmol/L (137-145) 02/01/18 10:32 Potassium 4.6 mmol/L (3.4-5.1) 02/01/18 10:32 Chloride 102 mmol/L (98-107) 02/01/18 10:32 Carbon Dioxide 26 mmol/L (22-32) 02/01/18 10:32 BUN 21 mg/dL (7-17) H 02/01/18 10:32 Creatinine 0.80 mg/dL (0.52-1.04) 02/01/18 10:32 Estimated GFR > 60.0 mL/min (>60) 02/01/18 10:32 BUN/Creatinine Ratio 26.3 (6-22) H 02/01/18 10:32 Glucose 108 mg/dL (80-110) 02/01/18 10:32 Calcium 9.7 mg/dL (8.4-10.2) 02/01/18 10:32 Total Bilirubin 0.8 mg/dL (0.2-1.3) 02/01/18 10:32 AST 72 IU/L (14-36) H 02/01/18 10:32 ALT 40 IU/L (9-52) 02/01/18 10:32 Alkaline Phosphatase 95 U/L (38-126) 02/01/18 10:32 Total Protein 8.6 g/dL (6.3-8.2) H 02/01/18 10:32 Albumin 4.3 g/dL (3.5-5.0) 02/01/18 10:32 Globulin 4.3 g/dL (1.7-4.1) H 02/01/18 10:32 Albumin/Globulin Ratio 1.0 (1.0-2.8) 02/01/18 10:32 Alpha Fetoprotein 13.1 ng/mL (< 6.1) H 02/01/18 10:32 - Imaging Additional studies: Procedures Other endoscopy of small intestine (08/18/13) Transfusion of Nonautologous Plasma Cryoprecipitate into Peripheral Vein, Percutaneous Approach (06/19/15) Transfusion of packed cells (08/18/13) Assessment and Plan (1) Hepatocellular carcinoma Assessment: Patient's AFP level continues to decrease. As far as hepatocellular carcinoma is concerned, I will continue current active surveillance. Plan RTC in one month, CBC, CMP, AFP (2) Hepatitis C Assessment: Patient has hepatitis C diagnosed 1996. And she has developed biopsy-proven cirrhosis. Patient's hepatitis C has never been treated. I believe that treating him it would seem may be helpful in slowing down the liver damage and also may be helpful for treatment of hepatocellular carcinoma. I have referred the patient to radiologic technician to consider treatment with antiviral medications. Plan: F/w with GI as scheduled. (3) History of laryngeal cancer Assessment: The records indicated that the patient received concurrent chemotherapy cisplatin and radiotherapy. Patient endorsed a left-sided lymph nodes enlargement. On my physical examination at level 2 there is a fixed tender 1 cm x 2 cm lymph node. The exact etiology is not sure. Patient also has a left- sided ear hearing difficulties. I will proceed with neck soft tissue and CT scan of the chest to evaluate. Plan: 1. Neck soft tissue and Chest CT w/contrast 2. RTC after the scan (4) Primary cancer of left upper lobe of lung Assessment and Plan: Patient underwent left upper lobectomy. Since then no clinical imaging evidence of disease recurrence or metastasis. Will continue active surveillance. (5) Cirrhosis of liver Assessment and Plan: Biopsy proven. Stable. Will need radiologic technician follow-up.
[2018-02-08 13:43] VITALS: BP 143/80; PULSE 73; RESP 18; TEMP 36.8; O2SAT 97
[2018-03-08 11:19] LABS: Add Manual Diff / Slide Review NO; Basophils Absolute Auto 100 /uL (0-100); Basophils Percent Auto 1.4 % (0-2); Eosinophils Absolute Auto 0 /uL (0-450); Eosinophils Percent Auto 0.4 % (2-4); Hematocrit 43.9 % (36-46); Hemoglobin 14.7 g/dL (12.0-16.0); Lymphocytes Absolute Auto 700 /uL (1100-4500); Lymphocytes Percent Auto 17.9 % (25-40); Mean Corpuscular HGB Conc 33.4 % (30-36); Mean Corpuscular Hemoglobin 30.3 PG (26-34); Mean Corpuscular Volume 90.7 fL (80-100); Monocytes Absolute Auto 300 /uL (0-900); Monocytes Percent Auto 7.8 % (3-14); Neutrophils Absolute Auto 3000 /uL (1500-7000); Neutrophils Percent Auto 72.5 % (50-75); Platelet Count 133 X10^3/uL (150-400); Red Blood Cell Count 4.83 X10^6/uL (4.0-5.2); Red Cell Distribution Width 14.2 % (11.6-14.8); White Blood Cell Count 4.1 X10^3/uL (4.5-11.0)
[2018-03-08 11:26] LABS: Alanine Aminotransferase 127 IU/L (9-52); Albumin 4.1 g/dL (3.5-5.0); Albumin Globulin Ratio 0.9 (1.0-2.8); Alkaline Phosphatase 100 U/L (38-126); Aspartate Aminotransferase 192 IU/L (14-36); BUN Creatinine Ratio 24.3 (6-22); Bilirubin Total 0.9 mg/dL (0.2-1.3); Blood Urea Nitrogen 17 mg/dL (7-17); Calcium 9.5 mg/dL (8.4-10.2); Carbon Dioxide 28 mmol/L (22-32); Chloride 101 mmol/L (98-107); Estimated Glomerular Filt Rate > 60.0 mL/min (>60); Globulin 4.5 g/dL (1.7-4.1); Glucose 87 mg/dL (80-110); HEMOLYSIS < 15 (0-50); Potassium 3.9 mmol/L (3.4-5.1); Sodium 137 mmol/L (137-145); Total Protein 8.6 g/dL (6.3-8.2)
--- NOTE | 2018-03-11 12:14 | ONC.PN ---
PN -Subjective Interval history: 77 year old with hepatocellular carcinoma s/p chemoembolization now on surveillance, chronic hepatitis C (genotype 1A), and SCC of epiglottis diagnosed 2005, s/p cisplatin/XRT as well as left upper lobe stage I lung cancer status post left resection 2008. She is here for scheduled follow up visit. She is complaining fatigue, and epigastric soreness close to her rib cage. No abdominal pain, but is complaining left sided lower rib cage intermittent pain. No nausea and no vomiting. She rescheduled GI visit to Mar 19, 2018 for her hepatitis C. During her previous visit, there was questionable left-sided neck lymph nodes enlargement, we obtained CT scan of the neck and chest on 03/08/2018. No enlarged lymph nodes seen throughout the neck. The oropharynx, nasopharynx, and pharynx showed no mucosal lesions. The vocal cords, false vocal cords, piriform sinuses, epiglottis, vallecula, and tongue base or appeared normal. CT chest showed emphysematous change, and stable appearance of 2 small adjacent sub solid posterior right lower lung base nodules. The visible liver parenchyma reviewed stable 1.4 cm right posterior hepatic segment mass. History of Present illness This is a 78 year old female with diagnosis with squamous cell carcinoma of the epiglottis in 2004. And patient underwent concurrent cisplatin and radiotherapy in January of 2016. She was diagnosed with non-small cell lung cancer T1 N0 MX in April of 2008 and underwent left upper lobectomy. She was diagnosed with hepatocellular carcinoma based on imaging reporting a 1.2 cm lesion on MRI in the right hepatic lobe, suspicious for malignancy. Dr. Emery looked at it and agreed that it was consistent with hepatocellular carcinoma. The patient then underwent chemoembolization with Dr. Emery on Thursday June 23, 2016. She has history of hepatitic C diagnosed in 1996 likely related to intravenous drug use and multiple tattoos. She also underwent liver biopsy in 2003 showing necroinflammatory activity, grade 2/3, and the liver fibrosis stage III. She did not receive any therapy due to psychiatric history of noncompliance. In January of 2016, blood test showed that her hepatitis C RNA PCR 5.65 logs with a Genotype 1A. Patient said that she has never been treated for hepatitis C. Due to rising AFP and CA 19-9, patient underwent US study of the liver on December 09, 2017. The ultrasound showed hyperechoic foci suspicious for hemangiomas. Previous lesions appearing to be related to hepatoma is not visualized. She also underwent liver MRI on December 09, 2017. The MRI showed stable appearance of a bilobed lesion within hepatic segment 7 consistent with hepatocellular carcinoma previously treated by radiofrequency ablation. Of note there is persistent enhancement on the arterial phase study in washout on the delayed phase study suggesting the presence of residual disease. No new foci to suggest new hepatoma. Splenomegaly was noted. 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 Focal region of enhancement within the posterior inferior right hepatic capsule without definite delayed will phase washout was noted. Focal region of enhancement within hepatic segment 4. A with imaging characteristics suggestive of a small hepatic hemangioma was noted. - Patient Self-Reported Symptoms SR Constitution: Fatigue/Malaise SR eye issues: Vision changes SR ears, nose, mouth, throat issues: Changes in taste SR respiratory issues: Shortness of breath SR Cardiovascular issues: Shortness of breath with activity or lying flat, Dizzy/lightheaded SR Skin issues: Skin lesions or moles SR Gastrointestinal issues: Poor or no appetite, Abdominal pain SR Genitourinary issues: Frequent urination, Incontinence SR Musculoskeletal issues: Joint pain or swelling, Muscle pain or cramps, Back or neck pain, Cold hands or feet, Difficulty walking, Bone pain SR Neuro issues: Headache, Lightheaded/dizzy, Numbness or tingling, Difficulty balancing SR Hematologic issues: Slow healing, Swollen lymph nodes SR Endocrine issues: Cold intolerance, Excessive urination - Additional ROS All systems PM: reviewed and no additional remarkable complaints except as stated Home Medications and Allergies Home Medications Medication Instructions Recorded Confirmed Type ipratropium-albuterol 3 ml INH QIDP PRN #0 11/03/16 02/08/18 History albuterol sulfate [Ventolin HFA] 2 puff INH Q4-6 PRN #1 inh 06/30/17 02/08/18 Rx clopidogrel 75 mg tablet 75 mg PO DAILY 08/05/17 02/08/18 History Disabled Parking Permit 1 dev 09/15/17 01/18/18 History Incontinence Supplies 1 ea DIRECTED 09/15/17 02/08/18 History levothyroxine 75 mcg tablet 75 mcg PO QAM #30 tab 11/16/17 02/08/18 Rx metoprolol tartrate 25 mg tablet 12.5 mg PO BID #30 tab 11/16/17 02/08/18 Rx lorazepam 0.5 mg tablet 0.5 mg PO Q8HP PRN #60 tab 01/01/18 02/08/18 Rx diclofenac 1 % topical gel 2 gram TOP QID #100 gram 01/18/18 02/08/18 Rx mupirocin 2 % topical ointment 1 applictn TOP TID PRN 01/18/18 02/08/18 History gabapentin [Neurontin] 400 mg PO DAILY 03/11/18 03/11/18 History Allergies Allergy/AdvReac Type Severity Reaction Status Date / Time codeine [CODEINE] AdvReac Mild IT MADE Verified 01/18/18 09:53 ME SICK TO MY STOMACH Exam Vital signs: Last Vital Signs Temp 97.9 F 03/11/18 12:16 Pulse 61 03/11/18 12:16 Resp 16 03/11/18 12:16 BP 156/91 H 03/11/18 12:16 Pulse Ox 97 03/11/18 12:16 ECOG 1 Narrative: Constitutional: Well developed, thin, chronically ill, hard on hearing, but pleasant and cooperative. HEENT: Normocephalic atraumatic. Extraocular muscle movement intact. Pupils are round, equal and reactive to light and accommodations. Anicteric sclera. No hearing difficulty; Oral mucus membrane moist and without ulcers. Neck: Supple, symmetrical, and tracheal midline; No palpable thyromegaly and no palpable lymph nodes. Respiratory: No use of accessory muscles. Clear to auscultation, and no wheezes or rales or rubs. Cardiovascular: Regular rate and rhythm, S1 and S2 normal, no murmurs gallops or rubs. No JVD. No pitting edema of lower extremities. Abdomen: Soft, nontender, non-distended, bowel sounds normal, no palpable organomegaly, no hernia, no palpable masses. Lower extremities: No palpable pedal edema. Lymphatic: no palpable lymph nodes in the neck, axillae, or groins. Musculoskeletal: normal gait and station, no clubbing, no cyanosis, no pitting edema. Skin: no rashes, no ulcers, no petechiae Neurological: Awake and alert and oriented x3. CN II-XII grossly intact. No focal motor or sensory deficit. Psychiatric: Good judgment, good insight, normal affect, normal thought process, cooperative, no depression, no anxiety. Results - Labs Laboratory Last Values WBC 4.1 X10^3/uL (4.5-11.0) L 03/08/18 11:03 RBC 4.83 X10^6/uL (4.0-5.2) 03/08/18 11:03 Hgb 14.7 g/dL (12.0-16.0) 03/08/18 11:03 Hct 43.9 % (36-46) 03/08/18 11:03 MCV 90.7 fL (80-100) 03/08/18 11:03 MCH 30.3 PG (26-34) 03/08/18 11:03 MCHC 33.4 % (30-36) 03/08/18 11:03 RDW 14.2 % (11.6-14.8) 03/08/18 11:03 Plt Count 133 X10^3/uL (150-400) L 03/08/18 11:03 Neut % (Auto) 72.5 % (50-75) 03/08/18 11:03 Lymph % (Auto) 17.9 % (25-40) L 03/08/18 11:03 [place] % (Auto) 7.8 % (3-14) 03/08/18 11:03 Eos % (Auto) 0.4 % (2-4) L 03/08/18 11:03 Baso % (Auto) 1.4 % (0-2) 03/08/18 11:03 Neut # (Auto) 3000 /uL (8170-9856) 03/08/18 11:03 Lymph # (Auto) 700 /uL (8760-8402) L 03/08/18 11:03 [place] # (Auto) 300 /uL (0-900) 03/08/18 11:03 Eos # (Auto) 0 /uL (0-450) 03/08/18 11:03 Baso # (Auto) 100 /uL (0-100) 03/08/18 11:03 Sodium 137 mmol/L (137-145) 03/08/18 11:03 Potassium 3.9 mmol/L (3.4-5.1) 03/08/18 11:03 Chloride 101 mmol/L (98-107) 03/08/18 11:03 Carbon Dioxide 28 mmol/L (22-32) 03/08/18 11:03 BUN 17 mg/dL (7-17) 03/08/18 11:03 Creatinine 0.70 mg/dL (0.52-1.04) 03/08/18 11:03 Estimated GFR > 60.0 mL/min (>60) 03/08/18 11:03 BUN/Creatinine Ratio 24.3 (6-22) H 03/08/18 11:03 Glucose 87 mg/dL (80-110) 03/08/18 11:03 Calcium 9.5 mg/dL (8.4-10.2) 03/08/18 11:03 Total Bilirubin 0.9 mg/dL (0.2-1.3) 03/08/18 11:03 AST 192 IU/L (14-36) H 03/08/18 11:03 ALT 127 IU/L (9-52) H 03/08/18 11:03 Alkaline Phosphatase 100 U/L (38-126) 03/08/18 11:03 Total Protein 8.6 g/dL (6.3-8.2) H 03/08/18 11:03 Albumin 4.1 g/dL (3.5-5.0) 03/08/18 11:03 Globulin 4.5 g/dL (1.7-4.1) H 03/08/18 11:03 Albumin/Globulin Ratio 0.9 (1.0-2.8) L 03/08/18 11:03 Alpha Fetoprotein 13.1 ng/mL (< 6.1) H 02/01/18 10:32 - Imaging Additional studies: Procedures Other endoscopy of small intestine (08/18/13) Transfusion of Nonautologous Plasma Cryoprecipitate into Peripheral Vein, Percutaneous Approach (06/19/15) Transfusion of packed cells (08/18/13) Assessment and Plan (1) Hepatocellular carcinoma Assessment and Plan: Patient's AFP level continues to decrease. As far as hepatocellular carcinoma is concerned, I will continue current active surveillance. However, her serum total protein has been persistently above normal upper limit. Will get SPEP w/reflex IFX. Plan RTC in one month, CBC, CMP, AFP, SPEP reflex IFX (2) Hepatitis C Assessment: Patient has hepatitis C diagnosed 1996. And she has developed biopsy-proven cirrhosis. Patient's hepatitis C has never been treated. I believe that treating him it would seem may be helpful in slowing down the liver damage and also may be helpful for treatment of hepatocellular carcinoma. I have referred the patient to handhole machine operator to consider treatment with antiviral medications. Plan: F/w with GI as scheduled on Mar 19, 2018. (3) History of laryngeal cancer Assessment and Plan: The records indicated that the patient received concurrent chemotherapy cisplatin and radiotherapy. Patient endorsed a left-sided lymph nodes enlargement. On my physical examination at level 2 there is a fixed tender 1 cm x 2 cm lymph node. However, CT neck/chest showed no abnormal enlarged lymph nodes in the neck, and no enlarging pulmonary nodules noted. For her laryngeal cancer, will continue active surveillance. (4) Primary cancer of left upper lobe of lung Assessment and Plan: Patient underwent left upper lobectomy. Since then no clinical imaging evidence of disease recurrence or metastasis. CT chest on 03/08/2018 showed no evidence of disease recurrence or metastasis. Will continue active surveillance. (5) Cirrhosis of liver Assessment and Plan: Biopsy proven. Stable. Will need handhole machine operator follow-up.
[2018-03-11 12:16] VITALS: BP 156/91; PULSE 61; RESP 16; TEMP 36.6; O2SAT 97
[2018-03-11 16:08] LABS: Alpha Fetoprotein 13.5 ng/mL (< 6.1)
[2018-04-01 11:41] LABS: Add Manual Diff / Slide Review NO; Basophils Absolute Auto 0 /uL (0-100); Basophils Percent Auto 1.3 % (0-2); Eosinophils Absolute Auto 0 /uL (0-450); Eosinophils Percent Auto 0.6 % (2-4); Hematocrit 40.3 % (36-46); Hemoglobin 13.5 g/dL (12.0-16.0); Lymphocytes Absolute Auto 500 /uL (1100-4500); Lymphocytes Percent Auto 18.4 % (25-40); Mean Corpuscular HGB Conc 33.4 % (30-36); Mean Corpuscular Hemoglobin 30.4 PG (26-34); Mean Corpuscular Volume 90.9 fL (80-100); Monocytes Absolute Auto 100 /uL (0-900); Monocytes Percent Auto 4.5 % (3-14); Neutrophils Absolute Auto 2000 /uL (1500-7000); Neutrophils Percent Auto 75.2 % (50-75); Platelet Count 105 X10^3/uL (150-400); Red Blood Cell Count 4.44 X10^6/uL (4.0-5.2); Red Cell Distribution Width 15.4 % (11.6-14.8); White Blood Cell Count 2.7 X10^3/uL (4.5-11.0)
[2018-04-01 11:51] LABS: Alanine Aminotransferase 105 IU/L (9-52); Albumin 3.9 g/dL (3.5-5.0); Albumin Globulin Ratio 0.9 (1.0-2.8); Alkaline Phosphatase 161 U/L (38-126); Aspartate Aminotransferase 175 IU/L (14-36); BUN Creatinine Ratio 28.6 (6-22); Bilirubin Total 1.3 mg/dL (0.2-1.3); Blood Urea Nitrogen 20 mg/dL (7-17); Carbon Dioxide 26 mmol/L (22-32); Chloride 101 mmol/L (98-107); Estimated Glomerular Filt Rate > 60.0 mL/min (>60); Globulin 4.2 g/dL (1.7-4.1); Glucose 121 mg/dL (80-110); HEMOLYSIS 19 (0-50); Potassium 3.9 mmol/L (3.4-5.1); Sodium 136 mmol/L (137-145); Total Protein 8.1 g/dL (6.3-8.2)
--- NOTE | 2018-04-12 10:29 | P.PNONC_ITS ---
PN -Subjective Interval history: 77 year old with hepatocellular carcinoma s/p chemoembolization now on surveillance, chronic hepatitis C (genotype 1A), and SCC of epiglottis diagnosed 2005, s/p cisplatin/XRT as well as left upper lobe stage I lung cancer status post left resection 2008. She is here for scheduled follow up visit. Since her last visits, she was evaluated by Malinda Araiza PA-C on 03/16/2018. Patient is scheduled for EGD to evaluate varices on . Clinically, she reports no new symptoms. She reports pain and soreness in the right upper quadrant. Her appetite is not really good. She tried to eat one meal a day. She lacks interests in food. Her weight gained a couple of pounds. No swelling of legs. History of Present illness This is a 78 year old female with diagnosis with squamous cell carcinoma of the epiglottis in 2004. And patient underwent concurrent cisplatin and radiotherapy in January of 2016. She was diagnosed with non-small cell lung cancer T1 N0 MX in April of 2008 and underwent left upper lobectomy. She was diagnosed with hepatocellular carcinoma based on imaging reporting a 1.2 cm lesion on MRI in the right hepatic lobe, suspicious for malignancy. Dr. Emery looked at it and agreed that it was consistent with hepatocellular carcinoma. The patient then underwent chemoembolization with Dr. Emery on Thursday June 23, 2016. She has history of hepatitic C diagnosed in 1996 likely related to intravenous drug use and multiple tattoos. She also underwent liver biopsy in 2003 showing necroinflammatory activity, grade 2/3, and the liver fibrosis stage III. She did not receive any therapy due to psychiatric history of noncompliance. In January of 2016, blood test showed that her hepatitis C RNA PCR 5.65 logs with a Genotype 1A. Patient said that she has never been treated for hepatitis C. Due to rising AFP and CA 19-9, patient underwent US study of the liver on December 09, 2017. The ultrasound showed hyperechoic foci suspicious for hemangiomas. Previous lesions appearing to be related to hepatoma is not visualized. She also underwent liver MRI on December 09, 2017. The MRI showed stable appearance of a bilobed lesion within hepatic segment 7 consistent with hepatocellular carcinoma previously treated by radiofrequency ablation. Of note there is persistent enhancement on the arterial phase study in washout on the delayed phase study suggesting the presence of residual disease. No new foci to suggest new hepatoma. Splenomegaly was noted. 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 Focal region of enhancement within the posterior inferior right hepatic capsule without definite delayed will phase washout was noted. Focal region of enhancement within hepatic segment 4. A with imaging characteristics suggestive of a small hepatic hemangioma was noted. Due to questionable left-sided neck lymph nodes enlargement, we obtained CT scan of the neck and chest on 03/08/2018. No enlarged lymph nodes seen throughout the neck. The oropharynx, nasopharynx, and pharynx showed no mucosal lesions. The vocal cords, false vocal cords, piriform sinuses, epiglottis, vallecula, and tongue base or appeared normal. CT chest showed emphysematous change, and stable appearance of 2 small adjacent sub solid posterior right lower lung base nodules. The visible liver parenchyma reviewed stable 1.4 cm right posterior hepatic segment mass. - Patient Self-Reported Symptoms SR Constitution: Fatigue/Malaise SR eye issues: Vision changes SR ears, nose, mouth, throat issues: Changes in taste SR respiratory issues: Shortness of breath SR Cardiovascular issues: Shortness of breath with activity or lying flat, Dizzy/lightheaded SR Skin issues: Skin lesions or moles SR Gastrointestinal issues: Poor or no appetite, Abdominal pain SR Genitourinary issues: Frequent urination, Incontinence SR Musculoskeletal issues: Joint pain or swelling, Muscle pain or cramps, Back or neck pain, Cold hands or feet, Difficulty walking, Bone pain SR Neuro issues: Headache, Lightheaded/dizzy, Numbness or tingling, Difficulty balancing SR Hematologic issues: Slow healing, Swollen lymph nodes SR Endocrine issues: Cold intolerance, Excessive urination - Additional ROS All systems PM: reviewed and no additional remarkable complaints except as stated Home Medications and Allergies Home Medications Medication Instructions Recorded Confirmed Type ipratropium-albuterol 3 ml INH QIDP PRN #0 11/03/16 04/12/18 History clopidogrel 75 mg tablet 75 mg PO DAILY 08/05/17 04/12/18 History Disabled Parking Permit 1 dev 09/15/17 01/18/18 History Incontinence Supplies 1 ea DIRECTED 09/15/17 04/12/18 History levothyroxine 75 mcg tablet 75 mcg PO QAM #30 tab 11/16/17 04/12/18 Rx lorazepam 0.5 mg tablet 0.5 mg PO Q8HP PRN #60 tab 01/01/18 04/12/18 Rx diclofenac 1 % topical gel 2 gram TOP QID #100 gram 01/18/18 04/12/18 Rx mupirocin 2 % topical ointment 1 applictn TOP TID PRN 01/18/18 04/12/18 History gabapentin [Neurontin] 400 mg PO DAILY 03/11/18 04/12/18 History albuterol sulfate [Ventolin HFA] 2 puff INH Q4-6 PRN #1 inh 04/12/18 Rx metoprolol tartrate 25 mg tablet 12.5 mg PO BID #30 tab 04/12/18 Rx Allergies Allergy/AdvReac Type Severity Reaction Status Date / Time codeine [CODEINE] AdvReac Mild IT MADE Verified 01/18/18 09:53 ME SICK TO MY STOMACH Exam Narrative: Constitutional: Well developed, thin, chronically ill, hard on hearing, but pleasant and cooperative. HEENT: Normocephalic atraumatic. Extraocular muscle movement intact. Pupils are round, equal and reactive to light and accommodations. Anicteric sclera. No hearing difficulty; Oral mucus membrane moist and without ulcers. Neck: Supple, symmetrical, and tracheal midline; No palpable thyromegaly and no palpable lymph nodes. Respiratory: No use of accessory muscles. Clear to auscultation, and no wheezes or rales or rubs. Cardiovascular: Regular rate and rhythm, S1 and S2 normal, no murmurs gallops or rubs. No JVD. No pitting edema of lower extremities. Abdomen: Soft, nontender, non-distended, bowel sounds normal, no palpable organomegaly, no hernia, no palpable masses. Lower extremities: No palpable pedal edema. Lymphatic: no palpable lymph nodes in the neck, axillae, or groins. Musculoskeletal: normal gait and station, no clubbing, no cyanosis, no pitting edema. Skin: no rashes, no ulcers, no petechiae Neurological: Awake and alert and oriented x3. CN II-XII grossly intact. No focal motor or sensory deficit. Psychiatric: Good judgment, good insight, normal affect, normal thought process, cooperative, no depression, no anxiety. Results - Labs Laboratory Last Values WBC 2.7 X10^3/uL (4.5-11.0) L 04/01/18 11:30 RBC 4.44 X10^6/uL (4.0-5.2) 04/01/18 11:30 Hgb 13.5 g/dL (12.0-16.0) 04/01/18 11:30 Hct 40.3 % (36-46) 04/01/18 11:30 MCV 90.9 fL (80-100) 04/01/18 11:30 MCH 30.4 PG (26-34) 04/01/18 11:30 MCHC 33.4 % (30-36) 04/01/18 11:30 RDW 15.4 % (11.6-14.8) H 04/01/18 11:30 Plt Count 105 X10^3/uL (150-400) L 04/01/18 11:30 Neut % (Auto) 75.2 % (50-75) H 04/01/18 11:30 Lymph % (Auto) 18.4 % (25-40) L 04/01/18 11:30 [place] % (Auto) 4.5 % (3-14) 04/01/18 11:30 Eos % (Auto) 0.6 % (2-4) L 04/01/18 11:30 Baso % (Auto) 1.3 % (0-2) 04/01/18 11:30 Neut # (Auto) 2000 /uL (1532-3064) 04/01/18 11:30 Lymph # (Auto) 500 /uL (4453-5715) L 04/01/18 11:30 [place] # (Auto) 100 /uL (0-900) 04/01/18 11:30 Eos # (Auto) 0 /uL (0-450) 04/01/18 11:30 Baso # (Auto) 0 /uL (0-100) 04/01/18 11:30 Sodium 136 mmol/L (137-145) L 04/01/18 11:40 Potassium 3.9 mmol/L (3.4-5.1) 04/01/18 11:40 Chloride 101 mmol/L (98-107) 04/01/18 11:40 Carbon Dioxide 26 mmol/L (22-32) 04/01/18 11:40 BUN 20 mg/dL (7-17) H 04/01/18 11:40 Creatinine 0.70 mg/dL (0.52-1.04) 04/01/18 11:40 Estimated GFR > 60.0 mL/min (>60) 04/01/18 11:40 BUN/Creatinine Ratio 28.6 (6-22) H 04/01/18 11:40 Glucose 121 mg/dL (80-110) H 04/01/18 11:40 Calcium 9.0 mg/dL (8.4-10.2) 04/01/18 11:40 Total Bilirubin 1.3 mg/dL (0.2-1.3) 04/01/18 11:40 AST 175 IU/L (14-36) H 04/01/18 11:40 ALT 105 IU/L (9-52) H 04/01/18 11:40 Alkaline Phosphatase 161 U/L (38-126) H 04/01/18 11:40 Total Protein 8.1 g/dL (6.3-8.2) 04/01/18 11:40 Albumin 3.9 g/dL (3.5-5.0) 04/01/18 11:40 Globulin 4.2 g/dL (1.7-4.1) H 04/01/18 11:40 Albumin/Globulin Ratio 0.9 (1.0-2.8) L 04/01/18 11:40 Alpha Fetoprotein 27.0 ng/mL (< 6.1) H 04/01/18 11:30 Serum Immunofixation See note 04/01/18 11:30 - Imaging Additional studies: Procedures Other endoscopy of small intestine (08/18/13) Transfusion of Nonautologous Plasma Cryoprecipitate into Peripheral Vein, Percutaneous Approach (06/19/15) Transfusion of packed cells (08/18/13) Assessment and Plan (1) Hepatocellular carcinoma Assessment and Plan: I reviewed patient's lab results. Patient's AFP has been increasing consistently. I talked with the patient that I am afraid that her underlying hepatocellular carcinoma may be progressing. I will obtain an abdominal CT scan liver protocol for further evaluation. I will also refer the patient to Dr. Jennifer Barrera at [facility] for evaluation of possible liver directed therapy. (2) Cirrhosis of liver Assessment and Plan: Biopsy proven. Stable. Dr. Zavala is planning EGD to evaluate varices. (3) Chronic hepatitis C without hepatic coma Assessment and Plan: Patient has hepatitis C diagnosed 1996. And she has developed biopsy-proven cirrhosis. Patient's hepatitis C has never been treated. She is now scheduled to see Dr. Zavala for further EGD to evaluate her varices and meanwhile for further discussion. (4) Primary cancer of left upper lobe of lung Assessment and Plan: Patient underwent left upper lobectomy. Since then no clinical imaging evidence of disease recurrence or metastasis. CT chest on 03/08/2018 showed no evidence of disease recurrence or metastasis. Will continue active surveillance. (5) History of laryngeal cancer Assessment and Plan: The records indicated that the patient received concurrent chemotherapy cisplatin and radiotherapy. Patient endorsed a left-sided lymph nodes enlargement. On my physical examination at level 2 there is a fixed t penelope 1 cm x 2 cm lymph node. However, CT neck/chest showed no abnormal enlarged lymph nodes in the neck, and no enlarging pulmonary nodules noted. For her laryngeal cancer, will continue active surveillance.
[2018-04-12 10:41] VITALS: BP 144/95; PULSE 68; RESP 20; TEMP 36.6; O2SAT 97
--- NOTE | 2018-04-12 15:32 | ONC.SCHED ---
Called patient with 04/14/18 2:10 check in appt for CT Abd. She is looking to arrange a ride and will call back if that date does not work. Trying to schedule before 04/16/18 as her labs will .
[2018-05-03 10:36] VITALS: BP 149/86; PULSE 74; RESP 18; TEMP 36.7
--- NOTE | 2018-05-03 10:53 | P.PNONC_ITS ---
PN -Subjective Interval history: 78 year old with hepatocellular carcinoma s/p chemoembolization now on surveillance, chronic hepatitis C (genotype 1A), and SCC of epiglottis diagnosed 2005, s/p cisplatin/XRT as well as left upper lobe stage I lung cancer status post left resection 2008. On 04/26/[address] of the abdomen with liver protocol. It showed cirrhotic heterogeneous liver morphology with scattered areas of low attenuation not evident on previous MRI. These likely represent regenerating of, dysplastic, or side robotic nodules. A 1.5 cm hepatic hemangioma was noted. Mild splenomegaly fairly stable was noted. And fairly stable bilobed abdominal aortic aneurysm was noted. In addition cholelithiasis was noted. On 04/27/2018, patient was evaluated at [facility] by Dr. Jennifer Barrera. Given the rising AFP, Dr. Jennifer Barrera was suspicious that patient may be having an occult hepatocellular carcinoma. Further studies with ultrasound was recommended at this moment. Her visit with pediatric dentist has been delayed to next month. Patient presents here today for scheduled follow-up visit. Clinically, she has been doing fairly well. She continues to complain of left chest pain along the surgical incision, not related to breathing or coughing. it is pain in the rib and under. History of Present illness This is a 78 year old female with diagnosis with squamous cell carcinoma of the epiglottis in 2004. And patient underwent concurrent cisplatin and radiotherapy in January of 2016. She was diagnosed with non-small cell lung cancer T1 N0 MX in April of 2008 and underwent left upper lobectomy. She was diagnosed with hepatocellular carcinoma based on imaging reporting a 1.2 cm lesion on MRI in the right hepatic lobe, suspicious for malignancy. Dr. Emery looked at it and agreed that it was consistent with hepatocellular carcinoma. The patient then underwent chemoembolization with Dr. Emery on Thursday June 23, 2016. She has history of hepatitic C diagnosed in 1996 likely related to intravenous drug use and multiple tattoos. She also underwent liver biopsy in 2003 showing necroinflammatory activity, grade 2/3, and the liver fibrosis stage III. She did not receive any therapy due to psychiatric history of noncompliance. In January of 2016, blood test showed that her hepatitis C RNA PCR 5.65 logs with a Genotype 1A. Patient said that she has never been treated for hepatitis C. Due to rising AFP and CA 19-9, patient underwent US study of the liver on December 09, 2017. The ultrasound showed hyperechoic foci suspicious for hemangiomas. Previous lesions appearing to be related to hepatoma is not visualized. She also underwent liver MRI on December 09, 2017. The MRI showed stable appearance of a bilobed lesion within hepatic segment 7 consistent with hepatocellular carcinoma previously treated by radiofrequency ablation. Of note there is persistent enhancement on the arterial phase study in washout on the delayed phase study suggesting the presence of residual disease. No new foci to suggest new hepatoma. Splenomegaly was noted. 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 Focal region of enhancement within the posterior inferior right hepatic capsule without definite delayed will phase washout was noted. Focal region of enhancement within hepatic segment 4. A with imaging characteristics suggestive of a small hepatic hemangioma was noted. Due to questionable left-sided neck lymph nodes enlargement, we obtained CT scan of the neck and chest on 03/08/2018. No enlarged lymph nodes seen throughout the neck. The oropharynx, nasopharynx, and pharynx showed no mucosal lesions. The vocal cords, false vocal cords, piriform sinuses, epiglottis, vallecula, and tongue base or appeared normal. CT chest showed emphysematous change, and stable appearance of 2 small adjacent sub solid posterior right lower lung base nodules. The visible liver parenchyma reviewed stable 1.4 cm right posterior hepatic segment mass. - Patient Self-Reported Symptoms SR Constitution: Fatigue/Malaise SR eye issues: Vision changes SR ears, nose, mouth, throat issues: Changes in taste SR respiratory issues: Shortness of breath SR Cardiovascular issues: Shortness of breath with activity or lying flat, Dizzy/lightheaded SR Skin issues: Skin lesions or moles SR Gastrointestinal issues: Poor or no appetite, Abdominal pain SR Genitourinary issues: Frequent urination, Incontinence SR Musculoskeletal issues: Joint pain or swelling, Muscle pain or cramps, Back or neck pain, Cold hands or feet, Difficulty walking, Bone pain SR Neuro issues: Headache, Lightheaded/dizzy, Numbness or tingling, Difficulty balancing SR Hematologic issues: Slow healing, Swollen lymph nodes SR Endocrine issues: Cold intolerance, Excessive urination Home Medications and Allergies Home Medications Medication Instructions Recorded Confirmed Type ipratropium-albuterol 3 ml INH QIDP PRN #0 11/03/16 04/12/18 History clopidogrel 75 mg tablet 75 mg PO DAILY 08/05/17 04/12/18 History Disabled Parking Permit 1 dev 09/15/17 01/18/18 History Incontinence Supplies 1 ea DIRECTED 09/15/17 04/12/18 History levothyroxine 75 mcg tablet 75 mcg PO QAM #30 tab 11/16/17 04/12/18 Rx lorazepam 0.5 mg tablet 0.5 mg PO Q8HP PRN #60 tab 01/01/18 04/12/18 Rx diclofenac 1 % topical gel 2 gram TOP QID #100 gram 01/18/18 04/12/18 Rx mupirocin 2 % topical ointment 1 applictn TOP TID PRN 01/18/18 04/12/18 History gabapentin [Neurontin] 400 mg PO DAILY 03/11/18 04/12/18 History albuterol sulfate [Ventolin HFA] 2 puff INH Q4-6 PRN #1 inh 04/12/18 Rx metoprolol tartrate 25 mg tablet 12.5 mg PO BID #30 tab 04/12/18 Rx Allergies Allergy/AdvReac Type Severity Reaction Status Date / Time codeine [CODEINE] AdvReac Mild IT MADE Verified 01/18/18 09:53 ME SICK TO MY STOMACH Exam Vital signs: Vital Signs Temp Pulse Resp BP 05/03/18 10:36 98.1 F 74 18 149/86 H Intake and Output 05/02/18 05/03/18 05/03/18 23:59 07:59 15:59 Other: Weight 52.5 kg Patient Weight 05/04/18 07:59 Weight 52.5 kg Narrative: Constitutional: Well developed, thin, chronically ill, hard on hearing, but ple asant and cooperative. HEENT: Normocephalic atraumatic. Extraocular muscle movement intact. Pupils are round, equal and reactive to light and accommodations. Anicteric sclera. No hearing difficulty; Oral mucus membrane moist and without ulcers. Neck: Supple, symmetrical, and tracheal midline; No palpable thyromegaly and no palpable lymph nodes. Respiratory: No use of accessory muscles. Clear to auscultation, and no wheezes or rales or rubs. Cardiovascular: Regular rate and rhythm, S1 and S2 normal, no murmurs gallops or rubs. No JVD. No pitting edema of lower extremities. Abdomen: Soft, nontender, non-distended, bowel sounds normal, no palpable organomegaly, no hernia, no palpable masses. Lower extremities: No palpable pedal edema. Lymphatic: no palpable lymph nodes in the neck, axillae, or groins. Musculoskeletal: normal gait and station, no clubbing, no cyanosis, no pitting edema. Skin: no rashes, no ulcers, no petechiae Neurological: Awake and alert and oriented x3. CN II-XII grossly intact. No focal motor or sensory deficit. Psychiatric: Good judgment, good insight, normal affect, normal thought process, cooperative, no depression, no anxiety. Results - Labs Laboratory Last Values WBC 2.7 X10^3/uL (4.5-11.0) L 04/01/18 11:30 RBC 4.44 X10^6/uL (4.0-5.2) 04/01/18 11:30 Hgb 13.5 g/dL (12.0-16.0) 04/01/18 11:30 Hct 40.3 % (36-46) 04/01/18 11:30 MCV 90.9 fL (80-100) 04/01/18 11:30 MCH 30.4 PG (26-34) 04/01/18 11:30 MCHC 33.4 % (30-36) 04/01/18 11:30 RDW 15.4 % (11.6-14.8) H 04/01/18 11:30 Plt Count 105 X10^3/uL (150-400) L 04/01/18 11:30 Neut % (Auto) 75.2 % (50-75) H 04/01/18 11:30 Lymph % (Auto) 18.4 % (25-40) L 04/01/18 11:30 [place] % (Auto) 4.5 % (3-14) 04/01/18 11:30 Eos % (Auto) 0.6 % (2-4) L 04/01/18 11:30 Baso % (Auto) 1.3 % (0-2) 04/01/18 11:30 Neut # (Auto) 2000 /uL (7714-0056) 04/01/18 11:30 Lymph # (Auto) 500 /uL (3016-9165) L 04/01/18 11:30 [place] # (Auto) 100 /uL (0-900) 04/01/18 11:30 Eos # (Auto) 0 /uL (0-450) 04/01/18 11:30 Baso # (Auto) 0 /uL (0-100) 04/01/18 11:30 Sodium 136 mmol/L (137-145) L 04/01/18 11:40 Potassium 3.9 mmol/L (3.4-5.1) 04/01/18 11:40 Chloride 101 mmol/L (98-107) 04/01/18 11:40 Carbon Dioxide 26 mmol/L (22-32) 04/01/18 11:40 BUN 20 mg/dL (7-17) H 04/01/18 11:40 Creatinine 0.70 mg/dL (0.52-1.04) 04/01/18 11:40 Estimated GFR > 60.0 mL/min (>60) 04/01/18 11:40 BUN/Creatinine Ratio 28.6 (6-22) H 04/01/18 11:40 Glucose 121 mg/dL (80-110) H 04/01/18 11:40 Calcium 9.0 mg/dL (8.4-10.2) 04/01/18 11:40 Total Bilirubin 1.3 mg/dL (0.2-1.3) 04/01/18 11:40 AST 175 IU/L (14-36) H 04/01/18 11:40 ALT 105 IU/L (9-52) H 04/01/18 11:40 Alkaline Phosphatase 161 U/L (38-126) H 04/01/18 11:40 Total Protein 8.1 g/dL (6.3-8.2) 04/01/18 11:40 Albumin 3.9 g/dL (3.5-5.0) 04/01/18 11:40 Globulin 4.2 g/dL (1.7-4.1) H 04/01/18 11:40 Albumin/Globulin Ratio 0.9 (1.0-2.8) L 04/01/18 11:40 Alpha Fetoprotein 27.0 ng/mL (< 6.1) H 04/01/18 11:30 Serum Immunofixation See note 04/01/18 11:30 - Imaging Additional studies: Procedures Other endoscopy of small intestine (08/18/13) Transfusion of Nonautologous Plasma Cryoprecipitate into Peripheral Vein, Percutaneous Approach (06/19/15) Transfusion of packed cells (08/18/13) Assessment and Plan (1) Hepatocellular carcinoma Assessment and Plan: I talked with the patient that I agree with Dr. Jennifer Barrera about the rising AFP. I encouraged the patient continue to follow up with Dr. Jennifer Barrera for further evaluation including especially the ultrasound study. I talked with the patient that I will bring her back in about 3-4 weeks to follow-up on the progress. I will repeat CBC, CMP, prothrombin time and INR and AFP. (2) Cirrhosis of liver Assessment and Plan: Biopsy proven. Stable. Dr. Zavala is planning EGD to evaluate varices. (3) Chronic hepatitis C without hepatic coma Assessment and Plan: Patient has hepatitis C diagnosed 1996. And she has developed biopsy-proven cirrhosis. Patient's hepatitis C has never been treated. She is now scheduled to see Dr. Zavala for further EGD to evaluate her varices and meanwhile for further discussion. (4) Primary cancer of left upper lobe of lung Assessment and Plan: Patient underwent left upper lobectomy. Since then no clinical imaging evidence of disease recurrence or metastasis. CT chest on 03/08/2018 showed no evidence of disease recurrence or metastasis. Will continue active surveillance. (5) History of laryngeal cancer Assessment and Plan: The records indicated that the patient received concurrent chemotherapy cisplatin and radiotherapy. Patient endorsed a left-sided lymph nodes enlargement. On my physical examination at level 2 there is a fixed tender 1 cm x 2 cm lymph node. However, CT neck/chest showed no abnormal enlarged lymph nodes in the neck, and no enlarging pulmonary nodules noted. For her laryngeal cancer, will continue active surveillance.
[2018-05-24 09:21] LABS: INR 1.2 (0.9-1.3); Prothrombin Time 13.4 SECONDS (10.1-12.7)
[2018-05-24 09:23] LABS: Add Manual Diff / Slide Review NO; Basophils Absolute Auto 0 /uL (0-100); Basophils Percent Auto 0.9 % (0-2); Eosinophils Absolute Auto 0 /uL (0-450); Hematocrit 40.9 % (36-46); Hemoglobin 13.9 g/dL (12.0-16.0); Lymphocytes Absolute Auto 500 /uL (1100-4500); Lymphocytes Percent Auto 21.7 % (25-40); Mean Corpuscular HGB Conc 33.9 % (30-36); Mean Corpuscular Hemoglobin 31.2 PG (26-34); Monocytes Absolute Auto 200 /uL (0-900); Monocytes Percent Auto 8.8 % (3-14); Neutrophils Absolute Auto 1600 /uL (1500-7000); Neutrophils Percent Auto 67.6 % (50-75); Platelet Count 105 X10^3/uL (150-400); Red Blood Cell Count 4.45 X10^6/uL (4.0-5.2); Red Cell Distribution Width 15.3 % (11.6-14.8); White Blood Cell Count 2.4 X10^3/uL (4.5-11.0)
[2018-05-24 09:46] LABS: Alanine Aminotransferase 50 IU/L (9-52); Albumin Globulin Ratio 1.1 (1.0-2.8); Alkaline Phosphatase 102 U/L (38-126); Aspartate Aminotransferase 78 IU/L (14-36); BUN Creatinine Ratio 22.5 (6-22); Bilirubin Total 0.8 mg/dL (0.2-1.3); Blood Urea Nitrogen 18 mg/dL (7-17); Calcium 9.6 mg/dL (8.4-10.2); Carbon Dioxide 28 mmol/L (22-32); Chloride 100 mmol/L (98-107); Estimated Glomerular Filt Rate > 60.0 mL/min (>60); Globulin 3.8 g/dL (1.7-4.1); Glucose 102 mg/dL (80-110); HEMOLYSIS < 15 (0-50); Potassium 4.2 mmol/L (3.4-5.1); Sodium 136 mmol/L (137-145); Total Protein 7.8 g/dL (6.3-8.2)
[2018-05-27 16:28] LABS: Alpha Fetoprotein 36.8 ng/mL (< 6.1)
[2018-06-03 14:38] VITALS: BP 153/85; PULSE 56; RESP 18; TEMP 36.8; O2SAT 98
--- NOTE | 2018-06-03 14:52 | ONC.PN ---
PN -Subjective Interval history: 78 year old with hepatocellular carcinoma s/p chemoembolization now on surveillance, chronic hepatitis C (genotype 1A), and SCC of epiglottis diagnosed 2005, s/p cisplatin/XRT as well as left upper lobe stage I lung cancer status post left resection 2008. On 04/26/[address] of the abdomen with liver protocol. It showed cirrhotic heterogeneous liver morphology with scattered areas of low attenuation not evident on previous MRI. These likely represent regenerating of, dysplastic, or side robotic nodules. A 1.5 cm hepatic hemangioma was noted. Mild splenomegaly fairly stable was noted. And fairly stable bilobed abdominal aortic aneurysm was noted. In addition cholelithiasis was noted. On 04/27/2018, patient was evaluated at [facility] by Dr. Jennifer Barrera. Given the rising AFP, Dr. Jennifer Barrera was suspicious that patient may be having an occult hepatocellular carcinoma. Further studies with ultrasound was recommended at this moment. Her visit with terrazzo polisher helper has been delayed to next month. Patient presents here today for scheduled follow-up visit. Clinically, she has been doing fairly well. She continues to complain of left chest pain along the surgical incision, not related to breathing or coughing. it is pain in the rib and under. History of Present illness This is a 78 year old female with diagnosis with squamous cell carcinoma of the epiglottis in 2004. And patient underwent concurrent cisplatin and radiotherapy in January of 2016. She was diagnosed with non-small cell lung cancer T1 N0 MX in April of 2008 and underwent left upper lobectomy. She was diagnosed with hepatocellular carcinoma based on imaging reporting a 1.2 cm lesion on MRI in the right hepatic lobe, suspicious for malignancy. Dr. Emery looked at it and agreed that it was consistent with hepatocellular carcinoma. The patient then underwent chemoembolization with Dr. Emery on Thursday June 23, 2016. She has history of hepatitic C diagnosed in 1996 likely related to intravenous drug use and multiple tattoos. She also underwent liver biopsy in 2003 showing necroinflammatory activity, grade 2/3, and the liver fibrosis stage III. She did not receive any therapy due to psychiatric history of noncompliance. In January of 2016, blood test showed that her hepatitis C RNA PCR 5.65 logs with a Genotype 1A. Patient said that she has never been treated for hepatitis C. Due to rising AFP and CA 19-9, patient underwent US study of the liver on December 09, 2017. The ultrasound showed hyperechoic foci suspicious for hemangiomas. Previous lesions appearing to be related to hepatoma is not visualized. She also underwent liver MRI on December 09, 2017. The MRI showed stable appearance of a bilobed lesion within hepatic segment 7 consistent with hepatocellular carcinoma previously treated by radiofrequency ablation. Of note there is persistent enhancement on the arterial phase study in washout on the delayed phase study suggesting the presence of residual disease. No new foci to suggest new hepatoma. Splenomegaly was noted. 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 Focal region of enhancement within the posterior inferior right hepatic capsule without definite delayed will phase washout was noted. Focal region of enhancement within hepatic segment 4. A with imaging characteristics suggestive of a small hepatic hemangioma was noted. Due to questionable left-sided neck lymph nodes enlargement, we obtained CT scan of the neck and chest on 03/08/2018. No enlarged lymph nodes seen throughout the neck. The oropharynx, nasopharynx, and pharynx showed no mucosal lesions. The vocal cords, false vocal cords, piriform sinuses, epiglottis, vallecula, and tongue base or appeared normal. CT chest showed emphysematous change, and stable appearance of 2 small adjacent sub solid posterior right lower lung base nodules. The visible liver parenchyma reviewed stable 1.4 cm right posterior hepatic segment mass. - Patient Self-Reported Symptoms SR Constitution: Fatigue/Malaise SR eye issues: Vision changes SR ears, nose, mouth, throat issues: Changes in taste SR respiratory issues: Shortness of breath SR Cardiovascular issues: Shortness of breath with activity or lying flat, Dizzy/lightheaded SR Skin issues: Skin lesions or moles SR Gastrointestinal issues: Poor or no appetite, Abdominal pain SR Genitourinary issues: Frequent urination, Incontinence SR Musculoskeletal issues: Joint pain or swelling, Muscle pain or cramps, Back or neck pain, Cold hands or feet, Difficulty walking, Bone pain SR Neuro issues: Headache, Lightheaded/dizzy, Numbness or tingling, Difficulty balancing SR Hematologic issues: Slow healing, Swollen lymph nodes SR Endocrine issues: Cold intolerance, Excessive urination - Additional ROS All systems PM: reviewed and no additional remarkable complaints except as stated Home Medications and Allergies Home Medications Medication Instructions Recorded Confirmed Type ipratropium-albuterol 3 ml INH QIDP PRN #0 11/03/16 04/12/18 History clopidogrel 75 mg tablet 75 mg PO DAILY 08/05/17 04/12/18 History Disabled Parking Permit 1 dev 09/15/17 01/18/18 History Incontinence Supplies 1 ea DIRECTED 09/15/17 04/12/18 History levothyroxine 75 mcg tablet 75 mcg PO QAM #30 tab 11/16/17 04/12/18 Rx diclofenac 1 % topical gel 2 gram TOP QID #100 gram 01/18/18 04/12/18 Rx mupirocin 2 % topical ointment 1 applictn TOP TID PRN 01/18/18 04/12/18 History gabapentin [Neurontin] 400 mg PO DAILY 03/11/18 04/12/18 History albuterol sulfate [Ventolin HFA] 2 puff INH Q4-6 PRN #1 inh 04/12/18 Rx metoprolol tartrate 25 mg tablet 12.5 mg PO BID #30 tab 04/12/18 Rx lorazepam 0.5 mg tablet 0.5 mg PO Q8HP PRN #60 tab 05/31/18 Rx Allergies Allergy/AdvReac Type Severity Reaction Status Date / Time codeine [CODEINE] AdvReac Mild IT MADE Verified 01/18/18 09:53 ME SICK TO MY STOMACH Exam Vital signs: Vital Signs Temp Pulse Resp BP Pulse Ox 06/03/18 14:38 98.3 F 56 L 18 153/85 H 98 Intake and Output 06/02/18 06/03/18 06/03/18 23:59 07:59 15:59 Other: Weight 53.2 kg Patient Weight 06/03/18 23:59 Weight 53.2 kg Narrative: Gen: Well developed, thin, chronically ill, hard on hearing, but pleasant and cooperative. HEENT: NCAT, EOMI, PERLLA, anicteric Neck: Supple, No palpable thyromegaly and no palpable lymph nodes. Respiratory: Clear to auscultation, and no wheezes. Cardiovascular: RRR, S1 and S2 normal, no MRG. Abdomen: Soft, nontender, non-distended, no palpable organomegaly, no hernia, no palpable masses. Lower extremities: No palpable pedal edema. Lymphatic: no palpable lymph nodes in the neck, axillae Musculoskeletal: normal gait and station, no clubbing, no cyanosis, no pitting edema. Skin: no rashes, no ulcers, no petechiae Neurological: Awake and alert and oriented x3. CN II-XII grossly intact. No focal motor or sensory deficit. Psychiatric: Good judgment, good insight, normal affect, normal thought process, cooperative, no depression, no anxiety. Results - Labs Laboratory Last Values WBC 2.4 X10^3/uL (4.5-11.0) L 05/24/18 08:37 RBC 4.45 X10^6/uL (4.0-5.2) 05/24/18 08:37 Hgb 13.9 g/dL (12.0-16.0) 05/24/18 08:37 Hct 40.9 % (36-46) 05/24/18 08:37 MCV 92.0 fL (80-100) 05/24/18 08:37 MCH 31.2 PG (26-34) 05/24/18 08:37 MCHC 33.9 % (30-36) 05/24/18 08:37 RDW 15.3 % (11.6-14.8) H 05/24/18 08:37 Plt Count 105 X10^3/uL (150-400) L 05/24/18 08:37 Neut % (Auto) 67.6 % (50-75) 05/24/18 08:37 Lymph % (Auto) 21.7 % (25-40) L 05/24/18 08:37 [place] % (Auto) 8.8 % (3-14) 05/24/18 08:37 Eos % (Auto) 1.0 % (2-4) L 05/24/18 08:37 Baso % (Auto) 0.9 % (0-2) 05/24/18 08:37 Neut # (Auto) 1600 /uL (0148-0921) 05/24/18 08:37 Lymph # (Auto) 500 /uL (0186-2696) L 05/24/18 08:37 [place] # (Auto) 200 /uL (0-900) 05/24/18 08:37 Eos # (Auto) 0 /uL (0-450) 05/24/18 08:37 Baso # (Auto) 0 /uL (0-100) 05/24/18 08:37 PT 13.4 SECONDS (10.1-12.7) H 05/24/18 08:37 INR 1.2 (0.9-1.3) 05/24/18 08:37 Sodium 136 mmol/L (137-145) L 05/24/18 08:37 Potassium 4.2 mmol/L (3.4-5.1) 05/24/18 08:37 Chloride 100 mmol/L (98-107) 05/24/18 08:37 Carbon Dioxide 28 mmol/L (22-32) 05/24/18 08:37 BUN 18 mg/dL (7-17) H 05/24/18 08:37 Creatinine 0.80 mg/dL (0.52-1.04) 05/24/18 08:37 Estimated GFR > 60.0 mL/min (>60) 05/24/18 08:37 BUN/Creatinine Ratio 22.5 (6-22) H 05/24/18 08:37 Glucose 102 mg/dL (80-110) 05/24/18 08:37 Calcium 9.6 mg/dL (8.4-10.2) 05/24/18 08:37 Total Bilirubin 0.8 mg/dL (0.2-1.3) 05/24/18 08:37 AST 78 IU/L (14-36) H 05/24/18 08:37 ALT 50 IU/L (9-52) 05/24/18 08:37 Alkaline Phosphatase 102 U/L (38-126) 05/24/18 08:37 Total Protein 7.8 g/dL (6.3-8.2) 05/24/18 08:37 Albumin 4.0 g/dL (3.5-5.0) 05/24/18 08:37 Globulin 3.8 g/dL (1.7-4.1) 05/24/18 08:37 Albumin/Globulin Ratio 1.1 (1.0-2.8) 05/24/18 08:37 Alpha Fetoprotein 36.8 ng/mL (< 6.1) H 05/24/18 08:37 Serum Immunofixation See note 04/01/18 11:30 - Imaging Additional studies: Procedures Other endoscopy of small intestine (08/18/13) Transfusion of Nonautologous Plasma Cryoprecipitate into Peripheral Vein, Percutaneous Approach (06/19/15) Transfusion of packed cells (08/18/13) Assessment and Plan (1) Hepatocellular carcinoma Assessment and Plan: I talked with the patient that I agree with Dr. Jennifer Barrera about the rising AFP. I encouraged the patient continue to follow up with Dr. Jennifer Barrera for further evaluation including especially the ultrasound study. I talked with the patient that I will bring her back in about 3-4 weeks to follow-up on the progress. I will repeat CBC, CMP, prothrombin time and INR and AFP. I would like to follow on Dr. Jennifer Barrera. (2) Cirrhosis of liver Assessment and Plan: Biopsy proven. Stable. Dr. Zavala is planning EGD to evaluate varices. (3) Chronic hepatitis C without hepatic coma Assessment and Plan: Patient has hepatitis C diagnosed 1996. And she has developed biopsy-proven cirrhosis. Patient's hepatitis C has never been treated. She is now scheduled to see Dr. Zavala for further EGD to evaluate her varices and meanwhile for further discussion. (4) Primary cancer of left upper lobe of lung Assessment and Plan: Patient underwent left upper lobectomy. Since then no clinical imaging evidence of disease recurrence or metastasis. CT chest on 03/08/2018 showed no evidence of disease recurrence or metastasis. Will continue active surveillance. (5) History of laryngeal cancer Assessment and Plan: The records indicated that the patient received concurrent chemotherapy cisplatin and radiotherapy. Patient endorsed a left-sided lymph nodes enlargement. On my physical examination at level 2 there is a fixed tender 1 cm x 2 cm lymph node. However, CT neck/chest showed no abnormal enlarged lymph nodes in the neck, and no enlarging pulmonary nodules noted. For her laryngeal cancer, will continue active surveillance.
[2018-06-28 10:54] LABS: Add Manual Diff / Slide Review NO; Basophils Absolute Auto 0 /uL (0-100); Basophils Percent Auto 0.6 % (0-2); Eosinophils Absolute Auto 0 /uL (0-450); Eosinophils Percent Auto 0.6 % (2-4); Hematocrit 45.5 % (36-46); Hemoglobin 15.2 g/dL (12.0-16.0); Lymphocytes Absolute Auto 800 /uL (1100-4500); Lymphocytes Percent Auto 20.5 % (25-40); Mean Corpuscular HGB Conc 33.4 % (30-36); Mean Corpuscular Hemoglobin 30.8 PG (26-34); Mean Corpuscular Volume 92.4 fL (80-100); Monocytes Absolute Auto 200 /uL (0-900); Monocytes Percent Auto 5.6 % (3-14); Neutrophils Absolute Auto 2700 /uL (1500-7000); Neutrophils Percent Auto 72.7 % (50-75); Platelet Count 143 X10^3/uL (150-400); Red Blood Cell Count 4.92 X10^6/uL (4.0-5.2); Red Cell Distribution Width 13.9 % (11.6-14.8); White Blood Cell Count 3.7 X10^3/uL (4.5-11.0)
[2018-06-28 11:18] LABS: Alanine Aminotransferase 115 IU/L (9-52); Albumin 4.1 g/dL (3.5-5.0); Albumin Globulin Ratio 0.9 (1.0-2.8); Alkaline Phosphatase 116 U/L (38-126); Aspartate Aminotransferase 179 IU/L (14-36); Blood Urea Nitrogen 20 mg/dL (7-17); Carbon Dioxide 28 mmol/L (22-32); Chloride 99 mmol/L (98-107); Estimated Glomerular Filt Rate > 60.0 mL/min (>60); Globulin 4.6 g/dL (1.7-4.1); Glucose 102 mg/dL (80-110); HEMOLYSIS < 15 (0-50); Sodium 137 mmol/L (137-145); Total Protein 8.7 g/dL (6.3-8.2)
--- NOTE | 2018-07-05 14:20 | P.PNONC_ITS ---
PN -Subjective Interval history: 78 year old with hepatocellular carcinoma s/p chemoembolization now on surveillance, chronic hepatitis C (genotype 1A), and SCC of epiglottis diagnosed 2005, s/p cisplatin/XRT as well as left upper lobe stage I lung cancer status post left resection 2008. On 04/26/[address] of the abdomen with liver protocol. It showed cirrhotic heterogeneous liver morphology with scattered areas of low attenuation not evident on previous MRI. These likely represent regenerating of, dysplastic, or side robotic nodules. A 1.5 cm hepatic hemangioma was noted. Mild splenomegaly fairly stable was noted. And fairly stable bilobed abdominal aortic aneurysm was noted. In addition cholelithiasis was noted. On 04/27/2018, patient was evaluated at [facility] by Dr. Jennifer Barrera. Given the rising AFP, Dr. Jennifer Barrera was suspicious that patient may be having an occult hepatocellular carcinoma. Furt her studies with ultrasound was recommended at this moment. Her visit with edging machine operator has been delayed to next month. Patient presents here today for scheduled follow-up visit. Clinically, she has been doing fairly well. She continues to complain of left chest pain along the surgical incision, not related to breathing or coughing. Since her last visit, she has developed sore throat and raspy voice with pain in the throat. She is also complaining of right ear pain. She is complaining of some shortness of breath at times. She claimed that she is not congested. She is also coughing a l ittle. No hemoptysis. History of Present illness This is a 78 year old female with diagnosis with squamous cell carcinoma of the epiglottis in 2004. And patient underwent concurrent cisplatin and radiotherapy in January of 2016. She was diagnosed with non-small cell lung cancer T1 N0 MX in April of 2008 and underwent left upper lobectomy. She was diagnosed with hepatocellular carcinoma based on imaging reporting a 1.2 cm lesion on MRI in the right hepatic lobe, suspicious for malignancy. Dr. Emeyr looked at it and agreed that it was consistent with hepatocellular carcinoma. The patient then underwent chemoembolization with Dr. Emery on Thursday June 23, 2016. She has history of hepatitic C diagnosed in 1996 likely related to intravenous d rug use and multiple tattoos. She also underwent liver biopsy in 2003 showing necroinflammatory activity, grade 2/3, and the liver fibrosis stage III. She did not receive any therapy due to psychiatric history of noncompliance. In January of 2016, blood test showed that her hepatitis C RNA PCR 5.65 logs with a Genotype 1A. Patient said that she has never been treated for hepatitis C. Due to rising AFP and CA 19-9, patient underwent US study of the liver on December 09, 2017. The ultrasound showed hyperechoic foci suspicious for hemangiomas. Previous lesions appearing to be related to hepatoma is not visualized. She also underwent liver MRI on December 09, 2017. The MRI showed stable appearance of a bilobed lesion within hepatic segment 7 consistent with hepatocellular carcinoma previously treated by radiofrequency ablation. Of note there is persistent enhancement on the arterial phase study in washout on the delayed phase study suggesting the presence of residual disease. No new foci to suggest new hepatoma. Splenomegaly was noted. 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 Focal region of enhancement within the posterior inferior right hepatic capsule without definite delayed will phase washout was noted. Focal region of enhancement within hepatic segment 4. A with imaging characteristics suggestive of a small hepatic hemangioma was noted. Due to questionable left-sided neck lymph nodes enlargement, we obtained CT scan of the neck and chest on 03/08/2018. No enlarged lymph nodes seen throughout the neck. The oropharynx, nasopharynx, and pharynx showed no mucosal lesions. The vocal cords, false vocal cords, piriform sinuses, epiglottis, vallecula, and tongue base or appeared normal. CT chest showed emphysematous change, and stable appearance of 2 small adjacent sub solid posterior right lower lung base nodules. The visible liver parenchyma reviewed stable 1.4 cm right posterior hepatic segment mass. - Patient Self-Reported Symptoms SR Constitution: Fatigue/Malaise SR eye issues: Vision changes SR ears, nose, mouth, throat issues: Changes in taste SR respiratory issues: Shortness of breath SR Cardiovascular issues: Shortness of breath with activity or lying flat, Dizzy/lightheaded SR Skin issues: Skin lesions or moles SR Gastrointestinal issues: Poor or no appetite, Abdominal pain SR Genitourinary issues: Frequent urination, Incontinence SR Musculoskeletal issues: Joint pain or swelling, Muscle pain or cramps, Back or neck pain, Cold hands or feet, Difficulty walking, Bone pain SR Neuro issues: Headache, Lightheaded/dizzy, Numbness or tingling, Difficulty balancing SR Hematologic issues: Slow healing, Swollen lymph nodes SR Endocrine issues: Cold intolerance, Excessive urination Home Medications and Allergies Home Medications Medication Instructions Recorded Confirmed Type clopidogrel 75 mg tablet 75 mg PO DAILY 08/05/17 04/12/18 History Disabled Parking Permit 1 dev 09/15/17 01/18/18 History Incontinence Supplies 1 ea DIRECTED 09/15/17 04/12/18 History levothyroxine 75 mcg tablet 75 mcg PO QAM #30 tab 11/16/17 04/12/18 Rx diclofenac 1 % topical gel 2 gram TOP QID #100 gram 01/18/18 04/12/18 Rx mupirocin 2 % topical ointment 1 applictn TOP TID PRN 01/18/18 04/12/18 History gabapentin [Neurontin] 400 mg PO DAILY 03/11/18 04/12/18 History albuterol sulfate [Ventolin HFA] 2 puff INH Q4-6 PRN #1 inh 04/12/18 Rx metoprolol tartrate 25 mg tablet 12.5 mg PO BID #30 tab 04/12/18 Rx lorazepam 0.5 mg tablet 0.5 mg PO Q8HP PRN #60 tab 05/31/18 Rx ipratropium-albuterol 0.5 mg-3 3 ml INHALATION QIDP PRN #180 ml 06/16/18 Rx mg(2.5 mg base)/3 mL nebulization soln ipratropium-albuterol 0.5 mg-3 3 ml INHALATION Q6-8H PRN #100 vial 06/18/18 Rx mg(2.5 mg base)/3 mL nebulization soln Allergies Allergy/AdvReac Type Severity Reaction Status Date / Time codeine [CODEINE] AdvReac Mild IT MADE Verified 01/18/18 09:53 ME SICK TO MY STOMACH Exam Vital signs: Last Vital Signs Temp 98.3 F 06/03/18 14:38 Pulse 56 L 06/03/18 14:38 Resp 16 07/05/18 14:21 BP 150/98 H 07/05/18 14:21 Pulse Ox 98 07/05/18 14:21 ECOG 1 Narrative: Gen: Well developed, thin, chronically ill, very hard on hearing, cooperative. HEENT: NCAT, EOMI, PERLLA, anicteric, raspy voice noted. Neck: Supple, No palpable thyromegaly and no palpable lymph nodes. Respiratory: Clear to auscultation, and no wheezes. Cardiovascular: RRR, S1 and S2 normal, no MRG. Abdomen: Soft, nontender, non-distended, no palpable organomegaly, no hernia, no palpable masses. Lower extremities: No palpable pedal edema. Lymphatic: no palpable lymph nodes in the neck, axillae Musculoskeletal: normal gait and station, no clubbing, no cyanosis, no pitting edema. Skin: no rashes, no ulcers, no petechiae Neurological: Awake and alert and oriented x3. CN II-XII grossly intact. No focal motor or sensory deficit. Psychiatric: Good judgment, good insight, normal affect, normal thought process, cooperative, no depression, no anxiety. Results - Labs Laboratory Last Values WBC 3.7 X10^3/uL (4.5-11.0) L 06/28/18 10:20 RBC 4.92 X10^6/uL (4.0-5.2) 06/28/18 10:20 Hgb 15.2 g/dL (12.0-16.0) 06/28/18 10:20 Hct 45.5 % (36-46) 06/28/18 10:20 MCV 92.4 fL (80-100) 06/28/18 10:20 MCH 30.8 PG (26-34) 06/28/18 10:20 MCHC 33.4 % (30-36) 06/28/18 10:20 RDW 13.9 % (11.6-14.8) 06/28/18 10:20 Plt Count 143 X10^3/uL (150-400) L 06/28/18 10:20 Neut % (Auto) 72.7 % (50-75) 06/28/18 10:20 Lymph % (Auto) 20.5 % (25-40) L 06/28/18 10:20 [place] % (Auto) 5.6 % (3-14) 06/28/18 10:20 Eos % (Auto) 0.6 % (2-4) L 06/28/18 10:20 Baso % (Auto) 0.6 % (0-2) 06/28/18 10:20 Neut # (Auto) 2700 /uL (7216-7674) 06/28/18 10:20 Lymph # (Auto) 800 /uL (9157-4827) L 06/28/18 10:20 [place] # (Auto) 200 /uL (0-900) 06/28/18 10:20 Eos # (Auto) 0 /uL (0-450) 06/28/18 10:20 Baso # (Auto) 0 /uL (0-100) 06/28/18 10:20 PT 13.4 SECONDS (10.1-12.7) H 05/24/18 08:37 INR 1.2 (0.9-1.3) 05/24/18 08:37 Sodium 137 mmol/L (137-145) 06/28/18 10:20 Potassium 5.0 mmol/L (3.4-5.1) 06/28/18 10:20 Chloride 99 mmol/L (98-107) 06/28/18 10:20 Carbon Dioxide 28 mmol/L (22-32) 06/28/18 10:20 BUN 20 mg/dL (7-17) H 06/28/18 10:20 Creatinine 0.80 mg/dL (0.52-1.04) 06/28/18 10:20 Estimated GFR > 60.0 mL/min (>60) 06/28/18 10:20 BUN/Creatinine Ratio 25.0 (6-22) H 06/28/18 10:20 Glucose 102 mg/dL (80-110) 06/28/18 10:20 Calcium 10.0 mg/dL (8.4-10.2) 06/28/18 10:20 Total Bilirubin 1.0 mg/dL (0.2-1.3) 06/28/18 10:20 AST 179 IU/L (14-36) H 06/28/18 10:20 ALT 115 IU/L (9-52) H 06/28/18 10:20 Alkaline Phosphatase 116 U/L (38-126) 06/28/18 10:20 Total Protein 8.7 g/dL (6.3-8.2) H 06/28/18 10:20 Albumin 4.1 g/dL (3.5-5.0) 06/28/18 10:20 Globulin 4.6 g/dL (1.7-4.1) H 06/28/18 10:20 Albumin/Globulin Ratio 0.9 (1.0-2.8) L 06/28/18 10:20 Alpha Fetoprotein 36.8 ng/mL (< 6.1) H 05/24/18 08:37 Serum Immunofixation See note 04/01/18 11:30 - Imaging Additional studies: Procedures Other endoscopy of small intestine (08/18/13) Transfusion of Nonautologous Plasma Cryoprecipitate into Peripheral Vein, Percutaneous Approach (06/19/15) Transfusion of packed cells (08/18/13) Assessment and Plan (1) Hepatocellular carcinoma Assessment and Plan: I talked with the patient that I agree with Dr. Jennifer Barrera about the rising AFP. I encouraged the patient continue to follow up with Dr. Jennifer Barrera for further evaluation including especially the ultrasound study. I talked with the patient that I will bring her back in about 3-4 weeks to follow-up on the progress. I will repeat CBC, CMP, prothrombin time and INR and AFP. (2) Cirrhosis of liver Assessment and Plan: Biopsy proven. Stable. Dr. Zavala is planning EGD to evaluate varices. (3) Chronic hepatitis C without hepatic coma Assessment and Plan: Patient has hepatitis C diagnosed 1996. And she has developed biopsy-proven cirrhosis. Patient's hepatitis C has never been treated. She is now scheduled to see Dr. Zavala for further EGD to evaluate her varices and meanwhile for further discussion. (4) Primary cancer of left upper lobe of lung Assessment and Plan: Patient underwent left upper lobectomy. Since then no clinical imaging evidence of disease recurrence or metastasis. CT chest on 03/08/2018 showed no evidence of disease recurrence or metastasis. Will continue active surveillance. (5) History of laryngeal cancer Assessment: The records indicated that the patient received concurrent chemotherapy cisplatin and radiotherapy. Patient endorsed a left-sided lymph nodes enlargement. On my physical examination at level 2 there is a fixed tender 1 cm x 2 cm lymph node. Since her last visit, she developed raspy voices, right ear pain and throat pain. I will refer her for evaluation. Plan: 1. ENT referral 2. RTC in one month
[2018-07-05 14:21] VITALS: BP 150/98; RESP 16; O2SAT 98
--- NOTE | 2018-08-05 12:02 | ONC.SCHED ---
while doing reminder calls today, this patient asked to be rescheduled, she had been put on Dr Olguin's schedule even though she has been Dr Harrell's patient. She asked to stay with Dr Harrell. Gave her next available opening on August 30. She will get her labs done August 23 @ main.
--- NOTE | 2018-08-24 09:15 | PC.NURSE ---
Received call from lab explaining pt had blood draw in main lab, CBC CMP and Alpha Fetoprotein however, PT and INR were not drawn. Pt sees Dr. Harrell on August 30, will place not in Dr. Harrell's box and ask if he would like pt to have these labs drawn in clinic at time of appt.
[2018-08-30 16:24] VITALS: BP 144/91; PULSE 65; RESP 20; TEMP 36.7; O2SAT 97
--- NOTE | 2018-08-30 16:49 | P.PNONC_ITS ---
PN -Subjective Interval history: 78 year old with hepatocellular carcinoma s/p chemoembolization now on surveillance, chronic hepatitis C (genotype 1A), and SCC of epiglottis diagnosed 2005, s/p cisplatin/XRT as well as left upper lobe stage I lung cancer status post left resection 2008. On 04/26/[address] of the abdomen with liver protocol. It showed cirrhotic heterogeneous liver morphology with scattered areas of low attenuation not evident on previous MRI. These likely represent regenerating of, dysplastic, or side robotic nodules. A 1.5 cm hepatic hemangioma was noted. Mild splenomegaly fairly stable was noted. And fairly stable bilobed abdominal aortic aneurysm was noted. In addition cholelithiasis was noted. On 04/27/2018, patient was evaluated at [facility] by Dr. Jennifer Barrera. Since her previous visit, because of the voice changes and questionable neck lymph nodes, patient was referred to ENT and was evaluated by Dr. Juan M Donato on July 27, 2018. Laryngoscopy was without abnormal lesions. On August 19, 2018, patient underwent upper endoscopy by Dr. Armin Perez. 4 columns of grade 1 esophageal varices at the distal esophagus, mild portal hypertension gastropathy, mild non-erosive gastritis were seen. She presents here today for scheduled follow-up visit. History of Present illness This is a 78 year old female with diagnosis with squamous cell carcinoma of the epiglottis in 2004. And patient underwent concurrent cisplatin and radiotherapy in January of 2016. She was diagnosed with non-small cell lung cancer T1 N0 MX in April of 2008 and underwent left upper lobectomy. She was diagnosed with hepatocellular carcinoma based on imaging reporting a 1.2 cm lesion on MRI in the right hepatic lobe, suspicious for malignancy. Dr. Emery looked at it and agreed that it was consistent with hepatocellular carcinoma. The patient then underwent chemoembolization with Dr. Emery on Thursday June 23, 2016. She has history of hepatitic C diagnosed in 1996 likely related to intravenous drug use and multiple tattoos. She also underwent liver biopsy in 2003 showing necroinflammatory activity, grade 2/3, and the liver fibrosis stage III. She did not receive any therapy due to psychiatric history of noncompliance. In January of 2016, blood test showed that her hepatitis C RNA PCR 5.65 logs with a Genotype 1A. Patient said that she has never been treated for hepatitis C. Due to rising AFP and CA 19-9, patient underwent US study of the liver on December 09, 2017. The ultrasound showed hyperechoic foci suspicious for hemangiomas. Previous lesions appearing to be related to hepatoma is not visualized. She also underwent liver MRI on December 09, 2017. The MRI showed stable appearance of a bilobed lesion within hepatic segment 7 consistent with hepatocellular carcinoma previously treated by radiofrequency ablation. Of note there is persistent enhancement on the arterial phase study in washout on the delayed phase study suggesting the presence of residual disease. No new foci to suggest new hepatoma. Splenomegaly was noted. 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 Focal region of enhancement within the posterior inferior right hepatic capsule without definite delayed will phase washout was noted. Focal region of enhancement within hepatic segment 4. A with imaging characteristics suggestive of a small hepatic hemangioma was noted. Due to questionable left-sided neck lymph nodes enlargement, we obtained CT scan of the neck and chest on 03/08/2018. No enlarged lymph nodes seen throughout the neck. The oropharynx, nasopharynx, and pharynx showed no mucosal lesions. The vocal cords, false vocal cords, piriform sinuses, epiglottis, vallecula, and tongue base or appeared normal. CT chest showed emphysematous change, and stable appearance of 2 small adjacent sub solid posterior right lower lung base nodules. The visible liver parenchyma reviewed stable 1.4 cm right posterior hepatic segment mass. - Patient Self-Reported Symptoms SR Constitution: Fatigue/Malaise SR eye issues: Vision changes SR ears, nose, mouth, throat issues: Changes in taste SR respiratory issues: Shortness of breath SR Cardiovascular issues: Shortness of breath with activity or lying flat, Dizzy/lightheaded SR Skin issues: Skin lesions or moles SR Gastrointestinal issues: Poor or no appetite, Abdominal pain SR Genitourinary issues: Frequent urination, Incontinence SR Musculoskeletal issues: Joint pain or swelling, Muscle pain or cramps, Back or neck pain, Cold hands or feet, Difficulty walking, Bone pain SR Neuro issues: Headache, Lightheaded/dizzy, Numbness or tingling, Difficulty balancing SR Hematologic issues: Slow healing, Swollen lymph nodes SR Endocrine issues: Cold intolerance, Excessive urination - Additional ROS All systems PM: reviewed and no additional remarkable complaints except as stated Home Medications and Allergies Home Medications Medication Instructions Recorded Confirmed Type clopidogrel 75 mg tablet 75 mg PO DAILY 08/05/17 04/12/18 History Disabled Parking Permit 1 dev 09/15/17 01/18/18 History Incontinence Supplies 1 ea DIRECTED 09/15/17 04/12/18 History diclofenac 1 % topical gel 2 gram TOP QID #100 gram 01/18/18 04/12/18 Rx gabapentin [Neurontin] 400 mg PO DAILY 03/11/18 04/12/18 History albuterol sulfate [Ventolin HFA] 2 puff INH Q4-6 PRN #1 inh 04/12/18 Rx metoprolol tartrate 25 mg tablet 12.5 mg PO BID #30 tab 04/12/18 Rx lorazepam 0.5 mg tablet 0.5 mg PO Q8HP PRN #60 tab 05/31/18 Rx ipratropium-albuterol 0.5 mg-3 3 ml INHALATION QIDP PRN #180 ml 06/16/18 Rx mg(2.5 mg base)/3 mL nebulization soln ipratropium-albuterol 0.5 mg-3 3 ml INHALATION Q6-8H PRN #100 vial 06/18/18 Rx mg(2.5 mg base)/3 mL nebulization soln levothyroxine 75 mcg tablet 75 mcg PO QAM #30 tab 08/31/18 Rx mupirocin 2 % topical ointment 1 applictn TOP TID PRN #30 gram 08/31/18 Rx Allergies Allergy/AdvReac Type Severity Reaction Status Date / Time codeine [CODEINE] AdvReac Mild IT MADE Verified 01/18/18 09:53 ME SICK TO MY STOMACH Exam Vital signs: Last Vital Signs Temp 98.0 F 08/30/18 16:24 Pulse 65 08/30/18 16:24 Resp 20 08/30/18 16:24 BP 144/91 H 08/30/18 16:24 Pulse Ox 97 08/30/18 16:24 ECOG 1 Narrative: Gen: Well developed, thin, chronically ill, very hard on hearing, cooperative. HEENT: NCAT, EOMI, PERLLA, anicteric, raspy voice noted. Neck: Supple, No palpable thyromegaly and no palpable lymph nodes. Respiratory: Clear to auscultation, and no wheezes. Cardiovascular: RRR, S1 and S2 normal, no MRG. Abdomen: Soft, nontender, non-distended, no palpable organomegaly, no hernia, no palpable masses. Lower extremities: No palpable pedal edema. Lymphatic: no palpable lymph nodes in the neck, axillae Musculoskeletal: normal gait and station, no clubbing, no cyanosis, no pitting edema. Skin: no rashes, no ulcers, no petechiae Neurological: Awake and alert and oriented x3. CN II-XII grossly intact. No focal motor or sensory deficit. Psychiatric: Good judgment, good insight, normal affect, normal thought process, cooperative, no depression, no anxiety. Results - Labs lab tests from August 23, 2018, the AFP level 50.0. Previously on July 07, 2018 the AFP was 27.1. - Imaging Additional studies: Procedures Other endoscopy of small intestine (08/18/13) Transfusion of Nonautologous Plasma Cryoprecipitate into Peripheral Vein, Percutaneous Approach (06/19/15) Transfusion of packed cells (08/18/13) Assessment and Plan (1) Hepatocellular carcinoma 78 year old with hepatocellular carcinoma s/p chemoembolization now on surveillance. Today, I reviewed the lab tests with the patient. Patient's AFP level has significantly increased since her previous visit. It is highly suspicious for possible recurrence of the underlying hepatocellular carcinoma. I will try to Obtain an CT liver protocol and then refer the patient back to Dr. Jennifer Barrera for evaluation of possible local regional therapy. (2) Cirrhosis of liver Assessment and Plan: Biopsy proven. Stable. Dr. Zavala is following (3) Chronic hepatitis C without hepatic coma Assessment and Plan: Patient has hepatitis C diagnosed 1996. And she has developed biopsy-proven cirrhosis. Patient's hepatitis C has never been treated. She is now being followed by Dr. Zavala. (4) Primary cancer of left upper lobe of lung Assessment and Plan: Patient underwent left upper lobectomy. Since then no clinical imaging evidence of disease recurrence or metastasis. CT chest on 03/08/2018 showed no evidence of disease recurrence or metastasis. Will continue active surveillance. (5) History of laryngeal cancer Assessment: The records indicated that the patient received concurrent chemotherapy cisplatin and radiotherapy. Patient endorsed a left-sided lymph nodes enlargement. On my physical examination at level 2 there is a fixed tend er 1 cm x 2 cm lymph node. patient underwent repeat ENT evaluation by Dr. Juan M Donato. No evidence of local recurrence. We'll continue to follow.
[2018-09-30 14:00] VITALS: BP 142/78; PULSE 66; RESP 20; TEMP 36.8; O2SAT 96
--- NOTE | 2018-09-30 14:21 | P.PNONC_ITS ---
PN -Subjective Interval history: 78 year old with hepatocellular carcinoma s/p chemoembolization now on surveillance, chronic hepatitis C (genotype 1A), and SCC of epiglottis diagnosed 2005, s/p cisplatin/XRT as well as left upper lobe stage I lung cancer status post left resection 2008. On 04/26/[address] of the abdomen with liver protocol. It showed cirrhotic heterogeneous liver morphology with scattered areas of low attenuation not evident on previous MRI. These likely represent regenerating of, dysplastic, or side robotic nodules. A 1.5 cm hepatic hemangioma was noted. Mild splenomegaly fairly stable was noted. And fairly stable bilobed abdominal aortic aneurysm was noted. In addition cholelithiasis was noted. On 04/27/2018, patient was evaluated at [facility] by Dr. Jennifer Barrera. Since her previous visit, because of the voice changes and questionable neck lymph nodes, patient was referred to ENT and was evaluated by Dr. Juan M Donato on July 27, 2018. Laryngoscopy was without abnormal lesions. On August 19, 2018, patient underwent upper endoscopy by Dr. Armin Perez. 4 columns of grade 1 esophageal varices at the distal esophagus, mild portal hypertension gastropathy, mild non-erosive gastritis were seen. At present, patient has been followed at [facility] by Dr. Jennifer Barrera. Patient is scheduled for laparoscopic resection of 1 the liver metastasis and planning for possible microwave ablation of 1 of the deeper lesion. Patient's tumor marker AFP has increased from 21 to 71. History of Present illness This is a 78 year old female with diagnosis with squamous cell carcinoma of the epiglottis in 2004. And patient underwent concurrent cisplatin and radiotherapy in January of 2016. She was diagnosed with non-small cell lung cancer T1 N0 MX in April of 2008 and underwent left upper lobectomy. She was diagnosed with hepatocellular carcinoma based on imaging reporting a 1.2 cm lesion on MRI in the right hepatic lobe, suspicious for malignancy. Dr. Emery looked at it and agreed that it was consistent with hepatocellular carcinoma. The patient then underwent chemoembolization with Dr. Emery on Thursday June 23, 2016. She has history of hepatitic C diagnosed in 1996 likely related to intravenous drug use and multiple tattoos. She also underwent liver biopsy in 2003 showing necroinflammatory activity, grade 2/3, and the liver fibrosis stage III. She did not receive any therapy due to psychiatric history of noncompliance. In January of 2016, blood test showed that her hepatitis C RNA PCR 5.65 logs with a Genotype 1A. Patient said that she has never been treated for hepatitis C. Due to rising AFP and CA 19-9, patient underwent US study of the liver on December 09, 2017. The ultrasound showed hyperechoic foci suspicious for hemangiomas. Previous lesions appearing to be related to hepatoma is not visualized. She also underwent liver MRI on December 09, 2017. The MRI showed stable appearance of a bilobed lesion within hepatic segment 7 consistent with hepatocellular carcinoma previously treated by radiofrequency ablation. Of note there is persistent enhancement on the arterial phase study in washout on the delayed phase study suggesting the presence of residual disease. No new foci to suggest new hepatoma. Splenomegaly was noted. 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 Focal region of enhancement within the posterior inferior right hepatic capsule without definite delayed will phase washout was noted. Focal region of enhancement within hepatic segment 4. A with imaging characteristics suggestive of a small hepatic hemangioma was noted. Due to questionable left-sided neck lymph nodes enlargement, we obtained CT scan of the neck and chest on 03/08/2018. No enlarged lymph nodes seen throughout the neck. The oropharynx, nasopharynx, and pharynx showed no mucosal lesions. The vocal cords, false vocal cords, piriform sinuses, epiglottis, vallecula, and tongue base or appeared normal. CT chest showed emphysematous change, and stable appearance of 2 small adjacent sub solid posterior right lower lung base nodules. The visible liver parenchyma reviewed stable 1.4 cm right posterior hepatic segment mass. - Patient Self-Reported Symptoms SR Constitution: Fatigue/Malaise SR eye issues: Vision changes SR ears, nose, mouth, throat issues: Changes in taste SR respiratory issues: Shortness of breath SR Cardiovascular issues: Shortness of breath with activity or lying flat, Dizzy/lightheaded SR Skin issues: Skin lesions or moles SR Gastrointestinal issues: Poor or no appetite, Abdominal pain SR Genitourinary issues: Frequent urination, Incontinence SR Musculoskeletal issues: Muscle weakness SR Neuro issues: Lightheaded/dizzy SR Hematologic issues: Slow healing, Swollen lymph nodes SR Endocrine issues: Cold intolerance, Excessive urination - Additional ROS All systems PM: reviewed and no additional remarkable complaints except as stated Home Medications and Allergies Home Medications Medication Instructions Recorded Confirmed Type clopidogrel 75 mg tablet 75 mg PO DAILY 08/05/17 09/30/18 History Disabled Parking Permit 1 dev 09/15/17 01/18/18 History Incontinence Supplies 1 ea DIRECTED 09/15/17 09/30/18 History diclofenac 1 % topical gel 2 gram TOP QID #100 gram 01/18/18 09/30/18 Rx gabapentin [Neurontin] 400 mg PO DAILY 03/11/18 09/30/18 History albuterol sulfate [Ventolin HFA] 2 puff INH Q4-6 PRN #1 inh 04/12/18 09/30/18 Rx metoprolol tartrate 25 mg tablet 12.5 mg PO BID #30 tab 04/12/18 09/30/18 Rx lorazepam 0.5 mg tablet 0.5 mg PO Q8HP PRN #60 tab 05/31/18 09/30/18 Rx ipratropium-albuterol 0.5 mg-3 3 ml INHALATION QIDP PRN #180 ml 06/16/18 09/30/18 Rx mg(2.5 mg base)/3 mL nebulization soln ipratropium-albuterol 0.5 mg-3 3 ml INHALATION Q6-8H PRN #100 vial 06/18/18 09/30/18 Rx mg(2.5 mg base)/3 mL nebulization soln levothyroxine 75 mcg tablet 75 mcg PO QAM #30 tab 08/31/18 09/30/18 Rx mupirocin 2 % topical ointment 1 applictn TOP TID PRN #30 gram 08/31/18 09/30/18 Rx Allergies Allergy/AdvReac Type Severity Reaction Status Date / Time codeine [CODEINE] AdvReac Mild IT MADE Verified 01/18/18 09:53 ME SICK TO MY STOMACH Exam Vital signs: Vital Signs Temp Pulse Resp BP Pulse Ox 09/30/18 14:00 98.2 F 66 20 142/78 H 96 Intake and Output 09/29/18 09/30/18 09/30/18 23:59 07:59 15:59 Other: Weight 50.4 kg Patient Weight 09/30/18 23:59 Weight 50.4 kg Narrative: Did not perform physical examination today Results - Labs Laboratory Last Values WBC 3.7 X10^3/uL (4.5-11.0) L 06/28/18 10:20 RBC 4.92 X10^6/uL (4.0-5.2) 06/28/18 10:20 Hgb 15.2 g/dL (12.0-16.0) 06/28/18 10:20 Hct 45.5 % (36-46) 06/28/18 10:20 MCV 92.4 fL (80-100) 06/28/18 10:20 MCH 30.8 PG (26-34) 06/28/18 10:20 MCHC 33.4 % (30-36) 06/28/18 10:20 RDW 13.9 % (11.6-14.8) 06/28/18 10:20 Plt Count 143 X10^3/uL (150-400) L 06/28/18 10:20 Neut % (Auto) 72.7 % (50-75) 06/28/18 10:20 Lymph % (Auto) 20.5 % (25-40) L 06/28/18 10:20 [place] % (Auto) 5.6 % (3-14) 06/28/18 10:20 Eos % (Auto) 0.6 % (2-4) L 06/28/18 10:20 Baso % (Auto) 0.6 % (0-2) 06/28/18 10:20 Neut # (Auto) 2700 /uL (8689-5585) 06/28/18 10:20 Lymph # (Auto) 800 /uL (1344-2114) L 06/28/18 10:20 [place] # (Auto) 200 /uL (0-900) 06/28/18 10:20 Eos # (Auto) 0 /uL (0-450) 06/28/18 10:20 Baso # (Auto) 0 /uL (0-100) 06/28/18 10:20 PT 13.4 SECONDS (10.1-12.7) H 05/24/18 08:37 INR 1.2 (0.9-1.3) 05/24/18 08:37 Sodium 137 mmol/L (137-145) 06/28/18 10:20 Potassium 5.0 mmol/L (3.4-5.1) 06/28/18 10:20 Chloride 99 mmol/L (98-107) 06/28/18 10:20 Carbon Dioxide 28 mmol/L (22-32) 06/28/18 10:20 BUN 20 mg/dL (7-17) H 06/28/18 10:20 Creatinine 0.80 mg/dL (0.52-1.04) 06/28/18 10:20 Estimated GFR > 60.0 mL/min (>60) 06/28/18 10:20 BUN/Creatinine Ratio 25.0 (6-22) H 06/28/18 10:20 Glucose 102 mg/dL (80-110) 06/28/18 10:20 Calcium 10.0 mg/dL (8.4-10.2) 06/28/18 10:20 Total Bilirubin 1.0 mg/dL (0.2-1.3) 06/28/18 10:20 AST 179 IU/L (14-36) H 06/28/18 10:20 ALT 115 IU/L (9-52) H 06/28/18 10:20 Alkaline Phosphatase 116 U/L (38-126) 06/28/18 10:20 Total Protein 8.7 g/dL (6.3-8.2) H 06/28/18 10:20 Albumin 4.1 g/dL (3.5-5.0) 06/28/18 10:20 Globulin 4.6 g/dL (1.7-4.1) H 06/28/18 10:20 Albumin/Globulin Ratio 0.9 (1.0-2.8) L 06/28/18 10:20 Alpha Fetoprotein 36.8 ng/mL (< 6.1) H 05/24/18 08:37 Serum Immunofixation See note 04/01/18 11:30 - Imaging Additional studies: Procedures Other endoscopy of small intestine (08/18/13) Transfusion of Nonautologous Plasma Cryoprecipitate into Peripheral Vein, Percutaneous Approach (06/19/15) Transfusion of packed cells (08/18/13) Assessment and Plan (1) Hepatocellular carcinoma 78 year old with hepatocellular carcinoma s/p chemoembolization now on surveillance. Patient's AFP level has significantly increased recently. Patient underwent MRI which showed enlargement of an arterial enhancing lesions in the liver. Patient currently is being followed by Dr. Jennifer Ribera with plan for a laparoscopic microwave ablation of both lesions next week. I will see the patient for follow up in 2 months, repeat CBC, CMP, AFP. (2) Cirrhosis of liver Biopsy proven. Stable. Dr. Zavala is following (3) Chronic hepatitis C without hepatic coma Patient has hepatitis C diagnosed 1996. And she has developed biopsy-proven cirrhosis. Patient's hepatitis C has never been treated. She is now being followed by Dr. Zavala who is planning to start hepatitis C treatment. (4) Primary cancer of left upper lobe of lung Patient underwent left upper lobectomy. Since then no clinical imaging evidence of disease recurrence or metastasis. CT chest on 03/08/2018 showed no evidence of disease recurrence or metastasis. Will continue active surveillance. (5) History of laryngeal cancer The records indicated that the patient received concurrent chemotherapy cisplatin and radiotherapy. Patient endorsed a left-sided lymph nodes enlargement. On my physical examination at level 2 there is a fixed tender 1 cm x 2 cm lymph node. patient underwent repeat ENT evaluation by Dr. Juan M Donato . No evidence of local recurrence. We'll continue to follow.
[2018-11-29 12:50] LABS: Add Manual Diff / Slide Review NO; Basophils Absolute Auto 0 /uL (0-100); Basophils Percent Auto 1.4 % (0-2); Eosinophils Absolute Auto 0 /uL (0-450); Eosinophils Percent Auto 0.7 % (2-4); Hematocrit 39.4 % (36-46); Hemoglobin 13.3 g/dL (12.0-16.0); Lymphocytes Absolute Auto 700 /uL (1100-4500); Lymphocytes Percent Auto 19.4 % (25-40); Mean Corpuscular HGB Conc 33.8 % (30-36); Mean Corpuscular Hemoglobin 31.8 PG (26-34); Monocytes Absolute Auto 200 /uL (0-900); Monocytes Percent Auto 6.3 % (3-14); Neutrophils Absolute Auto 2500 /uL (1500-7000); Neutrophils Percent Auto 72.2 % (50-75); Platelet Count 119 X10^3/uL (150-400); Red Cell Distribution Width 14.2 % (11.6-14.8); White Blood Cell Count 3.4 X10^3/uL (4.5-11.0)
[2018-11-29 13:05] LABS: Alanine Aminotransferase 22 IU/L (9-52); Albumin 3.7 g/dL (3.5-5.0); Albumin Globulin Ratio 0.9 (1.0-2.8); Alkaline Phosphatase 102 U/L (38-126); Aspartate Aminotransferase 49 IU/L (14-36); Bilirubin Total 0.9 mg/dL (0.2-1.3); Blood Urea Nitrogen 20 mg/dL (7-17); Calcium 9.5 mg/dL (8.4-10.2); Carbon Dioxide 28 mmol/L (22-32); Chloride 101 mmol/L (98-107); Estimated Glomerular Filt Rate > 60.0 mL/min (>60); Glucose 98 mg/dL (80-110); HEMOLYSIS < 15 (0-50); Potassium 4.1 mmol/L (3.4-5.1); Sodium 137 mmol/L (137-145); Total Protein 7.7 g/dL (6.3-8.2)
[2018-12-13 12:17] LABS: Add Manual Diff / Slide Review NO; Basophils Absolute Auto 0 /uL (0-100); Basophils Percent Auto 1.2 % (0-2); Eosinophils Absolute Auto 0 /uL (0-450); Hemoglobin 13.9 g/dL (12.0-16.0); Lymphocytes Absolute Auto 400 /uL (1100-4500); Lymphocytes Percent Auto 14.2 % (25-40); Mean Corpuscular HGB Conc 33.8 % (30-36); Mean Corpuscular Hemoglobin 31.4 PG (26-34); Mean Corpuscular Volume 92.8 fL (80-100); Monocytes Absolute Auto 200 /uL (0-900); Monocytes Percent Auto 7.7 % (3-14); Neutrophils Absolute Auto 2300 /uL (1500-7000); Neutrophils Percent Auto 75.9 % (50-75); Platelet Count 128 X10^3/uL (150-400); Red Blood Cell Count 4.42 X10^6/uL (4.0-5.2); Red Cell Distribution Width 13.8 % (11.6-14.8); White Blood Cell Count 3.1 X10^3/uL (4.5-11.0)
[2018-12-13 12:52] LABS: Alanine Aminotransferase 17 IU/L (9-52); Albumin 4.2 g/dL (3.5-5.0); Alkaline Phosphatase 106 U/L (38-126); Aspartate Aminotransferase 53 IU/L (14-36); BUN Creatinine Ratio 21.3 (6-22); Bilirubin Total 0.9 mg/dL (0.2-1.3); Blood Urea Nitrogen 17 mg/dL (7-17); Calcium 9.6 mg/dL (8.4-10.2); Carbon Dioxide 26 mmol/L (22-32); Chloride 102 mmol/L (98-107); Estimated Glomerular Filt Rate > 60.0 mL/min (>60); Globulin 4.2 g/dL (1.7-4.1); Glucose 86 mg/dL (80-110); HEMOLYSIS < 15 (0-50); Potassium 4.1 mmol/L (3.4-5.1); Sodium 138 mmol/L (137-145); Total Protein 8.4 g/dL (6.3-8.2)
[2018-12-16 14:57] VITALS: BP 130/83; PULSE 60; RESP 20; TEMP 36.9; O2SAT 97
--- NOTE | 2018-12-16 15:31 | P.PNONC_ITS ---
PN -Subjective Interval history: ID/CC: Etta is a 78 year old female with 78 year old with hepatocellular carcinoma s /p chemoembolization now on surveillance, chronic hepatitis C (genotype 1A), and SCC of epiglottis diagnosed 2005, s/p cisplatin/XRT as well as left upper lobe stage I lung cancer status post left resection 2008. She presents today for scheduled follow up visit. History of Present illness This is a 78 year old female with diagnosis with squamous cell carcinoma of the epiglottis in 2004. And patient underwent concurrent cisplatin and radiotherapy in January of 2006. She was diagnosed with non-small cell lung cancer T1 N0 MX in April of 2008 and underwent left upper lobectomy. She was diagnosed with hepatocellular carcinoma based on imaging reporting a 1.2 cm lesion on MRI in the right hepatic lobe, suspicious for malignancy. Dr. Emery looked at it and agreed that it was consistent with hepatocellular carcinoma. The patient then underwent chemoembolization with Dr. Emery on Thursday June 23, 2016. She has history of hepatitic C diagnosed in 1996 likely related to intravenous drug use and multiple tattoos. She also underwent liver biopsy in 2003 showing necroinflammatory activity, grade 2/3, and the liver fibrosis stage III. She did not receive any therapy due to psychiatric history of noncompliance. In January of 2016, blood test showed that her hepatitis C RNA PCR 5.65 logs with a Genotype 1A. Patient said that she has never been treated for hepatitis C. Due to rising AFP and CA 19-9, patient underwent US study of the liver on December 09, 2017. The ultrasound showed hyperechoic foci suspicious for hemangiomas. Previous lesions appearing to be related to hepatoma is not visualized. She also underwent liver MRI on December 09, 2017. The MRI showed stable appearance of a bilobed lesion within hepatic segment 7 consistent with hepatocellular carcinoma previously treated by radiofrequency ablation. Of note there is persistent enhancement on the arterial phase study in washout on the delayed phase study suggesting the presence of residual disease. No new foci to suggest new hepatoma. Splenomegaly was noted. 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 Focal region of enhancement within the posterior inferior right hepatic capsule without definite delayed will phase washout was noted. Focal region of enhancement within hepatic segment 4. A with imaging characteristics suggestive of a small hepatic hemangioma was noted. Due to questionable left-sided neck lymph nodes enlargement, we obtained CT scan of the neck and chest on 03/08/2018. No enlarged lymph nodes seen throughout the neck. The oropharynx, nasopharynx, and pharynx showed no mucosal lesions. The vocal cords, false vocal cords, piriform sinuses, epiglottis, vallecula, and tongue base or appeared normal. CT chest showed emphysematous change, and stable appearance of 2 small adjacent sub solid posterior right lower lung base nodules. The visible liver parenchyma reviewed stable 1.4 cm right posterior hepatic segment mass. On 04/26/[address] of the abdomen with liver protocol. It showed cirrhotic heterogeneous liver morphology with scattered areas of low attenuation not evident on previous MRI. These likely represent regenerating of, dysplastic, or side robotic nodules. A 1.5 cm hepatic hemangioma was noted. Mild splenomegaly fairly stable was noted. And fairly stable bilobed abdominal aortic aneurysm was noted. In addition cholelithiasis was noted. On 04/27/2018, patient was evaluated at [facility] by Dr. Jennifer Barrera. Due to voice changes and questionable neck lymph nodes, patient was referred to ENT and was evaluated by Dr. Juan M Donato on July 27, 2018. Laryngoscopy was without abnormal lesions. On August 19, 2018, patient underwent upper endoscopy by Dr. Armin Perez. 4 columns of grade 1 esophageal varices at the distal esophagus, mild portal hypertension gastropathy, mild non-erosive gastritis were seen. Interim Events: On 10/06/2018, Dr. Jennifer Barrera performed laparoscopic radiofrequency ablation of liver tumor and laparaosopic cholecystectomy. Patient has recuperated fwll from the surgery. Now she is getting Harvoni for her known hepatitis C under the care of Dr. Zavala. She admits that she is still smoking, about 4-5 cigaretes per day - Patient Self-Reported Symptoms SR Constitution: Weight loss/gain, Fatigue/Malaise SR eye issues: Vision changes SR ears, nose, mouth, throat issues: Changes in taste SR respiratory issues: Shortness of breath SR Cardiovascular issues: Shortness of breath with activity or lying flat, Dizzy/lightheaded SR Skin issues: Skin lesions or moles SR Gastrointestinal issues: Poor or no appetite, Abdominal pain SR Genitourinary issues: Frequent urination, Incontinence SR Musculoskeletal issues: Muscle weakness SR Neuro issues: Lightheaded/dizzy SR Hematologic issues: Slow healing, Swollen lymph nodes SR Endocrine issues: Cold intolerance, Excessive urination - Additional ROS All systems PM: reviewed and no additional remarkable complaints except as st ated Home Medications and Allergies Home Medications Medication Instructions Recorded Confirmed Type clopidogrel 75 mg tablet 75 mg PO DAILY 08/05/17 12/16/18 History Disabled Parking Permit 1 dev MISCELLANEOUS DIRECTED 09/15/17 12/16/18 History Incontinence Supplies 1 ea MISCELLANEOUS DIRECTED 09/15/17 12/16/18 History diclofenac sodium 1 % topical gel 2 gram TOP QID #100 gram 01/18/18 12/16/18 Rx gabapentin [Neurontin] 400 mg PO TID 03/11/18 12/16/18 History albuterol sulfate [Ventolin HFA] 2 puff INH Q4-6 PRN #1 inh 04/12/18 12/16/18 Rx ipratropium-albuterol 0.5 mg-3 3 ml INHALATION Q6-8H PRN #100 vial 06/18/18 12/16/18 Rx mg(2.5 mg base)/3 mL nebulization soln mupirocin 2 % topical ointment 1 applictn TOP TID PRN #30 gram 08/31/18 12/16/18 Rx levothyroxine 75 mcg tablet 75 mcg PO QAM #30 tab 10/05/18 12/16/18 Rx acetaminophen 650 mg PO Q6H PRN 10/11/18 12/16/18 History ibuprofen 200 mg PO Q6H PRN 10/11/18 12/16/18 History metoprolol tartrate 25 mg tablet See Rx Instructions .ROUTE 11/19/18 12/16/18 Rx .COMPLEX #30 tablet lorazepam 0.5 mg tablet 0.5 mg PO Q6H PRN #45 tab 11/29/18 12/16/18 Rx ledipasvir-sofosbuvir [Harvoni] 1 tab DAILY 12/16/18 12/16/18 History Allergies Allergy/AdvReac Type Severity Reaction Status Date / Time codeine [CODEINE] AdvReac Mild IT MADE Verified 10/18/18 10:06 ME SICK TO MY STOMACH Exam Vital signs: Vital Signs Temp Pulse Resp BP Pulse Ox 12/16/18 14:57 98.4 F 60 20 130/83 97 Intake and Output 12/15/18 12/16/18 12/16/18 23:59 07:59 15:59 Other: Weight 50.1 kg Patient Weight 12/16/18 23:59 Weight 50.1 kg - Constitutional positive no acute distress, positive thin, positive cooperative - Routine HEENT Exam Head: Present: normocephalic, atraumatic Eye: Present: EOMI, PERRL, normal accommodation. Absent: conjunctival icterus ENT: Present: mucous membranes moist - Routine Neck Exam Present: supple. Absent: lymphadenopathy, thyromegaly - Routine Chest/Breast/Axilla Exam Axillae: Absent: lymphadenopathy - Routine Respiratory Exam Present: Clear to auscultation bilaterally - Routine Cardiovascular Exam Present: RRR, S1, S2. Absent: murmur, gallop, rubs - Routine Abdominal Exam Present: soft. Absent: tenderness, distended - Routine Extremities Exam Absent: edema - Routine Neurological Exam Present: alert, oriented X3, CN II-XII intact. Absent: sensory deficit, motor deficit - Routine Psychiatric Exam Present: normal affect Results - Labs Laboratory Last Values WBC 3.1 X10^3/uL (4.5-11.0) L 12/13/18 10:28 RBC 4.42 X10^6/uL (4.0-5.2) 12/13/18 10:28 Hgb 13.9 g/dL (12.0-16.0) 12/13/18 10:28 Hct 41.0 % (36-46) 12/13/18 10:28 MCV 92.8 fL (80-100) 12/13/18 10:28 MCH 31.4 PG (26-34) 12/13/18 10:28 MCHC 33.8 % (30-36) 12/13/18 10:28 RDW 13.8 % (11.6-14.8) 12/13/18 10:28 Plt Count 128 X10^3/uL (150-400) L 12/13/18 10:28 Neut % (Auto) 75.9 % (50-75) H 12/13/18 10:28 Lymph % (Auto) 14.2 % (25-40) L 12/13/18 10:28 Frederick % (Auto) 7.7 % (3-14) 12/13/18 10:28 Eos % (Auto) 1.0 % (2-4) L 12/13/18 10:28 Baso % (Auto) 1.2 % (0-2) 12/13/18 10:28 Neut # (Auto) 2300 /uL (6549-3495) 12/13/18 10:28 Lymph # (Auto) 400 /uL (1127-8000) L 12/13/18 10:28 Frederick # (Auto) 200 /uL (0-900) 12/13/18 10:28 Eos # (Auto) 0 /uL (0-450) 12/13/18 10:28 Baso # (Auto) 0 /uL (0-100) 12/13/18 10:28 PT 13.4 SECONDS (10.1-12.7) H 05/24/18 08:37 INR 1.2 (0.9-1.3) 05/24/18 08:37 Sodium 138 mmol/L (137-145) 12/13/18 10:28 Potassium 4.1 mmol/L (3.4-5.1) 12/13/18 10:28 Chloride 102 mmol/L (98-107) 12/13/18 10:28 Carbon Dioxide 26 mmol/L (22-32) 12/13/18 10:28 BUN 17 mg/dL (7-17) 12/13/18 10:28 Creatinine 0.80 mg/dL (0.52-1.04) 12/13/18 10:28 Estimated GFR > 60.0 mL/min (>60) 12/13/18 10:28 BUN/Creatinine Ratio 21.3 (6-22) 12/13/18 10:28 Glucose 86 mg/dL (80-110) 12/13/18 10:28 Calcium 9.6 mg/dL (8.4-10.2) 12/13/18 10:28 Total Bilirubin 0.9 mg/dL (0.2-1.3) 12/13/18 10:28 AST 53 IU/L (14-36) H 12/13/18 10:28 ALT 17 IU/L (9-52) 12/13/18 10:28 Alkaline Phosphatase 106 U/L (38-126) 12/13/18 10:28 Total Protein 8.4 g/dL (6.3-8.2) H 12/13/18 10:28 Albumin 4.2 g/dL (3.5-5.0) 12/13/18 10:28 Globulin 4.2 g/dL (1.7-4.1) H 12/13/18 10:28 Albumin/Globulin Ratio 1.0 (1.0-2.8) 12/13/18 10:28 Alpha Fetoprotein 16.0 ng/mL (< 6.1) H 11/29/18 11:54 Serum Immunofixation See note 04/01/18 11:30 - Imaging Additional studies: Procedures Other endoscopy of small intestine (08/18/13) Transfusion of Nonautologous Plasma Cryoprecipitate into Peripheral Vein, Percutaneous Approach (06/19/15) Transfusion of packed cells (08/18/13) Assessment and Plan (1) Hepatocellular carcinoma 78 year old with hepatocellular carcinoma s/p chemoembolization. Patient's AFP level has significantly increased recently. Patient underwent MRI which showed enlargement of an arterial enhancing lesions in the liver. On 10/06/2018, Dr. Jennifer Barrera performed laparoscopic radiofrequency ablation of liver tumor and laparaosopic cholecystectomy Plan: MR liver protocol 01/06/2019 RTC after scan, CBC, CMP, AFP (2) Cirrhosis of liver Biopsy proven. Stable. Dr. Zavala is following (3) Chronic hepatitis C without hepatic coma Patient has hepatitis C diagnosed 1996. And she has developed biopsy-proven cirrhosis. She is now undergoing treatment with Harvoni.. (4) Primary cancer of left upper lobe of lung Patient underwent left upper lobectomy. Since then no clinical imaging evidence of disease recurrence or metastasis. CT chest on 03/08/2018 showed no evidence of disease recurrence or metastasis. Will continue active surveillance. (5) History of laryngeal cancer The records indicated that the patient received concurrent chemotherapy cisplatin and radiotherapy. Patient endorsed a left-sided lymph nodes enlargement. On my physical examination at level 2 there is a fixed tender 1 cm x 2 cm lymph node. patient underwent repeat ENT evaluation by Dr. Juan M Donato. No evidence of local recurrence. We'll continue to follow.
--- NOTE | 2019-08-04 09:55 | P.PNONC_ITS ---
PN -Subjective Interval history: ID/CC: Etta is a 78 year old female with 78 year old with hepatocellular carcinoma s /p chemoembolization now on surveillance, chronic hepatitis C (genotype 1A), and SCC of epiglottis diagnosed 2005, s/p cisplatin/XRT as well as left upper lobe stage I lung cancer status post left resection 2008. She presents today for scheduled follow up visit. History of Present illness This is a 78 year old female with diagnosis with squamous cell carcinoma of the epiglottis in 2004. And patient underwent concurrent cisplatin and radiotherapy in January of 2006. She was diagnosed with non-small cell lung cancer T1 N0 MX in April of 2008 and underwent left upper lobectomy. She was diagnosed with hepatocellular carcinoma based on imaging reporting a 1.2 cm lesion on MRI in the right hepatic lobe, suspicious for malignancy. Dr. Emery looked at it and agreed that it was consistent with hepatocellular carcinoma. The patient then underwent chemoembolization with Dr. Emery on Thursday June 23, 2016. She has history of hepatitic C diagnosed in 1996 likely related to intravenous drug use and multiple tattoos. She also underwent liver biopsy in 2003 showing necroinflammatory activity, grade 2/3, and the liver fibrosis stage III. She did not receive any therapy due to psychiatric history of noncompliance. In January of 2016, blood test showed that her hepatitis C RNA PCR 5.65 logs with a Genotype 1A. Patient said that she has never been treated for hepatitis C. Due to rising AFP and CA 19-9, patient underwent US study of the liver on December 09, 2017. The ultrasound showed hyperechoic foci suspicious for hemangiomas. Previous lesions appearing to be related to hepatoma is not visualized. She also underwent liver MRI on December 09, 2017. The MRI showed stable appearance of a bilobed lesion within hepatic segment 7 consistent with hepatocellular carcinoma previously treated by radiofrequency ablation. Of note there is persistent enhancement on the arterial phase study in washout on the delayed phase study suggesting the presence of residual disease. No new foci to suggest new hepatoma. Splenomegaly was noted. 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 Focal region of enhancement within the posterior inferior right hepatic capsule without definite delayed will phase washout was noted. Focal region of enhancement within hepatic segment 4. A with imaging characteristics suggestive of a small hepatic hemangioma was noted. Due to questionable left-sided neck lymph nodes enlargement, we obtained CT scan of the neck and chest on 03/08/2018. No enlarged lymph nodes seen throughout the neck. The oropharynx, nasopharynx, and pharynx showed no mucosal lesions. The vocal cords, false vocal cords, piriform sinuses, epiglottis, vallecula, and tongue base or appeared normal. CT chest showed emphysematous change, and stable appearance of 2 small adjacent sub solid posterior right lower lung base nodules. The visible liver parenchyma reviewed stable 1.4 cm right posterior hepatic segment mass. On 04/26/[address] of the abdomen with liver protocol. It showed cirrhotic heterogeneous liver morphology with scattered areas of low attenuation not evident on previous MRI. These likely represent regenerating of, dysplastic, or side robotic nodules. A 1.5 cm hepatic hemangioma was noted. Mild splenomegaly fairly stable was noted. And fairly stable bilobed abdominal aortic aneurysm was noted. In addition cholelithiasis was noted. On 04/27/2018, patient was evaluated at [facility] by Dr. Jennifer Barrera. Due to voice changes and questionable neck lymph nodes, patient was referred to ENT and was evaluated by Dr. Juan M Donato on July 27, 2018. Laryngoscopy was without abnormal lesions. On August 19, 2018, patient underwent upper endoscopy by Dr. Armin Perez. 4 columns of grade 1 esophageal varices at the distal esophagus, mild portal hypertension gastropathy, mild non-erosive gastritis were seen. On 10/06/2018, Dr. Jennifer Barrera performed laparoscopic radiofrequency ablation of liver tumor and laparaosopic cholecystectomy. Interim Events: Since her previous visit, she has completed a full course of treatment with Harvoni for her known hepatitis C under the care of Dr. Zavala. In 03/2019, she said that due to leg problems, she fell, and landed on the heater that hit her real bad. She sustained bruises very badly on the right side. She fell again 05/2019. Her body has been in 'shock'. She is going to see her cardiologisit for palpitations. She also noted abdominal pain, around the umbilicus, and it is sore. She felt nauseous but no vomiting. She is tire all the time. She has lots of pain in the right abdomen. - Patient Self-Reported Symptoms SR Constitution: Weight loss/gain, Fatigue/Malaise SR eye issues: Vision changes SR ears, nose, mouth, throat issues: Changes in taste SR respiratory issues: Shortness of breath SR Cardiovascular issues: Shortness of breath with activity or lying flat, Dizzy/lightheaded SR Skin issues: Skin lesions or moles SR Gastrointestinal issues: Poor or no appetite, Abdominal pain SR Genitourinary issues: Frequent urination, Incontinence SR Musculoskeletal issues: Muscle weakness SR Neuro issues: Lightheaded/dizzy SR Hematologic issues: Slow healing, Swollen lymph nodes SR Endocrine issues: Cold intolerance, Excessive urination - Additional ROS All systems PM: reviewed and no additional remarkable complaints except as stated Home Medications and Allergies Home Medications Medication Instructions Recorded Confirmed Type clopidogrel 75 mg tablet 75 mg PO DAILY 08/05/17 08/04/19 History Disabled Parking Permit 1 dev MISCELLANEOUS DIRECTED 09/15/17 08/04/19 History Incontinence Supplies 1 ea MISCELLANEOUS DIRECTED 09/15/17 08/04/19 History levothyroxine 75 mcg tablet 75 mcg PO QAM #30 tab 01/10/19 08/04/19 Rx albuterol sulfate 90 mcg/actuation 2 puff INHALATION Q4-6H #18 gram 03/18/19 08/04/19 Rx aerosol inhaler gabapentin 400 mg capsule 400 mg PO TID #270 cap 06/08/19 08/04/19 Rx lorazepam 0.5 mg tablet 0.5 mg PO Q6H PRN #45 tab 06/08/19 08/04/19 Rx metoprolol tartrate 25 mg tablet 12.5 mg PO BID #90 tab 06/08/19 08/04/19 Rx tiotropium bromide 2.5 2 puff INHALATION DAILY 06/22/19 08/04/19 History mcg/actuation mist for inhalation Allergies Allergy/AdvReac Type Severity Reaction Status Date / Time codeine [CODEINE] AdvReac Mild IT MADE Verified 07/06/19 09:15 ME SICK TO MY STOMACH Exam Vital signs: 08/04/19 23:19 Last Vital Signs Temp 97.5 F L 08/04/19 10:06 Pulse 70 08/04/19 10:06 Resp 16 08/04/19 10:06 BP 152/88 H 08/04/19 10:06 Pulse Ox 97 12/16/18 14:57 - Constitutional positive no acute distress, positive chronically ill appearing, positive cooperative - Routine HEENT Exam Head: Present: normocephalic, atraumatic Eye: Present: EOMI, PERRL, normal accommodation. Absent: conjunctival icterus - Routine Neck Exam Present: supple. Absent: lymphadenopathy, thyromegaly - Routine Chest/Breast/Axilla Exam Axillae: Absent: lymphadenopathy - Routine Respiratory Exam Present: Clear to auscultation bilaterally. Absent: wheezes - Routine Cardiovascular Exam Present: RRR, S1, S2. Absent: murmur, gallop, rubs - Routine Abdominal Exam Present: soft. Absent: tenderness Palpation/Percussion: Absent: hepatomegaly, splenomegaly - Routine Neurological Exam Present: alert, oriented X3, CN II-XII intact. Absent: sensory deficit, motor deficit - Routine Psychiatric Exam Present: normal affect, anxious Results - Labs Labs from 07/26/2019: Na 137, K 4.3, Bun 20, Cr 0.89, Glucose 94, Calcium 9.9, Total bilirubin 0.9, AST 38, Alt 16, ALP 77, Total protein 8.5 AFP 407. - Imaging Additional studies: Procedures Other endoscopy of small intestine (08/18/13) Transfusion of Nonautologous Plasma Cryoprecipitate into Peripheral Vein, Percutaneous Approach (06/19/15) Transfusion of packed cells (08/18/13) Assessment and Plan (1) Hepatocellular carcinoma 79 year old with multifoal recurrent hepatocellular carcinoma s/p chemoembolization as well as RFA. I explained to the patient that the MRI liver protocol showed new localized lesions consistent with recurrence of her hepatocellular carcinoma. Her tumor marker AFP also has increased significantly. I explained to the patient that I will refer her back to Dr. Jennifer Barrera for evaluation possible radiofrequency ablation. I will see the patient after her visit with Dr. Barrera to discuss about systemic therapy if it is indicated. Plan: Referral to Dr. Jennifer Barrera for evaluation PET scan RTC in 2-3 weeks for followup visit. (2) Cirrhosis of liver Biopsy proven. Stable. Dr. Zavala is following (3) Chronic hepatitis C without hepatic coma Patient has hepatitis C diagnosed 1996. And she has developed biopsy-proven cirrhosis. She completed a full course of Harvoni treatment. (4) Primary cancer of left upper lobe of lung Patient underwent left upper lobectomy. Since then no clinical imaging evidence of disease recurrence or metastasis. CT chest on 03/08/2018 showed no evidence of disease recurrence or metastasis. Will continue active surveillance. (5) History of laryngeal cancer The records indicated that the patient received concurrent chemotherapy cisplatin and radiotherapy. Patient endorsed a left-sided lymph nodes enlargement. On my physical examination at level 2 there is a fixed tender 1 cm x 2 cm lymph node. patient underwent repeat ENT evaluation by Dr. Juan M Donato. No evidence of local recurrence. We'll continue to follow.
[2019-08-04 10:06] VITALS: BP 152/88; PULSE 70; RESP 16; TEMP 36.4
--- NOTE | 2019-08-08 10:51 | ONC.SCHED ---
Referral sent to Dr. Barrera and PET scan waiting to get signed by Dr. Harrell and then sent to [facility].
--- NOTE | 2019-08-10 10:53 | ONC.SCHED ---
Patient is scheduled for PET scan 08/17/19; scheduled with Dr. Barrera today 08/10/19 (daughter will be at that apt.); and scheduled with Dr. Harrell for f/u 08/25/19. Daughter has been called today by me regarding coming to the apt. with Dr. Harrell. She will ask for the day off at work. Daughter mentioned she may need something in writing from us for her employer regarding the 08/24 f/u. I let her know if she does need that to contact us and Hui could help.
[2019-08-25 14:31] VITALS: BP 153/82; PULSE 61; RESP 18; TEMP 36.7; O2SAT 96
--- NOTE | 2019-08-25 14:41 | P.PNONC_ITS ---
PN -Subjective Interval history: ID/CC: Etta is a 79 year old female with hepatocellular carcinoma s/p chemoembolization now on surveillance, chronic hepatitis C (genotype 1A), and SCC of epiglottis diagnosed 2005, s/p cisplatin/XRT as well as left upper lobe stage I lung cancer status post left resection 2008. She presents today for scheduled follow up visit. History of Present illness This is a 78 year old female with diagnosis with squamous cell carcinoma of the epiglottis in 2004. And patient underwent concurrent cisplatin and radiotherapy in January of 2006. She was diagnosed with non-small cell lung cancer T1 N0 MX in April of 2008 and underwent left upper lobectomy. She was diagnosed with hepatocellular carcinoma based on imaging reporting a 1.2 cm lesion on MRI in the right hepatic lobe, suspicious for malignancy. Dr. Emery looked at it and agreed that it was consistent with hepatocellular car cinoma. The patient then underwent chemoembolization with Dr. Emery on Thursday June 23, 2016. She has history of hepatitic C diagnosed in 1996 likely related to intravenous drug use and multiple tattoos. She also underwent liver biopsy in 2003 showing necroinflammatory activity, grade 2/3, and the liver fibrosis stage III. She did not receive any therapy due to psychiatric history of noncompliance. In January of 2016, blood test showed that her hepatitis C RNA PCR 5.65 logs with a Genotype 1A. Patient said that she has never been treated for hepatitis C. Due to rising AFP and CA 19-9, patient underwent US study of the liver on December 09, 2017. The ultrasound showed hyperechoic foci suspicious for hemangiomas. Previous lesions appearing to be related to hepatoma is not visualized. She also underwent liver MRI on December 09, 2017. The MRI showed stable appearance of a bilobed lesion within hepatic segment 7 consistent with hepatocellular carcinoma previously treated by radiofrequency ablation. Of note there is persistent enhancement on the arterial phase study in washout on the delayed phase study suggesting the presence of residual disease. No new foci to suggest new hepatoma. Splenomegaly was noted. 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 Focal region of enhancement within the posterior inferior right hepatic capsule without definite delayed will phase washout was noted. Focal region of enhancement within hepatic segment 4. A with imaging characteristics suggestive of a small hepatic hemangioma was noted. Due to questionable left-sided neck lymph nodes enlargement, we obtained CT scan of the neck and chest on 03/08/2018. No enlarged lymph nodes seen throughout the neck. The oropharynx, nasopharynx, and pharynx showed no mucosal lesions. The vocal cords, false vocal cords, piriform sinuses, epiglottis, vallecula, and tongue base or appeared normal. CT chest showed emphysematous change, and stable appearance of 2 small adjacent sub solid posterior right lower lung base nodules. The visible liver parenchyma reviewed stable 1.4 cm right posterior hepatic segment mass. On 04/26/[address] of the abdomen with liver protocol. It showed cirrhotic heterogeneous liver morphology with scattered areas of low attenuation not evident on previous MRI. These likely represent regenerating of, dysplastic, or side robotic nodules. A 1.5 cm hepatic hemangioma was noted. Mild splenomegaly fairly stable was noted. And fairly stable bilobed abdominal aortic aneurysm was noted. In addition cholelithiasis was noted. On 04/27/2018, patient was evaluated at [facility] by Dr. Jennifer Barrera. Due to voice changes and questionable neck lymph nodes, patient was referred to ENT and was evaluated by Dr. Juan M Donato on July 27, 2018. Laryngoscopy was without abnormal lesions. On August 19, 2018, patient underwent upper endoscopy by Dr. Armin Perez. 4 columns of grade 1 esophageal varices at the distal esophagus, mild portal hypertension gastropathy, mild non-erosive gastritis were seen. On 10/06/2018, Dr. Jennifer Barrera performed laparoscopic radiofrequency ablation of liver tumor and laparaosopic cholecystectomy. Interim Events: Since her previous visit, she has completed a full course of treatment with Harvoni for her known hepatitis C under the care of Dr. Zavala. Due to rising AFP, repeat MRI liver protocol on 07/26/2019 showed new localized lesions consistent with recurrence of her hepatocellular carcinoma. I referred to back to Dr. Jennifer Barrera who saw the patient on 08/10/2019. Dr. Barrera recommended against the radio frequency ablation. However patient may be still a good candidate for trans arterial chemoembolization or Y 99 treatment. She came in today for scheduled follow up visit. She said she feels tired and just wants to go to sleep. She has lots of problems with incontinence. Recently, her lasix and spirolactoone were stopped. She said that her urinary symptoms have improved. She is also reporting mild exertional sob. When she walks, she automatically takes breaks. She repots no abdominal pain. She said she has normal bowel movement. - Patient Self-Reported Symptoms SR Constitution: Weight loss/gain, Fatigue/Malaise SR eye issues: Vision changes, Double vision SR ears, nose, mouth, throat issues: Changes in taste SR respiratory issues: Shortness of breath, Mucous SR Cardiovascular issues: Dizzy/lightheaded SR Skin issues: Dry skin SR Gastrointestinal issues: Poor or no appetite SR Genitourinary issues: Frequent urination, Incontinence SR Musculoskeletal issues: Muscle weakness SR Neuro issues: Headache, Lightheaded/dizzy, Numbness or tingling, Tremors or shaking, Difficulty balancing SR Hematologic issues: Bleeding/bruising SR Endocrine issues: Cold intolerance, Excessive urination - Additional ROS All systems PM: reviewed and no additional remarkable complaints except as stated Home Medications and Allergies Home Medications Medication Instructions Recorded Confirmed Type Disabled Parking Permit 1 dev MISCELLANEOUS DIRECTED 09/15/17 08/25/19 History Incontinence Supplies 1 ea MISCELLANEOUS DIRECTED 09/15/17 08/04/19 History gabapentin 400 mg capsule 400 mg PO TID #270 cap 06/08/19 08/25/19 Rx lorazepam 0.5 mg tablet 0.5 mg PO Q6H PRN #45 tab 06/08/19 08/25/19 Rx metoprolol tartrate 25 mg tablet 12.5 mg PO BID #90 tab 06/08/19 08/25/19 Rx tiotropium bromide 2.5 2 puff INHALATION DAILY 06/22/19 08/25/19 History mcg/actuation mist for inhalation albuterol sulfate 90 mcg/actuation 2 puff INHALATION Q4-6H #18 gram 08/20/19 08/25/19 Rx aerosol inhaler albuterol sulfate [ProAir HFA] 1 inh INHALATION QID PRN 08/25/19 08/25/19 History aspirin 81 mg PO DAILY 08/25/19 08/25/19 History cilostazol 50 mg BID 08/25/19 08/25/19 History Allergies Allergy/AdvReac Type Severity Reaction Status Date / Time codeine [CODEINE] AdvReac Mild IT MADE Verified 07/06/19 09:15 ME SICK TO MY STOMACH Exam Vital signs: Vital Signs Temp Pulse Resp BP Pulse Ox 08/25/19 14:31 98.1 F 61 18 153/82 H 96 Intake and Output 08/24/19 08/25/19 08/25/19 23:59 07:59 15:59 Other: Weight 51.1 kg Patient Weight 08/25/19 23:59 Weight 51.1 kg - Constitutional positive no acute distress, positive thin, positive chronically ill appearing, positive cooperative - Routine HEENT Exam Head: Present: normocephalic, atraumatic Eye: Present: EOMI, PERRL, normal accommodation. Absent: conjunctival icterus - Routine Neck Exam Absent: lymphadenopathy, thyromegaly - Routine Chest/Breast/Axilla Exam Axillae: Absent: lymphadenopathy - Routine Respiratory Exam Present: Clear to auscultation bilaterally. Absent: accessory muscle use, wheezes - Routine Cardiovascular Exam Present: RRR, S1, S2. Absent: murmur, gallop, rubs - Routine Abdominal Exam Present: soft. Absent: tenderness Palpation/Percussion: Present: hepatomegaly - Routine Neurological Exam Present: alert, oriented X3, CN II-XII intact. Absent: sensory deficit, motor deficit - Routine Psychiatric Exam Present: normal affect, cooperative Results - Imaging Additional studies: Procedures Other endoscopy of small intestine (08/18/13) Transfusion of Nonautologous Plasma Cryoprecipitate into Peripheral Vein, Percutaneous Approach (06/19/15) Transfusion of packed cells (08/18/13) Assessment and Plan (1) Hepatocellular carcinoma 79 year old with multifoal recurrent hepatocellular carcinoma s/p chemoembolization as well as RFA. Due to rising AFP, repeat MRI liver protocol on 07/26/2019 showed new localized lesions consistent with recurrence of her hepatocellular carcinoma. I referred to back to Dr. Jennifer Barrera who saw the patient on 08/10/2019. Dr. Barrera recommended against the radio frequency ablation. However patient may be still a good candidate for trans arterial chemoembolization or Y 99 treatment. I will touch base with Dr. Jennifer esteves about the referral. Today, I also touched base with the patient about systemic therapy. The newly approved regimen involving atezolizumab and bevacizumab may be a good option for her. I will re-evaluate after possible TAC for the liver metastasis Plan: Follow up with Dr. Jennifer Barrera for continued evaluation RTC in 2-3 weeks for followup visit. (2) Cirrhosis of liver Biopsy proven. Stable. Dr. Zavala is following (3) Primary cancer of left upper lobe of lung Patient underwent left upper lobectomy. Since then no clinical imaging evidence of disease recurrence or metastasis. CT chest on 03/08/2018 showed no evidence of disease recurrence or metastasis. Will continue active surveillance. (4) History of laryngeal cancer The records indicated that the patient received concurrent chemotherapy cisplatin and radiotherapy. Patient endorsed a left-sided lymph nodes enlargement. On my physical examination at level 2 there is a fixed tender 1 cm x 2 cm lymph node. Today, I reviewed the PET scan results with the patient. Our radiologist noted symmetrical uptake in the throat. Given her history of laryngeal carcinoma in the past, our radiologist Dr. Simon recommended direct visualization. I talked her that it is highly appropriate especially on clinical examination, there is a palpable left level 2 tender lymph node. Plan: Referral to ENT for direct visualization.
--- NOTE | 2019-08-29 11:57 | ONC.SCHED ---
Referral sent to [facility] as does not have ENT on site.
--- NOTE | 2019-10-17 14:37 | ONC.SCHED ---
no show/left a voice mail for patient to call and reschedule
--- NOTE | 2020-01-02 09:03 | PC.NURSE ---
Dr. Barrera wanted to go to [place] for a consultation for the spots on the liver, but pt refused. Pt f/u with Dr. Barrera, but daughter didn't know what they spoke of at that appointment. Pt's daughter was told she needed some imaging and a f/u with Dr. Harrell. Making provider aware with this note.
--- NOTE | 2020-01-03 11:44 | ONC.SCHED ---
Spoke with Meg, patient's POA, informing her that Dr. Harrell needs to see her mother ANGELICA. Offered 01/05/2020 @ 8:20. Meg is unavailable to take her mother at that time. She stated that the ride program requires 1 week in advance, but she is going to call them to see if there is any way they can accommodate. She will call back.
--- NOTE | 2020-01-05 08:15 | P.PNONC_ITS ---
PN -Subjective Interval history: ID/CC: Etta is a 79 year old female with hepatocellular carcinoma s/p chemoembolization now on surveillance, chronic hepatitis C (genotype 1A), and SCC of epiglottis diagnosed 2005, s/p cisplatin/XRT as well as left upper lobe stage I lung cancer status post left resection 2008. She presents today for scheduled follow up visit. History of Present illness Etta has a history of hepatitic C diagnosed in 1996 likely related to intravenous drug use and multiple tattoos. She also underwent liver biopsy in 2003 showing necro-inflammatory activity, grade 2/3, and the liver fibrosis stage III. She did not receive any therapy due to psychiatric history of noncompliance. In Jan 2016, blood test showed that her hepatitis C RNA PCR 5.65 logs with a Genotype 1A. On August 19, 2018, patient underwent upper endoscopy by Dr. Armin Canela. 4 columns of grade 1 esophageal varices at the distal esophagus, mild portal hypertension gastropathy, mild non-erosive gastritis were seen. Patient said that she has never been treated for hepatitis C until 2019 when she completed a full course of treatment with Harvoni for her known hepatitis C under the care of Dr. Zavala. She was diagnosed with squamous cell carcinoma of the epiglottis in 2004. She underwent concurrent cisplatin and radiotherapy in Jan, 2006. She was diagnosed with non-small cell lung cancer T1 N0 Mx in Apr 2008 and underwent left upper lobectomy. She was diagnosed with hepatocellular carcinoma based on MR imaging reporting a 1.2 cm lesion in the right hepatic lobe. She underwent chemoembolization on June 23, 2016. On 10/06/2018, Dr. Jennifer Barrera performed laparoscopic radiofrequency ablation of both the initial HCC and the second HCC that had developed. Interim Events: During her previous visit, due to rising AFP, MRI was repeated on 07/26/2019 that showed new localized lesions consistent with recurrence of her hepatocellular carcinoma. Then, I referred the patient back to Dr. Jennifer Barrera who saw the patient on 08/10/2019. Dr. Barrera recommended against the radiofrequency ablation. Dr. Barrera also had the case reviewed at an outside HCC liver tumor board, and it was deemed that these lesions had not changed significantly from her prior imaging, and therefore short interval follow-up was recommended. The patient was also referred to for evaluation. However, she did not go to out of fear of COVID. On 09/21/2019, she was seen by Dr. Thiago Waldrop for follow up visit due to her previous history of laryngeal carcinoma. Fiberoptic exam showed no obvious lesions. Today, clinically she gets dizzy and light headed a lot. She can not control her bladder and has incontinence. Last night, she wet herself three times. She has frequent urination. She said She is very sleepy all the time. She does not get a full sleep because of urination problems. She said there is time she is not hungary at all. She feels sick to her stomach. Yesterday, she had dry belch and gag. But no vomiting. She has occasional epigastric and RUQ soreness. She sweats a lot. - Patient Self-Reported Symptoms SR Constitution: Weight loss/gain, Fatigue/Malaise SR eye issues: Vision changes, Double vision SR ears, nose, mouth, throat issues: Changes in taste SR respiratory issues: Shortness of breath, Mucous SR Cardiovascular issues: Dizzy/lightheaded SR Skin issues: Dry skin SR Gastrointestinal issues: Poor or no appetite SR Genitourinary issues: Frequent urination, Incontinence SR Musculoskeletal issues: Muscle weakness SR Neuro issues: Headache, Lightheaded/dizzy, Numbness or tingling, Tremors or shaking, Difficulty balancing SR Hematologic issues: Bleeding/bruising SR Endocrine issues: Cold intolerance, Excessive urination - Additional ROS All systems PM: reviewed and no additional remarkable complaints except as stated Home Medications and Allergies Home Medications Medication Instructions Recorded Confirmed Type Disabled Parking Permit 1 dev MISCELLANEOUS DIRECTED 09/15/17 01/05/20 History Incontinence Supplies 1 ea MISCELLANEOUS DIRECTED 09/15/17 01/05/20 History tiotropium bromide 2.5 2 puff INHALATION DAILY 06/22/19 01/05/20 History mcg/actuation mist for inhalation albuterol sulfate 90 mcg/actuation 2 puff INHALATION Q4-6H #18 gram 08/20/19 01/05/20 Rx aerosol inhaler albuterol sulfate [ProAir HFA] 1 inh INHALATION QID PRN 08/25/19 01/05/20 History aspirin 81 mg PO DAILY 08/25/19 01/05/20 History cilostazol 50 mg BID 08/25/19 01/05/20 History efinaconazole 10 % topical 1 applictn TOP DAILY 336 Days #4 ml 09/05/19 01/05/20 Rx solution with applicator levothyroxine 50 mcg tablet 50 mcg PO DAILY #90 tab 10/10/19 01/05/20 Rx gabapentin 400 mg capsule 400 mg PO TID #270 cap 12/16/19 01/05/20 Rx lorazepam 0.5 mg tablet See Rx Instructions .ROUTE 12/16/19 01/05/20 Rx .COMPLEX #45 tab metoprolol tartrate 25 mg tablet 12.5 mg PO BID #90 tab 12/16/19 01/05/20 Rx tolterodine 2 mg capsule,extended 2 mg PO DAILY #30 cap 12/16/19 01/05/20 Rx release 24 hr Allergies Allergy/AdvReac Type Severity Reaction Status Date / Time codeine [CODEINE] AdvReac Mild IT MADE Verified 12/16/19 14:36 ME SICK TO MY STOMACH Exam Vital signs: 01/05/20 08:55 Last Vital Signs Temp 98.4 F 01/05/20 08:32 Pulse 68 01/05/20 08:32 Resp 18 01/05/20 08:32 BP 189/91 H 01/05/20 08:32 Pulse Ox 95 01/05/20 08:32 - Constitutional positive no acute distress, positive chronically ill appearing, positive cooperative - Routine HEENT Exam Head: Present: normocephalic, atraumatic Eye: Present: EOMI, PERRL, normal accommodation. Absent: conjunctival icterus - Routine Neck Exam Present: supple. Absent: lymphadenopathy - Routine Chest/Breast/Axilla Exam Axillae: Absent: lymphadenopathy - Routine Respiratory Exam Present: Clear to auscultation bilaterally. Absent: wheezes - Routine Cardiovascular Exam Present: RRR, S1, S2. Absent: murmur, gallop, rubs - Routine Abdominal Exam Present: soft, tenderness, distended - Routine Extremities Exam Absent: edema - Routine Neurological Exam Present: alert, oriented X3, CN II-XII intact, sensory deficit. Absent: motor deficit - Routine Psychiatric Exam Present: depressed, anxious, agitated Results - Labs Laboratory Last Values WBC 3.9 X10^3/uL (4.5-11.0) L 01/05/20 09:57 RBC 4.98 X10^6/uL (4.0-5.2) 01/05/20 09:57 Hgb 14.4 g/dL (12.0-16.0) 01/05/20 09:57 Hct 42.6 % (36-46) 01/05/20 09:57 MCV 85.5 fL (80-100) 01/05/20 09:57 MCH 29.0 PG (26-34) 01/05/20 09:57 MCHC 33.9 % (30-36) 01/05/20 09:57 RDW 15.2 % (11.6-14.8) H 01/05/20 09:57 Plt Count 199 X10^3/uL (150-400) 01/05/20 09:57 Neut % (Auto) 71.6 % (50-75) 01/05/20 09:57 Lymph % (Auto) 20.5 % (25-40) L 01/05/20 09:57 [place] % (Auto) 6.2 % (3-14) 01/05/20 09:57 Eos % (Auto) 0.5 % (2-4) L 01/05/20 09:57 Baso % (Auto) 1.2 % (0-2) 01/05/20 09:57 Neut # (Auto) 2800 /uL (0208-2862) 01/05/20 09:57 Lymph # (Auto) 800 /uL (0301-6774) L 01/05/20 09:57 [place] # (Auto) 200 /uL (0-900) 01/05/20 09:57 Eos # (Auto) 0 /uL (0-450) 01/05/20 09:57 Baso # (Auto) 0 /uL (0-100) 01/05/20 09:57 PT 13.3 SECONDS (10.1-12.7) H 01/05/20 09:57 INR 1.2 (0.9-1.3) 01/05/20 09:57 Sodium 138 mmol/L (137-145) 01/05/20 09:57 Potassium 4.4 mmol/L (3.4-5.1) 01/05/20 09:57 Chloride 102 mmol/L (98-107) 01/05/20 09:57 Carbon Dioxide 32 mmol/L (22-32) 01/05/20 09:57 BUN 16 mg/dL (7-17) 01/05/20 09:57 Creatinine 0.72 mg/dL (0.52-1.04) 01/05/20 09:57 Estimated GFR > 60.0 mL/min (>60) 01/05/20 09:57 BUN/Creatinine Ratio 22.2 (6-22) H 01/05/20 09:57 Glucose 101 mg/dL (80-110) 01/05/20 09:57 Calcium 10.0 mg/dL (8.4-10.2) 01/05/20 09:57 Total Bilirubin 0.7 mg/dL (0.2-1.3) 01/05/20 09:57 AST 38 IU/L (14-36) H 01/05/20 09:57 ALT 18 IU/L (<35) 01/05/20 09:57 Alkaline Phosphatase 97 U/L (38-126) 01/05/20 09:57 Total Protein 8.9 g/dL (6.3-8.2) H 01/05/20 09:57 Albumin 4.7 g/dL (3.5-5.0) 01/05/20 09:57 Globulin 4.2 g/dL (1.7-4.1) H 01/05/20 09:57 Albumin/Globulin Ratio 1.1 (1.0-2.8) 01/05/20 09:57 Alpha Fetoprotein 901.0 ng/mL (0.0-8.3) H 01/05/20 09:57 Serum Immunofixation See note 04/01/18 11:30 HCV RNA Genotype LiPA Not detected 12/13/18 10:28 - Imaging Additional studies: Procedures Other endoscopy of small intestine (08/18/13) Transfusion of Nonautologous Plasma Cryoprecipitate into Peripheral Vein, Percutaneous Approach (06/19/15) Transfusion of packed cells (08/18/13) Assessment and Plan (1) Hepatocellular carcinoma 79 year old with multifoal recurrent hepatocellular carcinoma s/p chemoembolization as well as RFA. Due to rising AFP, repeat MRI liver protocol on 07/26/2019 showed new localized lesions consistent with recurrence of her hepatocellular carcinoma. Dr. Barrera from [facility] recommended against the radiofrequency ablation. The case was subsequently referred to [facility]; however patient did not keep the appointment out of concern for COVID infection. Recently patient was found to have an increasing AFP level of 915 on 12/20/2019 at [facility]. Patient was referred back to us for continued evaluation. Today I talked with the patient that the most important at this moment is to proceed to a complete staging to see where we are in terms of her the hepatocellular carcinoma. Most recent AFP level has increased significantly. I will obtain a CT of the abdomen without and with contrast with liver protocol. In addition I will obtain blood samples including CBC CMP and AFP and INR. I talked with patient that based on the results, I will discuss with her about if she is a good candidate for palliative treatment with Atezo/Laura. Plan: CBC, CMP, AFP, INR CT chest w/o contrast CT abd liver protocol RTC in 2-3 weeks for followup visit. (2) Cirrhosis of liver Biopsy proven. Stable. Dr. Zavala is following (3) Primary cancer of left upper lobe of lung Patient underwent left upper lobectomy. Since then no clinical imaging evidence of disease recurrence or metastasis. CT chest on 03/08/2018 showed no evidence of disease recurrence or metastasis. Will continue active surveillance. (4) History of laryngeal cancer The records indicated that the patient received concurrent chemotherapy cisplatin and radiotherapy. Patient endorsed a left-sided lymph nodes enlargement. On my physical examination at level 2 there is a fixed tender 1 cm x 2 cm lymph node. The PET scan from 08/17/2019 noted symmetrical uptake in the throat. On 09/21/2019, she was seen by Dr. Thiago Waldrop. Fiberoptic exam showed no obvious lesions. Plan: Continue active surveillance.
[2020-01-05 08:32] VITALS: BP 189/91; PULSE 68; RESP 18; TEMP 36.9; O2SAT 95
[2020-01-05 10:17] LABS: Add Manual Diff / Slide Review NO; Basophils Absolute Auto 0 /uL (0-100); Basophils Percent Auto 1.2 % (0-2); Eosinophils Absolute Auto 0 /uL (0-450); Eosinophils Percent Auto 0.5 % (2-4); Hematocrit 42.6 % (36-46); Hemoglobin 14.4 g/dL (12.0-16.0); Lymphocytes Absolute Auto 800 /uL (1100-4500); Lymphocytes Percent Auto 20.5 % (25-40); Mean Corpuscular HGB Conc 33.9 % (30-36); Mean Corpuscular Volume 85.5 fL (80-100); Monocytes Absolute Auto 200 /uL (0-900); Monocytes Percent Auto 6.2 % (3-14); Neutrophils Absolute Auto 2800 /uL (1500-7000); Neutrophils Percent Auto 71.6 % (50-75); Platelet Count 199 X10^3/uL (150-400); Red Blood Cell Count 4.98 X10^6/uL (4.0-5.2); Red Cell Distribution Width 15.2 % (11.6-14.8); White Blood Cell Count 3.9 X10^3/uL (4.5-11.0)
[2020-01-05 10:20] LABS: INR 1.2 (0.9-1.3); Prothrombin Time 13.3 SECONDS (10.1-12.7)
[2020-01-05 10:29] LABS: Alanine Aminotransferase 18 IU/L (<35); Albumin 4.7 g/dL (3.5-5.0); Albumin Globulin Ratio 1.1 (1.0-2.8); Alkaline Phosphatase 97 U/L (38-126); Aspartate Aminotransferase 38 IU/L (14-36); BUN Creatinine Ratio 22.2 (6-22); Bilirubin Total 0.7 mg/dL (0.2-1.3); Blood Urea Nitrogen 16 mg/dL (7-17); Carbon Dioxide 32 mmol/L (22-32); Chloride 102 mmol/L (98-107); Estimated Glomerular Filt Rate > 60.0 mL/min (>60); Globulin 4.2 g/dL (1.7-4.1); Glucose 101 mg/dL (80-110); HEMOLYSIS < 15 (0-50); Potassium 4.4 mmol/L (3.4-5.1); Sodium 138 mmol/L (137-145); Total Protein 8.9 g/dL (6.3-8.2)
[2020-01-30 08:52] VITALS: BP 157/88; PULSE 64; RESP 22; TEMP 35.8; O2SAT 95
--- NOTE | 2020-01-30 09:00 | ONC.PN ---
PN -Subjective Interval history: ID/CC: Etta is a 80 year old female with hepatocellular carcinoma s/p chemoembolization now on surveillance, chronic hepatitis C (genotype 1A), and SCC of epiglottis diagnosed 2005, s/p cisplatin/XRT as well as left upper lobe stage I lung cancer status post left resection 2008. She presents today for scheduled follow up visit. History of Present illness Etta has a history of hepatitic C diagnosed in 1996 likely related to intravenous drug use and multiple tattoos. She also underwent liver biopsy in 2003 showing necro-inflammatory activity, grade 2/3, and the liver fibrosis stage III. She did not receive any therapy due to psychiatric history of noncompliance. In Jan 2016, blood test showed that her hepatitis C RNA PCR 5.65 logs with a Genotype 1A. On August 19, 2018, patient underwent upper endoscopy by Dr. Armin Canela. 4 columns of grade 1 esophageal varices at the distal esophagus, mild portal hypertension gastropathy, mild non-erosive gastritis were seen. Patient said that she has never been treated for hepatitis C until 2019 when she completed a full course of treatment with Harvoni for her known hepatitis C under the care of Dr. Zavala. She was diagnosed with squamous cell carcinoma of the epiglottis in 2004. She underwent concurrent cisplatin and radiotherapy in Jan, 2006. She was diagnosed with non-small cell lung cancer T1 N0 Mx in Apr 2008 and underwent left upper lobectomy. She was diagnosed with hepatocellular carcinoma based on MR imaging reporting a 1.2 cm lesion in the right hepatic lobe. She underwent chemoembolization on June 23, 2016. On 10/06/2018, Dr. Jennifer Barrera performed laparoscopic radiofrequency ablation of both the initial HCC and the second HCC that had developed. Due to rising AFP, MRI was repeated on 07/26/2019 that showed new localized lesions consistent with recurrence of her hepatocellular carcinoma. Dr. Jennifer Barrera saw the patient on 08/10/2019, and recommended against the radiofrequency ablation. Dr. Barrera also had the case reviewed at an outside HCC liver tumor board, and it was deemed that these lesions had not changed significantly from her prior imaging, and therefore short interval follow-up was recommended. The patient was also referred to for evaluation. However, she did not go to out of fear of COVID. On 09/21/2019, she was seen by Dr. Thiago Waldrop for follow up visit due to her previous history of laryngeal carcinoma. Fiberoptic exam showed no obvious lesions. Interim Events: She came in here today accompanied by her daughter. Clinically, she has a lot of symptoms. She reports nausea, headache, and a lot of trouble with her light headedness. On Thursday night, she had mini stroke per her daughter. The patient was found to have an abnormal right face and right eye dropping and with slurred speech. However, she did not go to ER. The signs and symptoms have improved. - Patient Self-Reported Symptoms SR Constitution: Chills, Fatigue/Malaise SR eye issues: Vision changes, Double vision SR ears, nose, mouth, throat issues: Changes in taste SR respiratory issues: Shortness of breath SR Cardiovascular issues: Shortness of breath with activity or lying flat SR Skin issues: Dry skin SR Gastrointestinal issues: Nausea SR Genitourinary issues: Frequent urination, Incontinence SR Musculoskeletal issues: Muscle weakness SR Neuro issues: Lightheaded/dizzy SR Hematologic issues: Bleeding/bruising SR Endocrine issues: Cold intolerance, Excessive urination - Additional ROS All systems PM: reviewed and no additional remarkable complaints except as stated Home Medications and Allergies Home Medications Medication Instructions Recorded Confirmed Type Disabled Parking Permit 1 dev MISCELLANEOUS DIRECTED 09/15/17 01/30/20 History Incontinence Supplies 1 ea MISCELLANEOUS DIRECTED 09/15/17 01/30/20 History tiotropium bromide 2.5 2 puff INHALATION DAILY 06/22/19 01/30/20 History mcg/actuation mist for inhalation albuterol sulfate 90 mcg/actuation 2 puff INHALATION Q4-6H #18 gram 08/20/19 01/30/20 Rx aerosol inhaler albuterol sulfate [ProAir HFA] 1 inh INHALATION QID PRN 08/25/19 01/30/20 History aspirin 81 mg PO DAILY 08/25/19 01/30/20 History cilostazol 50 mg BID 08/25/19 01/30/20 History efinaconazole 10 % topical 1 applictn TOP DAILY 336 Days #4 ml 09/05/19 01/30/20 Rx solution with applicator levothyroxine 50 mcg tablet 50 mcg PO DAILY #90 tab 10/10/19 01/30/20 Rx gabapentin 400 mg capsule 400 mg PO TID #270 cap 12/16/19 01/30/20 Rx metoprolol tartrate 25 mg tablet 12.5 mg PO BID #90 tab 12/16/19 01/30/20 Rx tolterodine 2 mg capsule,extended 2 mg PO DAILY #30 cap 12/16/19 01/30/20 Rx release 24 hr lorazepam 0.5 mg tablet See Rx Instructions .ROUTE 01/30/20 Rx .COMPLEX #45 tab Allergies Allergy/AdvReac Type Severity Reaction Status Date / Time codeine [CODEINE] AdvReac Mild IT MADE Verified 12/16/19 14:36 ME SICK TO MY STOMACH Exam Vital signs: Vital Signs Temp Pulse Resp BP Pulse Ox 01/30/20 08:52 96.4 F L 64 22 157/88 H 95 Intake and Output 01/29/20 01/30/20 01/30/20 23:59 07:59 15:59 Other: Weight 49.8 kg Patient Weight 01/30/20 23:59 Weight 49.8 kg - Constitutional positive no acute distress, positive mild distress, positive average body habitus, positive chronically ill appearing, positive disheveled, positive cooperative - Routine HEENT Exam Head: Present: normocephalic, atraumatic Eye: Present: EOMI, PERRL, normal accommodation. Absent: conjunctival icterus - Routine Neck Exam Present: supple - Routine Chest/Breast/Axilla Exam Axillae: Absent: lymphadenopathy - Routine Respiratory Exam Present: Clear to auscultation bilaterally. Absent: wheezes - Routine Cardiovascular Exam Present: RRR, S1, S2. Absent: murmur, gallop, rubs - Routine Abdominal Exam Present: soft, tenderness. Absent: rebound, guarding - Routine Extremities Exam Absent: edema - Routine Neurological Exam Present: alert, oriented X3. Absent: CN II-XII intact, sensory deficit - Routine Psychiatric Exam Present: auditory hallucinations, paranoid. Absent: cooperative, good insight, good judgment Results - Labs Laboratory Last Values WBC 3.9 X10^3/uL (4.5-11.0) L 01/05/20 09:57 RBC 4.98 X10^6/uL (4.0-5.2) 01/05/20 09:57 Hgb 14.4 g/dL (12.0-16.0) 01/05/20 09:57 Hct 42.6 % (36-46) 01/05/20 09:57 MCV 85.5 fL (80-100) 01/05/20 09:57 MCH 29.0 PG (26-34) 01/05/20 09:57 MCHC 33.9 % (30-36) 01/05/20 09:57 RDW 15.2 % (11.6-14.8) H 01/05/20 09:57 Plt Count 199 X10^3/uL (150-400) 01/05/20 09:57 Neut % (Auto) 71.6 % (50-75) 01/05/20 09:57 Lymph % (Auto) 20.5 % (25-40) L 01/05/20 09:57 Dickson % (Auto) 6.2 % (3-14) 01/05/20 09:57 Eos % (Auto) 0.5 % (2-4) L 01/05/20 09:57 Baso % (Auto) 1.2 % (0-2) 01/05/20 09:57 Neut # (Auto) 2800 /uL (8625-6236) 01/05/20 09:57 Lymph # (Auto) 800 /uL (4002-6051) L 01/05/20 09:57 Dickson # (Auto) 200 /uL (0-900) 01/05/20 09:57 Eos # (Auto) 0 /uL (0-450) 01/05/20 09:57 Baso # (Auto) 0 /uL (0-100) 01/05/20 09:57 PT 13.3 SECONDS (10.1-12.7) H 01/05/20 09:57 INR 1.2 (0.9-1.3) 01/05/20 09:57 Sodium 138 mmol/L (137-145) 01/05/20 09:57 Potassium 4.4 mmol/L (3.4-5.1) 01/05/20 09:57 Chloride 102 mmol/L (98-107) 01/05/20 09:57 Carbon Dioxide 32 mmol/L (22-32) 01/05/20 09:57 BUN 16 mg/dL (7-17) 01/05/20 09:57 Creatinine 0.72 mg/dL (0.52-1.04) 01/05/20 09:57 Estimated GFR > 60.0 mL/min (>60) 01/05/20 09:57 BUN/Creatinine Ratio 22.2 (6-22) H 01/05/20 09:57 Glucose 101 mg/dL (80-110) 01/05/20 09:57 Calcium 10.0 mg/dL (8.4-10.2) 01/05/20 09:57 Total Bilirubin 0.7 mg/dL (0.2-1.3) 01/05/20 09:57 AST 38 IU/L (14-36) H 01/05/20 09:57 ALT 18 IU/L (<35) 01/05/20 09:57 Alkaline Phosphatase 97 U/L (38-126) 01/05/20 09:57 Total Protein 8.9 g/dL (6.3-8.2) H 01/05/20 09:57 Albumin 4.7 g/dL (3.5-5.0) 01/05/20 09:57 Globulin 4.2 g/dL (1.7-4.1) H 01/05/20 09:57 Albumin/Globulin Ratio 1.1 (1.0-2.8) 01/05/20 09:57 Alpha Fetoprotein 901.0 ng/mL (0.0-8.3) H 01/05/20 09:57 Serum Immunofixation See note 04/01/18 11:30 HCV RNA Genotype LiPA Not detected 12/13/18 10:28 - Imaging Additional studies: Procedures Other endoscopy of small intestine (08/18/13) Transfusion of Nonautologous Plasma Cryoprecipitate into Peripheral Vein, Percutaneous Approach (06/19/15) Transfusion of packed cells (08/18/13) Assessment and Plan (1) Hepatocellular carcinoma 79 year old with multifoal recurrent hepatocellular carcinoma s/p chemoembolization as well as RFA. Due to rising AFP, repeat MRI liver protocol on 07/26/2019 showed new localized lesions consistent with recurrence of her hepatocellular carcinoma. Dr. Barrera from [facility] recommended against the radiofrequency ablation. The case was subsequently referred to [facility]; however patient did not keep the appointment out of concern for COVID infection. Recently patient was found to have an increasing AFP level of 915 on 12/20/2019 at [facility]. Patient was referred back to us for continued evaluation. Today I reviewed the CT chest scan as well as the CT abdomen with the patient. I talked with her and her daughter that the imaging showed disease progression especially increasing in size of hepatocellular carcinoma. I recommended that we proceed with treatment with atezolizumab and bevacizumab which is a new standard of care. Explained to the patient that the treatment will activate her immune systems which in turn attack the cancers. Unfortunately, the activated immune system sometimes can cause damage of normal organ systems, commonly for example, colitis, liver damage, lung damage, etc.. In addition for treatment, I am recommending a port placement. Patient and patient's daughter both voiced understanding and expresses willingness to move forward. Plan: CBC, CMP, AFP, INR Port placement RTC in 4 weeks for C1D1 Atezo/Laura (2) Cirrhosis of liver Biopsy proven. Stable. Dr. Zavala is following (3) Primary cancer of left upper lobe of lung Patient underwent left upper lobectomy. Since then no clinical imaging evidence of disease recurrence or metastasis. CT chest on 03/08/2018 showed no evidence of disease recurrence or metastasis. Will continue active surveillance. (4) History of laryngeal cancer The records indicated that the patient received concurrent chemotherapy cisplatin and radiotherapy. Patient endorsed a left-sided lymph nodes enlargement. On my physical examination at level 2 there is a fixed tender 1 cm x 2 cm lymph node. The PET scan from 08/17/2019 noted symmetrical uptake in the throat. On 09/21/2019, she was seen by Dr. Thiago Waldrop. Fiberoptic exam showed no obvious lesions. Plan: Continue active surveillance.
--- NOTE | 2020-01-30 09:39 | ONC.SCHED ---
Spoke with Priscilla at [facility] at the port placement is scheduled for 02/07/20 @ 9:15 AM check in. Priscilla will call daughter to give instructions.
--- NOTE | 2020-02-27 09:27 | ONC.SCHED ---
Atezolizumab/Tecentriq J9022; and bevacizumab/Avastin J9035 both codecorrect ok with DX C22.0.
[2020-02-27 09:48] LABS: Add Manual Diff / Slide Review NO; Basophils Absolute Auto 100 /uL (0-100); Basophils Percent Auto 1.7 % (0-2); Eosinophils Absolute Auto 0 /uL (0-450); Eosinophils Percent Auto 0.3 % (2-4); Hematocrit 40.4 % (36-46); Hemoglobin 13.6 g/dL (12.0-16.0); Lymphocytes Absolute Auto 1300 /uL (1100-4500); Lymphocytes Percent Auto 22.8 % (25-40); Mean Corpuscular HGB Conc 33.7 % (30-36); Mean Corpuscular Hemoglobin 28.9 PG (26-34); Mean Corpuscular Volume 85.8 fL (80-100); Monocytes Absolute Auto 400 /uL (0-900); Monocytes Percent Auto 7.2 % (3-14); Neutrophils Absolute Auto 3800 /uL (1500-7000); Platelet Count 223 X10^3/uL (150-400); Red Cell Distribution Width 16.2 % (11.6-14.8); White Blood Cell Count 5.6 X10^3/uL (4.5-11.0)
[2020-02-27 10:00] LABS: Alanine Aminotransferase 15 IU/L (<35); Albumin 4.4 g/dL (3.5-5.0); Albumin Globulin Ratio 1.1 (1.0-2.8); Alkaline Phosphatase 88 U/L (38-126); Aspartate Aminotransferase 31 IU/L (14-36); BUN Creatinine Ratio 34.3 (6-22); Bilirubin Total 0.5 mg/dL (0.2-1.3); Blood Urea Nitrogen 24 mg/dL (7-17); Calcium 9.9 mg/dL (8.4-10.2); Carbon Dioxide 28 mmol/L (22-32); Chloride 102 mmol/L (98-107); Estimated Glomerular Filt Rate > 60.0 mL/min (>60); Glucose 96 mg/dL (80-110); HEMOLYSIS < 15 (0-50); Potassium 4.1 mmol/L (3.4-5.1); Sodium 136 mmol/L (137-145); Total Protein 8.4 g/dL (6.3-8.2)
[2020-02-27 10:12] VITALS: BP 151/90; PULSE 63; RESP 18; TEMP 35.7; O2SAT 96
--- NOTE | 2020-02-27 10:13 | ONC.PN ---
PN -Subjective Interval history: ID/CC: Etta is a 80 year old female with hepatocellular carcinoma s/p chemoembolization now on surveillance, chronic hepatitis C (genotype 1A), and SCC of epiglottis diagnosed 2005, s/p cisplatin/XRT as well as left upper lobe stage I lung cancer status post left resection 2008. She presents today for scheduled follow up visit. History of Present illness Etta has a history of hepatitic C diagnosed in 1996 likely related to intravenous drug use and multiple tattoos. She also underwent liver biopsy in 2003 showing necro-inflammatory activity, grade 2/3, and the liver fibrosis stage III. She did not receive any therapy due to psychiatric history of noncompliance. In Jan 2016, blood test showed that her hepatitis C RNA PCR 5.65 logs with a Genotype 1A. On August 19, 2018, patient underwent upper endoscopy by Dr. Armin Canela. 4 columns of grade 1 esophageal varices at the distal esophagus, mild portal hypertension gastropathy, mild non-erosive gastritis were seen. Patient said that she has never been treated for hepatitis C until 2019 when she completed a full course of treatment with Harvoni for her known hepatitis C under the care of Dr. Zavala. She was diagnosed with squamous cell carcinoma of the epiglottis in 2004. She underwent concurrent cisplatin and radiotherapy in Jan, 2006. She was diagnosed with non-small cell lung cancer T1 N0 Mx in Apr 2008 and underwent left upper lobectomy. She was diagnosed with hepatocellular carcinoma based on MR imaging reporting a 1.2 cm lesion in the right hepatic lobe. She underwent chemoembolization on June 23, 2016. On 10/06/2018, Dr. Jennifer Barrera performed laparoscopic radiofrequency ablation of both the initial HCC and the second HCC that had developed. Due to rising AFP, MRI was repeated on 07/26/2019 that showed new localized lesions consistent with recurrence of her hepatocellular carcinoma. Dr. Jennifer Barrera saw the patient on 08/10/2019, and recommended against the radiofrequency ablation. Dr. Barrera also had the case reviewed at an outside HCC liver tumor board, and it was deemed that these lesions had not changed significantly from her prior imaging, and therefore short interval follow-up was recommended. The patient was also referred to for evaluation. However, she did not go to out of fear of COVID. On 09/21/2019, she was seen by Dr. Thiago Waldrop for follow up visit due to her previous history of laryngeal carcinoma. Fiberoptic exam showed no obvious lesions. Interim Events: Patient underwent port placement on 02/07/2020. Patient said that the location of the right upper chest where the port was placed is still sore, but has improved quite a bit. However presence of the port has disturbed her sleep. In addition patient has run out of the Ativan which was ordered by Dr. Skaggs for anxiety control. Patient reports significant anxiety at this point. Patient is somewhat concerned and worried about. She has mild nausea or gagging but no vomiting. She denies any fever or chills. She does have some periumbilical abdominal pain, mild,. She does not have any blood in the stool. She does not have tarry black stool. - Patient Self-Reported Symptoms SR Constitution: Chills, Fatigue/Malaise SR eye issues: Vision changes, Double vision SR ears, nose, mouth, throat issues: Changes in taste SR respiratory issues: Shortness of breath SR Cardiovascular issues: Shortness of breath with activity or lying flat SR Skin issues: Dry skin SR Gastrointestinal issues: Nausea SR Genitourinary issues: Frequent urination, Incontinence SR Musculoskeletal issues: Muscle weakness SR Neuro issues: Lightheaded/dizzy SR Hematologic issues: Bleeding/bruising SR Endocrine issues: Cold intolerance, Excessive urination - Additional ROS All systems PM: reviewed and no additional remarkable complaints except as stated Home Medications and Allergies Home Medications Medication Instructions Recorded Confirmed Type Disabled Parking Permit 1 dev MISCELLANEOUS DIRECTED 09/15/17 02/03/20 History Incontinence Supplies 1 ea MISCELLANEOUS DIRECTED 09/15/17 02/03/20 History tiotropium bromide 2.5 2 puff INHALATION DAILY 06/22/19 02/07/20 History mcg/actuation mist for inhalation albuterol sulfate 90 mcg/actuation 2 puff INHALATION Q4-6H #18 gram 08/20/19 02/07/20 Rx aerosol inhaler aspirin 81 mg PO DAILY 08/25/19 02/07/20 History cilostazol 50 mg PO BID 08/25/19 02/07/20 History levothyroxine 50 mcg tablet 50 mcg PO DAILY #90 tab 10/10/19 02/07/20 Rx gabapentin 400 mg capsule 400 mg PO TID #270 cap 10/23/20 12/15/20 Rx metoprolol tartrate 25 mg tablet 12.5 mg PO BID #90 tab 12/16/19 02/07/20 Rx tolterodine 2 mg capsule,extended 2 mg PO DAILY #30 cap 12/16/19 02/07/20 Rx release 24 hr lorazepam 0.5 mg tablet See Rx Instructions .ROUTE 01/30/20 02/07/20 Rx .COMPLEX #45 tab varenicline 0.5 mg (11)-1 mg (42) See Rx Instructions PO PER PKG DIR 02/03/20 02/07/20 Rx tablets in a dose pack #53 ea varenicline 1 mg tablet 1 mg PO BID #56 tab 02/03/20 02/07/20 Rx prochlorperazine maleate 5 mg PO BID PRN #20 tab 02/20/20 Rx [Compazine] lorazepam 0.5 mg PO BEDTIME PRN #30 tab 02/27/20 Rx Allergies Allergy/AdvReac Type Severity Reaction Status Date / Time codeine [CODEINE] AdvReac Mild IT MADE Verified 02/07/20 10:33 ME SICK TO MY STOMACH Exam Vital signs: Vital Signs Temp Pulse Resp BP Pulse Ox 02/27/20 10:12 96.2 F L 63 18 151/90 H 96 Intake and Output 02/26/20 02/27/20 02/27/20 23:59 07:59 15:59 Other: Weight 47 kg Patient Weight 02/27/20 23:59 Weight 47 kg - Constitutional positive no acute distress, positive thin, positive chronically ill appearing, positive disheveled, positive cooperative - Routine HEENT Exam Head: Present: normocephalic, atraumatic Eye: Present: EOMI, PERRL, normal accommodation. Absent: conjunctival icterus - Routine Neck Exam Present: supple. Absent: lymphadenopathy, thyromegaly - Routine Chest/Breast/Axilla Exam Axillae: Absent: lymphadenopathy - Routine Respiratory Exam Present: Clear to auscultation bilaterally. Absent: wheezes - Routine Cardiovascular Exam Present: RRR, S1, S2. Absent: murmur, gallop, rubs - Routine Abdominal Exam Present: soft, tenderness (Soraya umbilical), organomegaly (Hepatomegaly palpable). Absent: rebound, guarding - Routine Extremities Exam Absent: edema - Routine Neurological Exam Present: alert, oriented X3, CN II-XII intact. Absent: sensory deficit, motor deficit - Routine Psychiatric Exam Present: cooperative, anxious Results - Labs Laboratory Last Values WBC 5.6 X10^3/uL (4.5-11.0) 02/27/20 09:35 RBC 4.70 X10^6/uL (4.0-5.2) 02/27/20 09:35 Hgb 13.6 g/dL (12.0-16.0) 02/27/20 09:35 Hct 40.4 % (36-46) 02/27/20 09:35 MCV 85.8 fL (80-100) 02/27/20 09:35 MCH 28.9 PG (26-34) 02/27/20 09:35 MCHC 33.7 % (30-36) 02/27/20 09:35 RDW 16.2 % (11.6-14.8) H 02/27/20 09:35 Plt Count 223 X10^3/uL (150-400) 02/27/20 09:35 Neut % (Auto) 68.0 % (50-75) 02/27/20 09:35 Lymph % (Auto) 22.8 % (25-40) L 02/27/20 09:35 [place] % (Auto) 7.2 % (3-14) 02/27/20 09:35 Eos % (Auto) 0.3 % (2-4) L 02/27/20 09:35 Baso % (Auto) 1.7 % (0-2) 02/27/20 09:35 Neut # (Auto) 3800 /uL (1984-6500) 02/27/20 09:35 Lymph # (Auto) 1300 /uL (7044-9208) 02/27/20 09:35 [place] # (Auto) 400 /uL (0-900) 02/27/20 09:35 Eos # (Auto) 0 /uL (0-450) 02/27/20 09:35 Baso # (Auto) 100 /uL (0-100) 02/27/20 09:35 PT 13.2 SECONDS (10.1-12.7) H 02/27/20 09:35 INR 1.1 (0.9-1.3) 02/27/20 09:35 Sodium 136 mmol/L (137-145) L 02/27/20 09:35 Potassium 4.1 mmol/L (3.4-5.1) 02/27/20 09:35 Chloride 102 mmol/L (98-107) 02/27/20 09:35 Carbon Dioxide 28 mmol/L (22-32) 02/27/20 09:35 BUN 24 mg/dL (7-17) H 02/27/20 09:35 Creatinine 0.70 mg/dL (0.52-1.04) 02/27/20 09:35 Estimated GFR > 60.0 mL/min (>60) 02/27/20 09:35 BUN/Creatinine Ratio 34.3 (6-22) H 02/27/20 09:35 Glucose 96 mg/dL (80-110) 02/27/20 09:35 Calcium 9.9 mg/dL (8.4-10.2) 02/27/20 09:35 Total Bilirubin 0.5 mg/dL (0.2-1.3) 02/27/20 09:35 AST 31 IU/L (14-36) 02/27/20 09:35 ALT 15 IU/L (<35) 02/27/20 09:35 Alkaline Phosphatase 88 U/L (38-126) 02/27/20 09:35 Total Protein 8.4 g/dL (6.3-8.2) H 02/27/20 09:35 Albumin 4.4 g/dL (3.5-5.0) 02/27/20 09:35 Globulin 4.0 g/dL (1.7-4.1) 02/27/20 09:35 Albumin/Globulin Ratio 1.1 (1.0-2.8) 02/27/20 09:35 Alpha Fetoprotein 901.0 ng/mL (0.0-8.3) H 01/05/20 09:57 Serum Immunofixation See note 04/01/18 11:30 HCV RNA Genotype LiPA Not detected 12/13/18 10:28 - Imaging Additional studies: Procedures Other endoscopy of small intestine (08/18/13) Transfusion of Nonautologous Plasma Cryoprecipitate into Peripheral Vein, Percutaneous Approach (06/19/15) Transfusion of packed cells (08/18/13) Assessment and Plan (1) Hepatocellular carcinoma 80 year old with multifoal recurrent hepatocellular carcinoma s/p chemoembolization as well as RFA. Due to rising AFP, repeat MRI liver protocol on 07/26/2019 showed new localized lesions consistent with recurrence of her hepatocellular carcinoma. Dr. Barrera from [facility] recommended against the radiofrequency ablation. The case was subsequently referred to [facility]; however patient did not keep the appointment out of concern for COVID infection. Her AFP level increased to 915 on 12/20/2019 at [facility]. Patient was referred back to us for continued evaluation. Clinically, patient has been complaining about the same symptoms including fatigue, dizziness, lightheadedness, no bleeding events, and no patellar black stool. I reviewed the lab results from today he. CBC and CMP are unremarkable. The calculated CPS score was 5 (CPS A). I talked with the patient that I will proceed with scheduled cycle 1# atezolizumab and bevacizumab. I instructed the patient to call us for any concerns or questions during the chemotherapy interim. Patient voiced understanding. Plan: Ok to proceed to C1# Atezo/Laura RTC in 3 weeks for C2#, labs per protocol (2) Port-A-Cath in place flush every 4-6 weeks (3) Cirrhosis of liver Biopsy proven. Stable. CPS A5, Dr. Zavala is following (4) Primary cancer of left upper lobe of lung Patient underwent left upper lobectomy. Since then no clinical imaging evidence of disease recurrence or metastasis. CT chest on 03/08/2018 showed no evidence of disease recurrence or metastasis. Will continue active surveillance. (5) History of laryngeal cancer The records indicated that the patient received concurrent chemotherapy cisplatin and radiotherapy. Patient endorsed a left-sided lymph nodes enlargement. On my physical examination at level 2 there is a fixed tender 1 cm x 2 cm lymph node. The PET scan from 08/17/2019 noted symmetrical uptake in the throat. On 09/21/2019, she was seen by Dr. Thiago Waldrop. Fiberoptic exam showed no obvious lesions. Plan: Continue active surveillance.
[2020-02-27 10:30] LABS: INR 1.1 (0.9-1.3); Prothrombin Time 13.2 SECONDS (10.1-12.7)
[2020-02-27] MEDS: ACETAMINOPHEN 325 MG TABLET 650 MG PO (11:13)
[2020-02-27] MEDS: diphenhydrAMINE 25 MG TABLET PO (11:14)
[2020-02-27] MEDS: ATEZOLIZUMAB IV (11:41)
[2020-02-27] MEDS: SODIUM CHLORIDE 0.9% IV ×2 (11:41→13:05)
[2020-02-27] MEDS: BEVACIZUMAB IV (13:05)
[2020-02-28 07:35] LABS: Alpha Fetoprotein 8.1 ng/mL (0.0-8.3)
--- NOTE | 2020-03-07 14:29 | PC.NURSE ---
1st Chemo call back Talked with Pt via phone today. She stated that she was feeling tired but still able to perform ADLs. Reported that she had diarrhea for 1 day post treatment. Educated on the use of Imodium and when to call clinic with continued diarrhea and/or vomiting (fluids, check electrolytes, etc.). Pt stated understanding. She also said that she feels she has been getting enough food/fluids by mouth. Encouraged Pt to call clinic with any other concerns or issues.
--- NOTE | 2020-03-19 08:27 | P.PNONC_ITS ---
PN -Subjective Interval history: ID/CC: Etta is a 80 year old female with hepatocellular carcinoma s/p chemoembolization now on surveillance, chronic hepatitis C (genotype 1A), and SCC of epiglottis diagnosed 2005, s/p cisplatin/XRT as well as left upper lobe stage I lung cancer status post left resection 2008. She presents today for scheduled follow up visit. History of Present illness Etta has a history of hepatitic C diagnosed in 1996 likely related to intravenous drug use and multiple tattoos. She also underwent liver biopsy in 2003 showing necro-inflammatory activity, grade 2/3, and the liver fibrosis stage III. She did not receive any therapy due to psychiatric history of noncompliance. In Jan 2016, blood test showed that her hepatitis C RNA PCR 5.65 logs with a Genotype 1A. On August 19, 2018, patient underwent upper endoscopy by Dr. Armin Canela. 4 columns of grade 1 esophageal varices at the distal esophagus, mild portal hypertension gastropathy, mild non-erosive gastritis were seen. Patient said that she has never been treated for hepatitis C until 2019 when she completed a full course of treatment with Harvoni for her known hepatitis C under the care of Dr. Zavala. She was diagnosed with squamous cell carcinoma of the epiglottis in 2004. She underwent concurrent cisplatin and radiotherapy in Jan, 2006. She was diagnosed with non-small cell lung cancer T1 N0 Mx in Apr 2008 and underwent left upper lobectomy. She was diagnosed with hepatocellular carcinoma based on MR imaging reporting a 1.2 cm lesion in the right hepatic lobe. She underwent chemoembolization on June 23, 2016. On 10/06/2018, Dr. Jennifer Barrera performed laparoscopic radiofrequency ablation of both the initial HCC and the second HCC that had developed. Due to rising AFP, MRI was repeated on 07/26/2019 that showed new localized lesions consistent with recurrence of her hepatocellular carcinoma. Dr. Jennifer Barrera saw the patient on 08/10/2019, and recommended against the radiofrequency ablation. Dr. Barrera also had the case reviewed at an outside HCC liver tumor board, and it was deemed that these lesions had not changed significantly from her prior imaging, and therefore short interval follow-up was recommended. The patient was also referred to for evaluation. However, she did not go to out of fear of COVID. On 09/21/2019, she was seen by Dr. Thiago Waldrop for follow up visit due to her previous history of laryngeal carcinoma. Fiberoptic exam showed no obvious lesions. Patient underwent port placement on 02/07/2020. Interim Events: On 02/27/2020, patient was started on palliative treatment with atezolizumab and bevacizumab. Patient said that overall she has tolerated well. However she is complaining fatigue and sleepiness. She denies any fever or chills. She denies any nausea or vomiting. She reports poor appetite. She said that her weight has been getting heavier. She is still complaining right upper chest soreness around the port placement. Patient denies any abdominal pain, denies diarrhea or constipation. Patient admitted to smoking and said she is trying to cut down the number of smokes. - Patient Self-Reported Symptoms SR Constitution: Chills, Fatigue/Malaise SR eye issues: Vision changes, Double vision SR ears, nose, mouth, throat issues: Changes in taste SR respiratory issues: Shortness of breath SR Cardiovascular issues: Shortness of breath with activity or lying flat SR Skin issues: Dry skin SR Gastrointestinal issues: Nausea SR Genitourinary issues: Frequent urination, Incontinence SR Musculoskeletal issues: Muscle weakness SR Neuro issues: Lightheaded/dizzy SR Hematologic issues: Bleeding/bruising SR Endocrine issues: Cold intolerance, Excessive urination - Additional ROS All systems PM: reviewed and no additional remarkable complaints except as stated Home Medications and Allergies Home Medications Medication Instructions Recorded Confirmed Type Disabled Parking Permit 1 dev MISCELLANEOUS DIRECTED 09/15/17 03/05/20 History Incontinence Supplies 1 ea MISCELLANEOUS DIRECTED 09/15/17 03/05/20 History tiotropium bromide 2.5 2 puff INHALATION DAILY 06/22/19 03/05/20 History mcg/actuation mist for inhalation albuterol sulfate 90 mcg/actuation 2 puff INHALATION Q4-6H #18 gram 08/20/19 03/05/20 Rx aerosol inhaler aspirin 81 mg PO DAILY 08/25/19 03/05/20 History cilostazol 50 mg PO BID 08/25/19 03/05/20 History levothyroxine 50 mcg tablet 50 mcg PO DAILY #90 tab 10/10/19 03/05/20 Rx gabapentin 400 mg capsule 400 mg PO TID #270 cap 12/16/19 03/05/20 Rx metoprolol tartrate 25 mg tablet 12.5 mg PO BID #90 tab 12/16/19 03/05/20 Rx tolterodine 2 mg capsule,extended 2 mg PO DAILY #30 cap 12/16/19 03/05/20 Rx release 24 hr lorazepam 0.5 mg tablet See Rx Instructions .ROUTE 01/30/20 03/05/20 Rx .COMPLEX #45 tab varenicline 0.5 mg (11)-1 mg (42) See Rx Instructions PO PER PKG DIR 02/03/20 03/05/20 Rx tablets in a dose pack #53 ea varenicline 1 mg tablet 1 mg PO BID #56 tab 02/03/20 03/05/20 Rx prochlorperazine maleate 5 mg PO BID PRN #20 tab 02/20/20 03/05/20 Rx [Compazine] lorazepam 0.5 mg tablet 0.5 mg PO BEDTIME PRN #30 tab 03/05/20 03/05/20 Rx Allergies Allergy/AdvReac Type Severity Reaction Status Date / Time codeine [CODEINE] AdvReac Mild IT MADE Verified 03/05/20 11:23 ME SICK TO MY STOMACH Exam Vital signs: 03/19/20 08:47 Last Vital Signs Temp 96.6 F L 03/19/20 08:29 Pulse 66 03/19/20 08:29 Resp 18 03/19/20 08:29 BP 165/103 H 03/19/20 08:29 Pulse Ox 95 03/19/20 08:29 - Constitutional positive no acute distress, positive cachectic, positive chronically ill appearing, positive cooperative - Routine HEENT Exam Head: Present: normocephalic, atraumatic Eye: Present: EOMI, PERRL, normal accommodation. Absent: conjunctival icterus, scleral injection - Routine Neck Exam Absent: lymphadenopathy, thyromegaly - Routine Chest/Breast/Axilla Exam Axillae: Absent: lymphadenopathy - Routine Respiratory Exam Present: Clear to auscultation bilaterally, decreased breath sounds, prolonged expiratory phase. Absent: accessory muscle use, wheezes - Routine Cardiovascular Exam Present: RRR, S1, S2. Absent: murmur, gallop, rubs - Routine Abdominal Exam Present: soft. Absent: tenderness, distended, organomegaly - Routine Extremities Exam Absent: edema - Routine Neurological Exam Present: alert, oriented X3, CN II-XII intact. Absent: sensory deficit, motor deficit - Routine Psychiatric Exam Present: cooperative, depressed, anxious Results - Labs Laboratory Last Values WBC 5.6 X10^3/uL (4.5-11.0) 02/27/20 09:35 RBC 4.70 X10^6/uL (4.0-5.2) 02/27/20 09:35 Hgb 13.6 g/dL (12.0-16.0) 02/27/20 09:35 Hct 40.4 % (36-46) 02/27/20 09:35 MCV 85.8 fL (80-100) 02/27/20 09:35 MCH 28.9 PG (26-34) 02/27/20 09:35 MCHC 33.7 % (30-36) 02/27/20 09:35 RDW 16.2 % (11.6-14.8) H 02/27/20 09:35 Plt Count 223 X10^3/uL (150-400) 02/27/20 09:35 Neut % (Auto) 68.0 % (50-75) 02/27/20 09:35 Lymph % (Auto) 22.8 % (25-40) L 02/27/20 09:35 [place] % (Auto) 7.2 % (3-14) 02/27/20 09:35 Eos % (Auto) 0.3 % (2-4) L 02/27/20 09:35 Baso % (Auto) 1.7 % (0-2) 02/27/20 09:35 Neut # (Auto) 3800 /uL (9657-2025) 02/27/20 09:35 Lymph # (Auto) 1300 /uL (6737-2495) 02/27/20 09:35 [place] # (Auto) 400 /uL (0-900) 02/27/20 09:35 Eos # (Auto) 0 /uL (0-450) 02/27/20 09:35 Baso # (Auto) 100 /uL (0-100) 02/27/20 09:35 PT 13.2 SECONDS (10.1-12.7) H 02/27/20 09:35 INR 1.1 (0.9-1.3) 02/27/20 09:35 Sodium 136 mmol/L (137-145) L 02/27/20 09:35 Potassium 4.1 mmol/L (3.4-5.1) 02/27/20 09:35 Chloride 102 mmol/L (98-107) 02/27/20 09:35 Carbon Dioxide 28 mmol/L (22-32) 02/27/20 09:35 BUN 24 mg/dL (7-17) H 02/27/20 09:35 Creatinine 0.70 mg/dL (0.52-1.04) 02/27/20 09:35 Estimated GFR > 60.0 mL/min (>60) 02/27/20 09:35 BUN/Creatinine Ratio 34.3 (6-22) H 02/27/20 09:35 Glucose 96 mg/dL (80-110) 02/27/20 09:35 Calcium 9.9 mg/dL (8.4-10.2) 02/27/20 09:35 Total Bilirubin 0.5 mg/dL (0.2-1.3) 02/27/20 09:35 AST 31 IU/L (14-36) 02/27/20 09:35 ALT 15 IU/L (<35) 02/27/20 09:35 Alkaline Phosphatase 88 U/L (38-126) 02/27/20 09:35 Total Protein 8.4 g/dL (6.3-8.2) H 02/27/20 09:35 Albumin 4.4 g/dL (3.5-5.0) 02/27/20 09:35 Globulin 4.0 g/dL (1.7-4.1) 02/27/20 09:35 Albumin/Globulin Ratio 1.1 (1.0-2.8) 02/27/20 09:35 Alpha Fetoprotein 8.1 ng/mL (0.0-8.3) 02/27/20 09:35 Serum Immunofixation See note 04/01/18 11:30 HCV RNA Genotype LiPA Not detected 12/13/18 10:28 - Imaging Additional studies: Procedures Other endoscopy of small intestine (08/18/13) Transfusion of Nonautologous Plasma Cryoprecipitate into Peripheral Vein, Percutaneous Approach (06/19/15) Transfusion of packed cells (08/18/13) Assessment and Plan (1) Hepatocellular carcinoma 80 year old with multifoal recurrent hepatocellular carcinoma s/p chemoembolization as well as RFA. Due to rising AFP, repeat MRI liver protocol on 07/26/2019 showed new localized lesions consistent with recurrence of her hepatocellular carcinoma. Dr. Barrera from [facility] recommended against the radiofrequency ablation. The case was subsequently referred to [facility]; however patient did not keep the appointment out of concern for COVID infection. Her AFP level increased to 915 on 12/20/2019 at [facility]. Patient was referred back to us for continued evaluation. Patient was started on palliative treatment with atezolizumab and bevacizumab on 02/27/2020. Overall she has tolerated well. I noticed that her blood pressure is elevated. In addition patient admitted to smoking. Talked with her that it would be important for her to continue follow-up with her primary care provider and also she needs to consider to stop smoking. As far as the fatigue, we can and sleepiness are concerned, I will recheck the thyroid function. Previously it was within the normal range. With immunotherapy, it is possible that patient may develop hypothyroidism. I will follow-up on the laboratory test results from today. Plan: Ok to proceed to C2# Atezo/Laura RTC in 3 weeks for C3#, labs per protocol (2) Port-A-Cath in place flush every 4-6 weeks (3) Cirrhosis of liver Biopsy proven. Stable. CPS A5, Dr. Zavala is following (4) Primary cancer of left upper lobe of lung Patient underwent left upper lobectomy. Since then no clinical imaging evidence of disease recurrence or metastasis. CT chest on 03/08/2018 showed no evidence of disease recurrence or metastasis. Will continue active surveillance. (5) History of laryngeal cancer The records indicated that the patient received concurrent chemotherapy cisplatin and radiotherapy. Patient endorsed a left-sided lymph nodes enlargement. On my physical examination at level 2 there is a fixed tender 1 cm x 2 cm lymph node. The PET scan from 08/17/2019 noted symmetrical uptake in the throat. On 09/21/2019, she was seen by Dr. Thiago Waldrop. Fiberoptic exam showed no obvious lesions. Plan: Continue active surveillance.
[2020-03-19 08:29] VITALS: BP 165/103; PULSE 66; RESP 18; TEMP 35.9; O2SAT 95
[2020-03-19 09:27] LABS: Add Manual Diff / Slide Review NO; Basophils Absolute Auto 0 /uL (0-100); Basophils Percent Auto 1.3 % (0-2); Eosinophils Absolute Auto 0 /uL (0-450); Eosinophils Percent Auto 0.8 % (2-4); Hematocrit 38.3 % (36-46); Hemoglobin 12.5 g/dL (12.0-16.0); Lymphocytes Absolute Auto 500 /uL (1100-4500); Mean Corpuscular HGB Conc 32.8 % (30-36); Mean Corpuscular Hemoglobin 28.1 PG (26-34); Mean Corpuscular Volume 85.8 fL (80-100); Monocytes Absolute Auto 300 /uL (0-900); Monocytes Percent Auto 8.1 % (3-14); Neutrophils Absolute Auto 2300 /uL (1500-7000); Neutrophils Percent Auto 72.8 % (50-75); Platelet Count 123 X10^3/uL (150-400); Red Blood Cell Count 4.46 X10^6/uL (4.0-5.2); Red Cell Distribution Width 15.5 % (11.6-14.8); White Blood Cell Count 3.2 X10^3/uL (4.5-11.0)
[2020-03-19 09:34] LABS: Alanine Aminotransferase 14 IU/L (<35); Albumin 4.1 g/dL (3.5-5.0); Albumin Globulin Ratio 1.1 (1.0-2.8); Alkaline Phosphatase 91 U/L (38-126); Aspartate Aminotransferase 31 IU/L (14-36); BUN Creatinine Ratio 41.4 (6-22); Bilirubin Total 0.3 mg/dL (0.2-1.3); Blood Urea Nitrogen 24 mg/dL (7-17); Calcium 9.2 mg/dL (8.4-10.2); Carbon Dioxide 29 mmol/L (22-32); Chloride 103 mmol/L (98-107); Estimated Glomerular Filt Rate > 60.0 mL/min (>60); Globulin 3.6 g/dL (1.7-4.1); Glucose 103 mg/dL (80-110); HEMOLYSIS < 15 (0-50); Sodium 136 mmol/L (137-145); Total Protein 7.7 g/dL (6.3-8.2)
[2020-03-19 09:41] VITALS: BP 158/95; PULSE 64
[2020-03-19] MEDS: diphenhydrAMINE 25 MG TABLET PO (09:51)
[2020-03-19] MEDS: ACETAMINOPHEN 325 MG TABLET 650 MG PO (09:51)
[2020-03-19] MEDS: SODIUM CHLORIDE 0.9% 100 ML 21 ML IV (09:51)
[2020-03-19] MEDS: SODIUM CHLORIDE 0.9% IV ×2 (10:23→11:11)
[2020-03-19] MEDS: ATEZOLIZUMAB IV (10:23)
[2020-03-19] MEDS: BEVACIZUMAB IV (11:11)
[2020-04-09 09:10] LABS: Add Manual Diff / Slide Review NO; Basophils Absolute Auto 0 /uL (0-100); Basophils Percent Auto 1.2 % (0-2); Eosinophils Absolute Auto 0 /uL (0-450); Eosinophils Percent Auto 0.8 % (2-4); Hematocrit 37.3 % (36-46); Hemoglobin 12.3 g/dL (12.0-16.0); Lymphocytes Absolute Auto 600 /uL (1100-4500); Lymphocytes Percent Auto 17.5 % (25-40); Mean Corpuscular Hemoglobin 27.8 PG (26-34); Mean Corpuscular Volume 84.2 fL (80-100); Monocytes Absolute Auto 200 /uL (0-900); Neutrophils Absolute Auto 2500 /uL (1500-7000); Neutrophils Percent Auto 73.5 % (50-75); Platelet Count 149 X10^3/uL (150-400); Red Blood Cell Count 4.43 X10^6/uL (4.0-5.2); Red Cell Distribution Width 14.9 % (11.6-14.8); White Blood Cell Count 3.4 X10^3/uL (4.5-11.0)
[2020-04-09 09:15] VITALS: BP 149/84; PULSE 55; RESP 18; TEMP 36.6; O2SAT 98
[2020-04-09 09:32] LABS: Alanine Aminotransferase 15 IU/L (<35); Albumin 4.1 g/dL (3.5-5.0); Albumin Globulin Ratio 1.1 (1.0-2.8); Alkaline Phosphatase 86 U/L (38-126); Aspartate Aminotransferase 36 IU/L (14-36); BUN Creatinine Ratio 30.2 (6-22); Bilirubin Total 0.4 mg/dL (0.2-1.3); Blood Urea Nitrogen 19 mg/dL (7-17); Calcium 9.2 mg/dL (8.4-10.2); Carbon Dioxide 30 mmol/L (22-32); Chloride 101 mmol/L (98-107); Estimated Glomerular Filt Rate > 60.0 mL/min (>60); Globulin 3.7 g/dL (1.7-4.1); Glucose 98 mg/dL (80-110); HEMOLYSIS < 15 (0-50); Sodium 135 mmol/L (137-145); Total Protein 7.8 g/dL (6.3-8.2)
--- NOTE | 2020-04-09 09:55 | ONC.PN ---
PN -Subjective Interval history: ID/CC: Etta is a 80 year old female with hepatocellular carcinoma s/p chemoembolization now on surveillance, chronic hepatitis C (genotype 1A), and SCC of epiglottis diagnosed 2005, s/p cisplatin/XRT as well as left upper lobe stage I lung cancer status post left resection 2008. She presents today for scheduled follow up visit. History of Present illness Etta has a history of hepatitic C diagnosed in 1996 likely related to intravenous drug use and multiple tattoos. She also underwent liver biopsy in 2003 showing necro-inflammatory activity, grade 2/3, and the liver fibrosis stage III. She did not receive any therapy due to psychiatric history of noncompliance. In Jan 2016, blood test showed that her hepatitis C RNA PCR 5.65 logs with a Genotype 1A. On August 19, 2018, patient underwent upper endoscopy by Dr. Armin Canela. 4 columns of grade 1 esophageal varices at the distal esophagus, mild portal hypertension gastropathy, mild non-erosive gastritis were seen. Patient said that she has never been treated for hepatitis C until 2019 when she completed a full course of treatment with Harvoni for her known hepatitis C under the care of Dr. Zavala. She was diagnosed with squamous cell carcinoma of the epiglottis in 2004. She underwent concurrent cisplatin and radiotherapy in Jan, 2006. She was diagnosed with non-small cell lung cancer T1 N0 Mx in Apr 2008 and underwent left upper lobectomy. She was diagnosed with hepatocellular carcinoma based on MR imaging reporting a 1.2 cm lesion in the right hepatic lobe. She underwent chemoembolization on June 23, 2016. On 10/06/2018, Dr. Jennifer Barrera performed laparoscopic radiofrequency ablation of both the initial HCC and the second HCC that had developed. Due to rising AFP, MRI was repeated on 07/26/2019 that showed new localized lesions consistent with recurrence of her hepatocellular carcinoma. Dr. Jennifer Barrera saw the patient on 08/10/2019, and recommended against the radiofrequency ablation. Dr. Barrera also had the case reviewed at an outside HCC liver tumor board, and it was deemed that these lesions had not changed significantly from her prior imaging, and therefore short interval follow-up was recommended. The patient was also referred to for evaluation. However, she did not go to out of fear of COVID. On 09/21/2019, she was seen by Dr. Thiago Waldrop for follow up visit due to her previous history of laryngeal carcinoma. Fiberoptic exam showed no obvious lesions. Patient underwent port placement on 02/07/2020. On 02/27/2020, patient was started on palliative treatment with atezolizumab and bevacizumab. Interim Events: She presents for cycle 3# atezolizumab and bevacizumab. Overall she has tolerated quite well. Clinically she is reporting that her stomach feels uncomfortable at times. She said she has some nausea but no vomiting. She denies any abdominal pain but complains some bloating and discomfort with lots of gas. She denies any diarrhea. She said the bowel movement has been ?good?. She denies any fever or chills. She said she feels ?cold all the time?. She feels like sleeping all the time too. - Patient Self-Reported Symptoms SR Constitution: Chills, Weight loss/gain, Fatigue/Malaise, Night Sweats SR eye issues: Vision changes, Double vision SR ears, nose, mouth, throat issues: Ears ringing, Congestion, Cough SR respiratory issues: Cough, Shortness of breath, Mucous SR Cardiovascular issues: Dizzy/lightheaded SR Skin issues: Dry skin SR Gastrointestinal issues: Poor or no appetite, Change in bowel pattern, Diarrhea SR Genitourinary issues: Frequent urination, Incontinence SR Musculoskeletal issues: Joint pain or swelling, Muscle weakness, Muscle pain or cramps, Back or neck pain, Cold hands or feet, Bone pain SR Neuro issues: Lightheaded/dizzy, Numbness or tingling, Tremors or shaking, Difficulty balancing SR Hematologic issues: Bleeding/bruising SR Endocrine issues: Cold intolerance - Additional ROS All systems PM: reviewed and no additional remarkable complaints except as stated Home Medications and Allergies Home Medications Medication Instructions Recorded Confirmed Type Disabled Parking Permit 1 dev MISCELLANEOUS DIRECTED 09/15/17 04/09/20 History Incontinence Supplies 1 ea MISCELLANEOUS DIRECTED 09/15/17 04/09/20 History tiotropium bromide 2.5 2 puff INHALATION DAILY 06/22/19 04/09/20 History mcg/actuation mist for inhalation albuterol sulfate 90 mcg/actuation 2 puff INHALATION Q4-6H #18 gram 08/20/19 04/09/20 Rx aerosol inhaler aspirin 81 mg PO DAILY 08/25/19 04/09/20 History cilostazol 50 mg PO BID 08/25/19 04/09/20 History levothyroxine 50 mcg tablet 50 mcg PO DAILY #90 tab 10/10/19 04/09/20 Rx gabapentin 400 mg capsule 400 mg PO TID #270 cap 12/16/19 04/09/20 Rx metoprolol tartrate 25 mg tablet 12.5 mg PO BID #90 tab 12/16/19 04/09/20 Rx tolterodine 2 mg capsule,extended 2 mg PO DAILY #30 cap 12/16/19 04/09/20 Rx release 24 hr lorazepam 0.5 mg tablet See Rx Instructions .ROUTE 01/30/20 04/09/20 Rx .COMPLEX #45 tab varenicline 0.5 mg (11)-1 mg (42) See Rx Instructions PO PER PKG DIR 02/03/20 04/09/20 Rx tablets in a dose pack #53 ea varenicline 1 mg tablet 1 mg PO BID #56 tab 02/03/20 04/09/20 Rx prochlorperazine maleate 5 mg PO BID PRN #20 tab 02/20/20 04/09/20 Rx [Compazine] lorazepam 0.5 mg tablet 0.5 mg PO BEDTIME PRN #30 tab 03/05/20 04/09/20 Rx Allergies Allergy/AdvReac Type Severity Reaction Status Date / Time codeine [CODEINE] AdvReac Mild IT MADE Verified 04/03/20 09:48 ME SICK TO MY STOMACH Exam Vital signs: Last Vital Signs Temp 97.9 F 04/09/20 09:15 Pulse 55 L 04/09/20 09:15 Resp 18 04/09/20 09:15 BP 149/84 H 04/09/20 09:15 Pulse Ox 98 04/09/20 09:15 - Constitutional positive no acute distress, positive thin, positive chronically ill appearing, positive cooperative - Routine HEENT Exam Head: Present: normocephalic, atraumatic Eye: Present: EOMI, PERRL, normal accommodation. Absent: conjunctival icterus - Routine Neck Exam Present: supple. Absent: lymphadenopathy, thyromegaly - Routine Respiratory Exam Present: Clear to auscultation bilaterally. Absent: wheezes - Routine Cardiovascular Exam Present: RRR, S1, S2. Absent: murmur, gallop, rubs - Routine Abdominal Exam Present: soft. Absent: tenderness, distended - Routine Extremities Exam Absent: edema - Routine Neurological Exam Present: alert, oriented X3, CN II-XII intact. Absent: sensory deficit, motor deficit - Routine Psychiatric Exam Present: normal affect Results - Labs Laboratory Last Values WBC 3.4 X10^3/uL (4.5-11.0) L 04/09/20 08:30 RBC 4.43 X10^6/uL (4.0-5.2) 04/09/20 08:30 Hgb 12.3 g/dL (12.0-16.0) 04/09/20 08:30 Hct 37.3 % (36-46) 04/09/20 08:30 MCV 84.2 fL (80-100) 04/09/20 08:30 MCH 27.8 PG (26-34) 04/09/20 08:30 MCHC 33.0 % (30-36) 04/09/20 08:30 RDW 14.9 % (11.6-14.8) H 04/09/20 08:30 Plt Count 149 X10^3/uL (150-400) L 04/09/20 08:30 Neut % (Auto) 73.5 % (50-75) 04/09/20 08:30 Lymph % (Auto) 17.5 % (25-40) L 04/09/20 08:30 [place] % (Auto) 7.0 % (3-14) 04/09/20 08:30 Eos % (Auto) 0.8 % (2-4) L 04/09/20 08:30 Baso % (Auto) 1.2 % (0-2) 04/09/20 08:30 Neut # (Auto) 2500 /uL (1978-0021) 04/09/20 08:30 Lymph # (Auto) 600 /uL (7863-6089) L 04/09/20 08:30 [place] # (Auto) 200 /uL (0-900) 04/09/20 08:30 Eos # (Auto) 0 /uL (0-450) 04/09/20 08:30 Baso # (Auto) 0 /uL (0-100) 04/09/20 08:30 PT 13.2 SECONDS (10.1-12.7) H 02/27/20 09:35 INR 1.1 (0.9-1.3) 02/27/20 09:35 Sodium 135 mmol/L (137-145) L 04/09/20 08:30 Potassium 4.0 mmol/L (3.4-5.1) 04/09/20 08:30 Chloride 101 mmol/L (98-107) 04/09/20 08:30 Carbon Dioxide 30 mmol/L (22-32) 04/09/20 08:30 BUN 19 mg/dL (7-17) H 04/09/20 08:30 Creatinine 0.63 mg/dL (0.52-1.04) 04/09/20 08:30 Estimated GFR > 60.0 mL/min (>60) 04/09/20 08:30 BUN/Creatinine Ratio 30.2 (6-22) H 04/09/20 08:30 Glucose 98 mg/dL (80-110) 04/09/20 08:30 Calcium 9.2 mg/dL (8.4-10.2) 04/09/20 08:30 Total Bilirubin 0.4 mg/dL (0.2-1.3) 04/09/20 08:30 AST 36 IU/L (14-36) 04/09/20 08:30 ALT 15 IU/L (<35) 04/09/20 08:30 Alkaline Phosphatase 86 U/L (38-126) 04/09/20 08:30 Total Protein 7.8 g/dL (6.3-8.2) 04/09/20 08:30 Albumin 4.1 g/dL (3.5-5.0) 04/09/20 08:30 Globulin 3.7 g/dL (1.7-4.1) 04/09/20 08:30 Albumin/Globulin Ratio 1.1 (1.0-2.8) 04/09/20 08:30 Alpha Fetoprotein 373.0 ng/mL (0.0-8.3) H 03/19/20 09:10 TSH 5.83 uIU/mL (0.47-4.68) H 04/09/20 08:30 Serum Immunofixation See note 04/01/18 11:30 HCV RNA Genotype LiPA Not detected 12/13/18 10:28 - Imaging Additional studies: Procedures Other endoscopy of small intestine (08/18/13) Transfusion of Nonautologous Plasma Cryoprecipitate into Peripheral Vein, Percutaneous Approach (06/19/15) Transfusion of packed cells (08/18/13) Assessment and Plan (1) Hepatocellular carcinoma 80 year old with multifoal recurrent hepatocellular carcinoma s/p chemoembolization as well as RFA. Due to rising AFP, repeat MRI liver protocol on 07/26/2019 showed new localized lesions consistent with recurrence of her hepatocellular carcinoma. Dr. Barrera from [facility] recommended against the radiofrequency ablation. The case was subsequently referred to [facility]; however patient did not keep the appointment out of concern for COVID infection. Her AFP level increased to 915 on 12/20/2019 at [facility]. Patient was referred back to us for continued evaluation. Patient was started on palliative treatment with atezolizumab and bevacizumab on 02/27/2020. Plan: Ok to proceed to C3# [facility]te[facility]/Laura RTC in 3 weeks for C4#, labs per protocol (2) Port-A-Cath in place flush every 4-6 weeks (3) Cirrhosis of liver Biopsy proven. Stable. CPS A5, Dr. Zavala is following (4) Primary cancer of left upper lobe of lung Patient underwent left upper lobectomy. Since then no clinical imaging evidence of disease recurrence or metastasis. CT chest on 03/08/2018 showed no evidence of disease recurrence or metastasis. Will continue active surveillance. (5) History of laryngeal cancer The records indicated that the patient received concurrent chemotherapy cisplatin and radiotherapy. Patient endorsed a left-sided lymph nodes enlargement. On my physical examination at level 2 there is a fixed tender 1 cm x 2 cm lymph node. The PET scan from 08/17/2019 noted symmetrical uptake in the throat. On 09/21/2019, she was seen by Dr. Thiago Waldrop. Fiberoptic exam showed no obvious lesions. Plan: Continue active surveillance.
[2020-04-09] MEDS: diphenhydrAMINE 25 MG TABLET PO (10:20)
[2020-04-09] MEDS: SODIUM CHLORIDE 0.9% 100 ML 21 ML IV (10:20)
[2020-04-09] MEDS: ACETAMINOPHEN 325 MG TABLET 650 MG PO (10:20)
[2020-04-09 10:31] LABS: Thyroid Stimulating Hormone 5.83 uIU/mL (0.47-4.68)
[2020-04-09] MEDS: ATEZOLIZUMAB IV (11:48)
[2020-04-09] MEDS: SODIUM CHLORIDE 0.9% IV ×2 (11:48→12:32)
[2020-04-09] MEDS: BEVACIZUMAB IV (12:32)
--- NOTE | 2020-04-18 13:26 | ONC.MSW ---
*Sent bereavement card.
--- NOTE | 2020-04-18 13:29 | ONC.MSW ---
*Sent bereavement card.
== END ==
PROVIDERS: Nurse Practitioner Gerontology; Family Provider Internal Medicine Gastroenterology; PCP Registered Nurse Diabetes Educator; Visit Provider Internal Medicine Hematology & Oncology
DX: Z51.11 Encounter for antineoplastic chemotherapy (principal); Z51.12 Encounter for antineoplastic immunotherapy; C22.0 Liver cell carcinoma; K74.60 Unspecified cirrhosis of liver; B18.2 Chronic viral hepatitis C; Z85.21 Personal history of malignant neoplasm of larynx; Z85.118 Personal history of other malignant neoplasm of bronchus and lung; Z95.828 Presence of other vascular implants and grafts
CPT/HCPCS: 36415; 36591; 70491; 71260; 80048; 80053; 82105; 82784; 84155; 84443; 85025; 85610; 86334; 87902; 96413; 96415; 96417; 99214; 99215; J9022; J9035; M1145; Q9967